=== PATIENT | female | born 1945 | race Caucasian/White ===

== ENCOUNTER 2016-11-21 18:42 | Observation (INO) | payer MEDICARE, OTHER ==
[2016-11-21] MEDS ORDERED: ACETAMINOPHEN 1000 MG/100 ML VIAL (NON FORMULARY) IVPB ONE (20:05)
[2016-11-21] MEDS ORDERED: ACETAMINOPHEN INJECTION 100 ML IVPB ONE (20:07)
[2016-11-21 20:13] LABS: BASOPHIL 0.6 % (0-2.0); EOSINOPHIL 2.2 % (0-4.5); MCH 31.6 pg (25.7-33.7); MCHC 33.6 g/dl (32.0-36.0); MEAN PLT VOLUME 8.7 fl (7.5-11.1); PLATELET COUNT 203 K/MM3 (134-434); RDW 14.5 % (11.6-15.6); WHITE BLOOD COUNT 7.1 K/mm3 (4.0-10.0)
--- NOTE | 2016-11-21 20:15 | PDOC ---
History of Present Illness - General Chief Complaint: Injury Stated Complaint: FALL Time Seen by Provider: 11/21/16 19:19 - History of Present Illness Initial Comments: 11/21/16 20:14 CHIEF COMPLAINT: fall HISTORY OF PRESENT ILLNESS: 71 yo F with hx of NIDDM, HTN, HLD presents to ED s/ p fall. Patient states that "I got dizzy because I didn't eat breakfast today, and I fell onto my back and hit my head." Patient denies any blurry vision, chest pain, shortness of breath. She denies any pain to extremities, any LOC, and denies any nausea, vomiting, current dizziness/headache. No recent travel or sick contacts. PAST MEDICAL HISTORY: Denies past medical history FAMILY HISTORY: Denies SOCIAL HISTORY: Denies tobacco, alcohol, illicit drug use. SURGICAL HISTORY: Denies ALLERGIES: No known drug allergies REVIEW OF SYSTEMS General/Constitutional: Denies fever or chills. Denies weakness, weight change. HEENT: Denies change in vision. Denies ear pain or discharge. Denies sore throat. Cardiovascular: Denies chest pain or shortness of breath. Respiratory: Denies cough, wheezing, or hemoptysis. Gastrointestinal: Denies nausea, vomiting, diarrhea or constipation. Denies rectal bleeding. Genitourinary: Denies dysuria, frequency, or change in urination. Musculoskeletal: Pain to upper back, neck, head. Skin and breasts: Denies rash or easy bruising. Neurologic: Denies headache, vertigo, loss of consciousness, or loss of sensation. PHYSICAL EXAM General Appearance: Well-appearing, appropriately dressed. No apparent distress. HEENT: EOMI, PERRLA, normal ENT inspection, normal voice, TMs normal, pharynx normal. No conjunctival pallor. No photophobia, scleral icterus. Neck: Supple. Trachea midline. No tenderness, rigidity, carotid bruit, stridor , lymphadenopathy, or thyromegaly. Respiratory/Chest: Lungs CTAB. Cardiovascular: RRR. S1, S2. Vascular Pulses: Dorsalis-Pedis (R): 2+, Dorsalis-Pedis (L): 2+ Gastrointestinal/Abdominal: Normal bowel sounds. Abdomen soft, non-distended. No tenderness or rebound tenderness. No organomegaly, pulsatile mass, guarding , hernia, hepatomegaly, splenomegaly. Musculoskeletal/Extremities: Normal inspection. FROM of all extremities, normal capillary refill. Pelvis Stable. No CVA tenderness. No tenderness to extremities, pedal edema, swelling, erythema or deformity. Integumentary: Appropriate color, dry, warm. No cyanosis, erythema, jaundice or rash Neurologic: commercial art instructor II-XII intact. Fully oriented, alert. Appropriate mood/affect. Motor strength 5/5. No appreciable EOM palsy, facial droop or sensory deficit.A &Ox3, follow commands, respond appropriately CN2-12: conjugate gaze, pupil round, equal and reactive to light. Visual field full to confrontation. EOMI without nystagmus, pursuit is smooth without saccade. Facial sensation and muscle activation intact bilaterally. Hearing intact bilaterally. Palate elevate symmetrically. Shoulder shrug and neck turn full strength. Tongue protrude midline. Motor: UE and LE strength 5/5 throughout bilaterally. Muscle tone and bulk normal. Cerebellar: Rapid-alternating movement with regular rhythm without bradykinesia. Ghyeoh-iw-bpyc and mpie-sc-yumh intact bilaterally without dysmetria or overshoot. Gait narrow based. No shuffling. Full hip flexion and knee flexion. Negative Romberg No involuntary movement noted. No pronator drift. No clonus. 11/21/16 23:31 Past History - Past Medical History Allergies/Adverse Reactions: Allergies Allergy/AdvReac Type Severity Reaction Status Date / Time No Known Allergies Allergy Verified 11/21/16 18:55 Home Medications: Ambulatory Orders Amlodipine Besylate [Norvasc -] 0 mg PO DAILY 11/21/16 Aspirin [ASA -] 81 mg PO DAILY 11/21/16 Metformin HCl [Metformin HCl ER] 0 mg PO DAILY 11/21/16 Metoprolol Succinate [Toprol Xl -] 0 mg PO DAILY 11/21/16 Pravastatin Sodium 0 mg PO DAILY 11/21/16 Diabetes: Yes HTN: Yes Hypercholesterolemia: Yes - Suicide/Smoking/Psychosocial Hx Smoking History: Current every day smoker Number of Cigarettes Smoked Daily: 2 Information on smoking cessation initiated: No Hx Alcohol Use: No Drug/Substance Use Hx: No *Physical Exam - Vital Signs Last Vital Signs Temp Pulse Resp BP Pulse Ox 98.4 F 78 18 144/70 98 11/21/16 18:51 11/21/16 18:51 11/21/16 18:51 11/21/16 18:51 11/21/16 18:51 ED Treatment Course - LABORATORY CBC & Chemistry Diagram: 11/21/16 19:45 11/21/16 19:45 - RADIOLOGY Radiology Studies Ordered: Category Date Time Status CERVICAL SPINE CT W/O CONTR [CT] Stat CT Scan 11/21/16 19:[address] WITHOUT CONTRAST [CT] Stat CT Scan 11/21/16 19:21 Ordered - Medications Given in the ED: ED Medications Discontinued Medications Generic Name Dose Route Start Last Admin Trade Name Blanche PRN Reason Stop Dose Admin Acetaminophen 1,000 mg 11/21/16 20:05 11/21/16 20:10 Ofirmev Injection - IVPB 11/21/16 20:06 1,000 mg ONCE ONE Administration Medical Decision Making - Medical Decision Making 11/21/16 20:28 71 yo F with hx of NIDDM, HTN, HLD presents to ED s/p fall. Patient states that "I got dizzy because I didn't eat breakfast today, and I fell onto my back and hit my head." Patient VSS, no focal neurological deficits. -CBC, CMP, POC, card profile -Head/c-spine CT 11/21/16 23:[address] results: Symmetric lucency in posterior one third of the cerebral likely an artifact. Confirmation with MRI needed - is there any clinical concern for an acute infarct? Mild volume loss and moderate chronic microvascular ischemic changes. No mass lesion or intracranial hemorrhage are identified. C-spine CT results: No gross fracture or subluxation seen. Mild degenerative disc disease at C5-C6 and C6-C7 level with mild anterior and posterior spur formation. Patient continues to be neurologically intact and is ambulating without weakness. Family at bedside report that she is acting per baseline. Patient denies any pain, headache, dizziness, weakness at this time. Discussed case with on-call neuro MD Mcpherson. Will admit to obs for brain MRI to r/o infarct. *DC/Admit/Observation/Transfer Diagnosis at time of Disposition: Fall Qualifiers: Encounter type: initial encounter Qualified Code(s): W19.XXXA - Unspecified fall, initial encounter; W19.XXXA - Unspecified fall, initial encounter Transient cerebral ischemia Qualifiers: Transient cerebral ischemia type: unspecified Qualified Code(s): G45.9 - Transient cerebral ischemic attack, unspecified; G45.9 - Transient cerebral ischemic attack, unspecified; G45.9 - Transient cerebral ischemic attack, unspecified - Discharge Dispostion Admit: Yes
[2016-11-21 20:26] LABS: INR 0.88 (0.82-1.09); PROTHROMBIN TIME (PATIENT) 9.9 SEC (9.98-11.88)
[2016-11-21 20:36] LABS: ALBUMIN 3.2 g/dl (3.4-5.0); ANION GAP 7 (8-16); BILIRUBIN,TOTAL 0.3 mg/dL (0.2-1.0); CALCIUM 8.4 mg/dL (8.5-10.1); CO2 33 mmol/L (21-32); CREATININE 1.2 mg/dL (0.55-1.02); GLUCOSE,RANDOM 130 mg/dL (74-106); SGOT/AST 15 U/L (15-37); SGPT/ALT 24 U/L (12-78)
[2016-11-21 20:39] LABS: ALK PHOS 145 U/L (45-117); CPK 89 IU/L (26-192); TOT PROT 6.7 g/dl (6.4-8.2); TROPONIN I < 0.02 ng/ml (0.00-0.05)
[2016-11-21] MEDS ORDERED: SODIUM CHLORIDE 0.9% 1000 ML INFUS.BAG IV ONE (20:43)
[2016-11-21 23:11] LABS: URINE APPEARANCE CLEAR; URINE BILIRUBIN NEGATIVE (NEGATIVE); URINE BLOOD NEGATIVE (NEGATIVE); URINE COLOR LTYELLOW; URINE GLUCOSE (UA) NEGATIVE (NEGATIVE); URINE KETONE NEGATIVE (NEGATIVE); URINE NITRITE NEGATIVE (NEGATIVE); URINE PROTEIN NEGATIVE (NEGATIVE); URINE UROBILINOGEN NEGATIVE mg/dL (0.2-1.0)
--- NOTE | 2016-11-22 09:07 | EKG ---
Test Reason : Blood Pressure : / mmHG Vent. Rate : 068 BPM Atrial Rate : 068 BPM P-R Int : 198 ms QRS Dur : 090 ms QT Int : 406 ms P-R-T Axes : 072 -10 057 degrees QTc Int : 431 ms NORMAL SINUS RHYTHM MINIMAL VOLTAGE CRITERIA FOR LVH, MAY BE NORMAL VARIANT POSSIBLE ANTERIOR INFARCT , AGE UNDETERMINED ABNORMAL ECG NO PREVIOUS ECGS AVAILABLE Confirmed by BUTCH SIBLEY MD ([id number]) on 11/22/2016 9:06:54 AM Referred By: Confirmed By:BUTCH SIBLEY MD
[2016-11-22 09:35] LABS: URINE LEUK ESTERASE Negative (NEGATIVE)
[2016-11-22] MEDS ORDERED: ACETAMINOPHEN 325 MG TABLET (FP) PO PRN (10:26)
[2016-11-22] MEDS ORDERED: amLODIPine BESYLATE 5 MG TABLET (FP) PO SCH (10:30)
[2016-11-22] MEDS ORDERED: LIDOCAINE 5% TOPICAL PATCH TP SCH (10:30)
--- NOTE | 2016-11-22 10:45 | CONSULT ---
Consult - text type - Consultation Consultation Note: Neurology History of Present Illness HISTORY OF PRESENT ILLNESS: 71 yo F with hx of NIDDM, HTN, HLD presents to ED s/ p fall. Patient states that "I got dizzy because I didn't eat breakfast today, and I fell onto my back and hit my head." Patient denies any blurry vision, chest pain, shortness of breath. She denies any pain to extremities, any LOC, and denies any nausea, vomiting, current dizziness/headache. She compelted CT head in the ER and showed "Symmetric lucency in posterior one third of the cerebral likely an artifact. Confirmation with MRI needed - is there any clinical concern for an acute infarct? Mild volume loss and moderate chronic microvascular ischemic changes. No mass lesion or intracranial hemorrhage are identified." MRI brain ordered, admitted for further evaluation and clarify if artifact. CT C spine also completed and reviewed with no gross fracture or subluxation seen. Mild degenerative disc disease at C5-C6 and C6-C7 level with mild anterior and posterior spur formation. Past History - Past Medical History Allergies/Adverse Reactions: Allergies Allergy/AdvReac Type Severity Reaction Status Date / Time No Known Allergies Allergy Verified 11/21/16 18:55 Home Medications: Ambulatory Orders Amlodipine Besylate [Norvasc -] 0 mg PO DAILY 11/21/16 Aspirin [ASA -] 81 mg PO DAILY 11/21/16 Metformin HCl [Metformin HCl ER] 0 mg PO DAILY 11/21/16 Metoprolol Succinate [Toprol Xl -] 0 mg PO DAILY 11/21/16 Pravastatin Sodium 0 mg PO DAILY 11/21/16 Diabetes: Yes HTN: Yes Hypercholesterolemia: Yes FAMILY HISTORY: Denies SOCIAL HISTORY: Denies tobacco, alcohol, illicit drug use. SURGICAL HISTORY: Denies ALLERGIES: No known drug allergies REVIEW OF SYSTEMS General/Constitutional: Denies fever or chills. Denies weakness, weight change. HEENT: Denies change in vision. Denies ear pain or discharge. Denies sore throat. Cardiovascular: Denies chest pain or shortness of breath. Respiratory: Denies cough, wheezing, or hemoptysis. Gastrointestinal: Denies nausea, vomiting, diarrhea or constipation. Denies rectal bleeding. Genitourinary: Denies dysuria, frequency, or change in urination. Musculoskeletal: Pain to upper back, neck, head. Skin and breasts: Denies rash or easy bruising. Neurologic: Denies headache, vertigo, loss of consciousness, or loss of sensation. *Physical Exam Vital Signs Period Temp Pulse Resp BP Sys/Pack Pulse Ox Last 24 Hr 97.3 F-98.4 F 65-78 16-18 126-156/59-70 95-98 General Appearance: Well-appearing, appropriately dressed. No apparent distress. HEENT: EOMI, PERRLA, normal ENT inspection, normal voice, TMs normal, pharynx normal. No conjunctival pallor. No photophobia, scleral icterus. Neck: Supple. Trachea midline. No tenderness, rigidity, carotid bruit, stridor , lymphadenopathy, or thyromegaly. Respiratory/Chest: Lungs CTAB. Cardiovascular: RRR. S1, S2. Vascular Pulses: Dorsalis-Pedis (R): 2+, Dorsalis-Pedis (L): 2+ Gastrointestinal/Abdominal: Normal bowel sounds. Abdomen soft, non-distended. No tenderness or rebound tenderness. No organomegaly, pulsatile mass, guarding , hernia, hepatomegaly, splenomegaly. Neurologic: showroom executive director II-XII intact. Fully oriented, alert. Appropriate mood/affect. Motor strength 5/5. No appreciable EOM palsy, facial droop or sensory deficit.A&Ox3, follow commands , respond appropriately CN2-12: conjugate gaze, pupil round, equal and reactive to light. Visual field full to confrontation. EOMI without nystagmus, pursuit is smooth without saccade. Facial sensation and muscle activation intact bilaterally. Hearing intact bilaterally. Palate elevate symmetrically. Shoulder shrug and neck turn full strength. Tongue protrude midline. Motor: UE and LE strength 5/5 throughout bilaterally. Muscle tone and bulk normal. Cerebellar: Fjncbf-jp-yesb and uiyc-wh-pnqa intact bilaterally without dysmetria or overshoot. CBCD WBC 7.1 K/mm3 (4.0-10.0) 11/21/16 19:45 RBC 4.50 M/mm3 (3.60-5.2) 11/21/16 19:45 Hgb 14.2 GM/dL (10.7-15.3) 11/21/16 19:45 Hct 42.3 % (32.4-45.2) 11/21/16 19:45 MCV 94.0 fl (80-96) 11/21/16 19:45 MCHC 33.6 g/dl (32.0-36.0) 11/21/16 19:45 RDW 14.5 % (11.6-15.6) 11/21/16 19:45 Plt Count 203 K/MM3 (134-434) 11/21/16 19:45 MPV 8.7 fl (7.5-11.1) 11/21/16 19:45 CMP Sodium 142 mmol/L (136-145) 11/21/16 19:45 Potassium 3.9 mmol/L (3.5-5.1) 11/21/16 19:45 Chloride 102 mmol/L (98-107) 11/21/16 19:45 Carbon Dioxide 33 mmol/L (21-32) H 11/21/16 19:45 Anion Gap 7 (8-16) L 11/21/16 19:45 BUN 27 mg/dL (7-18) H 11/21/16 19:45 Creatinine 1.2 mg/dL (0.55-1.02) H 11/21/16 19:45 Creat Clearance w eGFR 44.04 (>60) 11/21/16 19:45 Calcium 8.4 mg/dL (8.5-10.1) L 11/21/16 19:45 Total Bilirubin 0.3 mg/dL (0.2-1.0) 11/21/16 19:45 AST 15 U/L (15-37) 11/21/16 19:45 ALT 24 U/L (12-78) 11/21/16 19:45 Alkaline Phosphatase 145 U/L (45-117) H 11/21/16 19:45 Total Protein 6.7 g/dl (6.4-8.2) 11/21/16 19:45 Albumin 3.2 g/dl (3.4-5.0) L 11/21/16 19:45 CT head reviewed Medical Decision Making 71 yo F with hx of NIDDM, HTN, HLD presents to ED s/p fall. Patient states that "I got dizzy because I didn't eat breakfast today, and I fell onto my back and hit my head." Patient denies any blurry vision, chest pain, shortness of breath. She denies any pain to extremities, any LOC, and denies any nausea, vomiting, current dizziness/headache. She compelted CT head in the ER and showed "Symmetric lucency in posterior one third of the cerebral likely an artifact. Confirmation with MRI needed - is there any clinical concern for an acute infarct? Mild volume loss and moderate chronic microvascular ischemic changes. No mass lesion or intracranial hemorrhage are identified." MRI brain ordered, admitted for further evaluation and clarify if artifact. Blood pressure monitoring, continue anti-HTN medications, goal range < 140/90. Continue ASA 81mg. Tight glycemic control, continue metformin. IF MRI negative, then likely for discharge.
[2016-11-22] MEDS ORDERED: INSULIN (NOVOLOG) ASPART 100 UNITS/ML 10ML VIAL ONE (10:49)
[2016-11-22] MEDS: INSULIN (NOVOLOG) ASPART 100 UNITS/ML 10ML VIAL SQ SCH ×2 (11:05→16:38)
[2016-11-22 13:30] VITALS: BMI 32.3
--- NOTE | 2016-11-22 13:38 | HP ---
Admitting History and Physical - Primary Care Physician PCP: Hossein Ogden - Admission Chief Complaint: fall History of Present Illness: 71 yo F with hx of NIDDM, HTN, HLD presents to ED s/p fall. Patient states that "I got dizzy because I didn't eat breakfast today, and I fell onto my back and hit my head." Patient denies any blurry vision, chest pain, shortness of breath. She denies any pain to extremities, any LOC, and denies any nausea, vomiting, current dizziness/headache. ct head - showed artifact vs infarct seen by neuro- mri ordered pt seen/ examined . chart reviewed comfortable feels well denies cp/ sob/ abd pain no u/ b trouble. No recent travel or sick contacts. FAMILY HISTORY: Denies SOCIAL HISTORY: Denies tobacco, alcohol, illicit drug use. SURGICAL HISTORY: Denies History Source: Patient Limitations to Obtaining History: No Limitations - Past Medical History ...: No - Advance Directives Advance Directives: Yes: Health Care Proxy - Smoking History Smoking history: Current every day smoker Have you smoked in the past 12 months: Yes Aproximately how many cigarettes per day: 2 - Alcohol/Substance Use Hx Alcohol Use: No Home Medications - Allergies Allergies/Adverse Reactions: Allergies Allergy/AdvReac Type Severity Reaction Status Date / Time No Known Allergies Allergy Verified 11/21/16 18:55 - Home Medications Home Medications: Ambulatory Orders Amlodipine Besylate [Norvasc -] 0 mg PO DAILY 11/21/16 Aspirin [ASA -] 81 mg PO DAILY 11/21/16 Metformin HCl [Metformin HCl ER] 0 mg PO DAILY 11/21/16 Metoprolol Succinate [Toprol XL -] 0 mg PO DAILY 11/21/16 Pravastatin Sodium 0 mg PO DAILY 11/21/16 Acetaminophen [Tylenol .Regular Strength -] 650 mg PO Q6H PRN #0 tablet Atorvastatin Ca [Lipitor] 10 mg PO HS tablet 11/22/16 Insulin (Novolog) [Novolog -] 0 units SQ TIDAC units 11/22/16 Lidocaine 5% Patch [Lidoderm -] 1 patch TP DAILY patch 11/22/16 Lidocaine Patch Removal [Lidoderm Patch Removal] 1 each MC DAILY@2200 each Family Disease History - Family Disease History Family History: Unremarkable Review of Systems - Review of Systems Constitutional: reports: No Symptoms Eyes: reports: No Symptoms HENT: reports: No Symptoms Neck: reports: No Symptoms Cardiovascular: reports: No Symptoms Respiratory: reports: No Symptoms Gastrointestinal: reports: No Symptoms Genitourinary: reports: No Symptoms Neurological: reports: No Symptoms Endocrine: reports: No Symptoms Hematology/Lymphatic: reports: No Symptoms Psychiatric: reports: No Symptoms Physical Examination Vital Signs: Vital Signs Temperature 97.8 F 11/22/16 10:00 Pulse Rate 65 11/22/16 10:00 Respiratory Rate 18 11/22/16 10:00 Blood Pressure 156/65 11/22/16 10:00 O2 Sat by Pulse Oximetry (%) 96 11/22/16 10:00 Constitutional: Yes: No Distress, Calm Eyes: Yes: WNL, Conjunctiva Clear HENT: Yes: WNL Neck: Yes: WNL, Supple, Other (no carotid bruie) Respiratory: Yes: CTA Bilaterally Gastrointestinal: Yes: Normal Bowel Sounds, Soft Edema: No Neurological: Yes: WNL, Alert, Cran Nerves II-XII Intact Psychiatric: Yes: Alert Imaging - Results Cat Scan: Report Reviewed EKG: Report Reviewed Problem List - Problems (1) Fall Code(s): W19.XXXA - UNSPECIFIED FALL, INITIAL ENCOUNTER Qualifiers: Encounter type: initial encounter Qualified Code(s): W19.XXXA - Unspecified fall, initial encounter; W19.XXXA - Unspecified fall, initial encounter (2) Hypertension Code(s): I10 - ESSENTIAL (PRIMARY) HYPERTENSION (3) NIDDY (non-insulin dependent diabetes mellitus in young) Code(s): E13.9 - OTHER SPECIFIED DIABETES MELLITUS WITHOUT COMPLICATIONS Assessment/Plan exam benign. harriet vasovagal ct scan - reviewed- fine mri brain - per neurology u/s carotid- may be done as out pt as pt wants to go home. anticipate d/c later today discussed with nursing staff.
[2016-11-22 14:25] VITALS: BP 132/56; PULSE 73; TEMP 98.3
[2016-11-22] MEDS ORDERED: ATORVASTATIN CA 10 MG TABLET (FP) PO SCH (22:00)
[2016-11-22] MEDS ORDERED: LIDOCAINE PATCH REMOVAL MC SCH (22:00)
[2016-11-23] MEDS ORDERED: METOPROLOL SUCCINATE 25 MG TAB.SR.24H (FP) PO SCH (10:00)
[2016-11-23] MEDS ORDERED: ASPIRIN 81 MG CHEWABLE TABLETS PO SCH (10:00)
== END 2016-11-22 18:25 | disposition home or self-care (01) ==
LOC: SUPCPDRO 18:42 → JER 18:42 → JERBED 11-22 00:53 → UNDOADMOB 11-22 01:04 → J6S 11-22 09:38
PROVIDERS: ADMIT Internal Medicine; ATTEND Internal Medicine
PROC: 3E033NZ Introduction of Analgesics, Hypnotics, Sedatives into Peripheral Vein, Percutaneous Approach (ICD-10-PCS; principal; 2016-11-22)
DX: Z91.81 History of falling (principal); I10 Essential (primary) hypertension; E11.9 Type 2 diabetes mellitus without complications; E78.5 Hyperlipidemia, unspecified; F17.210 Nicotine dependence, cigarettes, uncomplicated; Z79.84 Long term (current) use of oral hypoglycemic drugs; Z79.82 Long term (current) use of aspirin; W18.39XA Other fall on same level, initial encounter; Y93.9 Activity, unspecified; Y92.9 Unspecified place or not applicable
CPT/HCPCS: 36415; 70450-TC; 70551-TC; 72125-TC; 80053; 81003; 82550; 83605; 84484; 85025; 85610; 87086; 93005; 93010; 96374; 99285-25; G0378

== ENCOUNTER 2018-01-09 12:37 | Inpatient (IN) | payer MEDICARE, OTHER ==
[2018-01-09 12:58] VITALS: BMI 32.1
--- NOTE | 2018-01-09 13:06 | PDOC ---
History of Present Illness - General Chief Complaint: Shortness of Breath Stated Complaint: PCP SENT Time Seen by Provider: 01/09/18 13:04 - History of Present Illness Initial Comments: 01/09/18 14:12 The patient is a 72 year old female with a history of HTN, HLD, DM, CVA, CAD who presents for evaluation of shortness of breath. The patient is accompanied by family who assist in providing the history. They note that the patient began having cough, shortness of breath, body aches 2 days ago and was started on tamiflu at that time for presumed flu. However, the patient notes worsening symptoms and was noted to have a low O2 sat to 80 at her primary care provider' s office and was sent to the ED for further evaluation. She otherwise denies fevers, chills, Chest pain, nausea, vomiting, abdominal pain, or changes with urination or bowel movements. Past History - Past Medical History Allergies/Adverse Reactions: Allergies Allergy/AdvReac Type Severity Reaction Status Date / Time No Known Allergies Allergy Verified 01/09/18 12:51 Home Medications: Ambulatory Orders Albuterol Sulfate [Proventil HFA Inhaler -] 1 - 2 inh PO TID 01/09/18 Alprazolam [Xanax] 1 mg PO 01/09/18 Amlodipine/Valsartan [Exforge 10-320 mg Tablet] 10 mg PO DAILY 01/09/18 Atorvastatin Ca [Lipitor] 20 mg PO HS 01/09/18 Budesonide/Formeterol Fumarate [SYMBICORT 160/4.5mcg -] 1 inh PO DAILY 01/09/18 Ergocalciferol (Vitamin D2) [Vitamin D2] 50,000 unit PO ASDIR 01/09/18 Glipizide 5 mg PO DAILY 01/09/18 Hctz 25Mg/Triamterene [Dyazide 25/37.5MG -] 1 cap PO DAILY 01/09/18 Naproxen [Naprosyn -] 500 mg PO BID 01/09/18 Nebivolol HCl [Bystolic] 10 mg PO 01/09/18 Nicotine [Nicotine Patch 14mg/24 hr] 1 each TD 01/09/18 Olopatadine HCl [Patanol] 0.1 ASDIR 01/09/18 Oseltamivir Phosphate [Tamiflu -] 75 mg PO BID 01/09/18 Anemia: Yes Asthma: Yes Cancer: No 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) COPD: No CHF: No Dementia: No Diabetes: Yes GI Disorders: No Disorders: No HTN: Yes Hypercholesterolemia: Yes Liver Disease: No Seizures: No Thyroid Disease: No - Surgical History Abdominal Surgery: No Appendectomy: No Cardiac Surgery: No Cholecystectomy: No Lung Surgery: No Neurologic Surgery: No Orthopedic Surgery: No - Suicide/Smoking/Psychosocial Hx Smoking History: Current every day smoker Have you smoked in the past 12 months: Yes Number of Cigarettes Smoked Daily: 2 Information on smoking cessation initiated: No 'Breaking Loose' booklet given: 11/22/16 Hx Alcohol Use: No Drug/Substance Use Hx: No Substance Use Type: None Hx Substance Use Treatment: No Review of Systems - Review of Systems Comments:: 01/09/18 14:14 Constitutional: Body Aches. No fevers, chills, fatigue, HEENT: Nasal Congestion. No Rhinorrhea, visual changes Cardiovascular: No chest pain, syncope, palpitations, lightheadedness Respiratory: Cough, SOB. No Hemoptysis, Gastrointestinal: No Abdominal pain, Nausea, Vomiting, Constipation, Diarrhea, Melena Genitourinary: No Dysuria, Frequency, Urgency, Hesitancy, Hematuria, Flank pain Musculoskeletal: No Myalgia, arthralgia Skin: No rashes, itching, bruising, pallor Neurologic: No Headache, Dizziness, Numbness, Weakness, or Tingling Psychiatric: No Hallucinations. No SI or HI *Physical Exam - Vital Signs Last Vital Signs Temp Pulse Resp BP Pulse Ox 98.6 F 90 30 H 159/79 74 L 01/09/18 12:56 01/09/18 12:56 01/09/18 12:56 01/09/18 12:56 01/09/18 12:56 - Physical Exam Comments: 01/09/18 14:16 General Appearance: Nourished. No Apparent Distress HEENT: No Pharyngeal Erythema, Tonsillar Exudate, Tonsillar Erythema Neck: No Cervical Lymphadenopathy Respiratory/Chest: Poor air movement bilaterally with wheezing and course breath sounds. No Crackles, Rales, Rhonchi, Cardiovascular: Regular Rhythm, Regular Rate. No Murmur, Gallops, Rubs Gastrointestinal/Abdominal: Normal Bowel Sounds, Soft. No Guarding, Rebound, Tenderness Musculoskeletal: No CVA Tenderness Extremity: Normal Capillary Refill Integumentary: Normal Color, Dry, Warm Neurologic: Fully Oriented, Alert, Normal Mood/Affect, Normal Response, Moderate Sedation - Procedure Monitoring Vital Signs: Procedure Monitoring Vital Signs Temperature 98.6 F 01/09/18 12:56 Pulse Rate 90 01/09/18 12:56 Respiratory Rate 30 H 01/09/18 12:56 Blood Pressure 159/79 01/09/18 12:56 O2 Sat by Pulse Oximetry (%) 74 L 01/09/18 12:56 ED Treatment Course - LABORATORY CBC & Chemistry Diagram: 01/10/18 06:00 01/10/18 05:30 Medical Decision Making - Medical Decision Making 01/09/18 14:16 The patient is a 72 year old female with a history of HTN, HLD, DM, CVA, CAD who presents for evaluation of shortness of breath. Differential includes but is not limited to: COPD exacerbation, CHF, ACS, Pneumonia, Influenza, Infectious , Metabolic Derangement. Given the patient's history and physical exam, we will obtain a cbc, cmp, troponin, bnp, chest plain film, ekg, influenza swab to evaluate further. We will treat with duonebs, solumedrol and continue to monitor and reassess while here in the ED. The patient will likely be an admission given her exam and presentation. 01/09/18 17:15 CBC, cmp, troponin are unremarkable. BNP is elevated. Chest plain film demonstrates congestive changes. We discussed the case with the admitting team who accepted the patient for admission. *DC/Admit/Observation/Transfer Diagnosis at time of Disposition: COPD (chronic obstructive pulmonary disease) Qualifiers: COPD type: unspecified COPD Qualified Code(s): J44.9 - Chronic obstructive pulmonary disease, unspecified CHF (congestive heart failure) Qualifiers: Heart failure type: unspecified Heart failure chronicity: unspecified Qualified Code(s): I50.9 - Heart failure, unspecified - Discharge Dispostion Condition at time of disposition: Stable Decision to Admit order: Yes - Referrals - Patient Instructions - Post Discharge Activity
[2018-01-09] MEDS ORDERED: ALBUTEROL SO4 2.5/IPRATROPIUM 0.5 INH SOL 3 ML VIAL.NEB. NEB ONE ×2 (13:12)
[2018-01-09] MEDS ORDERED: methylPREDNISolone NA SUCC 125 MG/2 ML VIAL IVPUSH ONE (13:12)
[2018-01-09] MEDS ORDERED: methylPREDNISolone NA SUCC 125 MG/2 ML VIAL ONE (13:13)
[2018-01-09 14:04] LABS: BASO % 0.3 % (0-2.0); EOS % 0.1 % (0-4.5); HEMATOCRIT 42.8 % (32.4-45.2); HEMOGLOBIN 14.6 GM/dL (10.7-15.3); LYMPH % 24.1 % (8-40); MCH 31.7 pg (25.7-33.7); MCHC 34.1 g/dl (32.0-36.0); MEAN CELL VOLUME 92.8 fl (80-96); MEAN PLT VOLUME 8.1 fl (7.5-11.1); MONO % 10.7 % (3.8-10.2); NEUT % 64.8 % (42.8-82.8); PLATELET COUNT 252 K/MM3 (134-434); RBC 4.61 M/mm3 (3.60-5.2); RDW 15.2 % (11.6-15.6); WHITE BLOOD COUNT 6.1 K/mm3 (4.0-10.0)
[2018-01-09 14:08] LABS: VENOUS PC02 66.3 mmHg (38-52); VENOUS PH 7.32 (7.32-7.42); VENOUS PO2 90.8 mmHg (28-48)
[2018-01-09 14:19] LABS: URINE APPEARANCE CLEAR; URINE BILIRUBIN NEGATIVE (<2.0 mg/dL); URINE COLOR LTYELLOW; URINE GLUCOSE (UA) NEGATIVE (NEGATIVE); URINE KETONE NEGATIVE (NEGATIVE); URINE LEUK ESTERASE NEGATIVE (NEGATIVE); URINE NITRITE NEGATIVE (NEGATIVE); URINE PROTEIN 1+ (NEGATIVE); URINE UROBILINOGEN NEGATIVE mg/dL (0.2-1.0)
[2018-01-09 14:24] LABS: EPI CELLS RARE /HPF (FEW)
[2018-01-09 14:38] LABS: ALBUMIN 3.3 g/dl (3.4-5.0); ALK PHOS 104 U/L (45-117); ANION GAP 6 MMOL/L (8-16); BILIRUBIN,TOTAL 0.4 mg/dL (0.2-1); BLOOD UREA NITROGEN 26 mg/dL (7-18); CALCIUM 8.1 mg/dL (8.5-10.1); CHLORIDE 94 mmol/L (98-107); CO2 31 mmol/L (21-32); CREATININE 1.2 mg/dL (0.55-1.3); GLUCOSE,RANDOM 183 mg/dL (74-106); N-TERMINAL BNP 1839.6 pg/ml (5-125); POTASSIUM 4.2 mmol/L (3.5-5.1); SGOT/AST 23 U/L (15-37); SGPT/ALT 23 U/L (13-61); SODIUM 132 mmol/L (136-145); TOT PROT 7.2 g/dl (6.4-8.2)
[2018-01-09] MEDS ORDERED: ACETAMINOPHEN 325 MG TABLET (FP) PO PRN (17:23)
--- NOTE | 2018-01-09 17:31 | HP ---
Admitting History and Physical - Primary Care Physician PCP: Hossein Ogden - Admission Chief Complaint: sob History of Present Illness: pt seen/ examined in er chart reviewed/ case discussed with er jay as wellas with pts daughter who art bedside. Per er records. The patient is a 72 year old female with a history of HTN, HLD, DM, CVA, CAD who presents for evaluation of shortness of breath. The patient is accompanied by family who assist in providing the history. They note that the patient began having cough, shortness of breath, body aches 2 days ago and was started on tamiflu at that time for presumed flu. However, the patient notes worsening symptoms and was noted to have a low O2 sat to 80 at her primary care provider' s office and was sent to the ED for further evaluation. She otherwise denies fevers, chills, Chest pain, nausea, vomiting, abdominal pain, or changes with urination or bowel movements. History Source: Patient, Family Member Limitations to Obtaining History: Clinical Condition - Smoking History Smoking history: Current every day smoker Have you smoked in the past 12 months: Yes Aproximately how many cigarettes per day: 6 - Alcohol/Substance Use Hx Alcohol Use: No Home Medications - Allergies Allergies/Adverse Reactions: Allergies Allergy/AdvReac Type Severity Reaction Status Date / Time No Known Allergies Allergy Verified 01/09/18 12:51 - Home Medications Home Medications: Ambulatory Orders Albuterol Sulfate [Proventil HFA Inhaler -] 1 - 2 inh PO TID 01/09/18 Alprazolam [Xanax] 1 mg PO 01/09/18 Amlodipine/Valsartan [Exforge 10-320 mg Tablet] 10 mg PO DAILY 01/09/18 Atorvastatin Ca [Lipitor] 20 mg PO HS 01/09/18 Budesonide/Formeterol Fumarate [SYMBICORT 160/4.5mcg -] 1 inh PO DAILY 01/09/18 Ergocalciferol (Vitamin D2) [Vitamin D2] 50,000 unit PO ASDIR 01/09/18 Glipizide 5 mg PO DAILY 01/09/18 Hctz 25Mg/Triamterene [Dyazide 25/37.5MG -] 1 cap PO DAILY 01/09/18 Naproxen [Naprosyn -] 500 mg PO BID 01/09/18 Nebivolol HCl [Bystolic] 10 mg PO 01/09/18 Nicotine [Nicotine Patch 14mg/24 hr] 1 each TD 01/09/18 Olopatadine HCl [Patanol] 0.1 ASDIR 01/09/18 Oseltamivir Phosphate [Tamiflu -] 75 mg PO BID 01/09/18 Review of Systems Findings/Remarks: see [place] [facility] Physical Examination Vital Signs: Vital Signs Temperature 98.0 F 01/09/18 16:44 Pulse Rate 95 H 01/09/18 16:44 Respiratory Rate 21 H 01/09/18 16:44 Blood Pressure 154/77 01/09/18 16:44 O2 Sat by Pulse Oximetry (%) 88 L 01/09/18 16:44 Constitutional: Yes: Moderate Distress Eyes: Yes: Conjunctiva Clear HENT: Yes: WNL Neck: Yes: Supple Cardiovascular: Yes: Regular Rate and Rhythm Respiratory: Yes: Wheezes Gastrointestinal: Yes: Soft Edema: LLE: 1+, RLE: 1+ Neurological: Yes: Alert Labs: CBC, BMP 01/09/18 13:30 01/09/18 13:30 Imaging - Results Chest X-ray: Report Reviewed EKG: Report Reviewed Problem List - Problems (1) Obesity Code(s): E66.9 - OBESITY, UNSPECIFIED (2) Smoker unmotivated to quit Code(s): F17.200 - NICOTINE DEPENDENCE, UNSPECIFIED, UNCOMPLICATED (3) CHF (congestive heart failure) Code(s): I50.9 - HEART FAILURE, UNSPECIFIED Qualifiers: Heart failure type: unspecified Heart failure chronicity: unspecified Qualified Code(s): I50.9 - Heart failure, unspecified (4) COPD (chronic obstructive pulmonary disease) Code(s): J44.9 - CHRONIC OBSTRUCTIVE PULMONARY DISEASE, UNSPECIFIED Qualifiers: COPD type: unspecified COPD Qualified Code(s): J44.9 - Chronic obstructive pulmonary disease, unspecified (5) Hypertension Code(s): I10 - ESSENTIAL (PRIMARY) HYPERTENSION (6) NIDDY (non-insulin dependent diabetes mellitus in young) Code(s): E13.9 - OTHER SPECIFIED DIABETES MELLITUS WITHOUT COMPLICATIONS Assessment/Plan Copd exac Likely chf -- Cor pulmonale check bnp/cxr check - influenza-- doubt will stop tamiflu if -ve steroids i/v lasix echo cardiology eval admit to tele meds reviewed discussed in detail with pts daughter also smoking cessation counselling provided . not willing yet will follow time spend approx 40 min will discuss with pts pmd Dr. Ogden also.
[2018-01-09] MEDS: FUROSEMIDE 40 MG/4 ML INJECTABLE VIAL IVPUSH SCH (17:46)
--- NOTE | 2018-01-09 18:20 | PDOC ---
Attending Attestation - Resident Resident Name: Greg Lozanoel - ED Attending Attestation I have performed the following: I have examined & evaluated the patient, The case was reviewed & discussed with the resident, I agree w/resident's findings & plan, Exceptions are as noted - HPI HPI: 01/09/18 18:15 72 yo F wit h/o htn hld copd here with cough congestion body aches and sob. here with oxygen sats in the 80's sent by dr heart. had been put on tamiflu two days ago, and sob was worsening. no n/v no ches pain. no leg swelling. - Physicial Exam PE: 01/09/18 18:20 awake alert lungs with wheezing bilaterally heart rrr no mrg abd soft nt nd. ext wwp no edema no calf tenderness. nuero alert oriented x 3. - Medical Decision Making 01/09/18 18:21 72 yo F with copd exacerbation likely due to viral syndrome. differentil includes pna, effusion, plan cxr flu swab, duonebs, steroids. marisa likely require admission.
[2018-01-09] MEDS ORDERED: PT OWN MED DRAWER 7, Y5N ONE (21:41)
[2018-01-09] MEDS ORDERED: INSULIN (LEVEMIR) 100 UNITS/ML UNITS SQ SCH (22:00)
[2018-01-09] MEDS: ATORVASTATIN CA 20 MG TABLET (FP) PO SCH (22:02)
[2018-01-09] MEDS: RANITIDINE HCL 150 MG TABLET (FP) PO SCH (22:02)
[2018-01-09] MEDS: BUDESONIDE/FORMETEROL FUMARATE 160/4.5 mcg INHALER IH SCH ×2 (22:02→22:21)
[2018-01-09] MEDS: methylPREDNISolone NA SUCC 40 MG/1 ML VIAL IVPUSH SCH (22:03)
[2018-01-09] MEDS: INSULIN SLIDING SCALE (NOVOLOG) 1 VIAL SQ SCH (22:25)
[2018-01-09] MEDS ORDERED: NIFEdipine E.R 60 MG TABLET (UD) PO STA (23:51)
[2018-01-10] MEDS: methylPREDNISolone NA SUCC 40 MG/1 ML VIAL IVPUSH SCH ×4 (03:36→21:29)
[2018-01-10 06:37] LABS: BASO % 0.3 % (0-2.0); HEMOGLOBIN 14.7 GM/dL (10.7-15.3); LYMPH % 18.1 % (8-40); MCH 29.5 pg (25.7-33.7); MCHC 31.2 g/dl (32.0-36.0); MEAN CELL VOLUME 94.4 fl (80-96); MONO % 4.3 % (3.8-10.2); NEUT % 77.3 % (42.8-82.8); PLATELET COUNT 244 K/MM3 (134-434); RBC 4.98 M/mm3 (3.60-5.2); RDW 15.1 % (11.6-15.6); WHITE BLOOD COUNT 5.2 K/mm3 (4.0-10.0)
[2018-01-10 07:01] LABS: ALBUMIN 3.3 g/dl (3.4-5.0); ALK PHOS 110 U/L (45-117); ANION GAP 8 MMOL/L (8-16); BILIRUBIN,TOTAL 0.4 mg/dL (0.2-1); BLOOD UREA NITROGEN 27 mg/dL (7-18); CHLORIDE 93 mmol/L (98-107); CHOLESTEROL 127 mg/dL (50-200); CO2 34 mmol/L (21-32); CREATININE 1.4 mg/dL (0.55-1.3); GLUCOSE,RANDOM 240 mg/dL (74-106); HDL CHOLESTEROL 41 mg/dL (40-60); POTASSIUM 3.9 mmol/L (3.5-5.1); SGOT/AST 14 U/L (15-37); SGPT/ALT 20 U/L (13-61); SODIUM 135 mmol/L (136-145); TOT PROT 7.1 g/dl (6.4-8.2); TRIGLYCERIDES 63 mg/dL (0-150)
[2018-01-10] MEDS: INSULIN SLIDING SCALE (NOVOLOG) 1 VIAL SQ SCH ×4 (07:03→22:30)
--- NOTE | 2018-01-10 10:22 | CON.CARD ---
Consult Consult Specialty:: Cardiology Referred by:: Shaka Reason for Consultation:: shortness of breath, CHF - History of Present Illness Chief Complaint: shortness of breath History of Present Illness: 72F h/o HTN, HLD, DM, CVA, CAD p/w shortness of breath. Two day hx of cough, sob, body aches, staretd on tamiflu at the time. Symptoms did not improve, noted to have O2 sat of 80% at PCP office and sent to ED for evaluation. BNP 1839, CXR with congestive changes, given lasix 40 mg IV x 1. She feels better today but still has some shortness of breath. no edema, chest pain, palps, dizziness. - Alcohol/Substance Use Hx Alcohol Use: No - Smoking History Smoking history: Current every day smoker Have you smoked in the past 12 months: Yes Aproximately how many cigarettes per day: 6 Home Medications - Allergies Allergies/Adverse Reactions: Allergies Allergy/AdvReac Type Severity Reaction Status Date / Time No Known Allergies Allergy Verified 01/09/18 12:51 - Home Medications Home Medications: Ambulatory Orders Albuterol Sulfate [Proventil HFA Inhaler -] 1 - 2 inh PO TID 01/09/18 Alprazolam [Xanax] 1 mg PO 01/09/18 Amlodipine/Valsartan [Exforge 10-320 mg Tablet] 10 mg PO DAILY 01/09/18 Atorvastatin Ca [Lipitor] 20 mg PO HS 01/09/18 Budesonide/Formeterol Fumarate [SYMBICORT 160/4.5mcg -] 1 inh PO DAILY 01/09/18 Ergocalciferol (Vitamin D2) [Vitamin D2] 50,000 unit PO ASDIR 01/09/18 Glipizide 5 mg PO DAILY 01/09/18 Hctz 25Mg/Triamterene [Dyazide 25/37.5MG -] 1 cap PO DAILY 01/09/18 Naproxen [Naprosyn -] 500 mg PO BID 01/09/18 Nebivolol HCl [Bystolic] 10 mg PO 01/09/18 Nicotine [Nicotine Patch 14mg/24 hr] 1 each TD 01/09/18 Olopatadine HCl [Patanol] 0.1 ASDIR 01/09/18 Oseltamivir Phosphate [Tamiflu -] 75 mg PO BID 01/09/18 Family Disease History - Family Disease History Family History: Unremarkable Review of Systems - Review of Systems Constitutional: reports: No Symptoms Eyes: reports: No Symptoms HENT: reports: No Symptoms Neck: reports: No Symptoms Cardiovascular: reports: Shortness of Breath Respiratory: reports: No Symptoms Gastrointestinal: reports: No Symptoms Genitourinary: reports: No Symptoms Musculoskeletal: reports: No Symptoms Integumentary: reports: No Symptoms Neurological: reports: No Symptoms Endocrine: reports: No Symptoms Hematology/Lymphatic: reports: No Symptoms Psychiatric: reports: No Symptoms Vital Signs: Vital Signs Temperature 98.2 F 01/10/18 08:32 Pulse Rate 78 01/10/18 08:32 Respiratory Rate 16 01/10/18 08:32 Blood Pressure 138/78 01/10/18 08:32 O2 Sat by Pulse Oximetry (%) 90 L 01/09/18 21:00 Constitutional: Yes: No Distress, Calm Eyes: Yes: Conjunctiva Clear, EOM Intact HENT: Yes: Atraumatic, Normocephalic Neck: Yes: Supple, Trachea Midline Respiratory: Yes: Regular, Rales, Rhonchi Gastrointestinal: Yes: Normal Bowel Sounds, Soft Cardiovascular: Yes: Regular Rate and Rhythm JVD: No Carotid Bruit: No Musculoskeletal: No: Back Pain Extremities: No: Cold Edema: No Peripheral Pulses WNL: Yes Peripheral Pulses: 2+ Left Doralis Pedis, 2+ Right Dorsalis Pedis Integumentary: No: Jaundice Neurological: Yes: Alert, Oriented Psychiatric: Yes: Alert, Oriented - Other Data Labs, Other Data: CBC, BMP 01/10/18 06:00 01/10/18 05:30 Troponin, BNP 01/09/18 13:30 Troponin I 0.02 B-Natriuretic Peptide 1839.6 H Troponin, BNP 01/09/18 13:30 Troponin I 0.02 B-Natriuretic Peptide 1839.6 H Assessment/Plan CXR: congestive changes EKG: sinus, LVH Tele: sinus 72F h/o HTN, HLD, DM, CVA, CAD p/w shortness of breath Shortness of breath, heart faliure - EF not known - Echo pending - also on tx for COPD exac, on solumedrol, nebs - received IV lasix x 1 yesterday with improvement in symptoms, continue lasix 40 mg IV daily - monitor Cr, daily weights, I/O HTN - stable on current meds, continue DM - manage per primary CAD - stable, continue aspirin, statin, bb
[2018-01-10] MEDS: FUROSEMIDE 40 MG/4 ML INJECTABLE VIAL IVPUSH SCH (10:30)
[2018-01-10] MEDS: amLODIPine BESYLATE 10 MG TABLET (FP) PO SCH (10:31)
[2018-01-10] MEDS: VALSARTAN 160 MG TABLET (UD) PO SCH (10:31)
[2018-01-10] MEDS: ASPIRIN COATED 81 MG TABLET.EC PO SCH (10:31)
[2018-01-10] MEDS: ENOXAPARIN NA (PORCINE) 40 MG/0.4 ML DISP.SYRIN SQ SCH (10:31)
[2018-01-10] MEDS: NEBIVOLOL 5 MG TABLET (FP) PO SCH (10:31)
[2018-01-10] MEDS: RANITIDINE HCL 150 MG TABLET (FP) PO SCH ×2 (10:31→22:30)
[2018-01-10] MEDS: BUDESONIDE/FORMETEROL FUMARATE 160/4.5 mcg INHALER IH SCH ×2 (10:32→22:30)
--- NOTE | 2018-01-10 13:58 | PN ---
Progress Note (short form) - Note Progress Note: pt seen/ examined chart reviewed feels better decreased sob. Vital Signs Temp 98.7 F 01/10/18 12:43 Pulse 81 01/10/18 12:43 Resp 18 01/10/18 12:43 BP 135/78 01/10/18 12:43 Pulse Ox 90 L 01/10/18 09:00 Intake & Output 01/09/18 01/10/18 01/10/18 23:59 11:59 23:59 Intake Total 480 10 Balance 480 10 Weight 170 lb 169 lb Intake: IV 10 saline lock 10 Oral 480 Other: Voiding Method Toilet Toilet # Unmeasured Voids Void 3 Height 5 ft 1 in Body Mass Index (BMI) 32.1 Weight Measurement Method Standing Scale Active Medications Acetaminophen (Tylenol -) 650 mg PO Q6H PRN PRN Reason: PAIN LEVEL 1-5 Albuterol/Ipratropium (Duoneb -) 1 amp NEB Q6H PRN PRN Reason: SHORTNESS OF BREATH Amlodipine Besylate (Norvasc -) 10 mg PO DAILY [facility] Last Admin: 01/10/18 10:31 Dose: 10 mg Aspirin (Ecotrin -) 81 mg PO DAILY [facility] Last Admin: 01/10/18 10:31 Dose: 81 mg Atorvastatin Calcium (Lipitor -) 20 mg PO HS [facility] Last Admin: 01/09/18 22:02 Dose: 20 mg Budesonide/Formoterol Fumarate (Symbicort 160/4.5mcg -) 1 puff IH BID [facility] Last Admin: 01/10/18 10:32 Dose: 1 puff Enoxaparin Sodium (Lovenox -) 40 mg SQ DAILY [facility] Last Admin: 01/10/18 10:31 Dose: 40 mg Furosemide (Lasix Injection -) 40 mg IVPUSH DAILY [facility] Last Admin: 01/10/18 10:30 Dose: 40 mg Insulin Aspart (Novolog Vial Sliding Scale -) 1 vial SQ [facility]; Protocol Last Admin: 01/10/18 12:01 Dose: Not Given Insulin Detemir (Levemir Vial) 15 units SQ HS [facility] Methylprednisolone Sodium Succinate (Solu-Medrol -) 60 mg IVPUSH Q6H-IV [facility] Last Admin: 01/10/18 10:30 Dose: 60 mg Nebivolol (Bystolic -) 5 mg PO DAILY [facility] Last Admin: 01/10/18 10:31 Dose: 5 mg Ranitidine HCl (Zantac -) 150 mg PO BID [facility] Last Admin: 01/10/18 10:31 Dose: 150 mg Valsartan (Diovan -) 320 mg PO DAILY [facility] Last Admin: 01/10/18 10:31 Dose: 320 mg CBC, BMP 01/10/18 06:00 01/10/18 05:30 Physical Examination Constitutional: Yes: No distress/ awake Eyes: Yes: Conjunctiva Clear HENT: Yes: WNL Neck: Yes: Supple. no jvd Cardiovascular: Yes: Regular Rate and Rhythm Respiratory: Yes: Wheezes Gastrointestinal: Yes: Soft/ non tender Edema: LLE: 1+, RLE: 1+ Neurological: Yes: Alert Imaging - Results Chest X-ray: Report Reviewed EKG: Report Reviewed Problem List - Problems (1) Obesity Code(s): E66.9 - OBESITY, UNSPECIFIED (2) Smoker unmotivated to quit Code(s): F17.200 - NICOTINE DEPENDENCE, UNSPECIFIED, UNCOMPLICATED (3) CHF (congestive heart failure) Code(s): I50.9 - HEART FAILURE, UNSPECIFIED Qualifiers: Heart failure type: unspecified Heart failure chronicity: unspecified Qualified Code(s): I50.9 - Heart failure, unspecified (4) COPD (chronic obstructive pulmonary disease) Code(s): J44.9 - CHRONIC OBSTRUCTIVE PULMONARY DISEASE, UNSPECIFIED Qualifiers: COPD type: unspecified COPD Qualified Code(s): J44.9 - Chronic obstructive pulmonary disease, unspecified (5) Hypertension Code(s): I10 - ESSENTIAL (PRIMARY) HYPERTENSION (6) NIDDY (non-insulin dependent diabetes mellitus in young) Code(s): E13.9 - OTHER SPECIFIED DIABETES MELLITUS WITHOUT COMPLICATIONS Assessment/Plan Copd exac chf -- Cor pulmonale steroids i/v lasix echo pending cardiology eval noted will follow daily oob - chair.
--- NOTE | 2018-01-10 17:19 | EKG ---
Test Reason : Blood Pressure : / mmHG Vent. Rate : 094 BPM Atrial Rate : 094 BPM P-R Int : 158 ms QRS Dur : 092 ms QT Int : 370 ms P-R-T Axes : 074 006 074 degrees QTc Int : 462 ms NORMAL SINUS RHYTHM POSSIBLE LEFT ATRIAL ENLARGEMENT LEFT VENTRICULAR HYPERTROPHY ABNORMAL ECG WHEN COMPARED WITH ECG OF 21-NOV-2016 19:48, NO SIGNIFICANT CHANGE WAS FOUND Confirmed by MD CLARA, PRITI ([id number]) on 01/10/2018 5:19:20 PM Referred By: Confirmed By:PRITI ELIZABETH MD
[2018-01-10] MEDS: INSULIN (LEVEMIR) 100 UNITS/ML UNITS SQ SCH (22:29)
[2018-01-10] MEDS: ATORVASTATIN CA 20 MG TABLET (FP) PO SCH (22:30)
[2018-01-11] MEDS: ALBUTEROL SO4 2.5/IPRATROPIUM 0.5 INH SOL 3 ML VIAL.NEB. NEB PRN ×2 (00:05→20:40)
[2018-01-11] MEDS: methylPREDNISolone NA SUCC 40 MG/1 ML VIAL IVPUSH SCH ×4 (03:48→17:08)
[2018-01-11] MEDS: INSULIN SLIDING SCALE (NOVOLOG) 1 VIAL SQ SCH ×4 (06:48→21:36)
[2018-01-11] MEDS: BUDESONIDE/FORMETEROL FUMARATE 160/4.5 mcg INHALER IH SCH ×2 (09:26→21:36)
[2018-01-11] MEDS: ASPIRIN COATED 81 MG TABLET.EC PO SCH (09:27)
[2018-01-11] MEDS: ENOXAPARIN NA (PORCINE) 40 MG/0.4 ML DISP.SYRIN SQ SCH (09:27)
[2018-01-11] MEDS: VALSARTAN 160 MG TABLET (UD) PO SCH (09:27)
[2018-01-11] MEDS: FUROSEMIDE 40 MG/4 ML INJECTABLE VIAL IVPUSH SCH (09:28)
[2018-01-11] MEDS: NEBIVOLOL 5 MG TABLET (FP) PO SCH (09:28)
[2018-01-11] MEDS: amLODIPine BESYLATE 10 MG TABLET (FP) PO SCH (09:28)
[2018-01-11] MEDS: RANITIDINE HCL 150 MG TABLET (FP) PO SCH ×2 (09:28→21:34)
--- NOTE | 2018-01-11 09:59 | PN ---
Progress Note (short form) - Note Progress Note: s: no sob palps dizzy loc cp o: Vital Signs Period Temp Pulse Resp BP Sys/Pack Pulse Ox Last 24 Hr 97.9 F-98.7 F 68-81 16-20 135-146/51-78 94-94 Constitutional: Yes: No Distress, Calm Eyes: Yes: Conjunctiva Clear Neck: Yes: Supple, Trachea Midline Respiratory: Yes:scattered wheeze Gastrointestinal: Yes: Normal Bowel Sounds, Soft Cardiovascular: Yes: Regular Rate and Rhythm JVD: No Extremities: No: Cold Edema: No Integumentary: No: Jaundice diaphoresis Neurological: Yes: Alert, Oriented Current Medications Generic Name Dose Route Start Last Admin Trade Name Freq PRN Reason Stop Dose Admin Acetaminophen 650 mg 01/09/18 17:23 Tylenol - PO Q6H PRN PAIN LEVEL 1-5 Albuterol/Ipratropium 1 amp 01/09/18 17:30 01/11/18 00:05 Duoneb - NEB 1 amp Q6H PRN Administration SHORTNESS OF BREATH Amlodipine Besylate 10 mg 01/10/18 10:00 01/11/18 09:28 Norvasc - PO 10 mg DAILY [facility] Administration Aspirin 81 mg 01/10/18 10:00 01/11/18 09:27 Ecotrin - PO 81 mg DAILY [facility] Administration Atorvastatin Calcium 20 mg 01/09/18 22:00 01/10/18 22:30 Lipitor - PO 20 mg HS [facility] Administration Budesonide/Formoterol Fumarate 1 puff 01/09/18 22:00 01/11/18 09:26 Symbicort 160/4.5mcg - IH 1 puff BID [facility] Administration Enoxaparin Sodium 40 mg 01/10/18 10:00 01/11/18 09:27 Lovenox - SQ 40 mg DAILY [facility] Administration Furosemide 40 mg 01/09/18 17:45 01/11/18 09:28 Lasix Injection - IVPUSH 40 mg DAILY [facility] Administration Insulin Aspart 1 vial 01/09/18 22:00 01/11/18 06:48 Novolog Vial Sliding Scale - SQ 5 units ACHS [facility] Administration Protocol Insulin Detemir 15 units 01/10/18 22:00 01/10/18 22:29 Levemir Vial SQ 15 unit HS [facility] Administration Methylprednisolone Sodium Succinate 60 mg 01/09/18 21:00 01/11/18 09:27 Solu-Medrol - IVPUSH 60 mg Q6H-IV [facility] Administration Nebivolol 5 mg 01/10/18 10:00 01/11/18 09:28 Bystolic - PO 5 mg DAILY [facility] Administration Ranitidine HCl 150 mg 01/09/18 22:00 01/11/18 09:28 Zantac - PO 150 mg BID [facility] Administration Valsartan 320 mg 01/10/18 10:00 01/11/18 09:27 Diovan - PO 320 mg DAILY [facility] Administration CBC, BMP 01/10/18 06:00 01/10/18 05:30 Assessment/Plan CXR: congestive changes EKG: sinus, LVH Tele: sinus 72F h/o HTN, HLD, DM, CVA, CAD p/w shortness of breath Shortness of breath, heart faliure - EF not known, echo pending - continue lasix 40 mg IV daily - also on tx for COPD exac, on solumedrol, nebs - monitor daily Cr, daily weights, I/O HTN - stable on current meds, continue DM - manage per primary CAD - stable, continue aspirin, statin, bb
[2018-01-11] MEDS ORDERED: ALPRAZolam 2 MG TABLET PO PRN (12:41)
--- NOTE | 2018-01-11 12:43 | PN ---
Progress Note (short form) - Note Progress Note: pt seen/ examined better anxious - wants xanax-- says takes at home denies cp/sob. Vital Signs Temp 98.0 F 01/11/18 08:41 Pulse 68 01/11/18 08:41 Resp 20 01/11/18 08:41 BP 146/63 01/11/18 08:41 Pulse Ox 94 L 01/11/18 08:37 Intake & Output 01/10/18 01/11/18 01/11/18 23:59 11:59 23:59 Intake Total 550 20 Balance 550 20 Weight 168 lb 12.8 oz Intake: IV 10 20 saline lock 10 20 Oral 540 Other: Voiding Method Toilet Toilet # Unmeasured Voids Void 1 Bowel Movement Yes Weight Measurement Method Standing Scale Active Medications Acetaminophen (Tylenol -) 650 mg PO Q6H PRN PRN Reason: PAIN LEVEL 1-5 Albuterol/Ipratropium (Duoneb -) 1 amp NEB Q6H PRN PRN Reason: SHORTNESS OF BREATH Last Admin: 01/11/18 00:05 Dose: 1 amp Amlodipine Besylate (Norvasc -) 10 mg PO DAILY [facility] Last Admin: 01/11/18 09:28 Dose: 10 mg Aspirin (Ecotrin -) 81 mg PO DAILY [facility] Last Admin: 01/11/18 09:27 Dose: 81 mg Atorvastatin Calcium (Lipitor -) 20 mg PO [facility] Last Admin: 01/10/18 22:30 Dose: 20 mg Budesonide/Formoterol Fumarate (Symbicort 160/4.5mcg -) 1 puff IH BID [facility] Last Admin: 01/11/18 09:26 Dose: 1 puff Enoxaparin Sodium (Lovenox -) 40 mg SQ DAILY [facility] Last Admin: 01/11/18 09:27 Dose: 40 mg Furosemide (Lasix Injection -) 40 mg IVPUSH DAILY [facility] Last Admin: 01/11/18 09:28 Dose: 40 mg Insulin Aspart (Novolog Vial Sliding Scale -) 1 vial SQ [facility]; Protocol Last Admin: 01/11/18 11:16 Dose: Not Given Insulin Detemir (Levemir Vial) 15 units SQ [facility] Last Admin: 01/10/18 22:29 Dose: 15 unit Methylprednisolone Sodium Succinate (Solu-Medrol -) 40 mg IVPUSH Q8H-IV [facility] Last Admin: 01/11/18 10:23 Dose: Not Given Nebivolol (Bystolic -) 5 mg PO DAILY [facility] Last Admin: 01/11/18 09:28 Dose: 5 mg Ranitidine HCl (Zantac -) 150 mg PO BID [facility] Last Admin: 01/11/18 09:28 Dose: 150 mg Valsartan (Diovan -) 320 mg PO DAILY [facility] Last Admin: 01/11/18 09:27 Dose: 320 mg CBC, BMP 01/10/18 06:00 01/10/18 05:30 echo- pending Physical Examination Constitutional: Yes: No distress/ awake Eyes: Yes: Conjunctiva Clear HENT: Yes: WNL Neck: Yes: Supple. no jvd Cardiovascular: Yes: Regular Rate and Rhythm Respiratory: Yes: Wheezes Gastrointestinal: Yes: Soft/ non tender Edema: LLE: 1+, RLE: 1+ Neurological: Yes: Alert Imaging - Results Chest X-ray: Report Reviewed EKG: Report Reviewed Problem List - Problems (1) Obesity Code(s): E66.9 - OBESITY, UNSPECIFIED (2) Smoker unmotivated to quit Code(s): F17.200 - NICOTINE DEPENDENCE, UNSPECIFIED, UNCOMPLICATED (3) CHF (congestive heart failure) Code(s): I50.9 - HEART FAILURE, UNSPECIFIED Qualifiers: Heart failure type: unspecified Heart failure chronicity: unspecified Qualified Code(s): I50.9 - Heart failure, unspecified (4) COPD (chronic obstructive pulmonary disease) Code(s): J44.9 - CHRONIC OBSTRUCTIVE PULMONARY DISEASE, UNSPECIFIED Qualifiers: COPD type: unspecified COPD Qualified Code(s): J44.9 - Chronic obstructive pulmonary disease, unspecified (5) Hypertension Code(s): I10 - ESSENTIAL (PRIMARY) HYPERTENSION (6) NIDDY (non-insulin dependent diabetes mellitus in young) Code(s): E13.9 - OTHER SPECIFIED DIABETES MELLITUS WITHOUT COMPLICATIONS Assessment/Plan Copd exac chf -- Cor pulmonale steroids-- taper i/v lasix echo pending monitor bgm will follow daily oob - chair. restart xanax prn will follow
[2018-01-11] MEDS: ATORVASTATIN CA 20 MG TABLET (FP) PO SCH (21:34)
[2018-01-11] MEDS: INSULIN (LEVEMIR) 100 UNITS/ML UNITS SQ SCH (21:34)
[2018-01-12] MEDS: methylPREDNISolone NA SUCC 40 MG/1 ML VIAL IVPUSH SCH ×3 (01:15→22:16)
[2018-01-12] MEDS: INSULIN SLIDING SCALE (NOVOLOG) 1 VIAL SQ SCH ×4 (06:45→22:31)
--- NOTE | 2018-01-12 09:33 | PN ---
Progress Note, Physician Chief Complaint: sob, cough History of Present Illness: pt reports cough with dark (brownish) phlegm. no blood. denies preceding sore throat but endorses chills at home. sob improving, as is cough. no cp, palpit - Current Medication List Current Medications: Active Medications Acetaminophen (Tylenol -) 650 mg PO Q6H PRN PRN Reason: PAIN LEVEL 1-5 Albuterol/Ipratropium (Duoneb -) 1 amp NEB Q6H PRN PRN Reason: SHORTNESS OF BREATH Last Admin: 01/11/18 20:40 Dose: 1 amp Alprazolam (Xanax -) 1 mg PO DAILY PRN PRN Reason: ANXIETY Last Admin: 01/11/18 21:35 Dose: 1 mg Amlodipine Besylate (Norvasc -) 10 mg PO DAILY [facility] Last Admin: 01/11/18 09:28 Dose: 10 mg Aspirin (Ecotrin -) 81 mg PO DAILY [facility] Last Admin: 01/11/18 09:27 Dose: 81 mg Atorvastatin Calcium (Lipitor -) 20 mg PO HS [facility] Last Admin: 01/11/18 21:34 Dose: 20 mg Budesonide/Formoterol Fumarate (Symbicort 160/4.5mcg -) 1 puff IH BID [facility] Last Admin: 01/11/18 21:36 Dose: 1 puff Enoxaparin Sodium (Lovenox -) 40 mg SQ DAILY [facility] Last Admin: 01/11/18 09:27 Dose: 40 mg Furosemide (Lasix Injection -) 40 mg IVPUSH DAILY [facility] Last Admin: 01/11/18 09:28 Dose: 40 mg Insulin Aspart (Novolog Vial Sliding Scale -) 1 vial SQ [facility]; Protocol Last Admin: 01/12/18 06:45 Dose: 7 units Insulin Detemir (Levemir Vial) 15 units SQ [facility] Last Admin: 01/11/18 21:34 Dose: 15 unit Methylprednisolone Sodium Succinate (Solu-Medrol -) 40 mg IVPUSH Q8H-IV [facility] Last Admin: 01/12/18 01:15 Dose: 40 mg Nebivolol (Bystolic -) 5 mg PO DAILY [facility] Last Admin: 01/11/18 09:28 Dose: 5 mg Ranitidine HCl (Zantac -) 150 mg PO BID [facility] Last Admin: 01/11/18 21:34 Dose: 150 mg Valsartan (Diovan -) 320 mg PO DAILY [facility] Last Admin: 01/11/18 09:27 Dose: 320 mg - Objective Vital Signs: Vital Signs Temperature 98.2 F 01/12/18 08:25 Pulse Rate 81 01/12/18 08:25 Respiratory Rate 20 01/12/18 08:25 Blood Pressure 149/85 01/12/18 08:25 O2 Sat by Pulse Oximetry (%) 98 01/12/18 08:22 Constitutional: Yes: Well Nourished, No Distress, Calm Cardiovascular: Yes: Regular Rate and Rhythm, S1, S2. No: JVD, Gallop, Murmur Respiratory: Yes: Regular, CTA Bilaterally. No: Accessory Muscle Use, Rales, Wheezes Extremities: No: Cold Edema: No Neurological: Yes: Alert, Oriented Psychiatric: No: Agitated Labs: CBC, BMP 01/10/18 06:00 01/10/18 05:30 Assessment/Plan CXR reviewed: bilateral interstitial infiltrates lower/mid lung [place], no effusions or vascular redistribution pattern EKG: sinus, LVH Tele: 72F h/o HTN, HLD, DM, CVA, CAD p/w shortness of breath Shortness of breath, cough, body aches, hypoxia - was hypoxic to 80% at pmd office on DOA, sats initially low in ER--stable on [place] oxygen presently - BNP 1800, no priors - CXR reviewed: predominantly interstitial appearing infiltrates in lower lung skag[place], no convincing pulm congestion findings - 01/12: being treated with lasix 40 mg IV daily. wt not improving, bun/creat progressively rising. doubt chf here. suspect pneumonitis (? triggered by outpt flu shot) - stop lasix - solumedrol, nebs, +/- ? abx per primary team - f/u echo HTN - bp mildly elevated, stable - same plan, observe trend DM - manage per primary CAD - details of history not known - no signs of acute ischemic process here - continue home regimen aspirin, statin, bb h/o L CEA - follows with dr heart only - CV meds as abov e
[2018-01-12] MEDS: BUDESONIDE/FORMETEROL FUMARATE 160/4.5 mcg INHALER IH SCH ×2 (10:23→22:16)
[2018-01-12] MEDS: VALSARTAN 160 MG TABLET (UD) PO SCH (10:23)
[2018-01-12] MEDS: NEBIVOLOL 5 MG TABLET (FP) PO SCH (10:23)
[2018-01-12] MEDS: ASPIRIN COATED 81 MG TABLET.EC PO SCH (10:24)
[2018-01-12] MEDS: FUROSEMIDE 40 MG/4 ML INJECTABLE VIAL IVPUSH SCH (10:24)
[2018-01-12] MEDS: RANITIDINE HCL 150 MG TABLET (FP) PO SCH ×2 (10:24→22:14)
[2018-01-12] MEDS: amLODIPine BESYLATE 10 MG TABLET (FP) PO SCH (10:24)
[2018-01-12] MEDS: ENOXAPARIN NA (PORCINE) 40 MG/0.4 ML DISP.SYRIN SQ SCH (10:24)
[2018-01-12 10:29] LABS: ANION GAP 5 MMOL/L (8-16); BLOOD UREA NITROGEN 46 mg/dL (7-18); CALCIUM 8.2 mg/dL (8.5-10.1); CHLORIDE 92 mmol/L (98-107); CO2 39 mmol/L (21-32); CREATININE 1.5 mg/dL (0.55-1.3); GLUCOSE,RANDOM 247 mg/dL (74-106); POTASSIUM 3.6 mmol/L (3.5-5.1); SODIUM 136 mmol/L (136-145)
--- NOTE | 2018-01-12 12:25 | ECHO ---
Name: JUDI SCALES Exam:Adult Echocardiogram Study Date: 01/12/2018 10:37 AM Age: 72 yrs Reason For Study: CHF Height: 61 in Weight: 170 lb BSA: 1.8 m2 MMode/2D Measurements & Calculations IVSd: 0.89 cm Ao root diam: 2.6 cm LVIDd: 4.6 cm LA dimension: 3.5 cm LVIDs: 3.1 cm LVPWd: 0.81 cm EDV(Teich): 98.7 ml ESV(Teich): 36.9 ml Doppler Measurements & Calculations MV E max patito: 54.3 cm/sec MR max patito: 371.0 cm/sec MV A max patito: 75.0 cm/sec MR max P.1 mmHg MV E/A: 0.72 MV dec time: 0.18 sec Med Peak E' Patito: 4.9 cm/sec Med E/e': 11.1 Lat Peak E' Patito: 9.1 cm/sec Lat E/e': 6.0 Procedure A complete two-dimensional transthoracic echocardiogram was performed (2D, M-mode, Doppler and color flow Doppler). Technically limited study. Left Ventricle The left ventricle is normal in size. Left ventricular systolic function is normal. Ejection Fraction = 60- 65%. TDI reveals mildly impaired relaxation with normal filling pressure (E/E' 11). No regional wall motion abnormalities noted. Right Ventricle The right ventricle is normal size. The right ventricular systolic function is normal. Atria The left atrial size is normal. Right atrial size is normal. Mitral Valve The mitral valve is normal in structure and function. There is mild mitral regurgitation. Tricuspid Valve The tricuspid valve is normal in structure and function. There is mild tricuspid regurgitation. Aortic Valve There is mild aortic sclerosis.;. No aortic regurgitation is present. Pulmonic Valve The pulmonic valve is not well visualized. Great Vessels The aortic root is normal size. Pericardium/Pleura There is no pericardial effusion. Interpretation Summary The left ventricle is normal in size. Left ventricular systolic function is normal. No regional wall motion abnormalities noted. Ejection Fraction = 60-65%. TDI reveals mildly impaired relaxation with normal filling pressure (E/E' 11) The right ventricular systolic function is normal. The left atrial size is normal. Right atrial size is normal. There is mild mitral regurgitation. There is mild tricuspid regurgitation. There is mild aortic sclerosis. There is no pericardial effusion. Previous study is not available for comparison Timothy Sears MD 01/12/2018 12:24 PM
--- NOTE | 2018-01-12 13:55 | PN ---
Progress Note (short form) - Note Progress Note: pt seen/examined. comfortable cardiology follow-up noted Dry cough present no fever or chills Overall looks Much better Vital Signs Temp 98.2 F 01/12/18 08:25 Pulse 81 01/12/18 08:25 Resp 20 01/12/18 08:25 BP 149/85 01/12/18 08:25 Pulse Ox 98 01/12/18 08:22 Intake & Output 01/11/18 01/12/18 01/12/18 23:59 11:59 23:59 Intake Total 870 410 120 Balance 870 410 120 Weight 168 lb 3.2 oz Intake: IV 20 10 saline lock 20 10 Oral 850 400 120 Other: Voiding Method Toilet Toilet # Unmeasured Voids Void 2 1 2 Bowel Movement No No No Weight Measurement Method Standing Scale Active Medications Acetaminophen (Tylenol -) 650 mg PO Q6H PRN PRN Reason: PAIN LEVEL 1-5 Albuterol/Ipratropium (Duoneb -) 1 amp NEB Q6H PRN PRN Reason: SHORTNESS OF BREATH Last Admin: 01/11/18 20:40 Dose: 1 amp Alprazolam (Xanax -) 1 mg PO DAILY PRN PRN Reason: ANXIETY Last Admin: 01/11/18 21:35 Dose: 1 mg Amlodipine Besylate (Norvasc -) 10 mg PO DAILY [facility] Last Admin: 01/12/18 10:24 Dose: 10 mg Aspirin (Ecotrin -) 81 mg PO DAILY [facility] Last Admin: 01/12/18 10:24 Dose: 81 mg Atorvastatin Calcium (Lipitor -) 20 mg PO HS [facility] Last Admin: 01/11/18 21:34 Dose: 20 mg Budesonide/Formoterol Fumarate (Symbicort 160/4.5mcg -) 1 puff IH BID [facility] Last Admin: 01/12/18 10:23 Dose: 1 puff Enoxaparin Sodium (Lovenox -) 40 mg SQ DAILY [facility] Last Admin: 01/12/18 10:24 Dose: 40 mg Insulin Aspart (Novolog Vial Sliding Scale -) 1 vial SQ [facility]; Protocol Last Admin: 01/12/18 11:35 Dose: Not Given Insulin Detemir (Levemir Vial) [address] [facility] Last Admin: 01/11/18 21:34 Dose: 15 unit Methylprednisolone Sodium Succinate (Solu-Medrol -) 40 mg IVPUSH BID [facility] Nebivolol (Bystolic -) 5 mg PO DAILY [facility] Last Admin: 01/12/18 10:23 Dose: 5 mg Ranitidine HCl (Zantac -) 150 mg PO BID [facility] Last Admin: 01/12/18 10:24 Dose: 150 mg Valsartan (Diovan -) 320 mg PO DAILY [facility] Last Admin: 01/12/18 10:23 Dose: 320 mg CBC, BMP 01/10/18 06:00 01/12/18 10:00 echo-- Noted Physical Examination Constitutional: Yes: No distress/ awake Eyes: Yes: Conjunctiva Clear HENT: Yes: WNL Neck: Yes: Supple. no jvd Cardiovascular: Yes: Regular Rate and Rhythm Respiratory: Yes: scattered rhonchi--- much better air entry Gastrointestinal: Yes: Soft/ non tender Edema: LLE: 1+, RLE: 1+ Neurological: Yes: Alert Imaging - Results Chest X-ray: Report Reviewed EKG: Report Reviewed Problem List - Problems (1) Obesity Code(s): E66.9 - OBESITY, UNSPECIFIED (2) Smoker unmotivated to quit Code(s): F17.200 - NICOTINE DEPENDENCE, UNSPECIFIED, UNCOMPLICATED (3) CHF (congestive heart failure) Code(s): I50.9 - HEART FAILURE, UNSPECIFIED Qualifiers: Heart failure type: unspecified Heart failure chronicity: unspecified Qualified Code(s): I50.9 - Heart failure, unspecified (4) COPD (chronic obstructive pulmonary disease) Code(s): J44.9 - CHRONIC OBSTRUCTIVE PULMONARY DISEASE, UNSPECIFIED Qualifiers: COPD type: unspecified COPD Qualified Code(s): J44.9 - Chronic obstructive pulmonary disease, unspecified (5) Hypertension Code(s): I10 - ESSENTIAL (PRIMARY) HYPERTENSION (6) NIDDY (non-insulin dependent diabetes mellitus in young) Code(s): E13.9 - OTHER SPECIFIED DIABETES MELLITUS WITHOUT COMPLICATIONS Assessment/Plan Copd exac chf -- much better Echo noted steroids-- taper i/v lasix--stopped by cardiology today monitor bgm will follow daily oob - chair. DC telemetry Discharge planning--- anticipate discharge by tomorrow Smoking cessation counseling provided again Discussed with patient and patient's daughter Discussed with nursing staff also. will follow
[2018-01-12] MEDS ORDERED: guaiFENesin 200 MG/10 ML 10 ML UNIT-DOSE CUPS PO PRN (16:45)
[2018-01-12] MEDS ORDERED: INSULIN (NOVOLOG) ASPART 100 UNITS/ML 10ML VIAL ONE (17:17)
[2018-01-12] MEDS: ATORVASTATIN CA 20 MG TABLET (FP) PO SCH (22:14)
[2018-01-12] MEDS: INSULIN (LEVEMIR) 100 UNITS/ML UNITS SQ SCH (22:31)
[2018-01-13] MEDS: INSULIN SLIDING SCALE (NOVOLOG) 1 VIAL SQ SCH ×2 (06:17→11:59)
[2018-01-13] MEDS: VALSARTAN 160 MG TABLET (UD) PO SCH (09:44)
[2018-01-13] MEDS: ASPIRIN COATED 81 MG TABLET.EC PO SCH (09:44)
[2018-01-13] MEDS: amLODIPine BESYLATE 10 MG TABLET (FP) PO SCH (09:44)
[2018-01-13] MEDS: RANITIDINE HCL 150 MG TABLET (FP) PO SCH (09:44)
[2018-01-13] MEDS: methylPREDNISolone NA SUCC 40 MG/1 ML VIAL IVPUSH SCH (09:45)
[2018-01-13] MEDS: ENOXAPARIN NA (PORCINE) 40 MG/0.4 ML DISP.SYRIN SQ SCH (09:45)
[2018-01-13] MEDS: NEBIVOLOL 5 MG TABLET (FP) PO SCH (09:45)
[2018-01-13] MEDS: BUDESONIDE/FORMETEROL FUMARATE 160/4.5 mcg INHALER IH SCH (09:46)
[2018-01-13 09:50] VITALS: BP 138/68; PULSE 67; TEMP 98
--- NOTE | 2018-01-13 09:50 | PN ---
Progress Note (short form) - Note Progress Note: Progress Note, Physician Chief Complaint: sob, cough History of Present Illness: feels back to normal, wants to go home. no chest pain, palps, dizzy, lightheadedness Current Medications Acetaminophen (Tylenol -) 650 mg PO Q6H PRN PRN Reason: PAIN LEVEL 1-5 Albuterol/Ipratropium (Duoneb -) 1 amp NEB Q6H PRN PRN Reason: SHORTNESS OF BREATH Last Admin: 01/11/18 20:40 Dose: 1 amp Alprazolam (Xanax -) 1 mg PO DAILY PRN PRN Reason: ANXIETY Last Admin: 01/11/18 21:35 Dose: 1 mg Amlodipine Besylate (Norvasc -) 10 mg PO DAILY [facility] Last Admin: 01/12/18 10:24 Dose: 10 mg Aspirin (Ecotrin -) 81 mg PO DAILY [facility] Last Admin: 01/12/18 10:24 Dose: 81 mg Atorvastatin Calcium (Lipitor -) 20 mg PO [facility] Last Admin: 01/12/18 22:14 Dose: 20 mg Azithromycin (Azithromycin) 500 mg PO DAILY [facility] Budesonide/Formoterol Fumarate (Symbicort 160/4.5mcg -) 1 puff IH BID [facility] Last Admin: 01/12/18 22:16 Dose: 1 puff Enoxaparin Sodium (Lovenox -) 40 mg SQ DAILY [facility] Last Admin: 01/12/18 10:24 Dose: 40 mg Guaifenesin (Robitussin -) 10 ml PO Q6H PRN PRN Reason: COUGH Last Admin: 01/12/18 17:12 Dose: 10 ml Insulin Aspart (Novolog Vial Sliding Scale -) 1 vial SQ [facility]; Protocol Last Admin: 01/13/18 06:17 Dose: 5 units Insulin Detemir (Levemir Vial) 15 units SQ [facility] Last Admin: 01/12/18 22:31 Dose: 15 unit Methylprednisolone Sodium Succinate (Solu-Medrol -) 40 mg IVPUSH BID [facility] Last Admin: 01/12/18 22:16 Dose: 40 mg Nebivolol (Bystolic -) 5 mg PO DAILY [facility] Last Admin: 01/12/18 10:23 Dose: 5 mg Ranitidine HCl (Zantac -) 150 mg PO BID [facility] Last Admin: 01/12/18 22:14 Dose: 150 mg Valsartan (Diovan -) 320 mg PO DAILY [facility] Last Admin: 01/12/18 10:23 Dose: 320 mg - Objective Vital Signs: Vital Signs Period Temp Pulse Resp BP Sys/Pack Pulse Ox Last 24 Hr 97.9 F-98.4 F 65-73 20-20 142-161/66-91 96 Constitutional: Yes: Well Nourished, No Distress, Calm Cardiovascular: Yes: Regular Rate and Rhythm, S1, S2. No: JVD, Gallop, Murmur Respiratory: Yes: Regular, CTA Bilaterally. No: Accessory Muscle Use, Rales, Wheezes Extremities: No: Cold Edema: No Neurological: Yes: Alert, Oriented Psychiatric: No: Agitated Assessment/Plan CXR reviewed: bilateral interstitial infiltrates lower/mid lung skaggs, no effusions or vascular redistribution pattern echo 01/2018 nl LV size/function, mildly impaired relaxation with nl filling pressures, RV systolic function nl, nl biatrial size, mild MR, mild TR EKG: sinus, LVH Tele: sinus 72F h/o HTN, HLD, DM, CVA, CAD p/w shortness of breath Shortness of breath, cough, body aches, hypoxia - was hypoxic to 80% at pmd office on DOA, sats initially low in ER--stable on NC oxygen presently - BNP 1800, no priors - CXR reviewed: predominantly interstitial appearing infiltrates in lower lung skaggs, no convincing pulm congestion findings - lasix stopped, patient remains euvolemic - nl LV function on echo with nl filling pressures on TDI, defer lasix - solumedrol, nebs, +/- ? abx per primary team HTN - bp mildly elevated, stable - same plan, observe trend DM - manage per primary CAD - details of history not known - no signs of acute ischemic process here - continue home regimen aspirin, statin, bb h/o L CEA - follows with dr heart only - CV meds as above
[2018-01-13] MEDS ORDERED: AZITHROMYCIN 500 MG TABLET PO SCH (10:00)
[2018-01-13] MEDS: ALBUTEROL SO4 2.5/IPRATROPIUM 0.5 INH SOL 3 ML VIAL.NEB. NEB PRN (11:24)
--- NOTE | 2018-01-13 11:34 | DS ---
Physical Examination Vital Signs: Vital Signs Temperature 98 F 01/13/18 09:49 Pulse Rate 67 01/13/18 09:49 Respiratory Rate 20 01/13/18 09:49 Blood Pressure 138/68 01/13/18 09:49 O2 Sat by Pulse Oximetry (%) 96 01/12/18 21:00 Constitutional: Yes: No Distress, Calm Cardiovascular: Yes: Regular Rate and Rhythm Respiratory: Yes: Rhonchi Gastrointestinal: Yes: Normal Bowel Sounds, Soft, Abdomen, Obese. No: Tenderness Edema: No Labs: CBC, BMP 01/10/18 06:00 01/12/18 10:00 Discharge Summary Reason For Visit: CHF,COPD Current Active Problems CHF (congestive heart failure) (Acute) COPD (chronic obstructive pulmonary disease) (Acute) Obesity (Acute) Smoker unmotivated to quit (Acute) Hospital Course: Admitted for4 COPD exacerbation, CHF decompensation-- diastolic Echo shows EF 60-65% Pt seen by Cardiology Initially started on IV lasix but discontinued Pt better was on iv solumedrol and zithromax Clinically improved stable for dc home on tapering prednisone and antibiotics she will need to follow up with PMD in 1 week to recheck labs, may need to resume diuretics if needed smoking cessation Condition: Stable - Instructions Diet, Activity, Other Instructions: follow up with DR Ogden in 1 week-- will need to recheck labs and may need to resume oral diuretics or not Referrals: Hossein Ogden MD [Primary Care Provider] - Disposition: HOME - Home Medications Comprehensive Discharge Medication List: Ambulatory Orders Albuterol Sulfate [Proventil HFA Inhaler -] 1 - 2 inh PO TID 01/09/18 Alprazolam [Xanax] 1 mg PO 01/09/18 Amlodipine/Valsartan [Exforge 10-320 mg Tablet] 10 mg PO DAILY 01/09/18 Atorvastatin Ca [Lipitor] 20 mg PO HS 01/09/18 Budesonide/Formeterol Fumarate [SYMBICORT 160/4.5mcg -] 1 inh PO DAILY 01/09/18 Ergocalciferol (Vitamin D2) [Vitamin D2] 50,000 unit PO ASDIR 01/09/18 Glipizide 5 mg PO DAILY 01/09/18 Hctz 25Mg/Triamterene [Dyazide 25/37.5MG -] 1 cap PO DAILY 01/09/18 Naproxen [Naprosyn -] 500 mg PO BID 01/09/18 Nebivolol HCl [Bystolic] 10 mg PO 01/09/18 Nicotine [Nicotine Patch 14mg/24 hr] 1 each TD 01/09/18 Olopatadine HCl [Patanol] 0.1 ASDIR 01/09/18 Oseltamivir Phosphate [Tamiflu -] 75 mg PO BID 01/09/18
== END 2018-01-13 13:13 | disposition home or self-care (01) | DRG 190 ==
LOC: JER 12:37 → JERBED 15:09 → J4W 16:36
PROVIDERS: ADMIT Internal Medicine; ATTEND Internal Medicine
DX: J44.1 Chronic obstructive pulmonary disease with (acute) exacerbation (principal); I50.33 Acute on chronic diastolic (congestive) heart failure; I11.0 Hypertensive heart disease with heart failure; E11.9 Type 2 diabetes mellitus without complications; I27.81 Cor pulmonale (chronic); I25.10 Atherosclerotic heart disease of native coronary artery without angina pectoris; Z79.84 Long term (current) use of oral hypoglycemic drugs; E66.9 Obesity, unspecified; Z68.31 Body mass index [BMI] 31.0-31.9, adult; E78.5 Hyperlipidemia, unspecified; I69.334 Monoplegia of upper limb following cerebral infarction affecting left non-dominant side
CPT/HCPCS: 36415; 71045-TC-FY; 80048; 80053; 80061; 81003; 81015; 82550; 82553; 82803; 82962; 83036; 83721; 83880; 84484; 85025; 93005; 93010; 93306-TC; 94640; 99283-25

== ENCOUNTER 2018-05-07 16:32 | Observation (INO) | payer MEDICARE, OTHER ==
--- NOTE | 2018-05-07 16:44 | PDOC ---
Rapid Medical Evaluation Chief Complaint: Weakness Time Seen by Provider: 05/07/18 16:37 Medical Evaluation: Allergies Allergy/AdvReac Type Severity Reaction Status Date / Time No Known Allergies Allergy Verified 05/07/18 16:41 Vital Signs Temp Pulse Resp BP Pulse Ox 98.3 F 86 18 143/66 89 L 05/07/18 16:37 05/07/18 16:37 05/07/18 16:37 05/07/18 16:37 05/07/18 16:37 05/07/18 16:42 I have performed a brief in-person evaluation of this patient. The patient presents with a chief complaint of: h/o HTN, COPD, presenting with complains of diarrhea, nausea and weakness since yesterday. Denies CP,SOB, sweats. Denies vomiting Pertinent physical exam findings: A&O x 3 in NAD. lungs CTAB. cardio: RRR I have ordered the following: CBC, CMP,UA, UCX The patient will proceed to the ED for further evaluation. Discharge Disposition - Diagnosis Weakness - Discharge Dispostion Condition at time of disposition: Stable Last Admission D/C Date: 01/13/18 - Referrals - Patient Instructions - Post Discharge Activity
--- NOTE | 2018-05-07 16:52 | PDOC ---
History of Present Illness - General Chief Complaint: Weakness Stated Complaint: CHILLS/FEVER/DIARRHEA Time Seen by Provider: 05/07/18 16:37 - History of Present Illness Initial Comments: 05/07/18 16:52 Ms. Chu is a 73 yo female w/ pmh of HTN, HLD, DM, prior CVA, CAD, COPD who presents for evaluation of 1 day history of nausea, diarrhea, and weakness. Patient denies any vomiting however patient reports she has additionally had 2 days of cough w/out SOB and body aches. The patient denies chest pain, headache and dizziness. Denies fever, chills, vomit, and constipation. Denies dysuria, frequency, urgency and hematuria. 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) COPD: Yes CHF: No Dementia: No Diabetes: Yes GI Disorders: No Disorders: No HTN: Yes Hypercholesterolemia: Yes Liver Disease: No Seizures: No Thyroid Disease: No - Surgical History Abdominal Surgery: No Appendectomy: No Cardiac Surgery: No Cholecystectomy: No Lung Surgery: No Neurologic Surgery: No Orthopedic Surgery: No - Suicide/Smoking/Psychosocial Hx Smoking History: Never smoked Have you smoked in the past 12 months: Yes Number of Cigarettes Smoked Daily: 6 Information on smoking cessation initiated: No 'Breaking Loose' booklet given: 11/22/16 Hx Alcohol Use: No Drug/Substance Use Hx: No Substance Use Type: None Hx Substance Use Treatment: No Review of Systems - Review of Systems Comments:: 05/07/18 17:00 GENERAL/CONSTITUTIONAL: +Generalized weakness. No fever or chills. HEAD, EYES, EARS, NOSE AND THROAT: No change in vision. No ear pain or discharge. No sore throat. CARDIOVASCULAR: No chest pain, no shortness of rbeath RESPIRATORY: +Cough productive of white sputum over this same time period. No wheezing or hemoptysis. GASTROINTESTINAL: +Nausea and diarrhea as described. No vomiting or constipation. GENITOURINARY: No dysuria, frequency, or change in urination. MUSCULOSKELETAL: +Body aches as described. SKIN: No rash NEUROLOGIC: No headache, vertigo, loss of consciousness, or change in strength/ sensation. ENDOCRINE: No increased thirst. No abnormal weight change HEMATOLOGIC/LYMPHATIC: No anemia, easy bleeding, or history of blood clots. ALLERGIC/IMMUNOLOGIC: No hives or skin allergy. *Physical Exam - Vital Signs Last Vital Signs Temp Pulse Resp BP Pulse Ox 98.3 F 86 18 143/66 89 L 05/07/18 16:37 05/07/18 16:37 05/07/18 16:37 05/07/18 16:37 05/07/18 16:37 - Physical Exam Comments: 05/07/18 17:01 GENERAL: Awake, alert, and fully oriented, in no acute distress HEAD: No signs of trauma, normocephalic, atraumatic EYES: PERRLA, EOMI, sclera anicteric, conjunctiva clear ENT: Auricles normal inspection, hearing grossly normal, nares patent, oropharynx clear without exudates. Moist mucosa NECK: Normal ROM, supple, no lymphadenopathy, JVD, or masses LUNGS: +Decreased breath sounds throughout lung skaggs possibly 2/2 effort. No distress, speaks full sentences HEART: Regular rate and rhythm, normal S1 and S2, no murmurs, rubs or gallops, peripheral pulses normal and equal bilaterally. ABDOMEN: Soft, nontender, normoactive bowel sounds. No guarding, no rebound. No masses EXTREMITIES: Normal inspection, Normal range of motion, no edema. No clubbing or cyanosis. NEUROLOGICAL: Cranial nerves II through XII grossly intact. Normal speech, normal gait, no focal sensorimotor deficits SKIN: Warm, Dry, normal turgor, no rashes or lesions noted. ED Treatment Course - LABORATORY CBC & Chemistry Diagram: 05/07/18 17:42 05/07/18 17:42 Medical Decision Making - Medical Decision Making 05/07/18 20:03 Ms. Chu is a 73 yo female w/ pmh as described who presents for evaluation of symptoms concerning for influenza vs. COPD exacerbation vs. fluid overload. Patient evaluated with EKG, CXR, and labs as below. Labs grossly wnl; patient reporting some improvement of symptoms with breathing treatment and O2 via nasal cannula. Patient EKG negative. Patient CXR significant for mild congestion only. Patient well appearing however upon re-exam patient O2 sat noted to drop to 75% when not on oxygen. Patient given steroids and additional breathing treatment and will admit for COPD exacerbation. Laboratory Results - last 24 hr 05/07/18 05/07/18 05/07/18 17:42 17:42 17:42 WBC 8.4 RBC 5.09 Hgb 14.9 Hct 46.7 H MCV 91.7 MCH 29.2 MCHC 31.9 L RDW 18.3 H Plt Count 255 MPV 8.1 Absolute Neuts (auto) 5.4 Neutrophils % 64.9 Lymphocytes % 22.4 D Monocytes % 10.9 H D Eosinophils % 0.9 D Basophils % 0.9 Nucleated RBC % 0 Sodium 139 Potassium 4.3 Chloride 98 Carbon Dioxide 33 H Anion Gap 8 BUN 22 H Creatinine 1.1 Creat Clearance w eGFR 48.42 Random Glucose 213 H Calcium 8.3 L Total Bilirubin 0.5 AST 23 ALT 18 Alkaline Phosphatase 130 H Creatine Kinase 109 Troponin I < 0.02 B-Natriuretic Peptide 732.9 H Total Protein 7.2 Albumin 3.4 Urine Color Urine Appearance Urine pH Ur Specific [place] Urine Protein Urine Glucose (UA) Urine Ketones Urine Blood Urine Nitrite Urine Bilirubin Urine Urobilinogen Ur Leukocyte Esterase Urine WBC (Auto) Urine RBC (Auto) Urine Casts (Auto) U Epithel Cells (Auto) Urine Bacteria (Auto) 05/07/18 19:01 WBC RBC Hgb Hct MCV MCH MCHC RDW Plt Count MPV Absolute Neuts (auto) Neutrophils % Lymphocytes % Monocytes % Eosinophils % Basophils % Nucleated RBC % Sodium Potassium Chloride Carbon Dioxide Anion Gap BUN Creatinine Creat Clearance w eGFR Random Glucose Calcium Total Bilirubin AST ALT Alkaline Phosphatase Creatine Kinase Troponin I B-Natriuretic Peptide Total Protein Albumin Urine Color Yellow Urine Appearance Clear Urine pH 5.5 Ur Specific [place] 1.019 Urine Protein 1+ H Urine Glucose (UA) Negative Urine Ketones Negative Urine Blood Negative Urine Nitrite Negative Urine Bilirubin Negative Urine Urobilinogen 0.2 Ur Leukocyte Esterase Negative Urine WBC (Auto) 3 Urine RBC (Auto) 1 Urine Casts (Auto) 1 U Epithel Cells (Auto) 2.3 Urine Bacteria (Auto) 75.3 *DC/Admit/Observation/Transfer Diagnosis at time of Disposition: Weakness, Increased oxygen demand, COPD exacerbation - Discharge Dispostion Condition at time of disposition: Stable Decision to Admit order: Yes - Referrals Referrals: Hossein Ogden MD [Primary Care Provider] - - Patient Instructions - Post Discharge Activity
[2018-05-07] MEDS ORDERED: ONDANSETRON 4 MG/2 ML VIAL IVPUSH ONE (17:01)
[2018-05-07] MEDS ORDERED: SODIUM CHLORIDE 1,000 ML IV STA (17:02)
[2018-05-07] MEDS ORDERED: ONDANSETRON 4 MG/2 ML VIAL ONE (17:07)
--- NOTE | 2018-05-07 17:59 | PDOC ---
Attending Attestation - HPI HPI: 05/07/18 18:11 The patient is a 73 YOF with a PMH of HTN, HLD, DM, prior CVA, CAD, and COPD who presents complaining of diarrhea, weakness, body aches, congestion and shortness of breath for the past 2 days. Patient states she has been attempting to clear her throat of phlegm these past 2 days but denies any cough. She reports 3-4 episodes of watery diarrhea. today. She has not been on antibiotics recently. Patient has been using her inhaler and nebs at home more recently. Not currently on home O2. Patient denies any cp, DONALD, dizziness, fever, chills, nausea, vomit, constipation , or urinary symptoms. Allergies: NKA Past surgical history: None reported. Social history: No reported alcohol, drug or cigarette use. PCP: Dr. Ogden - Physicial Exam PE: 05/07/18 18:19 ADULT PHYSICAL EXAM Constitutional: Awake, alert, oriented. No acute distress. (+) Obese Cardiovascular: Regular rate. Regular rhythm. S1, S2 regular. Distal pulses are 2+ and symmetric. Pulmonary/Chest: (+) Diminished breath sounds. Abdominal: Soft and non-distended. There is no tenderness. No rebound, guarding or rigidity. No organomegaly. No palpable masses. Good bowel sounds. Musculoskeletal: No edema. No cyanosis. No clubbing. Full range of motion in all extremities. Nocalf tenderness. Radial/pedal pulses are intact and 2+ bilaterally Skin: Skin is warm and dry. No petechiae. No purpura. Neurological: Alert and oriented. Psychiatric: Good eye contact. Normal interaction, affect and behavior. <Ann Huang - Last Filed: 05/07/18 18:10> - Resident Resident Name: Lee Alegre - ED Attending Attestation I have performed the following: I have examined & evaluated the patient, The case was reviewed & discussed with the resident, I agree w/resident's findings & plan, Exceptions are as noted - Medical Decision Making 05/07/18 17:58 I, Dr. Ly Simmons, DO, attest that this document has been prepared under my direction and personally reviewed by me in its entirety. I further attest, that it accurately reflects all work, treatment, procedures and medical decision -making performed by me. 05/07/18 18:55 a/p: 73yo female with sob and congestion x 2 days -pt denies cough, feels feverish, but has not checked her temp -body aches, concerning for flu, also diarrhea 4 episodes of watery stool recently -no recent abx -no recent travel -no abd pain, no n/v -will send labs, ekg, cxr, flu swab -no le swelling -pt with diminished bs, pulse ox 86, will give nebs here 05/07/18 19:47 pt feeling much better pulse ox 91 on RA, hx of copd and has refused home O2 05/07/18 20:03 pt now hypoxic to 75 on RA copd exacerbation will give another neb will give solumedrol will place in obs for a copd exacerbation 05/07/18 20:[address] Aaron who recommends observation under Dr. Matt <Ly Simmons - Last Filed: 05/07/18 20:31> Heart Score/ECG Review - ECG Intrepretation Comment:: 05/07/18 17:59 sinus at 77, nl axis, nl interval, no acute st/t wave findings, lvh <Ly Simmons - Last Filed: 05/07/18 20:31>
[2018-05-07 18:04] LABS: BASO % 0.9 % (0-2.0); EOS % 0.9 % (0-4.5); HEMATOCRIT 46.7 % (32.4-45.2); HEMOGLOBIN 14.9 GM/dL (10.7-15.3); LYMPH % 22.4 % (8-40); MCH 29.2 pg (25.7-33.7); MCHC 31.9 g/dl (32.0-36.0); MEAN CELL VOLUME 91.7 fl (80-96); MEAN PLT VOLUME 8.1 fl (7.5-11.1); MONO % 10.9 % (3.8-10.2); NEUT % 64.9 % (42.8-82.8); PLATELET COUNT 255 K/MM3 (134-434); RBC 5.09 M/mm3 (3.60-5.2); RDW 18.3 % (11.6-15.6); WHITE BLOOD COUNT 8.4 K/mm3 (4.0-10.0)
[2018-05-07] MEDS ORDERED: ALBUTEROL SO4 2.5/IPRATROPIUM 0.5 INH SOL 3 ML VIAL.NEB. NEB ONE ×4 (18:10→20:36)
[2018-05-07 18:46] LABS: ALBUMIN 3.4 g/dl (3.4-5.0); ALK PHOS 130 U/L (45-117); ANION GAP 8 MMOL/L (8-16); BILIRUBIN,TOTAL 0.5 mg/dL (0.2-1); BLOOD UREA NITROGEN 22 mg/dL (7-18); CALCIUM 8.3 mg/dL (8.5-10.1); CHLORIDE 98 mmol/L (98-107); CO2 33 mmol/L (21-32); CREATININE 1.1 mg/dL (0.55-1.3); GLUCOSE,RANDOM 213 mg/dL (74-106); N-TERMINAL BNP 732.9 pg/ml (5-450); POTASSIUM 4.3 mmol/L (3.5-5.1); SGOT/AST 23 U/L (15-37); SGPT/ALT 18 U/L (13-61); SODIUM 139 mmol/L (136-145); TOT PROT 7.2 g/dl (6.4-8.2)
[2018-05-07 19:24] LABS: EPI CELLS 2.3 /HPF (0-5); PH,URINE 5.5 (5.0-8.0); URINE APPEARANCE CLEAR; URINE BACTERIA 75.3 /hpf (NEGATIVE); URINE BILIRUBIN NEGATIVE (NEGATIVE); URINE CASTS 1 /hpf (0-8); URINE COLOR YELLOW; URINE GLUCOSE (UA) NEGATIVE (NEGATIVE); URINE KETONE NEGATIVE (NEGATIVE); URINE LEUK ESTERASE NEGATIVE (NEGATIVE); URINE NITRITE NEGATIVE (NEGATIVE); URINE PROTEIN 1+ (NEGATIVE); URINE RBC 1 /hpf (0-4); URINE UROBILINOGEN 0.2 mg/dL (0.2-1.0); URINE WBC 3 /hpf (0-5)
[2018-05-07] MEDS ORDERED: methylPREDNISolone NA SUCC 125 MG/2 ML VIAL IVPUSH ONE (20:04)
[2018-05-07] MEDS ORDERED: ALBUTEROL SO4 2.5/IPRATROPIUM 0.5 INH SOL 3 ML VIAL.NEB. NEB PRN (20:25)
[2018-05-07] MEDS ORDERED: SODIUM CHLORIDE 1,000 ML IV SCH (20:30)
--- NOTE | 2018-05-07 20:32 | HP ---
Admitting History and Physical - Primary Care Physician PCP: Hossein Ogden - Admission Chief Complaint: Nausea vomiting, cough with SOB History of Present Illness: 73 yrs old F lives at home active smoker H/O HTN, TIA Left CEA, ? CAD, COPD with chronic Hypercarbia,T2DM, Dyslipedemia, F/U with Dr Lock, last Hospitalization at [facility] in DecJan 2018 with COPD exacerbation O2 sat was recorded in 80s, today present with 2 days h/O nausea, diarrhea, abd pain with cough worsening SOB and low grade fever with myelgias present to Ed for evaluation patient received nebs treatment was about to be DC ED nurse noticed Hypoxia o2 sat was recorded 75 % improved to 92% on 2 ltr NC submitted for further evaluation and management. At the time of examination astable, saturating 91% 2ltr NC, no respiratory distress. History Source: Patient, Family Member - Past Medical History [employer]PER[employer]OR [employer]: Yes: Dementia Cardiovascular: Yes: HTN, Hyperlipdemia Pulmonary: Yes: COPD - Past Surgical History Additional Past Surgical History: Left CEA - Smoking History Smoking history: Current every day smoker Have you smoked in the past 12 months: Yes Aproximately how many cigarettes per day: 6 - Alcohol/Substance Use Hx Alcohol Use: No - Social History ADL: Independent Home Medications - Allergies Allergies/Adverse Reactions: Allergies Allergy/AdvReac Type Severity Reaction Status Date / Time No Known Allergies Allergy Verified 05/07/18 16:41 - Home Medications Home Medications: Ambulatory Orders Unobtainable 05/07/18 Family Disease History - Family Disease History Family History: Unremarkable (For this hospitalization) Review of Systems - Review of Systems Constitutional: denies: Chills, Diaphoresis Eyes: denies: Blind Spots, Blurred Vision, Double Vision HENT: denies: Difficult Swallowing, Ear Discharge Neck: denies: Decreased ROM, Lumps, Pain on Movement Cardiovascular: reports: Shortness of Breath. denies: Chest Pain, Edema, Palpitations Respiratory: reports: Cough, SOB, SOB on Exertion Gastrointestinal: reports: Diarrhea, Nausea Musculoskeletal: denies: Back Pain, Crepitus Neurological: denies: Change in LOC, Change in Speech, Confusion Endocrine: denies: Excessive Sweating, Increased Hunger Physical Examination Vital Signs: Vital Signs Temperature 98.3 F 05/07/18 16:37 Pulse Rate 86 05/07/18 16:37 Respiratory Rate 18 05/07/18 16:37 Blood Pressure 143/66 05/07/18 16:37 O2 Sat by Pulse Oximetry (%) 90 L 05/07/18 17:35 Constitutional: Yes: Well Nourished, No Distress Eyes: Yes: Conjunctiva Clear, EOM Intact HENT: Yes: Normocephalic Neck: Yes: Supple, Trachea Midline Cardiovascular: Yes: Regular Rate and Rhythm, Tachycardia, S1, S2. No: JVD, Murmur Respiratory: Yes: Regular, Rales Gastrointestinal: Yes: Normal Bowel Sounds, Soft. No: Tenderness Extremities: No: Calf Tenderness Edema: No Peripheral Pulses: Left Doralis Pedis: 1+, Right Dorsalis Pedis: 1+ Neurological: Yes: Alert, Oriented, Cran Nerves II-XII Intact ...Motor Strength: WNL, LUE, LLE, RUE, RLE Psychiatric: Yes: Alert, Oriented. No: Suicidal Ideation Labs: CBC,CMP WBC 8.4 K/mm3 (4.0-10.0) 05/07/18 17:42 RBC 5.09 M/mm3 (3.60-5.2) 05/07/18 17:42 Hgb 14.9 GM/dL (10.7-15.3) 05/07/18 17:42 Hct 46.7 % (32.4-45.2) H 05/07/18 17:42 MCV 91.7 fl (80-96) 05/07/18 17:42 MCH 29.2 pg (25.7-33.7) 05/07/18 17:42 MCHC 31.9 g/dl (32.0-36.0) L 05/07/18 17:42 RDW 18.3 % (11.6-15.6) H 05/07/18 17:42 Plt Count 255 K/MM3 (134-434) 05/07/18 17:42 MPV 8.1 fl (7.5-11.1) 05/07/18 17:42 Absolute Neuts (auto) 5.4 K/mm3 (1.5-8.0) 05/07/18 17:42 Neutrophils % 64.9 % (42.8-82.8) 05/07/18 17:42 Lymphocytes % 22.4 % (8-40) D 05/07/18 17:42 Monocytes % 10.9 % (3.8-10.2) H D 05/07/18 17:42 Eosinophils % 0.9 % (0-4.5) D 05/07/18 17:42 Basophils % 0.9 % (0-2.0) 05/07/18 17:42 Nucleated RBC % 0 % (0-0) 05/07/18 17:42 Sodium 139 mmol/L (136-145) 05/07/18 17:42 Potassium 4.3 mmol/L (3.5-5.1) 05/07/18 17:42 Chloride 98 mmol/L (98-107) 05/07/18 17:42 Carbon Dioxide 33 mmol/L (21-32) H 05/07/18 17:42 Anion Gap 8 MMOL/L (8-16) 05/07/18 17:42 BUN 22 mg/dL (7-18) H 05/07/18 17:42 Creatinine 1.1 mg/dL (0.55-1.3) 05/07/18 17:42 Creat Clearance w eGFR 48.42 (>60) 05/07/18 17:42 Random Glucose 213 mg/dL (74-106) H 05/07/18 17:42 Calcium 8.3 mg/dL (8.5-10.1) L 05/07/18 17:42 Total Bilirubin 0.5 mg/dL (0.2-1) 05/07/18 17:42 AST 23 U/L (15-37) 05/07/18 17:42 ALT 18 U/L (13-61) 05/07/18 17:42 Alkaline Phosphatase 130 U/L (45-117) H 05/07/18 17:42 Creatine Kinase 109 U/L (26-192) 05/07/18 17:42 Troponin I < 0.02 ng/ml (0.00-0.05) 05/07/18 17:42 B-Natriuretic Peptide 732.9 pg/ml (5-450) H 05/07/18 17:42 Total Protein 7.2 g/dl (6.4-8.2) 05/07/18 17:42 Albumin 3.4 g/dl (3.4-5.0) 05/07/18 17:42 Imaging - Results X-ray: Report Reviewed (No infiltrates) EKG: Report Reviewed ([address] T changes) Problem List - Problems (1) COPD exacerbation Assessment/Plan: Present with worsening cough SOB Hypoxia, elevated Co2 consitent with Hypoxic respiratory failure due to COPD exacerbation in the past on Home Oe couldn't get (PMD will F/U) IV Methyl Prednisone 60 mg TID, Duoneb, Cont Symbicort, add LAMA on DC, room Air ABG to evaluate need for Home O2 will defer abx, Pulmonary consult. Code(s): J44.1 - CHRONIC OBSTRUCTIVE PULMONARY DISEASE W (ACUTE) EXACERBATION (2) Acute respiratory failure with hypoxia and hypercapnia Assessment/Plan: Present with worsening cough SOB Hypoxia, elevated Co2 consitent with Hypoxic respiratory failure due to COPD exacerbation in the past on Home Oe couldn't get (PMD will F/U) IV Methyl Prednisone 60 mg TID, Duoneb, Cont Symbicort, add LAMA on DC, room Air ABG to evaluate need for Home O2 will defer abx, Pulmonary consult. Code(s): J96.01 - ACUTE RESPIRATORY FAILURE WITH HYPOXIA; J96.02 - ACUTE RESPIRATORY FAILURE WITH HYPERCAPNIA (3) CHF (congestive heart failure) Assessment/Plan: H/O Diastolic HF last ECHO shows normal EF on 01/12/18 with Grade I Diastolic dysfunction BNP 713 but less then base lline will resume home meds F/U clinical course cont Dyazide. Code(s): I50.9 - HEART FAILURE, UNSPECIFIED Qualifiers: Heart failure type: diastolic Heart failure chronicity: unspecified Qualified Code(s): I50.30 - Unspecified diastolic (congestive) heart failure (4) T2DM (type 2 diabetes mellitus) Assessment/Plan: Hold PO meds add Leviir 10 units with correction dose Lispro, Diabetic Diet Code(s): E11.9 - TYPE 2 DIABETES MELLITUS WITHOUT COMPLICATIONS (5) Hypertension Assessment/Plan: Well controlled cont all home meds Code(s): I10 - ESSENTIAL (PRIMARY) HYPERTENSION (6) Obesity Assessment/Plan: Notritional consult as out patient Code(s): E66.9 - OBESITY, UNSPECIFIED Qualifiers: Body mass index: BMI 33.0-33.9 (7) Hypercholesteremia Assessment/Plan: Cont Lipitor Code(s): E78.00 - PURE HYPERCHOLESTEROLEMIA, UNSPECIFIED (8) Viral gastroenteritis Assessment/Plan: Present with 2 says H/O nausea, abdominal pain and dirrhea no elevated TWBC also pulmonary symptoms of cough and congestion, consistent with viral symndrome will differ abx. Code(s): A08.4 - VIRAL INTESTINAL INFECTION, UNSPECIFIED (9) Needs smoking cessation education Assessment/Plan: Educated for smoking cesation , declined will offer Nicotine patch. Code(s): F17.200 - NICOTINE DEPENDENCE, UNSPECIFIED, UNCOMPLICATED Assessment/Plan Active Medications Albuterol/Ipratropium (Duoneb -) 1 amp NEB Q6H PRN PRN Reason: SHORTNESS OF BREATH Amlodipine Besylate (Norvasc -) 10 mg PO DAILY [facility] Atorvastatin Calcium (Lipitor -) 20 mg PO HS [facility] Budesonide/Formoterol Fumarate (Symbicort 80/4.5mcg -) 2 puff IH ONCE ONE Stop: 05/07/18 20:29 Enoxaparin Sodium (Lovenox -) 40 mg SQ DAILY [facility] Sodium Chloride (Normal Saline -) 1,000 mls @ 75 mls/hr IV ASDIR [facility] Last Admin: 05/07/18 20:45 Dose: 75 mls/hr Insulin Aspart (Novolog Vial Sliding Scale -) 1 vial SQ TIDAC [facility]; Protocol Methylprednisolone Sodium Succinate (Solu-Medrol -) 60 mg IVPB Q8H-IV [facility] Nebivolol (Bystolic -) 10 mg PO DAILY [facility] Nicotine (Nicoderm Patch -) 14 mg TD DAILY [facility] Valsartan (Diovan -) 320 mg PO DAILY [facility]
[2018-05-07] MEDS ORDERED: methylPREDNISolone NA SUCC 125 MG/2 ML VIAL ONE (20:36)
[2018-05-07] MEDS ORDERED: ATORVASTATIN CA 10 MG TABLET (FP) ONE (21:34)
[2018-05-07] MEDS ORDERED: INSULIN (LEVEMIR) 100 UNITS/ML UNITS SQ ONE (21:35)
[2018-05-07 21:41] LABS: ARTERIAL BLD GAS O2 SATURATION 89.5 % (95-98); ARTERIAL BLOOD GAS BASE EXCESS 2.7 meq/l (-2-2); ARTERIAL BLOOD GAS PCO2 67.3 mmHg (35-45); ARTERIAL BLOOD GAS PO2 62.7 mmHg (80-105); ARTERIAL BLOOD GAS pH 7.29 (7.35-7.45)
[2018-05-07] MEDS: INSULIN (LEVEMIR) 100 UNITS/ML UNITS SQ SCH (21:42)
[2018-05-07] MEDS: ATORVASTATIN CA 20 MG TABLET (FP) PO SCH (21:42)
[2018-05-07] MEDS: NICOTINE 14 MG/24 HOURS TOPICAL PATCH TD SCH (21:49)
[2018-05-07] MEDS: BUDESONIDE/FORMETEROL FUMARATE 80/4.5 mcg INHALER IH SCH (21:49)
[2018-05-07] MEDS ORDERED: ATORVASTATIN CA 80 MG TABLET (FP) PO SCH (22:00)
[2018-05-08 01:41] VITALS: BMI 34.0
[2018-05-08] MEDS: INSULIN SLIDING SCALE (NOVOLOG) 1 VIAL SQ SCH ×3 (06:17→17:56)
[2018-05-08 08:02] LABS: BASO % 0.2 % (0-2.0); HEMATOCRIT 47.2 % (32.4-45.2); HEMOGLOBIN 14.7 GM/dL (10.7-15.3); LYMPH % 13.7 % (8-40); MCH 28.6 pg (25.7-33.7); MCHC 31.2 g/dl (32.0-36.0); MEAN CELL VOLUME 91.6 fl (80-96); MEAN PLT VOLUME 7.9 fl (7.5-11.1); NEUT % 85.1 % (42.8-82.8); PLATELET COUNT 252 K/MM3 (134-434); RBC 5.15 M/mm3 (3.60-5.2); RDW 18.3 % (11.6-15.6); WHITE BLOOD COUNT 5.9 K/mm3 (4.0-10.0)
[2018-05-08 08:21] LABS: ALBUMIN 3.2 g/dl (3.4-5.0); ALK PHOS 122 U/L (45-117); ANION GAP 5 MMOL/L (8-16); BILIRUBIN,TOTAL 0.4 mg/dL (0.2-1); BLOOD UREA NITROGEN 18 mg/dL (7-18); CALCIUM 8.4 mg/dL (8.5-10.1); CHLORIDE 102 mmol/L (98-107); CO2 31 mmol/L (21-32); CREATININE 1.1 mg/dL (0.55-1.3); GLUCOSE,RANDOM 246 mg/dL (74-106); POTASSIUM 3.9 mmol/L (3.5-5.1); SGOT/AST 7 U/L (15-37); SGPT/ALT 17 U/L (13-61); SODIUM 138 mmol/L (136-145); TOT PROT 7.1 g/dl (6.4-8.2)
[2018-05-08] MEDS ORDERED: amLODIPine BESYLATE 5 MG TABLET (FP) PO SCH ×2 (10:00)
[2018-05-08] MEDS ORDERED: PT OWN MED DRAWER 7, Y5N ONE (10:29)
[2018-05-08] MEDS: NICOTINE 14 MG/24 HOURS TOPICAL PATCH TD SCH (10:31)
[2018-05-08] MEDS: amLODIPine BESYLATE 10 MG TABLET (FP) PO SCH (10:31)
--- NOTE | 2018-05-08 10:31 | EKG ---
Test Reason : Blood Pressure : / mmHG Vent. Rate : 077 BPM Atrial Rate : 077 BPM P-R Int : 164 ms QRS Dur : 094 ms QT Int : 400 ms P-R-T Axes : 074 018 069 degrees QTc Int : 452 ms NORMAL SINUS RHYTHM MODERATE VOLTAGE CRITERIA FOR LVH, MAY BE NORMAL VARIANT INCOMPLETE RBBB NONSPECIFIC ST ABNORMALITY WHEN COMPARED WITH ECG OF 09-JAN-2018 13:49, NO SIGNIFICANT CHANGE WAS FOUND Confirmed by BUTCH SIBLEY MD ([id number]) on 05/08/2018 10:31:38 AM Referred By: Confirmed By:BUTCH SIBLEY MD
[2018-05-08] MEDS: VALSARTAN 160 MG TABLET (UD) PO SCH (10:32)
[2018-05-08] MEDS: NEBIVOLOL 10 MG TABLET (FP) PO SCH (10:32)
[2018-05-08] MEDS: BUDESONIDE/FORMETEROL FUMARATE 80/4.5 mcg INHALER IH SCH ×2 (10:32→21:29)
[2018-05-08] MEDS: ENOXAPARIN NA (PORCINE) 40 MG/0.4 ML DISP.SYRIN SQ SCH (10:32)
--- NOTE | 2018-05-08 10:49 | PN ---
Progress Note, Physician History of Present Illness: pt seen/ examined chart reviewed awake. no distress +ve sob. afebrile - Current Medication List Current Medications: Active Medications Albuterol/Ipratropium (Duoneb -) 1 amp NEB Q6H PRN PRN Reason: SHORTNESS OF BREATH Amlodipine Besylate (Norvasc -) 10 mg PO DAILY [facility] Last Admin: 05/08/18 10:31 Dose: 10 mg Atorvastatin Calcium (Lipitor -) 20 mg PO HS [facility] Last Admin: 05/07/18 21:42 Dose: 20 mg Budesonide/Formoterol Fumarate (Symbicort 80/4.5mcg -) 2 puff IH BID [facility] Last Admin: 05/08/18 10:32 Dose: 2 puff Enoxaparin Sodium (Lovenox -) 40 mg SQ DAILY [facility] Last Admin: 05/08/18 10:32 Dose: 40 mg Insulin Aspart (Novolog Vial Sliding Scale -) 1 vial SQ TIDAC [facility]; Protocol Last Admin: 05/08/18 06:17 Dose: 8 units Insulin Detemir (Levemir Vial) 10 units SQ HS [facility] Last Admin: 05/07/18 21:42 Dose: 10 unit Methylprednisolone Sodium Succinate (Solu-Medrol -) 60 mg IVPB Q8H-IV [facility] Nebivolol (Bystolic -) 10 mg PO DAILY [facility] Last Admin: 05/08/18 10:32 Dose: 10 mg Nicotine (Nicoderm Patch -) 14 mg TD DAILY [facility] Last Admin: 05/08/18 10:31 Dose: 14 mg Valsartan (Diovan -) 320 mg PO DAILY [facility] Last Admin: 05/08/18 10:32 Dose: 320 mg - Objective Vital Signs: Vital Signs Temperature 98.6 F 05/08/18 06:00 Pulse Rate 84 05/08/18 06:00 Respiratory Rate 20 05/08/18 06:00 Blood Pressure 136/63 05/08/18 06:00 O2 Sat by Pulse Oximetry (%) 95 05/08/18 01:00 Constitutional: Yes: No Distress, Calm Eyes: Yes: Conjunctiva Clear Neck: Yes: Supple Cardiovascular: Yes: Regular Rate and Rhythm Respiratory: Yes: On Nasal O2, Poor Air Entry, Other Gastrointestinal: Yes: Soft Edema: No Neurological: Yes: Alert Psychiatric: Yes: Alert Labs: CBC, BMP 05/08/18 06:30 05/08/18 06:30 - ....Imaging Chest X-ray: Report Reviewed Other: Other (echo 01/27 - reviewed) Problem List - Problems (1) Acute respiratory failure with hypoxia and hypercapnia Code(s): J96.01 - ACUTE RESPIRATORY FAILURE WITH HYPOXIA; J96.02 - ACUTE RESPIRATORY FAILURE WITH HYPERCAPNIA (2) Needs smoking cessation education Code(s): F17.200 - NICOTINE DEPENDENCE, UNSPECIFIED, UNCOMPLICATED (3) T2DM (type 2 diabetes mellitus) Code(s): E11.9 - TYPE 2 DIABETES MELLITUS WITHOUT COMPLICATIONS (4) Hypertension Code(s): I10 - ESSENTIAL (PRIMARY) HYPERTENSION Assessment/Plan Continue present care steroids abx gi prophylaxis dvt prophylaxis smoking cessation counselling provided pulmonary consult ct chest d/c fluids will follow discussed with nursing staff also time spend approx 30 min in examining/ documenting /coordating
[2018-05-08] MEDS: methylPREDNISolone NA SUCC 40 MG/1 ML VIAL IVPB SCH ×2 (11:08→17:57)
[2018-05-08] MEDS: AZITHROMYCIN IVPB 500 MG/250 ML BAG IVPB SCH (11:09)
[2018-05-08] MEDS ORDERED: INSULIN (NOVOLOG) ASPART 100 UNITS/ML 10ML VIAL ONE (12:06)
--- NOTE | 2018-05-08 13:34 | CON.PULM ---
Consult Consult Specialty:: PULMONARY Referred by:: LATA Reason for Consultation:: SOB/COPD - History of Present Illness Chief Complaint: SOB History of Present Illness: The patient is a 73 YOF with a PMH of HTN, HLD, DM, prior CVA, CAD, and COPD who presents complaining of diarrhea, weakness, body aches, congestion and shortness of breath for the past 2 days. Patient states she has been attempting to clear her throat of phlegm these past 2 days but denies any cough. She reports 3-4 episodes of watery diarrhea. today. She has not been on antibiotics recently. Patient has been using her inhaler and nebs at home more recently. Not currently on home O2. She is an active smoker. She is a poor informant. - History Source History Provided By: Patient, Medical Record Limitations to Obtaining History: Poor Historian - Past Medical History RESIDENTIAL NURSE: Yes: Dementia Cardio/Vascular: Yes: HTN, Hyperlipdemia Pulmonary: Yes: COPD. No: O2 Dependent Heme/Onc: No: Anemia - Alcohol/Substance Use Hx Alcohol Use: No - Smoking History Smoking history: Current every day smoker Have you smoked in the past 12 months: Yes Aproximately how many cigarettes per day: 6 - Social History ADL: Independent Place of : Other History of Recent Travel: No Home Medications - Allergies Allergies/Adverse Reactions: Allergies Allergy/AdvReac Type Severity Reaction Status Date / Time No Known Allergies Allergy Verified 05/07/18 16:41 - Home Medications Home Medications: Ambulatory Orders Unobtainable 05/07/18 Family Disease History - Family Disease History Family History: Unable to Obtain Review of Systems Unable to obtain ROS, reason: poor informant Physical Exam Vital Sings: Vital Signs Temperature 98.6 F 05/08/18 06:00 Pulse Rate 84 05/08/18 06:00 Respiratory Rate 20 05/08/18 06:00 Blood Pressure 136/63 05/08/18 06:00 O2 Sat by Pulse Oximetry (%) 95 05/08/18 01:00 Constitutional: Yes: Calm Eyes: Yes: EOM Intact HENT: Yes: Normocephalic Neck: Yes: Trachea Midline Cardiovascular: Yes: Regular Rate and Rhythm Respiratory: Yes: Diminished Gastrointestinal: Yes: Soft, Abdomen, Obese Edema: No Neurological: Yes: Alert Psychiatric: Yes: Alert Labs: CBC, BMP 05/08/18 06:30 05/08/18 06:30 ABG Results ABG pH 7.29 (7.35-7.45) L 05/07/18 21:15 ABG pCO2 at Pt Temp 67.3 mmHg (35-45) H 05/07/18 21:15 ABG pO2 at Pt Temp 62.7 mmHg (80-105) L 05/07/18 21:15 ABG HCO3 31.1 mmol/L (22-27) H 05/07/18 21:15 ABG O2 Sat (Measured) 89.5 % (95-98) L 05/07/18 21:15 ABG O2 Content 17.3 % vol (15-22) 05/07/18 21:15 ABG Base Excess 2.7 meq/l (-2-2) H 05/07/18 21:15 Imaging - Results Chest X-ray: Report Reviewed, Image Reviewed Cat Scan: Pending Problem List - Problems (1) Acute respiratory failure with hypoxia and hypercapnia Code(s): J96.01 - ACUTE RESPIRATORY FAILURE WITH HYPOXIA; J96.02 - ACUTE RESPIRATORY FAILURE WITH HYPERCAPNIA (2) COPD exacerbation Code(s): J44.1 - CHRONIC OBSTRUCTIVE PULMONARY DISEASE W (ACUTE) EXACERBATION (3) Needs smoking cessation education Code(s): F17.200 - NICOTINE DEPENDENCE, UNSPECIFIED, UNCOMPLICATED (4) T2DM (type 2 diabetes mellitus) Code(s): E11.9 - TYPE 2 DIABETES MELLITUS WITHOUT COMPLICATIONS (5) COPD (chronic obstructive pulmonary disease) Code(s): J44.9 - CHRONIC OBSTRUCTIVE PULMONARY DISEASE, UNSPECIFIED Qualifiers: COPD type: unspecified COPD Qualified Code(s): J44.9 - Chronic obstructive pulmonary disease, unspecified (6) Hypertension Code(s): I10 - ESSENTIAL (PRIMARY) HYPERTENSION (7) NIDDY (non-insulin dependent diabetes mellitus in young) Code(s): E13.9 - OTHER SPECIFIED DIABETES MELLITUS WITHOUT COMPLICATIONS (8) Obesity Code(s): E66.9 - OBESITY, UNSPECIFIED Qualifiers: Body mass index: BMI 33.0-33.9 (9) TIA (transient ischemic attack) Code(s): G45.9 - TRANSIENT CEREBRAL ISCHEMIC ATTACK, UNSPECIFIED Qualifiers: Transient cerebral ischemia type: unspecified Qualified Code(s): G45.9 - Transient cerebral ischemic attack, unspecified Assessment/Plan ACUTE EXACERBATION OF COPD IN ACTIVE SMOKER NO EVIDENCE TO SUGGEST PNEUMONIA CAT SCAN CHEST IS PENDING ICS/LABA/LAMA/ALBA/TRIAL OF ANTIBIOTICS/STEROIDS WILL NEED POST AMB O2 ON R/A OBTAINED PRIOR TO DISCHARGE SMOKING CESSATION COUNSELING WILL FOLLOW Dale DURAN MD
[2018-05-08] MEDS ORDERED: methylPREDNISolone NA SUCC 40 MG/1 ML VIAL IVPB SCH (20:30)
[2018-05-08] MEDS: ATORVASTATIN CA 20 MG TABLET (FP) PO SCH (21:28)
[2018-05-08] MEDS: INSULIN (LEVEMIR) 100 UNITS/ML UNITS SQ SCH (21:29)
[2018-05-09] MEDS: methylPREDNISolone NA SUCC 40 MG/1 ML VIAL IVPB SCH ×3 (01:42→18:25)
[2018-05-09] MEDS: INSULIN SLIDING SCALE (NOVOLOG) 1 VIAL SQ SCH ×3 (07:13→18:26)
[2018-05-09] MEDS: ENOXAPARIN NA (PORCINE) 40 MG/0.4 ML DISP.SYRIN SQ SCH (10:40)
[2018-05-09] MEDS: NICOTINE 14 MG/24 HOURS TOPICAL PATCH TD SCH (10:40)
[2018-05-09] MEDS: AZITHROMYCIN IVPB 500 MG/250 ML BAG IVPB SCH (10:41)
[2018-05-09] MEDS: amLODIPine BESYLATE 10 MG TABLET (FP) PO SCH (10:41)
[2018-05-09] MEDS: NEBIVOLOL 10 MG TABLET (FP) PO SCH (10:41)
[2018-05-09] MEDS: VALSARTAN 160 MG TABLET (UD) PO SCH (10:42)
[2018-05-09] MEDS: BUDESONIDE/FORMETEROL FUMARATE 80/4.5 mcg INHALER IH SCH ×2 (10:46→21:03)
[2018-05-09] MEDS ORDERED: guaiFENesin 200 MG/10 ML 10 ML UNIT-DOSE CUPS PO PRN (11:50)
--- NOTE | 2018-05-09 11:50 | PN ---
Progress Note (short form) - Note Progress Note: No complaints feeling better daughter at bedside events noted Vital Signs - 24 hr 05/08/18 05/08/18 05/08/18 14:29 17:00 17:24 Temperature 98.2 F 98.3 F Pulse Rate 91 H 89 Respiratory 20 20 20 Rate Blood Pressure 153/77 177/83 H O2 Sat by Pulse 98 Oximetry (%) 05/08/18 05/09/18 05/09/18 19:55 01:00 06:17 Temperature 97.8 F 98.9 F Pulse Rate 89 88 Respiratory 22 H 22 H 20 Rate Blood Pressure 155/69 160/82 O2 Sat by Pulse 98 Oximetry (%) 05/09/18 10:00 Temperature 98.4 F Pulse Rate 82 Respiratory 18 Rate Blood Pressure 164/95 O2 Sat by Pulse Oximetry (%) Current Medications Generic Name Dose Route Start Last Admin Trade Name Freq PRN Reason Stop Dose Admin Albuterol/Ipratropium 1 amp 05/09/18 12:00 05/09/18 12:40 Duoneb - NEB 1 amp RQ4H [facility] Administration Amlodipine Besylate 10 mg 05/08/18 10:00 05/09/18 10:41 Norvasc - PO 10 mg DAILY [facility] Administration Atorvastatin Calcium 20 mg 05/07/18 22:00 05/08/18 21:28 Lipitor - PO 20 mg HS [facility] Administration Budesonide/Formoterol Fumarate 2 puff 05/07/18 22:00 05/09/18 10:46 Symbicort 80/4.5mcg - IH 2 puff BID [facility] Administration Enoxaparin Sodium 40 mg 05/08/18 10:00 05/09/18 10:40 Lovenox - SQ 40 mg DAILY [facility] Administration Guaifenesin 10 ml 05/09/18 11:50 Robitussin - PO Q4H PRN COUGH Azithromycin 500 mg in 250 mls @ 250 mls/hr 05/08/18 11:15 05/09/18 10:41 Zithromax 500mg Ivpb (Pre-Docked) IVPB 250 mls/hr DAILY [facility] Administration Insulin Aspart 1 vial 05/08/18 07:00 05/09/18 10:59 Novolog Vial Sliding Scale - SQ 8 units TIDAC [facility] Administration Protocol Insulin Detemir 10 units 05/07/18 22:00 05/08/18 21:29 Levemir Vial SQ 10 unit HS [facility] Administration Methylprednisolone Sodium Succinate 40 mg 05/09/18 11:58 Solu-Medrol - IVPB Q8H-IV [facility] Nebivolol 10 mg 05/08/18 10:00 05/09/18 10:41 Bystolic - PO 10 mg DAILY [facility] Administration Nicotine 14 mg 05/07/18 21:30 05/09/18 10:40 Nicoderm Patch - TD 14 mg DAILY [facility] Administration Valsartan 320 mg 05/08/18 10:00 05/09/18 10:42 Diovan - PO 320 mg DAILY [facility] Administration Laboratory Results - last 24 hr 05/08/18 05/09/18 05/09/18 17:45 06:57 10:58 POC Glucometer 276 211 283 S1 s2 rrr Lugs scattered ronchi Abd- soft, obese,NT edema trace PLAN taper solumedrol continue nebs iv Zithromax smoking cessation CT chest done-- results pending Problem List - Problems (1) Smoker Code(s): F17.200 - NICOTINE DEPENDENCE, UNSPECIFIED, UNCOMPLICATED (2) Acute respiratory failure with hypoxia and hypercapnia Code(s): J96.01 - ACUTE RESPIRATORY FAILURE WITH HYPOXIA; J96.02 - ACUTE RESPIRATORY FAILURE WITH HYPERCAPNIA (3) COPD exacerbation Code(s): J44.1 - CHRONIC OBSTRUCTIVE PULMONARY DISEASE W (ACUTE) EXACERBATION (4) Hypercholesteremia Code(s): E78.00 - PURE HYPERCHOLESTEROLEMIA, UNSPECIFIED (5) T2DM (type 2 diabetes mellitus) Code(s): E11.9 - TYPE 2 DIABETES MELLITUS WITHOUT COMPLICATIONS (6) COPD (chronic obstructive pulmonary disease) Code(s): J44.9 - CHRONIC OBSTRUCTIVE PULMONARY DISEASE, UNSPECIFIED Qualifiers: COPD type: unspecified COPD Qualified Code(s): J44.9 - Chronic obstructive pulmonary disease, unspecified
--- NOTE | 2018-05-09 12:10 | PN ---
Progress Note (short form) - Note Progress Note: Feeling better overall. Less cough and wheezing. Intake & Output 05/06/18 05/07/18 05/08/18 05/09/18 23:59 23:59 23:59 23:59 Intake Total 300 450 150 Balance 300 450 150 Weight 180 lb Last Vital Signs Temp Pulse Resp BP Pulse Ox 98.9 F 88 20 160/82 98 05/09/18 06:17 05/09/18 06:17 05/09/18 06:17 05/09/18 06:17 05/09/18 01:00 Active Medications Albuterol/Ipratropium (Duoneb -) 1 amp NEB RQ4H [facility] Amlodipine Besylate (Norvasc -) 10 mg PO DAILY [facility] Last Admin: 05/09/18 10:41 Dose: 10 mg Atorvastatin Calcium (Lipitor -) 20 mg PO HS [facility] Last Admin: 05/08/18 21:28 Dose: 20 mg Budesonide/Formoterol Fumarate (Symbicort 80/4.5mcg -) 2 puff IH BID [facility] Last Admin: 05/09/18 10:46 Dose: 2 puff Enoxaparin Sodium (Lovenox -) 40 mg SQ DAILY [facility] Last Admin: 05/09/18 10:40 Dose: 40 mg Guaifenesin (Robitussin -) 10 ml PO Q4H PRN PRN Reason: COUGH Azithromycin (Zithromax 500mg Ivpb (Pre-Docked)) 500 mg in 250 mls @ 250 mls/ hr IVPB DAILY [facility] Last Admin: 05/09/18 10:41 Dose: 250 mls/hr Insulin Aspart (Novolog Vial Sliding Scale -) 1 vial SQ TIDAC [facility]; Protocol Last Admin: 05/09/18 10:59 Dose: 8 units Insulin Detemir (Levemir Vial) 10 units SQ HS [facility] Last Admin: 05/08/18 21:29 Dose: 10 unit Methylprednisolone Sodium Succinate (Solu-Medrol -) 40 mg IVPB Q8H-IV [facility] Nebivolol (Bystolic -) 10 mg PO DAILY [facility] Last Admin: 05/09/18 10:41 Dose: 10 mg Nicotine (Nicoderm Patch -) 14 mg TD DAILY [facility] Last Admin: 05/09/18 10:40 Dose: 14 mg Valsartan (Diovan -) 320 mg PO DAILY [facility] Last Admin: 05/09/18 10:42 Dose: 320 mg Constitutional: Yes: NAD Eyes: Yes: EOM Intact HENT: Yes: Normocephalic Neck: Yes: Trachea Midline Cardiovascular: Yes: Regular Rate and Rhythm Respiratory: Yes: Diminished Gastrointestinal: Yes: Soft, Abdomen, Obese Edema: No Neurological: Yes: Alert Psychiatric: Yes: Alert Labs: Laboratory Results - last 24 hr 05/08/18 05/08/18 05/09/18 12:10 17:45 06:57 POC Glucometer 273 276 211 05/09/18 10:58 POC Glucometer 283 Problem List - Problems (1) Acute respiratory failure with hypoxia and hypercapnia Code(s): J96.01 - ACUTE RESPIRATORY FAILURE WITH HYPOXIA; J96.02 - ACUTE RESPIRATORY FAILURE WITH HYPERCAPNIA (2) COPD exacerbation Code(s): J44.1 - CHRONIC OBSTRUCTIVE PULMONARY DISEASE W (ACUTE) EXACERBATION (3) Needs smoking cessation education Code(s): F17.200 - NICOTINE DEPENDENCE, UNSPECIFIED, UNCOMPLICATED (4) T2DM (type 2 diabetes mellitus) Code(s): E11.9 - TYPE 2 DIABETES MELLITUS WITHOUT COMPLICATIONS (5) COPD (chronic obstructive pulmonary disease) Code(s): J44.9 - CHRONIC OBSTRUCTIVE PULMONARY DISEASE, UNSPECIFIED Qualifiers: COPD type: unspecified COPD Qualified Code(s): J44.9 - Chronic obstructive pulmonary disease, unspecified (6) Hypertension Code(s): I10 - ESSENTIAL (PRIMARY) HYPERTENSION (7) NIDDY (non-insulin dependent diabetes mellitus in young) Code(s): E13.9 - OTHER SPECIFIED DIABETES MELLITUS WITHOUT COMPLICATIONS (8) Obesity Code(s): E66.9 - OBESITY, UNSPECIFIED Qualifiers: Body mass index: BMI 33.0-33.9 (9) TIA (transient ischemic attack) Code(s): G45.9 - TRANSIENT CEREBRAL ISCHEMIC ATTACK, UNSPECIFIED Qualifiers: Transient cerebral ischemia type: unspecified Qualified Code(s): G45.9 - Transient cerebral ischemic attack, unspecified Assessment/Plan ACUTE EXACERBATION OF COPD IN ACTIVE SMOKER NO EVIDENCE TO SUGGEST PNEUMONIA ICS/LABA/LAMA/ALBA/TRIAL OF ANTIBIOTICS/STEROIDS WILL NEED POST AMB O2 ON R/A OBTAINED PRIOR TO DISCHARGE SMOKING CESSATION COUNSELING CHECK OFFICIAL CT SCAN READ DR MEDINA
[2018-05-09] MEDS: ALBUTEROL SO4 2.5/IPRATROPIUM 0.5 INH SOL 3 ML VIAL.NEB. NEB SCH ×3 (12:40→20:15)
[2018-05-09] MEDS ORDERED: INSULIN (NOVOLOG) ASPART 100 UNITS/ML 10ML VIAL ONE (20:43)
[2018-05-09] MEDS: ATORVASTATIN CA 20 MG TABLET (FP) PO SCH (21:03)
[2018-05-09] MEDS: INSULIN (LEVEMIR) 100 UNITS/ML UNITS SQ SCH (21:06)
[2018-05-10] MEDS: ALBUTEROL SO4 2.5/IPRATROPIUM 0.5 INH SOL 3 ML VIAL.NEB. NEB SCH ×6 (00:10→20:02)
[2018-05-10] MEDS: methylPREDNISolone NA SUCC 40 MG/1 ML VIAL IVPB SCH (01:13)
[2018-05-10] MEDS: INSULIN SLIDING SCALE (NOVOLOG) 1 VIAL SQ SCH ×3 (06:03→16:38)
[2018-05-10] MEDS: VALSARTAN 160 MG TABLET (UD) PO SCH (09:38)
[2018-05-10] MEDS: NEBIVOLOL 10 MG TABLET (FP) PO SCH (09:38)
[2018-05-10] MEDS: ENOXAPARIN NA (PORCINE) 40 MG/0.4 ML DISP.SYRIN SQ SCH (09:39)
[2018-05-10] MEDS: amLODIPine BESYLATE 10 MG TABLET (FP) PO SCH (09:39)
[2018-05-10] MEDS: NICOTINE 14 MG/24 HOURS TOPICAL PATCH TD SCH (09:39)
[2018-05-10] MEDS: AZITHROMYCIN IVPB 500 MG/250 ML BAG IVPB SCH (09:39)
[2018-05-10] MEDS: BUDESONIDE/FORMETEROL FUMARATE 80/4.5 mcg INHALER IH SCH ×2 (09:40→21:24)
[2018-05-10] MEDS: predniSONE 20 MG TABLET (UD) PO SCH (10:32)
--- NOTE | 2018-05-10 10:52 | PN ---
Progress Note (short form) - Note Progress Note: Continues to slowly improve. Less phlegm, cough, and wheezing. Intake & Output 05/07/18 05/08/18 05/09/18 05/10/18 23:59 23:59 23:59 23:59 Intake Total 821 253 1556 380 Balance 584 725 1886 380 Weight 180 lb Last Vital Signs Temp Pulse Resp BP Pulse Ox 98 F 84 20 154/77 98 05/10/18 06:53 05/10/18 06:53 05/10/18 06:53 05/10/18 06:53 05/10/18 01:00 Active Medications Albuterol/Ipratropium (Duoneb -) 1 amp NEB RQ4H [facility] Last Admin: 05/10/18 07:53 Dose: 1 amp Amlodipine Besylate (Norvasc -) 10 mg PO DAILY [facility] Last Admin: 05/10/18 09:39 Dose: 10 mg Atorvastatin Calcium (Lipitor -) 20 mg PO HS [facility] Last Admin: 05/09/18 21:03 Dose: 20 mg Budesonide/Formoterol Fumarate (Symbicort 80/4.5mcg -) 2 puff IH BID [facility] Last Admin: 05/10/18 09:40 Dose: 2 puff Enoxaparin Sodium (Lovenox -) 40 mg SQ DAILY [facility] Last Admin: 05/10/18 09:39 Dose: 40 mg Guaifenesin (Robitussin -) 10 ml PO Q4H PRN PRN Reason: COUGH Azithromycin (Zithromax 500mg Ivpb (Pre-Docked)) 500 mg in 250 mls @ 250 mls/ hr IVPB DAILY [facility] Last Admin: 05/10/18 09:39 Dose: 250 mls/hr Insulin Aspart (Novolog Vial Sliding Scale -) 1 vial SQ TIDAC [facility]; Protocol Last Admin: 05/10/18 06:03 Dose: 4 units Insulin Detemir (Levemir Vial) 10 units SQ HS [facility] Last Admin: 05/09/18 21:06 Dose: 10 unit Nebivolol (Bystolic -) 10 mg PO DAILY [facility] Last Admin: 05/10/18 09:38 Dose: 10 mg Nicotine (Nicoderm Patch -) 14 mg TD DAILY [facility] Last Admin: 05/10/18 09:39 Dose: 14 mg Prednisone (Deltasone -) 40 mg PO DAILY [facility] Last Admin: 05/10/18 10:32 Dose: 40 mg Valsartan (Diovan -) 320 mg PO DAILY [facility] Last Admin: 05/10/18 09:38 Dose: 320 mg Constitutional: Yes: NAD Eyes: Yes: EOM Intact HENT: Yes: Normocephalic Neck: Yes: Trachea Midline Cardiovascular: Yes: Regular Rate and Rhythm Respiratory: Yes: Diminished Gastrointestinal: Yes: Soft, Abdomen, Obese Edema: No Neurological: Yes: Alert Psychiatric: Yes: Alert Labs: Laboratory Results - last 24 hr 05/09/18 05/09/18 05/09/18 10:58 17:25 21:05 POC Glucometer 283 316 319 05/10/18 05:36 POC Glucometer 243 Problem List - Problems (1) Acute respiratory failure with hypoxia and hypercapnia Code(s): J96.01 - ACUTE RESPIRATORY FAILURE WITH HYPOXIA; J96.02 - ACUTE RESPIRATORY FAILURE WITH HYPERCAPNIA (2) COPD exacerbation Code(s): J44.1 - CHRONIC OBSTRUCTIVE PULMONARY DISEASE W (ACUTE) EXACERBATION (3) Needs smoking cessation education Code(s): F17.200 - NICOTINE DEPENDENCE, UNSPECIFIED, UNCOMPLICATED (4) T2DM (type 2 diabetes mellitus) Code(s): E11.9 - TYPE 2 DIABETES MELLITUS WITHOUT COMPLICATIONS (5) COPD (chronic obstructive pulmonary disease) Code(s): J44.9 - CHRONIC OBSTRUCTIVE PULMONARY DISEASE, UNSPECIFIED Qualifiers: COPD type: unspecified COPD Qualified Code(s): J44.9 - Chronic obstructive pulmonary disease, unspecified (6) Hypertension Code(s): I10 - ESSENTIAL (PRIMARY) HYPERTENSION (7) NIDDY (non-insulin dependent diabetes mellitus in young) Code(s): E13.9 - OTHER SPECIFIED DIABETES MELLITUS WITHOUT COMPLICATIONS (8) Obesity Code(s): E66.9 - OBESITY, UNSPECIFIED Qualifiers: Body mass index: BMI 33.0-33.9 (9) TIA (transient ischemic attack) Code(s): G45.9 - TRANSIENT CEREBRAL ISCHEMIC ATTACK, UNSPECIFIED Qualifiers: Transient cerebral ischemia type: unspecified Qualified Code(s): G45.9 - Transient cerebral ischemic attack, unspecified Assessment/Plan ACUTE EXACERBATION OF COPD IN AN ACTIVE SMOKER NO EVIDENCE TO SUGGEST PNEUMONIA ICS/LABA/LAMA/ALBA/TRIAL OF ANTIBIOTICS/STEROIDS WILL NEED POST AMB O2 ON R/A OBTAINED PRIOR TO DISCHARGE SMOKING CESSATION COUNSELING CHECK OFFICIAL CT SCAN READ AGREE WITH PREDNISONE D/C PLANNING DR MEDINA
--- NOTE | 2018-05-10 19:24 | PN ---
Progress Note (short form) - Note Progress Note: No complaints feeling better wants to go home Vital Signs - 24 hr 05/10/18 05/10/18 05/10/18 01:00 06:53 09:00 Temperature 98 F Pulse Rate 84 Respiratory 20 Rate Blood Pressure 154/77 O2 Sat by Pulse 98 93 L Oximetry (%) 05/10/18 05/10/18 05/10/18 10:00 14:15 14:35 Temperature 98.1 F 98.1 F Pulse Rate 90 95 H 90 Respiratory 20 18 Rate Blood Pressure 153/70 161/77 O2 Sat by Pulse 99 Oximetry (%) 05/10/18 05/10/18 16:57 17:12 Temperature 98.1 F Pulse Rate 93 H Respiratory 18 20 Rate Blood Pressure 159/77 O2 Sat by Pulse 94 L Oximetry (%) Current Medications Generic Name Dose Route Start Last Admin Trade Name Freq PRN Reason Stop Dose Admin Albuterol/Ipratropium 1 amp 05/09/18 12:00 05/10/18 15:21 Duoneb - NEB 1 amp RQ4H [facility] Administration Amlodipine Besylate 10 mg 05/08/18 10:00 05/10/18 09:39 Norvasc - PO 10 mg DAILY [facility] Administration Atorvastatin Calcium 20 mg 05/07/18 22:00 05/09/18 21:03 Lipitor - PO 20 mg HS [facility] Administration Budesonide/Formoterol Fumarate 2 puff 05/07/18 22:00 05/10/18 09:40 Symbicort 80/4.5mcg - IH 2 puff BID [facility] Administration Enoxaparin Sodium 40 mg 05/08/18 10:00 05/10/18 09:39 Lovenox - SQ 40 mg DAILY [facility] Administration Guaifenesin 10 ml 05/09/18 11:50 Robitussin - PO Q4H PRN COUGH Azithromycin 500 mg in 250 mls @ 250 mls/hr 05/08/18 11:15 05/10/18 09:39 Zithromax 500mg Ivpb (Pre-Docked) IVPB 250 mls/hr DAILY [facility] Administration Insulin Aspart 1 vial 05/08/18 07:00 05/10/18 16:38 Novolog Vial Sliding Scale - SQ 4 units TIDAC [facility] Administration Protocol Insulin Detemir 10 units 05/07/18 22:00 05/09/18 21:06 Levemir Vial SQ 10 unit HS [facility] Administration Nebivolol 10 mg 05/08/18 10:00 05/10/18 09:38 Bystolic - PO 10 mg DAILY [facility] Administration Nicotine 14 mg 05/07/18 21:30 05/10/18 09:39 Nicoderm Patch - TD 14 mg DAILY [facility] Administration Prednisone 40 mg 05/10/18 10:00 05/10/18 10:32 Deltasone - PO 40 mg DAILY [facility] Administration Valsartan 320 mg 05/08/18 10:00 05/10/18 09:38 Diovan - PO 320 mg DAILY [facility] Administration Laboratory Results - last 24 hr 05/09/18 05/10/18 05/10/18 21:05 05:36 11:02 POC Glucometer 319 243 336 05/10/18 16:36 POC Glucometer 230 S1 s2 rrr Lugs scattered ronchi Abd- soft, obese,NT edema trace PLAN change to PO prednisone continue nebs iv Zithromax smoking cessation CT chest done-- results pending dc plan for tomorrow spoke with Pulmonary Problem List - Problems (1) Smoker Code(s): F17.200 - NICOTINE DEPENDENCE, UNSPECIFIED, UNCOMPLICATED (2) Acute respiratory failure with hypoxia and hypercapnia Code(s): J96.01 - ACUTE RESPIRATORY FAILURE WITH HYPOXIA; J96.02 - ACUTE RESPIRATORY FAILURE WITH HYPERCAPNIA (3) COPD exacerbation Code(s): J44.1 - CHRONIC OBSTRUCTIVE PULMONARY DISEASE W (ACUTE) EXACERBATION (4) Hypercholesteremia Code(s): E78.00 - PURE HYPERCHOLESTEROLEMIA, UNSPECIFIED (5) T2DM (type 2 diabetes mellitus) Code(s): E11.9 - TYPE 2 DIABETES MELLITUS WITHOUT COMPLICATIONS (6) COPD (chronic obstructive pulmonary disease) Code(s): J44.9 - CHRONIC OBSTRUCTIVE PULMONARY DISEASE, UNSPECIFIED Qualifiers: COPD type: unspecified COPD Qualified Code(s): J44.9 - Chronic obstructive pulmonary disease, unspecified
[2018-05-10] MEDS: ATORVASTATIN CA 20 MG TABLET (FP) PO SCH (21:25)
[2018-05-10] MEDS: INSULIN (LEVEMIR) 100 UNITS/ML UNITS SQ SCH (21:27)
[2018-05-11] MEDS: ALBUTEROL SO4 2.5/IPRATROPIUM 0.5 INH SOL 3 ML VIAL.NEB. NEB SCH ×4 (04:06→11:50)
[2018-05-11] MEDS: INSULIN SLIDING SCALE (NOVOLOG) 1 VIAL SQ SCH ×2 (06:04→11:44)
[2018-05-11] MEDS: NEBIVOLOL 10 MG TABLET (FP) PO SCH (09:20)
[2018-05-11] MEDS: VALSARTAN 160 MG TABLET (UD) PO SCH (09:20)
[2018-05-11] MEDS: amLODIPine BESYLATE 10 MG TABLET (FP) PO SCH (09:20)
[2018-05-11] MEDS: NICOTINE 14 MG/24 HOURS TOPICAL PATCH TD SCH (09:20)
[2018-05-11] MEDS: ENOXAPARIN NA (PORCINE) 40 MG/0.4 ML DISP.SYRIN SQ SCH (09:20)
[2018-05-11] MEDS: predniSONE 20 MG TABLET (UD) PO SCH (09:20)
[2018-05-11] MEDS: AZITHROMYCIN IVPB 500 MG/250 ML BAG IVPB SCH (09:21)
[2018-05-11] MEDS: BUDESONIDE/FORMETEROL FUMARATE 80/4.5 mcg INHALER IH SCH (09:21)
--- NOTE | 2018-05-11 09:37 | PN ---
Progress Note (short form) - Note Progress Note: Continues to slowly improve. Feels better overall. (?) Hypoxic to 82% this AM. Intake & Output 05/08/18 05/09/18 05/10/18 05/11/18 23:59 23:59 23:59 23:59 Intake Total 450 1130 1610 Balance 450 1130 1610 Last Vital Signs Temp Pulse Resp BP Pulse Ox 98.2 F 82 18 130/84 96 05/11/18 06:46 05/11/18 06:46 05/11/18 06:46 05/11/18 06:46 05/11/18 00:44 Active Medications Albuterol/Ipratropium (Duoneb -) 1 amp NEB RQ4H [facility] Last Admin: 05/11/18 07:15 Dose: 1 amp Amlodipine Besylate (Norvasc -) 10 mg PO DAILY [facility] Last Admin: 05/11/18 09:20 Dose: 10 mg Atorvastatin Calcium (Lipitor -) 20 mg PO [facility] Last Admin: 05/10/18 21:25 Dose: 20 mg Budesonide/Formoterol Fumarate (Symbicort 80/4.5mcg -) 2 puff IH BID [facility] Last Admin: 05/11/18 09:21 Dose: 2 puff Enoxaparin Sodium (Lovenox -) 40 mg SQ DAILY [facility] Last Admin: 05/11/18 09:20 Dose: 40 mg Guaifenesin (Robitussin -) 10 ml PO Q4H PRN PRN Reason: COUGH Azithromycin (Zithromax 500mg Ivpb (Pre-Docked)) 500 mg in 250 mls @ 250 mls/ hr IVPB DAILY [facility] Last Admin: 05/11/18 09:21 Dose: 250 mls/hr Insulin Aspart (Novolog Vial Sliding Scale -) 1 vial SQ TIDAC [facility]; Protocol Last Admin: 05/11/18 06:04 Dose: 2 units Insulin Detemir (Levemir Vial) 10 units SQ [facility] Last Admin: 05/10/18 21:27 Dose: 10 unit Nebivolol (Bystolic -) 10 mg PO DAILY [facility] Last Admin: 05/11/18 09:20 Dose: 10 mg Nicotine (Nicoderm Patch -) 14 mg TD DAILY [facility] Last Admin: 05/11/18 09:20 Dose: 14 mg Prednisone (Deltasone -) 40 mg PO DAILY [facility] Last Admin: 05/11/18 09:20 Dose: 40 mg Valsartan (Diovan -) 320 mg PO DAILY [facility] Last Admin: 05/11/18 09:20 Dose: 320 mg Constitutional: Yes: NAD Eyes: Yes: EOM Intact HENT: Yes: Normocephalic Neck: Yes: Trachea Midline Cardiovascular: Yes: Regular Rate and Rhythm Respiratory: Yes: No wheeze, Diminished at the bases Gastrointestinal: Yes: Soft, Abdomen, Obese Edema: No Neurological: Yes: Alert Psychiatric: Yes: Alert Labs: Laboratory Results - last 24 hr 05/10/18 05/10/18 05/10/18 11:02 16:36 21:26 POC Glucometer 336 230 276 05/11/18 06:02 POC Glucometer 164 Problem List - Problems (1) Acute respiratory failure with hypoxia and hypercapnia Code(s): J96.01 - ACUTE RESPIRATORY FAILURE WITH HYPOXIA; J96.02 - ACUTE RESPIRATORY FAILURE WITH HYPERCAPNIA (2) COPD exacerbation Code(s): J44.1 - CHRONIC OBSTRUCTIVE PULMONARY DISEASE W (ACUTE) EXACERBATION (3) Needs smoking cessation education Code(s): F17.200 - NICOTINE DEPENDENCE, UNSPECIFIED, UNCOMPLICATED (4) T2DM (type 2 diabetes mellitus) Code(s): E11.9 - TYPE 2 DIABETES MELLITUS WITHOUT COMPLICATIONS (5) COPD (chronic obstructive pulmonary disease) Code(s): J44.9 - CHRONIC OBSTRUCTIVE PULMONARY DISEASE, UNSPECIFIED Qualifiers: COPD type: unspecified COPD Qualified Code(s): J44.9 - Chronic obstructive pulmonary disease, unspecified (6) Hypertension Code(s): I10 - ESSENTIAL (PRIMARY) HYPERTENSION (7) NIDDY (non-insulin dependent diabetes mellitus in young) Code(s): E13.9 - OTHER SPECIFIED DIABETES MELLITUS WITHOUT COMPLICATIONS (8) Obesity Code(s): E66.9 - OBESITY, UNSPECIFIED Qualifiers: Body mass index: BMI 33.0-33.9 (9) TIA (transient ischemic attack) Code(s): G45.9 - TRANSIENT CEREBRAL ISCHEMIC ATTACK, UNSPECIFIED Qualifiers: Transient cerebral ischemia type: unspecified Qualified Code(s): G45.9 - Transient cerebral ischemic attack, unspecified Assessment/Plan ACUTE EXACERBATION OF COPD IN AN ACTIVE SMOKER NO EVIDENCE TO SUGGEST PNEUMONIA ICS/LABA/LAMA/ALBA/TRIAL OF ANTIBIOTICS/STEROIDS WILL NEED POST AMB O2 ON R/A OBTAINED PRIOR TO DISCHARGE SMOKING CESSATION COUNSELING CHECK OFFICIAL CT SCAN READ AGREE WITH PREDNISONE NO PULMONARY CONTRAINDICATION FOR D/C HOME DR MEDINA
[2018-05-11 10:17] VITALS: BP 152/70; PULSE 92; TEMP 98.8
--- NOTE | 2018-05-11 10:36 | PN ---
Progress Note (short form) - Note Progress Note: pt seen/ examined comfortable wants to go home no distress pulmonary f/u noted denies cp sat 82 percent today ? pre-post op - apparently normal last night Vital Signs Temp 98.8 F 05/11/18 10:00 Pulse 92 H 05/11/18 10:00 Resp 20 05/11/18 10:00 BP 152/70 05/11/18 10:00 Pulse Ox 96 05/11/18 00:44 Intake & Output 05/10/18 05/10/18 05/11/18 11:59 23:59 11:59 Intake Total 380 1230 Balance 380 1230 Intake: IVPB 250 Oral 380 980 Other: Voiding Method Toilet Toilet Toilet # Unmeasured Voids Void 1 1 1 Bowel Movement Yes No Active Medications Albuterol/Ipratropium (Duoneb -) 1 amp NEB RQ4H [facility] Last Admin: 05/11/18 07:15 Dose: 1 amp Amlodipine Besylate (Norvasc -) 10 mg PO DAILY [facility] Last Admin: 05/11/18 09:20 Dose: 10 mg Atorvastatin Calcium (Lipitor -) 20 mg PO HS [facility] Last Admin: 05/10/18 21:25 Dose: 20 mg Budesonide/Formoterol Fumarate (Symbicort 80/4.5mcg -) 2 puff IH BID [facility] Last Admin: 05/11/18 09:21 Dose: 2 puff Enoxaparin Sodium (Lovenox -) 40 mg SQ DAILY [facility] Last Admin: 05/11/18 09:20 Dose: 40 mg Guaifenesin (Robitussin -) 10 ml PO Q4H PRN PRN Reason: COUGH Azithromycin (Zithromax 500mg Ivpb (Pre-Docked)) 500 mg in 250 mls @ 250 mls/ hr IVPB DAILY [facility] Last Admin: 05/11/18 09:21 Dose: 250 mls/hr Insulin Aspart (Novolog Vial Sliding Scale -) 1 vial SQ TIDAC [facility]; Protocol Last Admin: 05/11/18 06:04 Dose: 2 units Insulin Detemir (Levemir Vial) 10 units SQ [facility] Last Admin: 05/10/18 21:27 Dose: 10 unit Nebivolol (Bystolic -) 10 mg PO DAILY [facility] Last Admin: 04/01/19 09:20 Dose: 10 mg Nicotine (Nicoderm Patch -) 14 mg TD DAILY [facility] Last Admin: 05/11/18 09:20 Dose: 14 mg Prednisone (Deltasone -) 40 mg PO DAILY [facility] Last Admin: 05/11/18 09:20 Dose: 40 mg Valsartan (Diovan -) 320 mg PO DAILY [facility] Last Admin: 05/11/18 09:20 Dose: 320 mg CBC, BMP 05/08/18 06:30 05/08/18 06:30 ct chest-- reviewed -- copd . no masses. Physical Exam S1 s2 rrr Lugs scattered ronchi Abd- soft, obese,NT edema trace alert/ awake PLAN better on prednisone continue nebs smoking cessation counselling provided again discussed with nursing staff pulse ox 82 percent on room air- which increased to 96 on 3 litre will repeat pre-post op abg will decide after oxygen need at home will follow anticipate d/c later today Problem List - Problems (1) Acute respiratory failure with hypoxia and hypercapnia Code(s): J96.01 - ACUTE RESPIRATORY FAILURE WITH HYPOXIA; J96.02 - ACUTE RESPIRATORY FAILURE WITH HYPERCAPNIA (2) Needs smoking cessation education Code(s): F17.200 - NICOTINE DEPENDENCE, UNSPECIFIED, UNCOMPLICATED (3) T2DM (type 2 diabetes mellitus) Code(s): E11.9 - TYPE 2 DIABETES MELLITUS WITHOUT COMPLICATIONS (4) Hypertension Code(s): I10 - ESSENTIAL (PRIMARY) HYPERTENSION
--- NOTE | 2018-05-11 11:03 | DS ---
Physical Examination Vital Signs: Vital Signs Temperature 98.8 F 05/11/18 10:00 Pulse Rate 92 H 05/11/18 10:00 Respiratory Rate 20 05/11/18 10:00 Blood Pressure 152/70 05/11/18 10:00 O2 Sat by Pulse Oximetry (%) 92 L 05/11/18 09:00 Findings/Remarks: see today progress note. Labs: CBC, BMP 05/08/18 06:30 05/08/18 06:30 Discharge Summary Reason For Visit: INCREASED OXYGEN DEMAND WEAKNESS ACUTE EXACERBATIO Current Active Problems Acute respiratory failure with hypoxia and hypercapnia (Acute) COPD exacerbation (Acute) Hypercholesteremia (Acute) Increased oxygen demand (Acute) Needs smoking cessation education (Acute) Smoker (Acute) T2DM (type 2 diabetes mellitus) (Acute) Viral gastroenteritis (Acute) Weakness (Acute) Hospital Course: pt admitted for copd exac much better pulse ox low today -- pre-post was fine yesterday discussed pt absolutely dont want oxygen at home risks/ benefits explained will d/c home today ct chest- no masses pt advised to f/u with hem pmd this week pt agrees Condition: Stable - Instructions Disposition: HOME - Home Medications Comprehensive Discharge Medication List: Ambulatory Orders Albuterol 0.083% Nebulizer Cely [Ventolin 0.083%] 1 neb NEB Q4H PRN #100 vial 02/28 Albuterol 2.5/Ipratropium 0.5 [Duoneb -] 1 amp NEB RQ4H amp 05/11/18 Amlodipine Besylate [Norvasc -] 10 mg PO DAILY tablet 05/11/18 Atorvastatin Ca [Lipitor] 20 mg PO HS tablet 05/11/18 Budesonide/Formeterol Fumarate [SYMBICORT 80/4.5mcg -] 2 puff IH BID inhaler Guaifenesin [Robitussin -] 10 ml PO Q4H PRN cup 05/11/18 Nebivolol [Bystolic -] 10 mg PO DAILY tab 05/11/18 Nebulizer and Compressor [Comp-Air Nebulizer System] 1 each ASDIR #1 each 02/28 Nicotine Patch [Nicoderm Patch -] 14 mg TD DAILY #30 patch 05/11/18 Prednisone 10 mg PO DAILY 15 Days tablet 05/11/18 Prednisone 10 mg PO DAILY 15 Days #30 tablet 05/11/18 Valsartan [Oscarvan] 320 mg PO DAILY tablet 05/11/18
[2018-05-11 11:16] LABS: ARTERIAL BLD GAS O2 SATURATION 90.6 % (95-98); ARTERIAL BLOOD GAS BASE EXCESS 9.2 meq/l (-2-2); ARTERIAL BLOOD GAS PCO2 60.1 mmHg (35-45); ARTERIAL BLOOD GAS PO2 61.2 mmHg (80-105)
[2018-05-11 11:17] LABS: ALLENS TEST POSITIVE
[2018-05-11] MEDS ORDERED: INSULIN (NOVOLOG) ASPART 100 UNITS/ML 10ML VIAL ONE (11:42)
== END 2018-05-11 13:34 | disposition home or self-care (01) ==
LOC: JER 16:32 → JERBED 20:11 → J8W 23:14
PROVIDERS: ADMIT Internal Medicine; ATTEND Internal Medicine
PROC: 3E0333Z Introduction of Anti-inflammatory into Peripheral Vein, Percutaneous Approach (ICD-10-PCS; principal; 2018-05-07)
PROC: 3E033NZ Introduction of Analgesics, Hypnotics, Sedatives into Peripheral Vein, Percutaneous Approach (ICD-10-PCS; 2018-05-07)
PROC: 3E033GC Introduction of Other Therapeutic Substance into Peripheral Vein, Percutaneous Approach (ICD-10-PCS; 2018-05-07)
PROC: 3E013VG Introduction of Insulin into Subcutaneous Tissue, Percutaneous Approach (ICD-10-PCS; 2018-05-07)
PROC: 3E033GC Introduction of Other Therapeutic Substance into Peripheral Vein, Percutaneous Approach (ICD-10-PCS; 2018-05-07)
PROC: 3E03329 Introduction of Other Anti-infective into Peripheral Vein, Percutaneous Approach (ICD-10-PCS; 2018-05-07)
PROC: 3E0F7GC Introduction of Other Therapeutic Substance into Respiratory Tract, Via Natural or Artificial Opening (ICD-10-PCS; 2018-05-07)
DX: J96.01 Acute respiratory failure with hypoxia (principal); J96.02 Acute respiratory failure with hypercapnia; J44.1 Chronic obstructive pulmonary disease with (acute) exacerbation; R53.1 Weakness; I11.0 Hypertensive heart disease with heart failure; E78.5 Hyperlipidemia, unspecified; E11.9 Type 2 diabetes mellitus without complications; I25.10 Atherosclerotic heart disease of native coronary artery without angina pectoris; D64.9 Anemia, unspecified; I50.30 Unspecified diastolic (congestive) heart failure; A08.4 Viral intestinal infection, unspecified; F17.210 Nicotine dependence, cigarettes, uncomplicated; G45.9 Transient cerebral ischemic attack, unspecified; E66.9 Obesity, unspecified; Z68.34 Body mass index [BMI] 34.0-34.9, adult; Z86.73 Personal history of transient ischemic attack (TIA), and cerebral infarction without residual deficits
CPT/HCPCS: 36415; 36600; 71045-TC-FY; 71250-TC; 80053; 81003; 82550; 82803; 82962; 83036; 83880; 84484; 85025; 87086; 87804; 93005; 93010; 94640; 94761; 96372; 96374; 96375; 96376; 99285-25; G0378; J7030

== ENCOUNTER 2018-08-03 12:20 | Inpatient (IN) | payer MEDICARE, OTHER ==
--- NOTE | 2018-08-03 12:55 | PDOC ---
Rapid Medical Evaluation Time Seen by Provider: 08/03/18 12:48 Medical Evaluation: Allergies Allergy/AdvReac Type Severity Reaction Status Date / Time No Known Allergies Allergy Verified 05/07/18 16:41 08/03/18 12:49 I have performed a brief in-person evaluation of this patient. The patient presents with a chief complaint of: SOB Pertinent physical exam findings: Minimal air movement. cyanosis present. SpO2- 76% I have ordered the following: labs, urine, CXR, EKG The patient will proceed to the ED for further evaluation. 08/03/18 12:55 Discharge Disposition - Diagnosis Increased oxygen demand - Referrals - Patient Instructions - Post Discharge Activity
[2018-08-03] MEDS ORDERED: methylPREDNISolone NA SUCC 125 MG/2 ML VIAL IVPB ONE (12:56)
[2018-08-03] MEDS ORDERED: ALBUTEROL SO4 2.5/IPRATROPIUM 0.5 INH SOL 3 ML VIAL.NEB. NEB ONE ×2 (12:56→13:04)
[2018-08-03] MEDS ORDERED: MAGNESIUM SULF 50% (8.12 MEQ/2 ML-1 GM VIAL) IVPB ONE ×2 (13:11→13:12)
--- NOTE | 2018-08-03 13:11 | PDOC ---
History of Present Illness - General Chief Complaint: Shortness of Breath Stated Complaint: DIFFICULTY BREATHING Time Seen by Provider: 08/03/18 12:48 - History of Present Illness Initial Comments: 08/03/18 13:43 The patient is a 73 year old female with a history of HTN, HLD, DM, CAD, CVA with left sided residual weakness, COPD who presents for evaluation of shortness of breath. The patient is accompanied by family who assists in providing the history. They note that the patient has been having worsening shortness of breath with an associated non-productive cough over the past 1 week. They noted that the patient had acutely worsening symptoms today prompting her presentation tot he ED for further evaluation. They note that she has been using her inhaler at home with minimal improvement in her symptoms. She otherwise denies fevers, chills, chest pain, nausea, vomiting, abdominal pain, or changes with urination or bowel movements. Past History - Past Medical History Allergies/Adverse Reactions: Allergies Allergy/AdvReac Type Severity Reaction Status Date / Time No Known Allergies Allergy Verified 05/07/18 16:41 Home Medications: Ambulatory Orders Albuterol 0.083% Nebulizer Cely [Ventolin 0.083%] 1 neb NEB Q4H PRN #100 vial 02/28 Albuterol 2.5/Ipratropium 0.5 [Duoneb -] 1 amp NEB RQ4H amp 05/11/18 Amlodipine Besylate [Norvasc -] 10 mg PO DAILY tablet 05/11/18 Atorvastatin Ca [Lipitor] 20 mg PO HS tablet 05/11/18 Budesonide/Formeterol Fumarate [SYMBICORT 80/4.5mcg -] 2 puff IH BID inhaler Guaifenesin [Robitussin -] 10 ml PO Q4H PRN cup 05/11/18 Nebivolol [Bystolic -] 10 mg PO DAILY tab 05/11/18 Nebulizer and Compressor [Comp-Air Nebulizer System] 1 each ASDIR #1 each 02/28 Nicotine Patch [Nicoderm Patch -] 14 mg TD DAILY #30 patch 05/11/18 Prednisone 10 mg PO DAILY 15 Days tablet 05/11/18 Prednisone 10 mg PO DAILY 15 Days #30 tablet 05/11/18 Valsartan [Diovan] 320 mg PO DAILY tablet 05/11/18 Anemia: Yes Asthma: Yes Cancer: No 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) COPD: No CHF: No Dementia: No Diabetes: Yes GI Disorders: No Disorders: No HTN: Yes Hypercholesterolemia: Yes Liver Disease: No Seizures: No Thyroid Disease: No - Surgical History Abdominal Surgery: No Appendectomy: No Cardiac Surgery: No Cholecystectomy: No Lung Surgery: No Neurologic Surgery: No Orthopedic Surgery: No - Suicide/Smoking/Psychosocial Hx Smoking History: Current every day smoker Have you smoked in the past 12 months: Yes Number of Cigarettes Smoked Daily: 2 Information on smoking cessation initiated: No 'Breaking Loose' booklet given: 11/22/16 Hx Alcohol Use: No Drug/Substance Use Hx: No Substance Use Type: None Hx Substance Use Treatment: No Review of Systems - Review of Systems Comments:: 08/03/18 13:47 Constitutional: No fevers, chills, fatigue, malaise HEENT: No Rhinorrhea, nasal congestion, visual changes Cardiovascular: No chest pain, syncope, palpitations, lightheadedness Respiratory: Cough, SOB. No Hemoptysis, Gastrointestinal: No Abdominal pain, Nausea, Vomiting, Constipation, Diarrhea, Melena Genitourinary: No Dysuria, Frequency, Urgency, Hesitancy, Hematuria, Flank pain Musculoskeletal: No Myalgia, arthralgia Skin: No rashes, itching, bruising, pallor Neurologic: No Headache, Dizziness, Numbness, Weakness, or Tingling Psychiatric: No Hallucinations. No SI or HI *Physical Exam - Vital Signs Last Vital Signs Temp Pulse Resp BP Pulse Ox 98.8 F 92 H 24 H 155/75 76 L 08/03/18 12:55 08/03/18 12:55 08/03/18 12:55 08/03/18 12:55 08/03/18 12:55 - Physical Exam Comments: 08/03/18 13:47 General Appearance: Nourished. No Apparent Distress HEENT: No Pharyngeal Erythema, Tonsillar Exudate, Tonsillar Erythema Neck: No Cervical Lymphadenopathy Respiratory/Chest: Diffuse minimal inspiratory and expiratory wheezing with poor air movement and a prolonged expiratory phase on exam. No Crackles, Rales , Rhonchi, Cardiovascular: Regular Rhythm, Regular Rate. No Murmur, Gallops, Rubs Gastrointestinal/Abdominal: Normal Bowel Sounds, Soft. No Guarding, Rebound, Tenderness Musculoskeletal: No CVA Tenderness Extremity: Normal Capillary Refill Integumentary: Normal Color, Dry, Warm Neurologic: Fully Oriented, Alert, Normal Mood/Affect, Normal Response, ED Treatment Course - LABORATORY CBC & Chemistry Diagram: 08/03/18 13:00 08/03/18 16:40 Medical Decision Making - Medical Decision Making 08/03/18 13:48 The patient is a 73 year old female with a history of HTN, HLD, DM, CAD, CVA with left sided residual weakness, COPD who presents for evaluation of shortness of breath. Differential includes but is not limited to: COPD, Asthma , Pneumonia, CHF, ACS, Infectious, Metabolic Derangement. Given the patient's history and physical exam, it is likely the patient's symptoms are due to a COPD exacerbation. However, we will obtain a cbc, cmp, troponin, bnp, ekg, abg , chest plain film to evaluate further. We will treat with duonebs, solumedrol , mag, ceftriaxone, and azithromycin and continue to monitor and reassess while here in the ED. The patient will likely require admission for further management and monitoring. 08/03/18 18:22 CBC is unremarkable. CMP was hemolized and repeat bmp was unremarkable. BNP, troponin is unremarkable. Chest plain film does not demonstrate acute process. ABG demonstrates pCO2 of 60s consistent with CO2 retention. The patient's symptoms improved after duonebs. The patient will require admission for further management. We discussed the case with the admitting team who accepted the patient for admission. *DC/Admit/Observation/Transfer Diagnosis at time of Disposition: Increased oxygen demand, COPD exacerbation - Discharge Dispostion Condition at time of disposition: Stable Decision to Admit order: Yes - Referrals - Patient Instructions - Post Discharge Activity
[2018-08-03] MEDS ORDERED: methylPREDNISolone NA SUCC 125 MG/2 ML VIAL ONE (13:13)
[2018-08-03] MEDS ORDERED: MAGNESIUM 1GM/D5W - 2 GM/200 ML IVPB IVPB ONE (13:13)
--- NOTE | 2018-08-03 13:27 | PDOC ---
Documentation entered by Johnny Wagner SCRIBE, acting as scribe for Emi Jiménez MD. Emi Jiménez MD: This documentation has been prepared by the Bernard rutherford Joel, SCRIBE, under my direction and personally reviewed by me in its entirety. I confirm that the documentation accurately reflects all work, treatment, procedures, and medical decision making performed by me. Attending Attestation - Resident Resident Name: Zane Lozano - ED Attending Attestation I have performed the following: I have examined & evaluated the patient, The case was reviewed & discussed with the resident, I agree w/resident's findings & plan - HPI HPI: 08/03/18 13:30 The patient is a 73 year old female with a significant PMH of asthma, anemia, CVA (with residual left side weakness), DM, and hyperlipidemia who presents to the emergency department for evaluation of acute onset of shortness of breath. Allergies: NKA Social history: Everyday smoker. 08/03/18 13:50 - Physicial Exam PE: 08/03/18 13:24 Agree with the resident's HPI and PE as documented in the electronic medical record. moderate respiratory distress, EOMI, PERRL, nl conjunctiva, anicteric; cyanotic lips, neck supple. diminished breath sounds bilaterally, faint wheezing, prolonged expiration, RRR, abdomen soft nontender. Back nontender. HUSAIN x4, no focal neuro deficits. No peripheral edema. normal color for ethnicity, WWP. - Critical Care Time Total Critical Care Time: 40 (acute respiratory failure, COPD) Critical Care Statement: The care of this patient involved high complexity decision making to prevent further life threatening deterioration of the patient 's condition and/or to evaluate & treat vital organ system(s) failure or risk of failure. - Medical Decision Making 08/03/18 13:25 See HPI for details. Prior notes reviewed, including admissions, discharges and consultations. Vital signs reviewed, tachypneic and hypoxic down to 70s on RA placed on O2 and duonebs, improved sats to 90s DDx SOB: ACS, PE, PTX, CHF, COPD exac, pulmonary edema, pleurisy, pneumonia, viral syndrome. effusion. anemia, electrolyte/metabolic derangements. laboratory results and imaging reviewed, basic labs and lytes wnl, notable for baseline Cr elevation K elevated 6.6, likely hemolyzed, no EKG changes, will recheck bmp ABG with chronic respiratory acidosis with compensation, as CO2 and bicarb elevated. CXR_sternotomy scars, no acute chest pathology, similar to prior CXR Cardiac panel_neg trop, nonspecific elevation in bnp EKG normal sinus rhythm at 87 bpm, no interval abnormalities, narrow QRS, ST and T wave segments and morphology normal. Nonspecific T wave abnormalities ED course -interventions: duonebs, IV solumedrol and Mag 2g reassessed and feels improved, wheezing and more air entry no infectious sx, no abx indicated now SpO2 >95% on supp O2, which is appropriate. dispo: admit for COPD exacerbation, acute respiratory failure, medical management 08/03/18 13:51 08/03/18 15:34 08/03/18 15:36
[2018-08-03] MEDS ORDERED: AZITHROMYCIN IVPB 500 MG in DEXTROSE 5%-WATER - 250 ML IVPB ONE (13:41)
[2018-08-03] MEDS ORDERED: CEFTRIAXONE 1 GM in DEXTROSE 5%-WATER - 100 ML IVPB ONE (13:41)
[2018-08-03 13:48] LABS: BASO % 0.4 % (0-2.0); EOS % 0.7 % (0-4.5); HEMATOCRIT 47.2 % (32.4-45.2); HEMOGLOBIN 15.1 GM/dL (10.7-15.3); LYMPH % 22.4 % (8-40); MCH 29.8 pg (25.7-33.7); MCHC 31.9 g/dl (32.0-36.0); MEAN CELL VOLUME 93.4 fl (80-96); MEAN PLT VOLUME 8.3 fl (7.5-11.1); MONO % 7.7 % (3.8-10.2); NEUT % 68.8 % (42.8-82.8); PLATELET COUNT 259 K/MM3 (134-434); RBC 5.06 M/mm3 (3.60-5.2); RDW 18.3 % (11.6-15.6); WHITE BLOOD COUNT 8.9 K/mm3 (4.0-10.0)
[2018-08-03 14:21] LABS: ARTERIAL BLOOD GAS BASE EXCESS 6.4 meq/l (-2-2); ARTERIAL BLOOD GAS PCO2 64.1 mmHg (35-45); ARTERIAL BLOOD GAS PO2 64.1 mmHg (80-105); ARTERIAL BLOOD GAS pH 7.35 (7.35-7.45)
[2018-08-03 14:41] LABS: ALBUMIN 3.1 g/dl (3.4-5.0); BILIRUBIN,TOTAL 0.6 mg/dL (0.2-1); BLOOD UREA NITROGEN 25.8 mg/dL (7-18); CALCIUM 8.4 mg/dL (8.5-10.1); CREATININE 1.4 mg/dL (0.55-1.3); TOT PROT 7.2 g/dl (6.4-8.2)
[2018-08-03 14:45] LABS: N-TERMINAL BNP 1205.98 pg/ml (5-450); POTASSIUM 6.6 mmol/L (3.5-5.1)
[2018-08-03] MEDS ORDERED: AZITHROMYCIN IVPB 500 MG/250 ML BAG IVPB ONE (14:51)
[2018-08-03] MEDS ORDERED: CEFTRIAXONE 1 GM/50 ML BAG ONE (14:51)
[2018-08-03] MEDS ORDERED: ACETAMINOPHEN 325 MG TABLET (FP) PO PRN (17:03)
[2018-08-03 17:09] LABS: BLOOD UREA NITROGEN 27.3 mg/dL (7-18); CREATININE 1.4 mg/dL (0.55-1.3); POTASSIUM 4.7 mmol/L (3.5-5.1)
[2018-08-03] MEDS ORDERED: ALBUTEROL SO4 2.5/IPRATROPIUM 0.5 INH SOL 3 ML VIAL.NEB. NEB PRN (17:09)
--- NOTE | 2018-08-03 17:43 | HP ---
Admitting History and Physical - Primary Care Physician PCP: Hossein Ogden - Admission Chief Complaint: sob History of Present Illness: Pt seen/ examined in er Chart reviewed Case discussed with Er Resident Er records reviewed and I concur I also spoke with pts daughter who is In er Pt also known to me from recent admission for copd exac In summary The patient is a 73 year old female with a history of HTN, HLD, DM, CAD, CVA with left sided residual weakness, COPD who presents for evaluation of shortness of breath. The patient is accompanied by family who assists in providing the history. They note that the patient has been having worsening shortness of breath with an associated non-productive cough over the past 1 week. They noted that the patient had acutely worsening symptoms today prompting her presentation tot he ED for further evaluation. They note that she has been using her inhaler at home with minimal improvement in her symptoms. She otherwise denies fevers, chills, chest pain, nausea, vomiting, abdominal pain, or changes with urination or bowel movements. Pt Clinical diagnosis -- Copd exac Pt given steroids and abx in er -- better Unfortunately Daughter reports pt continue to smoke ! dont want to quit Pts BGm also elevated K elevated-- Repeat Normal !! 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 No: O2 Dependent - Smoking History Smoking history: Current every day smoker Have you smoked in the past 12 months: Yes Aproximately how many cigarettes per day: 2 - Alcohol/Substance Use Hx Alcohol Use: No - Social History ADL: Independent History of Recent Travel: No Home Medications - Allergies Allergies/Adverse Reactions: Allergies Allergy/AdvReac Type Severity Reaction Status Date / Time No Known Allergies Allergy Verified 05/07/18 16:41 - Home Medications Home Medications: Ambulatory Orders Albuterol 0.083% Nebulizer Cely [Ventolin 0.083%] 1 neb NEB Q4H PRN #100 vial 02/28 Albuterol 2.5/Ipratropium 0.5 [Duoneb -] 1 amp NEB RQ4H amp 05/11/18 Amlodipine Besylate [Norvasc -] 10 mg PO DAILY tablet 05/11/18 Atorvastatin Ca [Lipitor] 20 mg PO HS tablet 05/11/18 Budesonide/Formeterol Fumarate [SYMBICORT 80/4.5mcg -] 2 puff IH BID inhaler Guaifenesin [Robitussin -] 10 ml PO Q4H PRN cup 05/11/18 Nebivolol [Bystolic -] 10 mg PO DAILY tab 05/11/18 Nebulizer and Compressor [Comp-Air Nebulizer System] 1 each ASDIR #1 each 02/28 Nicotine Patch [Nicoderm Patch -] 14 mg TD DAILY #30 patch 05/11/18 Prednisone 10 mg PO DAILY 15 Days tablet 05/11/18 Prednisone 10 mg PO DAILY 15 Days #30 tablet 05/11/18 Valsartan [Diovan] 320 mg PO DAILY tablet 05/11/18 Review of Systems - Review of Systems Constitutional: reports: Weakness Eyes: reports: No Symptoms HENT: reports: No Symptoms Neck: reports: No Symptoms Cardiovascular: reports: No Symptoms Respiratory: reports: SOB Gastrointestinal: reports: No Symptoms Genitourinary: reports: No Symptoms Neurological: reports: Pre-Existing Deficit Endocrine: reports: No Symptoms Psychiatric: reports: No Symptoms Physical Examination Vital Signs: Vital Signs Temperature 98.1 F 08/03/18 16:30 Pulse Rate 87 08/03/18 16:30 Respiratory Rate 20 08/03/18 16:30 Blood Pressure 140/73 08/03/18 16:30 O2 Sat by Pulse Oximetry (%) 94 L 08/03/18 16:30 Constitutional: Yes: Mild Distress Neck: Yes: Supple Cardiovascular: Yes: Regular Rate and Rhythm Respiratory: Yes: Diminished, Poor Air Entry, Wheezes Gastrointestinal: Yes: Soft Edema: No Neurological: Yes: Alert, Pre-Existing Deficit Psychiatric: Yes: Alert Labs: CBC, BMP 08/03/18 13:00 08/03/18 16:40 Imaging - Results Chest X-ray: Report Reviewed Problem List - Problems (1) COPD exacerbation Code(s): J44.1 - CHRONIC OBSTRUCTIVE PULMONARY DISEASE W (ACUTE) EXACERBATION (2) Acute respiratory failure with hypoxia and hypercapnia Code(s): J96.01 - ACUTE RESPIRATORY FAILURE WITH HYPOXIA; J96.02 - ACUTE RESPIRATORY FAILURE WITH HYPERCAPNIA (3) Hypertension Code(s): I10 - ESSENTIAL (PRIMARY) HYPERTENSION (4) NIDDY (non-insulin dependent diabetes mellitus in young) Code(s): E13.9 - OTHER SPECIFIED DIABETES MELLITUS WITHOUT COMPLICATIONS (5) Needs smoking cessation education Code(s): F17.200 - NICOTINE DEPENDENCE, UNSPECIFIED, UNCOMPLICATED (6) Smoker unmotivated to quit Code(s): F17.200 - NICOTINE DEPENDENCE, UNSPECIFIED, UNCOMPLICATED Assessment/Plan Admit to tele MEds orders written Steroids/oxygen/ Nebulizer/ abx Dvt Prophylaxis Monitor bgm Dvt Prophylaxis Condition gaurded Will follow Discussed in detail with pts daughter
[2018-08-03] MEDS ORDERED: INSULIN (NOVOLOG) ASPART 100 UNITS/ML 10ML VIAL SQ ONE (20:34)
[2018-08-03] MEDS ORDERED: INSULIN (NOVOLOG) ASPART 100 UNITS/ML 10ML VIAL ONE (20:36)
[2018-08-03] MEDS ORDERED: methylPREDNISolone NA SUCC 40 MG/1 ML VIAL ONE (20:38)
[2018-08-03] MEDS: INSULIN SLIDING SCALE (NOVOLOG) 1 VIAL SQ SCH (20:47)
[2018-08-03] MEDS: methylPREDNISolone NA SUCC 40 MG/1 ML VIAL IVPUSH SCH (20:48)
[2018-08-03] MEDS ORDERED: ATORVASTATIN CA 20 MG TABLET (FP) ONE (22:59)
[2018-08-03] MEDS: INSULIN (LEVEMIR) 100 UNITS/ML UNITS SQ SCH (23:03)
[2018-08-03] MEDS: ATORVASTATIN CA 20 MG TABLET (FP) PO SCH (23:03)
[2018-08-04] MEDS: RANITIDINE HCL 150 MG TABLET (FP) PO SCH ×3 (01:06→21:33)
[2018-08-04] MEDS: BUDESONIDE/FORMETEROL FUMARATE 80/4.5 mcg INHALER IH SCH ×3 (01:06→21:38)
[2018-08-04] MEDS ORDERED: methylPREDNISolone NA SUCC 40 MG/1 ML VIAL ONE (03:37)
[2018-08-04] MEDS: methylPREDNISolone NA SUCC 40 MG/1 ML VIAL IVPUSH SCH ×3 (03:45→18:11)
[2018-08-04] MEDS: INSULIN SLIDING SCALE (NOVOLOG) 1 VIAL SQ SCH ×4 (06:36→21:34)
[2018-08-04] MEDS ORDERED: INSULIN (NOVOLOG) ASPART 100 UNITS/ML 10ML VIAL ONE ×2 (06:39→18:14)
[2018-08-04 07:38] LABS: ALBUMIN 3.2 g/dl (3.4-5.0); BILIRUBIN,TOTAL 0.3 mg/dL (0.2-1); BLOOD UREA NITROGEN 33.8 mg/dL (7-18); CALCIUM 8.5 mg/dL (8.5-10.1); CREATININE 1.4 mg/dL (0.55-1.3); POTASSIUM 4.9 mmol/L (3.5-5.1); TOT PROT 6.8 g/dl (6.4-8.2)
[2018-08-04 07:46] LABS: BASO % 0.2 % (0-2.0); EOS % 0.1 % (0-4.5); HEMATOCRIT 47.8 % (32.4-45.2); HEMOGLOBIN 15.1 GM/dL (10.7-15.3); MCH 29.6 pg (25.7-33.7); MCHC 31.6 g/dl (32.0-36.0); MEAN CELL VOLUME 93.7 fl (80-96); MEAN PLT VOLUME 8.1 fl (7.5-11.1); MONO % 1.5 % (3.8-10.2); NEUT % 85.2 % (42.8-82.8); PLATELET COUNT 235 K/MM3 (134-434); RBC 5.11 M/mm3 (3.60-5.2); RDW 17.7 % (11.6-15.6); WHITE BLOOD COUNT 7.1 K/mm3 (4.0-10.0)
[2018-08-04] MEDS: NICOTINE 14 MG/24 HOURS TOPICAL PATCH TD SCH (09:26)
[2018-08-04] MEDS: VALSARTAN 160 MG TABLET (UD) PO SCH (09:26)
[2018-08-04] MEDS: amLODIPine BESYLATE 10 MG TABLET (FP) PO SCH (09:26)
[2018-08-04] MEDS: NEBIVOLOL 10 MG TABLET (FP) PO SCH (09:26)
[2018-08-04] MEDS: ENOXAPARIN NA (PORCINE) 40 MG/0.4 ML DISP.SYRIN SQ SCH (09:50)
[2018-08-04] MEDS: AZITHROMYCIN IVPB 500 MG/250 ML BAG IVPB SCH (10:19)
[2018-08-04] MEDS ORDERED: AZITHROMYCIN IVPB 500 MG/250 ML BAG IVPB ONE (10:20)
--- NOTE | 2018-08-04 10:20 | PN ---
Progress Note (short form) - Note Progress Note: coughing wants a nicotine patch Vital Signs - 24 hr 08/03/18 08/03/18 08/03/18 12:55 13:15 14:00 Temperature 98.8 F Pulse Rate 92 H Pulse Rate [ Apical] Respiratory 24 H Rate Blood Pressure 155/75 Blood Pressure [Left Arm] O2 Sat by Pulse 76 L 100 100 Oximetry (%) 08/03/18 08/03/18 08/03/18 14:10 16:00 16:30 Temperature 98.1 F Pulse Rate Pulse Rate [ 92 H 88 87 Apical] Respiratory 20 20 20 Rate Blood Pressure Blood Pressure 179/79 H 140/73 [Left Arm] O2 Sat by Pulse 100 94 L Oximetry (%) 08/03/18 08/03/18 08/04/18 19:20 19:35 03:01 Temperature Pulse Rate Pulse Rate [ 80 Apical] Respiratory 22 H Rate Blood Pressure Blood Pressure 125/60 [Left Arm] O2 Sat by Pulse 91 L 96 95 Oximetry (%) 08/04/18 08/04/18 08/04/18 03:46 06:00 08:50 Temperature 97.5 F L 98.6 F Pulse Rate Pulse Rate [ 72 72 80 Apical] Respiratory 16 20 19 Rate Blood Pressure Blood Pressure 128/67 156/76 157/75 [Left Arm] O2 Sat by Pulse 98 100 100 Oximetry (%) 08/04/18 11:34 Temperature 98.6 F Pulse Rate Pulse Rate [ 79 Apical] Respiratory 17 Rate Blood Pressure Blood Pressure 147/66 [Left Arm] O2 Sat by Pulse 95 Oximetry (%) Current Medications Generic Name Dose Route Start Last Admin Trade Name Freq PRN Reason Stop Dose Admin Acetaminophen 650 mg 08/03/18 17:03 Tylenol - PO Q6H PRN PAIN LEVEL 1-5 Albuterol/Ipratropium 1 amp 08/03/18 17:09 Duoneb - NEB Q6H PRN SHORTNESS OF BREATH Amlodipine Besylate 10 mg 08/04/18 10:00 08/04/18 09:26 Norvasc - PO 10 mg DAILY IRVING Administration Atorvastatin Calcium 20 mg 08/03/18 22:00 08/03/18 23:03 Lipitor - PO 20 mg HS IRVING Administration Budesonide/Formoterol Fumarate 2 puff 08/03/18 22:00 08/04/18 09:51 Symbicort 80/4.5mcg - IH 2 puff BID IRVING Administration Enoxaparin Sodium 40 mg 08/04/18 10:00 08/04/18 09:50 Lovenox - SQ 40 mg DAILY IRVING Administration Azithromycin 500 mg in 250 mls @ 250 mls/hr 08/04/18 10:00 08/04/18 10:19 Zithromax 500mg Ivpb (Pre-Docked) IVPB 250 mls/hr DAILY IRVING Administration Insulin Aspart 1 vial 08/03/18 17:45 08/04/18 11:10 Novolog Vial Sliding Scale - SQ 12 unit TIDAC IRVING Administration Protocol Insulin Detemir 10 units 08/03/18 22:00 08/03/18 23:03 Levemir Vial SQ 10 unit HS IRVING Administration Methylprednisolone Sodium Succinate 60 mg 08/03/18 18:00 08/04/18 09:26 Solu-Medrol - IVPUSH 60 mg Q8H-IV IRVING Administration Nebivolol 10 mg 08/04/18 10:00 08/04/18 09:26 Bystolic - PO 10 mg DAILY IRVING Administration Nicotine 14 mg 08/04/18 10:00 08/04/18 09:26 Nicoderm Patch - TD 14 mg DAILY IRVING Administration Ranitidine HCl 150 mg 08/03/18 22:00 08/04/18 09:51 Zantac - PO 150 mg BID IRVING Administration Valsartan 320 mg 08/04/18 10:00 08/04/18 09:26 Diovan - PO 320 mg DAILY IRVING Administration Laboratory Results - last 24 hr 08/03/18 08/03/18 08/03/18 12:58 13:00 13:00 WBC 8.9 RBC 5.06 Hgb 15.1 Hct 47.2 H MCV 93.4 MCH 29.8 MCHC 31.9 L RDW 18.3 H Plt Count 259 MPV 8.3 Absolute Neuts (auto) 6.1 Neutrophils % 68.8 Lymphocytes % 22.4 D Monocytes % 7.7 D Eosinophils % 0.7 D Basophils % 0.4 Nucleated RBC % 0 Anticoagulation Therapy Puncture Site ABG pH ABG pCO2 at Pt Temp ABG pO2 at Pt Temp ABG HCO3 ABG O2 Sat (Measured) ABG O2 Content ABG Base Excess Gomez Test Carboxyhemoglobin 4.0 H Methemoglobin 0.8 O2 Delivery Device Oxygen Flow Rate Vent Mode Vent Rate Mechanical Rate Pressure Support Vent Sodium 136 Potassium 6.6 H* Chloride 100 Carbon Dioxide 34 H Anion Gap 2 L BUN 25.8 H Creatinine 1.4 H Est GFR (CKD-EPI)AfAm 42.49 Est GFR (CKD-EPI)NonAf 36.66 POC Glucometer Random Glucose 203 H Hemoglobin A1c % Calcium 8.4 L Total Bilirubin 0.6 AST 43 H ALT 20 Alkaline Phosphatase 115 Creatine Kinase Creatine Kinase Index CK-MB (CK-2) Troponin I B-Natriuretic Peptide 1205.98 H Total Protein 7.2 Albumin 3.1 L 08/03/18 08/03/18 08/03/18 13:00 14:12 16:40 WBC RBC Hgb Hct MCV MCH MCHC RDW Plt Count MPV Absolute Neuts (auto) Neutrophils % Lymphocytes % Monocytes % Eosinophils % Basophils % Nucleated RBC % Anticoagulation Therapy No Result Required. Puncture Site No Result Required. ABG pH 7.35 ABG pCO2 at Pt Temp 64.1 H ABG pO2 at Pt Temp 64.1 L ABG HCO3 34.1 H ABG O2 Sat (Measured) 91.0 L ABG O2 Content 18.3 ABG Base Excess 6.4 H Gomez Test No Result Required. Carboxyhemoglobin Methemoglobin O2 Delivery Device No Result Required. Oxygen Flow Rate No Result Required. Vent Mode No Result Required. Vent Rate No Result Required. Mechanical Rate No Result Required. Pressure Support Vent No Result Required. Sodium 135 L Potassium 4.7 Chloride 99 Carbon Dioxide 29 Anion Gap 7 L BUN 27.3 H Creatinine 1.4 H Est GFR (CKD-EPI)AfAm 42.49 Est GFR (CKD-EPI)NonAf 36.66 POC Glucometer Random Glucose 364 H* Hemoglobin A1c % Calcium 8.0 L Total Bilirubin AST ALT Alkaline Phosphatase Creatine Kinase 179 Creatine Kinase Index 1.1 CK-MB (CK-2) 2.1 Troponin I 0.03 B-Natriuretic Peptide Total Protein Albumin 08/03/18 08/04/18 08/04/18 20:25 06:03 06:19 WBC 7.1 RBC 5.11 Hgb 15.1 Hct 47.8 H MCV 93.7 MCH 29.6 MCHC 31.6 L RDW 17.7 H Plt Count 235 MPV 8.1 Absolute Neuts (auto) 6.1 Neutrophils % 85.2 H D Lymphocytes % 13.0 D Monocytes % 1.5 L D Eosinophils % 0.1 D Basophils % 0.2 Nucleated RBC % 1 H Anticoagulation Therapy Puncture Site ABG pH ABG pCO2 at Pt Temp ABG pO2 at Pt Temp ABG HCO3 ABG O2 Sat (Measured) ABG O2 Content ABG Base Excess Gomez Test Carboxyhemoglobin Methemoglobin O2 Delivery Device Oxygen Flow Rate Vent Mode Vent Rate Mechanical Rate Pressure Support Vent Sodium Potassium Chloride Carbon Dioxide Anion Gap BUN Creatinine Est GFR (CKD-EPI)AfAm Est GFR (CKD-EPI)NonAf POC Glucometer 416 256 Random Glucose Hemoglobin A1c % Calcium Total Bilirubin AST ALT Alkaline Phosphatase Creatine Kinase Creatine Kinase Index CK-MB (CK-2) Troponin I B-Natriuretic Peptide Total Protein Albumin 08/04/18 08/04/18 08/04/18 06:19 06:19 11:09 WBC RBC Hgb Hct MCV MCH MCHC RDW Plt Count MPV Absolute Neuts (auto) Neutrophils % Lymphocytes % Monocytes % Eosinophils % Basophils % Nucleated RBC % Anticoagulation Therapy Puncture Site ABG pH ABG pCO2 at Pt Temp ABG pO2 at Pt Temp ABG HCO3 ABG O2 Sat (Measured) ABG O2 Content ABG Base Excess Gomez Test Carboxyhemoglobin Methemoglobin O2 Delivery Device Oxygen Flow Rate Vent Mode Vent Rate Mechanical Rate Pressure Support Vent Sodium 138 Potassium 4.9 Chloride 99 Carbon Dioxide 33 H Anion Gap 6 L BUN 33.8 H Creatinine 1.4 H Est GFR (CKD-EPI)AfAm 42.49 Est GFR (CKD-EPI)NonAf 36.66 POC Glucometer 361 Random Glucose 282 H Hemoglobin A1c % 7.8 H Calcium 8.5 Total Bilirubin 0.3 AST 9 L ALT 16 Alkaline Phosphatase 114 Creatine Kinase Creatine Kinase Index CK-MB (CK-2) Troponin I B-Natriuretic Peptide Total Protein 6.8 Albumin 3.2 L S1 S2 RRR Lungs ronchi+ Abd- soft, NT trace edema PLAN iv antibiotics iv solumedrol nebs, O2 nicotine patch Problem List - Problems (1) COPD exacerbation Code(s): J44.1 - CHRONIC OBSTRUCTIVE PULMONARY DISEASE W (ACUTE) EXACERBATION (2) Increased oxygen demand Code(s): R68.89 - OTHER GENERAL SYMPTOMS AND SIGNS (3) Acute respiratory failure with hypoxia and hypercapnia Code(s): J96.01 - ACUTE RESPIRATORY FAILURE WITH HYPOXIA; J96.02 - ACUTE RESPIRATORY FAILURE WITH HYPERCAPNIA (4) CHF (congestive heart failure) Code(s): I50.9 - HEART FAILURE, UNSPECIFIED Qualifiers: Heart failure type: diastolic Heart failure chronicity: unspecified Qualified Code(s): I50.30 - Unspecified diastolic (congestive) heart failure (5) Hypercholesteremia Code(s): E78.00 - PURE HYPERCHOLESTEROLEMIA, UNSPECIFIED (6) Hypertension Code(s): I10 - ESSENTIAL (PRIMARY) HYPERTENSION (7) Smoker Code(s): F17.200 - NICOTINE DEPENDENCE, UNSPECIFIED, UNCOMPLICATED (8) T2DM (type 2 diabetes mellitus) Code(s): E11.9 - TYPE 2 DIABETES MELLITUS WITHOUT COMPLICATIONS
--- NOTE | 2018-08-04 10:35 | EKG ---
Test Reason : Blood Pressure : / mmHG Vent. Rate : 095 BPM Atrial Rate : 095 BPM P-R Int : 150 ms QRS Dur : 088 ms QT Int : 348 ms P-R-T Axes : 073 015 090 degrees QTc Int : 437 ms NORMAL SINUS RHYTHM POSSIBLE LEFT ATRIAL ENLARGEMENT BORDERLINE ECG WHEN COMPARED WITH ECG OF 07-MAY-2018 17:15, NO SIGNIFICANT CHANGE WAS FOUND Confirmed by Jamil Wray MD ([id number]) on 08/04/2018 10:35:44 AM Referred By: Confirmed By:Jamil Wray MD
[2018-08-04] MEDS ORDERED: INSULIN REGULAR HUMAN 100 UNITS/ML *VIAL ONE (11:12)
[2018-08-04] MEDS ORDERED: ALBUTEROL SO4 2.5/IPRATROPIUM 0.5 INH SOL 3 ML VIAL.NEB. NEB ONE (11:21)
--- NOTE | 2018-08-04 14:42 | CON.PULM ---
Consult Consult Specialty:: PULMONARY Referred by:: Dr Lyles Reason for Consultation:: shortness of breath - History of Present Illness Chief Complaint: shortness of breath History of Present Illness: 73yo female with h/o HTN, DM, hyperlipidemia, CAD, h/o CVA, COPD who was admitted with worsening shortness of breath and cough x 1 week. Denies chest pain or palpitations. No fevers, chills or sweats. No sick contacts or recent travel. Reports a cough productive of clear sputum and wheezing. Maintained at home on symbicort and albuterol. No home O2. Also has been told that she has sleep apnea but was never officially diagnosed. She is a long time smoker, still smoking 1-2 cigarettes/day. 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 No: O2 Dependent - Alcohol/Substance Use Hx Alcohol Use: No - Smoking History Smoking history: Current every day smoker Have you smoked in the past 12 months: Yes Aproximately how many cigarettes per day: 2 - Social History ADL: Independent History of Recent Travel: No Home Medications - Allergies Allergies/Adverse Reactions: Allergies Allergy/AdvReac Type Severity Reaction Status Date / Time No Known Allergies Allergy Verified 05/07/18 16:41 - Home Medications Home Medications: Ambulatory Orders Albuterol 0.083% Nebulizer Cely [Ventolin 0.083%] 1 neb NEB Q4H PRN #100 vial 02/28 Albuterol 2.5/Ipratropium 0.5 [Duoneb -] 1 amp NEB RQ4H amp 05/11/18 Amlodipine Besylate [Norvasc -] 10 mg PO DAILY tablet 05/11/18 Atorvastatin Ca [Lipitor] 20 mg PO HS tablet 05/11/18 Budesonide/Formeterol Fumarate [SYMBICORT 80/4.5mcg -] 2 puff IH BID inhaler Guaifenesin [Robitussin -] 10 ml PO Q4H PRN cup 05/11/18 Nebivolol [Bystolic -] 10 mg PO DAILY tab 05/11/18 Nebulizer and Compressor [Comp-Air Nebulizer System] 1 each ASDIR #1 each 02/28 Nicotine Patch [Nicoderm Patch -] 14 mg TD DAILY #30 patch 05/11/18 Prednisone 10 mg PO DAILY 15 Days tablet 05/11/18 Prednisone 10 mg PO DAILY 15 Days #30 tablet 05/11/18 Valsartan [Diovan] 320 mg PO DAILY tablet 05/11/18 Review of Systems - Review of Systems Constitutional: reports: Weakness. denies: Chills, Fever Eyes: denies: Recent Change in Vision HENT: denies: Nasal Congestion, Throat Pain Neck: denies: Stiffness, Tenderness Cardiovascular: reports: Shortness of Breath. denies: Chest Pain, Edema Respiratory: reports: Cough, SOB on Exertion, Wheezing. denies: Hemoptysis Gastrointestinal: denies: Abdominal Pain, Nausea, Vomiting Genitourinary: denies: Dysuria, Hematuria Neurological: denies: Dizziness, Headache Endocrine: denies: Unexplained Weight Loss Physical Exam Vital Sings: Vital Signs Temperature 98.6 F 08/04/18 11:34 Pulse Rate 86 08/04/18 14:29 Respiratory Rate 21 H 08/04/18 14:29 Blood Pressure 158/82 08/04/18 14:29 O2 Sat by Pulse Oximetry (%) 93 L 08/04/18 14:29 Constitutional: Yes: Calm Eyes: Yes: Conjunctiva Clear, EOM Intact HENT: Yes: Atraumatic, Normocephalic Neck: Yes: Supple, Trachea Midline Cardiovascular: Yes: Regular Rate and Rhythm Respiratory: Yes: Rhonchi, Wheezes ...Clubbing: No Gastrointestinal: Yes: Normal Bowel Sounds, Soft. No: Tenderness Edema: No Neurological: Yes: Alert, Oriented Labs: CBC, BMP 08/04/18 06:19 08/04/18 06:19 ABG Results ABG pH 7.35 (7.35-7.45) 08/03/18 14:12 ABG pCO2 at Pt Temp 64.1 mmHg (35-45) H 08/03/18 14:12 ABG pO2 at Pt Temp 64.1 mmHg (80-105) L 08/03/18 14:12 ABG HCO3 34.1 mmol/L (22-27) H 08/03/18 14:12 ABG O2 Sat (Measured) 91.0 % (95-98) L 08/03/18 14:12 ABG O2 Content 18.3 % vol (15-22) 08/03/18 14:12 ABG Base Excess 6.4 meq/l (-2-2) H 08/03/18 14:12 Imaging - Results Chest X-ray: Report Reviewed, Image Reviewed (mild pulmonary vascular congestion ) Problem List - Problems (1) COPD exacerbation Code(s): J44.1 - CHRONIC OBSTRUCTIVE PULMONARY DISEASE W (ACUTE) EXACERBATION Assessment/Plan Acute Hypoxic and Likely Chronic Hypercapneic Respiratory Failure Acute COPD Exacerbation LV Diastolic Dysfunction CAD h/o CVA HTN DM Hyperlipidemia Smoker Likely Obstructive Sleep Apnea - IV medrol - inhaled bronchodilators standing and PRN - O2 to keep Spo2 >90% - glucose control while on systemic steroids - will need outpt PFTs, PSG - smoking cessation discussed - when ready for discharge, will need to check ambulatory SpO2 on room air to assess for home O2 - DVT prophylaxis Thank you for this consult Sheng Alexander MD
[2018-08-04] MEDS ORDERED: ALBUTEROL SO4 0.083% IH SOL 2.5 MG/3 ML VIAL.NEB. NEB PRN (14:48)
[2018-08-04 15:28] VITALS: BMI 29.1
[2018-08-04] MEDS: ALBUTEROL SO4 2.5/IPRATROPIUM 0.5 INH SOL 3 ML VIAL.NEB. NEB SCH ×2 (17:00→21:35)
[2018-08-04] MEDS: ATORVASTATIN CA 20 MG TABLET (FP) PO SCH (21:33)
[2018-08-04] MEDS: INSULIN (LEVEMIR) 100 UNITS/ML UNITS SQ SCH (21:34)
[2018-08-05] MEDS: methylPREDNISolone NA SUCC 40 MG/1 ML VIAL IVPUSH SCH ×3 (02:41→17:12)
[2018-08-05] MEDS: INSULIN SLIDING SCALE (NOVOLOG) 1 VIAL SQ SCH ×4 (06:10→21:46)
[2018-08-05] MEDS: ALBUTEROL SO4 2.5/IPRATROPIUM 0.5 INH SOL 3 ML VIAL.NEB. NEB SCH ×4 (07:30→21:09)
[2018-08-05] MEDS ORDERED: PT OWN MED DRAWER 7, Y5N ONE (09:03)
[2018-08-05] MEDS: AZITHROMYCIN IVPB 500 MG/250 ML BAG IVPB SCH (09:50)
[2018-08-05] MEDS: ENOXAPARIN NA (PORCINE) 40 MG/0.4 ML DISP.SYRIN SQ SCH (09:50)
[2018-08-05] MEDS: NICOTINE 14 MG/24 HOURS TOPICAL PATCH TD SCH (09:50)
[2018-08-05] MEDS: RANITIDINE HCL 150 MG TABLET (FP) PO SCH ×2 (09:51→21:42)
[2018-08-05] MEDS: amLODIPine BESYLATE 10 MG TABLET (FP) PO SCH (09:51)
[2018-08-05] MEDS: BUDESONIDE/FORMETEROL FUMARATE 80/4.5 mcg INHALER IH SCH ×2 (09:51→21:42)
[2018-08-05] MEDS: NEBIVOLOL 10 MG TABLET (FP) PO SCH (09:51)
[2018-08-05] MEDS: VALSARTAN 160 MG TABLET (UD) PO SCH (09:51)
--- NOTE | 2018-08-05 11:35 | PN ---
Progress Note (short form) - Note Progress Note: coughing breathing better per pt Vital Signs - 24 hr 08/04/18 08/04/18 08/04/18 14:29 15:31 17:00 Temperature 98.6 F Pulse Rate 85 Pulse Rate [ 86 Apical] Respiratory 21 H 18 18 Rate Blood Pressure 138/74 Blood Pressure 158/82 [Left Arm] O2 Sat by Pulse 93 L 97 Oximetry (%) 08/04/18 08/05/18 08/05/18 21:00 02:00 06:53 Temperature 98.2 F 98.1 F 98 F Pulse Rate 91 H 86 85 Pulse Rate [ Apical] Respiratory 18 20 18 Rate Blood Pressure 153/87 161/68 152/80 Blood Pressure [Left Arm] O2 Sat by Pulse 95 Oximetry (%) 08/05/18 08:42 Temperature Pulse Rate Pulse Rate [ Apical] Respiratory 18 Rate Blood Pressure Blood Pressure [Left Arm] O2 Sat by Pulse 95 Oximetry (%) Current Medications Generic Name Dose Route Start Last Admin Trade Name Freq PRN Reason Stop Dose Admin Acetaminophen 650 mg 08/03/18 17:03 Tylenol - PO Q6H PRN PAIN LEVEL 1-5 Albuterol Sulfate 1 amp 08/04/18 14:48 Ventolin 0.083% Nebulizer Soln - NEB Q4H PRN SHORT OF BREATH/WHEEZING Albuterol/Ipratropium 1 amp 08/04/18 16:00 08/05/18 07:30 Duoneb - NEB Not Given RQID [facility] Amlodipine Besylate 10 mg 08/04/18 10:00 08/05/18 09:51 Norvasc - PO 10 mg DAILY [facility] Administration Atorvastatin Calcium 20 mg 08/03/18 22:00 08/04/18 21:33 Lipitor - PO 20 mg HS [facility] Administration Budesonide/Formoterol Fumarate 2 puff 08/03/18 22:00 08/05/18 09:51 Symbicort 80/4.5mcg - IH 2 puff BID [facility] Administration Enoxaparin Sodium 40 mg 08/04/18 10:00 08/05/18 09:50 Lovenox - SQ 40 mg DAILY [facility] Administration Azithromycin 500 mg in 250 mls @ 250 mls/hr 08/04/18 10:00 08/05/18 09:50 Zithromax 500mg Ivpb (Pre-Docked) IVPB 250 mls/hr DAILY [facility] Administration Insulin Aspart 1 vial 08/03/18 17:45 08/05/18 06:10 Novolog Vial Sliding Scale - SQ 9 unit TIDAC [facility] Administration Protocol Insulin Aspart 1 vial 08/04/18 22:00 08/04/18 21:34 Novolog Vial Sliding Scale - SQ 4 units HS [facility] Administration Protocol Insulin Detemir 10 units 08/03/18 22:00 08/04/18 21:34 Levemir Vial SQ 10 unit HS [facility] Administration Methylprednisolone Sodium Succinate 60 mg 08/03/18 18:00 08/05/18 09:50 Solu-Medrol - IVPUSH 60 mg Q8H-IV [facility] Administration Nebivolol 10 mg 08/04/18 10:00 08/05/18 09:51 Bystolic - PO 10 mg DAILY [facility] Administration Nicotine 14 mg 08/04/18 10:00 08/05/18 09:50 Nicoderm Patch - TD 14 mg DAILY [facility] Administration Ranitidine HCl 150 mg 08/03/18 22:00 08/05/18 09:51 Zantac - PO 150 mg BID [facility] Administration Valsartan 320 mg 08/04/18 10:00 08/05/18 09:51 Diovan - PO 320 mg DAILY [facility] Administration Laboratory Results - last 24 hr 08/04/18 08/04/18 08/05/18 18:08 21:06 05:33 POC Glucometer 402 405 311 S1 S2 RRR Lungs ronchi+better Abd- soft, NT trace edema PLAN iv antibiotics iv solumedrol nebs, O2 nicotine patch Problem List - Problems (1) COPD exacerbation Code(s): J44.1 - CHRONIC OBSTRUCTIVE PULMONARY DISEASE W (ACUTE) EXACERBATION (2) Increased oxygen demand Code(s): R68.89 - OTHER GENERAL SYMPTOMS AND SIGNS (3) Acute respiratory failure with hypoxia and hypercapnia Code(s): J96.01 - ACUTE RESPIRATORY FAILURE WITH HYPOXIA; J96.02 - ACUTE RESPIRATORY FAILURE WITH HYPERCAPNIA (4) CHF (congestive heart failure) Code(s): I50.9 - HEART FAILURE, UNSPECIFIED Qualifiers: Heart failure type: diastolic Heart failure chronicity: unspecified Qualified Code(s): I50.30 - Unspecified diastolic (congestive) heart failure (5) Hypercholesteremia Code(s): E78.00 - PURE HYPERCHOLESTEROLEMIA, UNSPECIFIED (6) Hypertension Code(s): I10 - ESSENTIAL (PRIMARY) HYPERTENSION (7) Smoker Code(s): F17.200 - NICOTINE DEPENDENCE, UNSPECIFIED, UNCOMPLICATED (8) T2DM (type 2 diabetes mellitus) Code(s): E11.9 - TYPE 2 DIABETES MELLITUS WITHOUT COMPLICATIONS
--- NOTE | 2018-08-05 12:43 | PN ---
Progress Note, Physician History of Present Illness: PULMONARY alert,feeling better,less dyspneic - Current Medication List Current Medications: Active Medications Acetaminophen (Tylenol -) 650 mg PO Q6H PRN PRN Reason: PAIN LEVEL 1-5 Albuterol Sulfate (Ventolin 0.083% Nebulizer Soln -) 1 amp NEB Q4H PRN PRN Reason: SHORT OF BREATH/WHEEZING Albuterol/Ipratropium (Duoneb -) 1 amp NEB RQID [facility] Last Admin: 08/05/18 12:01 Dose: 1 amp Amlodipine Besylate (Norvasc -) 10 mg PO DAILY [facility] Last Admin: 08/05/18 09:51 Dose: 10 mg Atorvastatin Calcium (Lipitor -) 20 mg PO HS [facility] Last Admin: 08/04/18 21:33 Dose: 20 mg Budesonide/Formoterol Fumarate (Symbicort 80/4.5mcg -) 2 puff IH BID [facility] Last Admin: 08/05/18 09:51 Dose: 2 puff Enoxaparin Sodium (Lovenox -) 40 mg SQ DAILY [facility] Last Admin: 08/05/18 09:50 Dose: 40 mg Azithromycin (Zithromax 500mg Ivpb (Pre-Docked)) 500 mg in 250 mls @ 250 mls/ hr IVPB DAILY [facility] Last Admin: 08/05/18 09:50 Dose: 250 mls/hr Insulin Aspart (Novolog Vial Sliding Scale -) 1 vial SQ TIDAC [facility]; Protocol Last Admin: 08/05/18 06:10 Dose: 9 unit Insulin Aspart (Novolog Vial Sliding Scale -) 1 vial SQ HS [facility]; Protocol Last Admin: 08/04/18 21:34 Dose: 4 units Insulin Detemir (Levemir Vial) 10 units SQ BID@0700,2200 [facility] Methylprednisolone Sodium Succinate (Solu-Medrol -) 60 mg IVPUSH Q8H-IV [facility] Last Admin: 08/05/18 09:50 Dose: 60 mg Nebivolol (Bystolic -) 10 mg PO DAILY [facility] Last Admin: 08/05/18 09:51 Dose: 10 mg Nicotine (Nicoderm Patch -) 14 mg TD DAILY [facility] Last Admin: 08/05/18 09:50 Dose: 14 mg Ranitidine HCl (Zantac -) 150 mg PO BID [facility] Last Admin: 08/05/18 09:51 Dose: 150 mg Valsartan (Diovan -) 320 mg PO DAILY [facility] Last Admin: 08/05/18 09:51 Dose: 320 mg - Objective Vital Signs: Vital Signs Temperature 98 F 08/05/18 06:53 Pulse Rate 85 08/05/18 06:53 Respiratory Rate 18 08/05/18 08:42 Blood Pressure 152/80 08/05/18 06:53 O2 Sat by Pulse Oximetry (%) 95 08/05/18 08:42 Constitutional: Yes: Well Nourished, Calm Eyes: Yes: WNL HENT: Yes: WNL Neck: Yes: WNL Cardiovascular: Yes: Regular Rate and Rhythm, S1, S2 Respiratory: Yes: Wheezes (scattered prerna wheezes and rhonchi) Gastrointestinal: Yes: Normal Bowel Sounds, Soft Extremities: Yes: WNL Edema: No Labs: CBC, BMP 08/04/18 06:19 08/04/18 06:19 Problem List - Problems (1) Acute on chronic respiratory failure with hypoxia and hypercapnia Code(s): J96.21 - ACUTE AND CHRONIC RESPIRATORY FAILURE WITH HYPOXIA; J96.22 - ACUTE AND CHRONIC RESPIRATORY FAILURE WITH HYPERCAPNIA (2) COPD exacerbation Code(s): J44.1 - CHRONIC OBSTRUCTIVE PULMONARY DISEASE W (ACUTE) EXACERBATION (3) Acute respiratory failure with hypoxia and hypercapnia Code(s): J96.01 - ACUTE RESPIRATORY FAILURE WITH HYPOXIA; J96.02 - ACUTE RESPIRATORY FAILURE WITH HYPERCAPNIA (4) CHF (congestive heart failure) Code(s): I50.9 - HEART FAILURE, UNSPECIFIED Qualifiers: Heart failure type: diastolic Heart failure chronicity: unspecified Qualified Code(s): I50.30 - Unspecified diastolic (congestive) heart failure (5) Obesity Code(s): E66.9 - OBESITY, UNSPECIFIED Qualifiers: Body mass index: BMI 33.0-33.9 (6) Smoker Code(s): F17.200 - NICOTINE DEPENDENCE, UNSPECIFIED, UNCOMPLICATED (7) T2DM (type 2 diabetes mellitus) Code(s): E11.9 - TYPE 2 DIABETES MELLITUS WITHOUT COMPLICATIONS Assessment/Plan Problem List - Problems (1) COPD exacerbation Code(s): J44.1 - CHRONIC OBSTRUCTIVE PULMONARY DISEASE W (ACUTE) EXACERBATION Assessment/Plan Acute Hypoxic and Likely Chronic Hypercapneic Respiratory Failure Acute COPD Exacerbation LV Diastolic Dysfunction CAD h/o CVA HTN DM Hyperlipidemia Smoker Likely Obstructive Sleep Apnea - IV medrol same dose - inhaled bronchodilators standing and PRN - O2 to keep Spo2 >90% - glucose control while on systemic steroids - woutpt PFTs, PSG - smoking cessation discussed - when ready for discharge, will need to check ambulatory SpO2 on room air to assess for home O2 - DVT prophylaxis DR PATRICIO
[2018-08-05] MEDS ORDERED: INSULIN (NOVOLOG) ASPART 100 UNITS/ML 10ML VIAL ONE (16:59)
[2018-08-05] MEDS: ATORVASTATIN CA 20 MG TABLET (FP) PO SCH (21:42)
[2018-08-05] MEDS: INSULIN (LEVEMIR) 100 UNITS/ML UNITS SQ SCH (21:47)
[2018-08-06] MEDS: methylPREDNISolone NA SUCC 40 MG/1 ML VIAL IVPUSH SCH ×3 (02:46→11:42)
[2018-08-06] MEDS: INSULIN SLIDING SCALE (NOVOLOG) 1 VIAL SQ SCH ×4 (06:24→21:50)
[2018-08-06] MEDS: INSULIN (LEVEMIR) 100 UNITS/ML UNITS SQ SCH ×2 (06:24→21:49)
[2018-08-06] MEDS: ALBUTEROL SO4 2.5/IPRATROPIUM 0.5 INH SOL 3 ML VIAL.NEB. NEB SCH ×4 (08:17→20:39)
[2018-08-06] MEDS: amLODIPine BESYLATE 10 MG TABLET (FP) PO SCH (09:06)
[2018-08-06] MEDS: VALSARTAN 160 MG TABLET (UD) PO SCH (09:06)
[2018-08-06] MEDS ORDERED: PT OWN MED DRAWER 7, Y5N ONE (10:53)
[2018-08-06] MEDS: ENOXAPARIN NA (PORCINE) 40 MG/0.4 ML DISP.SYRIN SQ SCH (10:54)
[2018-08-06] MEDS: RANITIDINE HCL 150 MG TABLET (FP) PO SCH ×2 (10:54→21:49)
[2018-08-06] MEDS: NEBIVOLOL 10 MG TABLET (FP) PO SCH (10:54)
[2018-08-06] MEDS: NICOTINE 14 MG/24 HOURS TOPICAL PATCH TD SCH (10:54)
[2018-08-06] MEDS: BUDESONIDE/FORMETEROL FUMARATE 80/4.5 mcg INHALER IH SCH ×2 (10:55→21:50)
[2018-08-06] MEDS ORDERED: INSULIN (NOVOLOG) ASPART 100 UNITS/ML 10ML VIAL ONE ×2 (11:49→21:40)
[2018-08-06] MEDS: AZITHROMYCIN IVPB 500 MG/250 ML BAG IVPB SCH (13:08)
--- NOTE | 2018-08-06 13:14 | PN ---
Progress Note (short form) - Note Progress Note: coughing breathing about the same Vital Signs - 24 hr 08/05/18 08/05/18 08/05/18 14:00 17:00 21:00 Temperature 98 F 98.2 F 97.7 F Pulse Rate 80 86 82 Respiratory 20 20 18 Rate Blood Pressure 155/79 155/80 160/74 O2 Sat by Pulse 95 Oximetry (%) 08/06/18 08/06/18 08/06/18 01:00 05:00 09:00 Temperature 98.6 F 98.8 F 98 F Pulse Rate 88 80 78 Respiratory 22 H 18 18 Rate Blood Pressure 147/68 152/75 201/88 H O2 Sat by Pulse Oximetry (%) Current Medications Generic Name Dose Route Start Last Admin Trade Name Freq PRN Reason Stop Dose Admin Acetaminophen 650 mg 08/03/18 17:03 Tylenol - PO Q6H PRN PAIN LEVEL 1-5 Albuterol Sulfate 1 amp 08/04/18 14:48 Ventolin 0.083% Nebulizer Soln - NEB Q4H PRN SHORT OF BREATH/WHEEZING Albuterol/Ipratropium 1 amp 08/04/18 16:00 08/06/18 11:56 Duoneb - NEB 1 amp RQID [facility] Administration Amlodipine Besylate 10 mg 08/04/18 10:00 08/06/18 09:06 Norvasc - PO 10 mg DAILY [facility] Administration Atorvastatin Calcium 20 mg 08/03/18 22:00 08/05/18 21:42 Lipitor - PO 20 mg HS [facility] Administration Budesonide/Formoterol Fumarate 2 puff 08/03/18 22:00 08/06/18 10:55 Symbicort 80/4.5mcg - IH 2 puff BID [facility] Administration Enoxaparin Sodium 40 mg 08/04/18 10:00 08/06/18 10:54 Lovenox - SQ 40 mg DAILY [facility] Administration Azithromycin 500 mg in 250 mls @ 250 mls/hr 08/04/18 10:00 08/06/18 13:08 Zithromax 500mg Ivpb (Pre-Docked) IVPB 250 mls/hr DAILY [facility] Administration Insulin Aspart 1 vial 08/03/18 17:45 08/06/18 12:15 Novolog Vial Sliding Scale - SQ 5 unit TIDAC [facility] Administration Protocol Insulin Aspart 1 vial 08/06/18 22:00 Novolog Vial Sliding Scale - SQ HS [facility] Protocol Insulin Detemir 10 units 08/05/18 22:00 08/06/18 06:24 Levemir Vial SQ 10 units BID@0700,2200 [facility] Administration Methylprednisolone Sodium Succinate 60 mg 08/03/18 18:00 08/06/18 11:42 Solu-Medrol - IVPUSH Not Given Q8H-IV [facility] Nebivolol 10 mg 08/04/18 10:00 08/06/18 10:54 Bystolic - PO 10 mg DAILY [facility] Administration Nicotine 14 mg 08/04/18 10:00 08/06/18 10:54 Nicoderm Patch - TD 14 mg DAILY [facility] Administration Ranitidine HCl 150 mg 08/03/18 22:00 08/06/18 10:54 Zantac - PO 150 mg BID [facility] Administration Valsartan 320 mg 08/04/18 10:00 08/06/18 09:06 Diovan - PO 320 mg DAILY [facility] Administration Laboratory Results - last 24 hr 08/05/18 08/05/18 08/06/18 16:57 21:30 01:36 POC Glucometer 393 404 394 08/06/18 08/06/18 05:48 11:44 POC Glucometer 330 237 S1 S2 RRR Lungs ronchi++ Abd- soft, NT trace edema PLAN iv antibiotics iv solumedrol-- same dose nebs, O2 nicotine patch increase levemir Problem List - Problems (1) COPD exacerbation Code(s): J44.1 - CHRONIC OBSTRUCTIVE PULMONARY DISEASE W (ACUTE) EXACERBATION (2) Increased oxygen demand Code(s): R68.89 - OTHER GENERAL SYMPTOMS AND SIGNS (3) Acute respiratory failure with hypoxia and hypercapnia Code(s): J96.01 - ACUTE RESPIRATORY FAILURE WITH HYPOXIA; J96.02 - ACUTE RESPIRATORY FAILURE WITH HYPERCAPNIA (4) CHF (congestive heart failure) Code(s): I50.9 - HEART FAILURE, UNSPECIFIED Qualifiers: Heart failure type: diastolic Heart failure chronicity: unspecified Qualified Code(s): I50.30 - Unspecified diastolic (congestive) heart failure (5) Hypercholesteremia Code(s): E78.00 - PURE HYPERCHOLESTEROLEMIA, UNSPECIFIED (6) Hypertension Code(s): I10 - ESSENTIAL (PRIMARY) HYPERTENSION (7) Smoker Code(s): F17.200 - NICOTINE DEPENDENCE, UNSPECIFIED, UNCOMPLICATED (8) T2DM (type 2 diabetes mellitus) Code(s): E11.9 - TYPE 2 DIABETES MELLITUS WITHOUT COMPLICATIONS
--- NOTE | 2018-08-06 13:29 | PN ---
Progress Note (short form) - Note Progress Note: OOB to chair. Breathing feels overall better. The patient has asked to stop her steroids as she feels at her baseline. Intake & Output 08/03/18 08/04/18 08/05/18 08/06/18 23:59 23:59 23:59 23:59 Intake Total 200 300 740 630 Balance 200 300 740 630 Weight 176 lb 175 lb Last Vital Signs Temp Pulse Resp BP Pulse Ox 98 F 78 18 201/88 H 95 08/06/18 09:00 08/06/18 09:00 08/06/18 09:00 08/06/18 09:00 08/05/18 21:00 Active Medications Acetaminophen (Tylenol -) 650 mg PO Q6H PRN PRN Reason: PAIN LEVEL 1-5 Albuterol Sulfate (Ventolin 0.083% Nebulizer Soln -) 1 amp NEB Q4H PRN PRN Reason: SHORT OF BREATH/WHEEZING Albuterol/Ipratropium (Duoneb -) 1 amp NEB RQID [facility] Last Admin: 08/06/18 11:56 Dose: 1 amp Amlodipine Besylate (Norvasc -) 10 mg PO DAILY [facility] Last Admin: 08/06/18 09:06 Dose: 10 mg Atorvastatin Calcium (Lipitor -) 20 mg PO HS [facility] Last Admin: 08/05/18 21:42 Dose: 20 mg Budesonide/Formoterol Fumarate (Symbicort 80/4.5mcg -) 2 puff IH BID [facility] Last Admin: 08/06/18 10:55 Dose: 2 puff Enoxaparin Sodium (Lovenox -) 40 mg SQ DAILY [facility] Last Admin: 08/06/18 10:54 Dose: 40 mg Azithromycin (Zithromax 500mg Ivpb (Pre-Docked)) 500 mg in 250 mls @ 250 mls/ hr IVPB DAILY [facility] Last Admin: 08/06/18 13:08 Dose: 250 mls/hr Insulin Aspart (Novolog Vial Sliding Scale -) 1 vial SQ TIDAC [facility]; Protocol Last Admin: 08/06/18 12:15 Dose: 5 unit Insulin Aspart (Novolog Vial Sliding Scale -) 1 vial SQ HS [facility]; Protocol Insulin Detemir (Levemir Vial) 14 units SQ BID@0700,2200 [facility] Nebivolol (Bystolic -) 10 mg PO DAILY [facility] Last Admin: 08/06/18 10:54 Dose: 10 mg Nicotine (Nicoderm Patch -) 14 mg TD DAILY [facility] Last Admin: 08/06/18 10:54 Dose: 14 mg Ranitidine HCl (Zantac -) 150 mg PO BID [facility] Last Admin: 08/06/18 10:54 Dose: 150 mg Valsartan (Diovan -) 320 mg PO DAILY [facility] Last Admin: 08/06/18 09:06 Dose: 320 mg Constitutional: Yes: NAD Eyes: Yes: WNL HENT: Yes: WNL Neck: Yes: WNL Cardiovascular: Yes: Regular Rate and Rhythm, S1, S2 Respiratory: Yes: No Wheezes, few scattered rhonchi Gastrointestinal: Yes: Normal Bowel Sounds, Soft Extremities: Yes: WNL Edema: No Labs: Laboratory Results - last 24 hr 08/05/18 08/05/18 08/06/18 16:57 21:30 01:36 POC Glucometer 393 404 394 08/06/18 08/06/18 05:48 11:44 POC Glucometer 330 237 Problem List - Problems (1) Acute on chronic respiratory failure with hypoxia and hypercapnia Code(s): J96.21 - ACUTE AND CHRONIC RESPIRATORY FAILURE WITH HYPOXIA; J96.22 - ACUTE AND CHRONIC RESPIRATORY FAILURE WITH HYPERCAPNIA (2) COPD exacerbation Code(s): J44.1 - CHRONIC OBSTRUCTIVE PULMONARY DISEASE W (ACUTE) EXACERBATION (3) Acute respiratory failure with hypoxia and hypercapnia Code(s): J96.01 - ACUTE RESPIRATORY FAILURE WITH HYPOXIA; J96.02 - ACUTE RESPIRATORY FAILURE WITH HYPERCAPNIA (4) CHF (congestive heart failure) Code(s): I50.9 - HEART FAILURE, UNSPECIFIED Qualifiers: Heart failure type: diastolic Heart failure chronicity: unspecified Qualified Code(s): I50.30 - Unspecified diastolic (congestive) heart failure (5) Obesity Code(s): E66.9 - OBESITY, UNSPECIFIED Qualifiers: Body mass index: BMI 33.0-33.9 (6) Smoker Code(s): F17.200 - NICOTINE DEPENDENCE, UNSPECIFIED, UNCOMPLICATED (7) T2DM (type 2 diabetes mellitus) Code(s): E11.9 - TYPE 2 DIABETES MELLITUS WITHOUT COMPLICATIONS Assessment/Plan Acute Hypoxic and Likely Chronic Hypercapneic Respiratory Failure Acute COPD Exacerbation LV Diastolic Dysfunction CAD h/o CVA HTN DM Hyperlipidemia Smoker Likely Obstructive Sleep Apnea - Patient asked to stop steroids, will monitor - inhaled bronchodilators standing and PRN - O2 to keep Spo2 >90% - Outpatient PFTs, PSG - Smoking cessation discussed - when ready for discharge, will need to check ambulatory SpO2 on room air to assess for home O2 - DVT prophylaxis Dr Garcia
[2018-08-06] MEDS: ATORVASTATIN CA 20 MG TABLET (FP) PO SCH (21:49)
[2018-08-07] MEDS: INSULIN (LEVEMIR) 100 UNITS/ML UNITS SQ SCH ×2 (06:10→22:09)
[2018-08-07] MEDS: INSULIN SLIDING SCALE (NOVOLOG) 1 VIAL SQ SCH ×4 (06:10→22:10)
[2018-08-07] MEDS: ALBUTEROL SO4 2.5/IPRATROPIUM 0.5 INH SOL 3 ML VIAL.NEB. NEB SCH ×4 (07:00→20:33)
[2018-08-07] MEDS: VALSARTAN 160 MG TABLET (UD) PO SCH (09:44)
[2018-08-07] MEDS: amLODIPine BESYLATE 10 MG TABLET (FP) PO SCH (09:44)
[2018-08-07] MEDS: NICOTINE 14 MG/24 HOURS TOPICAL PATCH TD SCH (09:44)
[2018-08-07] MEDS: RANITIDINE HCL 150 MG TABLET (FP) PO SCH ×2 (09:44→21:20)
[2018-08-07] MEDS: NEBIVOLOL 10 MG TABLET (FP) PO SCH (09:45)
[2018-08-07] MEDS: ENOXAPARIN NA (PORCINE) 40 MG/0.4 ML DISP.SYRIN SQ SCH (09:45)
[2018-08-07] MEDS: BUDESONIDE/FORMETEROL FUMARATE 80/4.5 mcg INHALER IH SCH ×2 (09:46→21:20)
--- NOTE | 2018-08-07 10:37 | PN ---
Progress Note, Physician History of Present Illness: pulmonary alert,feeling better,less dyspneic - Current Medication List Current Medications: Active Medications Acetaminophen (Tylenol -) 650 mg PO Q6H PRN PRN Reason: PAIN LEVEL 1-5 Albuterol Sulfate (Ventolin 0.083% Nebulizer Soln -) 1 amp NEB Q4H PRN PRN Reason: SHORT OF BREATH/WHEEZING Albuterol/Ipratropium (Duoneb -) 1 amp NEB RQID [facility] Last Admin: 08/07/18 07:00 Dose: 1 amp Amlodipine Besylate (Norvasc -) 10 mg PO DAILY [facility] Last Admin: 08/07/18 09:44 Dose: 10 mg Atorvastatin Calcium (Lipitor -) 20 mg PO [facility] Last Admin: 08/06/18 21:49 Dose: 20 mg Budesonide/Formoterol Fumarate (Symbicort 80/4.5mcg -) 2 puff IH BID [facility] Last Admin: 08/07/18 09:46 Dose: 2 puff Enoxaparin Sodium (Lovenox -) 40 mg SQ DAILY [facility] Last Admin: 08/07/18 09:45 Dose: 40 mg Insulin Aspart (Novolog Vial Sliding Scale -) 1 vial SQ TIDAC [facility]; Protocol Last Admin: 08/07/18 06:10 Dose: Not Given Insulin Aspart (Novolog Vial Sliding Scale -) 1 vial SQ HS [facility]; Protocol Last Admin: 08/06/18 21:50 Dose: Not Given Insulin Detemir (Levemir Vial) 14 units SQ BID@0700,2200 [facility] Last Admin: 08/07/18 06:10 Dose: Not Given Nebivolol (Bystolic -) 10 mg PO DAILY [facility] Last Admin: 08/07/18 09:45 Dose: 10 mg Nicotine (Nicoderm Patch -) 14 mg TD DAILY [facility] Last Admin: 08/07/18 09:44 Dose: 14 mg Ranitidine HCl (Zantac -) 150 mg PO BID [facility] Last Admin: 08/07/18 09:44 Dose: 150 mg Valsartan (Diovan -) 320 mg PO DAILY [facility] Last Admin: 08/07/18 09:44 Dose: 320 mg - Objective Vital Signs: Vital Signs Temperature 98.4 F 08/07/18 06:00 Pulse Rate 65 08/07/18 06:00 Respiratory Rate 18 08/07/18 06:00 Blood Pressure 145/70 08/07/18 06:00 O2 Sat by Pulse Oximetry (%) 95 08/06/18 21:00 Constitutional: Yes: Well Nourished, Calm Eyes: Yes: WNL HENT: Yes: WNL Neck: Yes: WNL Cardiovascular: Yes: Regular Rate and Rhythm, S1, S2 Respiratory: Yes: Diminished Gastrointestinal: Yes: Normal Bowel Sounds, Soft Extremities: Yes: WNL Edema: No Labs: CBC, BMP 08/04/18 06:19 08/04/18 06:19 Problem List - Problems (1) Acute on chronic respiratory failure with hypoxia and hypercapnia Code(s): J96.21 - ACUTE AND CHRONIC RESPIRATORY FAILURE WITH HYPOXIA; J96.22 - ACUTE AND CHRONIC RESPIRATORY FAILURE WITH HYPERCAPNIA (2) COPD exacerbation Code(s): J44.1 - CHRONIC OBSTRUCTIVE PULMONARY DISEASE W (ACUTE) EXACERBATION (3) Acute respiratory failure with hypoxia and hypercapnia Code(s): J96.01 - ACUTE RESPIRATORY FAILURE WITH HYPOXIA; J96.02 - ACUTE RESPIRATORY FAILURE WITH HYPERCAPNIA (4) CHF (congestive heart failure) Code(s): I50.9 - HEART FAILURE, UNSPECIFIED Qualifiers: Heart failure type: diastolic Heart failure chronicity: unspecified Qualified Code(s): I50.30 - Unspecified diastolic (congestive) heart failure (5) Obesity Code(s): E66.9 - OBESITY, UNSPECIFIED Qualifiers: Body mass index: BMI 33.0-33.9 (6) Smoker Code(s): F17.200 - NICOTINE DEPENDENCE, UNSPECIFIED, UNCOMPLICATED (7) T2DM (type 2 diabetes mellitus) Code(s): E11.9 - TYPE 2 DIABETES MELLITUS WITHOUT COMPLICATIONS Assessment/Plan Problem List - Problems (1) COPD exacerbation Code(s): J44.1 - CHRONIC OBSTRUCTIVE PULMONARY DISEASE W (ACUTE) EXACERBATION Assessment/Plan Acute Hypoxic and Likely Chronic Hypercapneic Respiratory Failure Acute COPD Exacerbation LV Diastolic Dysfunction CAD h/o CVA HTN DM Hyperlipidemia Smoker Likely Obstructive Sleep Apnea - inhaled bronchodilators standing and PRN - O2 to keep Spo2 >90% - glucose control while on systemic steroids - outpt PFTs, PSG - smoking cessation discussed - when ready for discharge, will need to check ambulatory SpO2 on room air to assess for home O2 - DVT prophylaxis DR PATRICIO
--- NOTE | 2018-08-07 13:11 | DS ---
Physical Examination Vital Signs: Vital Signs Temperature 98.4 F 08/07/18 06:00 Pulse Rate 65 08/07/18 06:00 Respiratory Rate 18 08/07/18 06:00 Blood Pressure 145/70 08/07/18 06:00 O2 Sat by Pulse Oximetry (%) 95 08/06/18 21:00 Findings/Remarks: pt seen/ examined feels well wants to go home Constitutional: Yes: No Distress, Calm Eyes: Yes: Conjunctiva Clear HENT: Yes: Other (Thrush +) Neck: Yes: Supple Cardiovascular: Yes: Regular Rate and Rhythm Respiratory: Yes: Hyperresonant Gastrointestinal: Yes: Soft Edema: No Neurological: Yes: Alert Psychiatric: Yes: Alert Labs: CBC, BMP 08/04/18 06:19 08/04/18 06:19 Discharge Summary Reason For Visit: INCREASED OXYGEN DEMAND Current Active Problems Acute on chronic respiratory failure with hypoxia and hypercapnia (Acute) COPD exacerbation (Acute) Increased oxygen demand (Acute) Hospital Course: admitted for copd exac much better pulmonary followed stable for d/c pre-post oxygen to be done add metformin smoking cessation counselling provided again MM wash for thrush Likely d/c later today Discussed with Nursing staff Condition: Stable - Instructions Disposition: HOME - Home Medications Comprehensive Discharge Medication List: Ambulatory Orders Albuterol 2.5/Ipratropium 0.5 [Duoneb -] 1 amp NEB RQ4H amp 05/11/18 Amlodipine Besylate [Norvasc -] 10 mg PO DAILY tablet 05/11/18 Atorvastatin Ca [Lipitor] 20 mg PO HS tablet 05/11/18 Budesonide/Formeterol Fumarate [SYMBICORT 80/4.5mcg -] 2 puff IH BID inhaler Guaifenesin [Robitussin -] 10 ml PO Q4H PRN cup 05/11/18 Nebivolol [Bystolic -] 10 mg PO DAILY tab 05/11/18 Nebulizer and Compressor [Comp-Air Nebulizer System] 1 each ASDIR #1 each 02/28 Nicotine Patch [Nicoderm Patch -] 14 mg TD DAILY #30 patch 05/11/18 Valsartan [Diovan] 320 mg PO DAILY tablet 05/11/18 Mag Hydrox/Alh/Smc/Dpha/Lido [Magic Mouthwash *Sjr Formula* -] 5 ml MM Q6HPO #1 bottle 08/07/18 Metformin HCl [Glucophage] 500 mg PO BID #60 tablet 08/07/18 Prednisone 10 mg PO DAILY 15 Days #15 tablet 08/07/18 Ranitidine [Zantac -] 150 mg PO BID tablet 08/07/18
[2018-08-07] MEDS: MAG HYDROX/ALH/SMC/DPHA/LIDO 240 ML MOUTHWASH MM SCH (17:34)
[2018-08-07] MEDS: ATORVASTATIN CA 20 MG TABLET (FP) PO SCH (21:20)
[2018-08-08] MEDS: MAG HYDROX/ALH/SMC/DPHA/LIDO 240 ML MOUTHWASH MM SCH ×3 (00:35→12:47)
[2018-08-08] MEDS: INSULIN (LEVEMIR) 100 UNITS/ML UNITS SQ SCH (06:03)
[2018-08-08] MEDS: INSULIN SLIDING SCALE (NOVOLOG) 1 VIAL SQ SCH ×2 (06:04→12:46)
[2018-08-08] MEDS: ALBUTEROL SO4 2.5/IPRATROPIUM 0.5 INH SOL 3 ML VIAL.NEB. NEB SCH ×2 (08:07→12:26)
--- NOTE | 2018-08-08 09:11 | PN ---
Progress Note, Physician History of Present Illness: pulmonary alert,comfortable,-resp distress,-sob - Current Medication List Current Medications: Active Medications Acetaminophen (Tylenol -) 650 mg PO Q6H PRN PRN Reason: PAIN LEVEL 1-5 Albuterol Sulfate (Ventolin 0.083% Nebulizer Soln -) 1 amp NEB Q4H PRN PRN Reason: SHORT OF BREATH/WHEEZING Albuterol/Ipratropium (Duoneb -) 1 amp NEB RQID [facility] Last Admin: 08/07/18 20:33 Dose: 1 amp Amlodipine Besylate (Norvasc -) 10 mg PO DAILY [facility] Last Admin: 08/07/18 09:44 Dose: 10 mg Atorvastatin Calcium (Lipitor -) 20 mg PO HS [facility] Last Admin: 08/07/18 21:20 Dose: 20 mg Budesonide/Formoterol Fumarate (Symbicort 80/4.5mcg -) 2 puff IH BID [facility] Last Admin: 08/07/18 21:20 Dose: 2 puff Enoxaparin Sodium (Lovenox -) 40 mg SQ DAILY [facility] Last Admin: 08/07/18 09:45 Dose: 40 mg Insulin Aspart (Novolog Vial Sliding Scale -) 1 vial SQ TIDAC [facility]; Protocol Last Admin: 08/08/18 06:04 Dose: Not Given Insulin Aspart (Novolog Vial Sliding Scale -) 1 vial SQ [facility]; Protocol Last Admin: 08/07/18 22:10 Dose: 2 units Insulin Detemir (Levemir Vial) 14 units SQ BID@0700,2200 [facility] Last Admin: 08/08/18 06:03 Dose: Not Given Lidocaine/Aluminum/Magnesium/Simeth (Magic Mouthwash *Sjr Formula* -) 5 ml MM Q6HPO [facility] Last Admin: 08/08/18 06:03 Dose: 5 ml Nebivolol (Bystolic -) 10 mg PO DAILY [facility] Last Admin: 08/07/18 09:45 Dose: 10 mg Nicotine (Nicoderm Patch -) 14 mg TD DAILY [facility] Last Admin: 08/07/18 09:44 Dose: 14 mg Ranitidine HCl (Zantac -) 150 mg PO BID [facility] Last Admin: 08/07/18 21:20 Dose: 150 mg Valsartan (Diovan -) 320 mg PO DAILY [facility] Last Admin: 08/07/18 09:44 Dose: 320 mg - Objective Vital Signs: Vital Signs Temperature 98.3 F 08/08/18 08:18 Pulse Rate 75 08/08/18 08:18 Respiratory Rate 18 08/08/18 08:18 Blood Pressure 146/88 08/08/18 08:18 O2 Sat by Pulse Oximetry (%) 94 L 08/07/18 21:00 Constitutional: Yes: Well Nourished, Calm Eyes: Yes: WNL HENT: Yes: WNL Neck: Yes: WNL Cardiovascular: Yes: Regular Rate and Rhythm, S1, S2 Respiratory: Yes: CTA Bilaterally Gastrointestinal: Yes: Normal Bowel Sounds, Soft Extremities: Yes: WNL Edema: No Labs: Problem List - Problems (1) Acute on chronic respiratory failure with hypoxia and hypercapnia Code(s): J96.21 - ACUTE AND CHRONIC RESPIRATORY FAILURE WITH HYPOXIA; J96.22 - ACUTE AND CHRONIC RESPIRATORY FAILURE WITH HYPERCAPNIA (2) COPD exacerbation Code(s): J44.1 - CHRONIC OBSTRUCTIVE PULMONARY DISEASE W (ACUTE) EXACERBATION (3) Acute respiratory failure with hypoxia and hypercapnia Code(s): J96.01 - ACUTE RESPIRATORY FAILURE WITH HYPOXIA; J96.02 - ACUTE RESPIRATORY FAILURE WITH HYPERCAPNIA (4) CHF (congestive heart failure) Code(s): I50.9 - HEART FAILURE, UNSPECIFIED Qualifiers: Heart failure type: diastolic Heart failure chronicity: unspecified Qualified Code(s): I50.30 - Unspecified diastolic (congestive) heart failure (5) Obesity Code(s): E66.9 - OBESITY, UNSPECIFIED Qualifiers: Body mass index: BMI 33.0-33.9 (6) Smoker Code(s): F17.200 - NICOTINE DEPENDENCE, UNSPECIFIED, UNCOMPLICATED (7) T2DM (type 2 diabetes mellitus) Code(s): E11.9 - TYPE 2 DIABETES MELLITUS WITHOUT COMPLICATIONS Assessment/Plan Problem List - Problems (1) COPD exacerbation Code(s): J44.1 - CHRONIC OBSTRUCTIVE PULMONARY DISEASE W (ACUTE) EXACERBATION Assessment/Plan Acute Hypoxic and Likely Chronic Hypercapneic Respiratory Failure improved Acute COPD Exacerbation improved LV Diastolic Dysfunction CAD h/o CVA HTN DM Hyperlipidemia Smoker Likely Obstructive Sleep Apnea - inhaled bronchodilators - outpt PFTs, PSG - smoking cessation discussed - ambulatory SpO2 on room air to assess for home O2 - DVT prophylaxis DR PATRICIO
[2018-08-08] MEDS: BUDESONIDE/FORMETEROL FUMARATE 80/4.5 mcg INHALER IH SCH (09:55)
[2018-08-08] MEDS: NEBIVOLOL 10 MG TABLET (FP) PO SCH (09:56)
[2018-08-08] MEDS: RANITIDINE HCL 150 MG TABLET (FP) PO SCH (09:56)
[2018-08-08] MEDS: NICOTINE 14 MG/24 HOURS TOPICAL PATCH TD SCH (09:56)
[2018-08-08] MEDS: VALSARTAN 160 MG TABLET (UD) PO SCH (09:56)
[2018-08-08] MEDS: amLODIPine BESYLATE 10 MG TABLET (FP) PO SCH (09:56)
[2018-08-08] MEDS: ENOXAPARIN NA (PORCINE) 40 MG/0.4 ML DISP.SYRIN SQ SCH (09:56)
[2018-08-08 11:58] VITALS: BP 147/81; PULSE 76; TEMP 98.4
--- NOTE | 2018-08-08 14:14 | PN ---
Progress Note (short form) - Note Progress Note: pt seen/ examined awake/ comfortable home oxygen arranged 4l n/c strongly counselled pt in presence of her daughter -- not to smoke Vital Signs Temp 98.4 F 08/08/18 11:58 Pulse 76 08/08/18 11:58 Resp 20 08/08/18 11:58 BP 147/81 08/08/18 11:58 Pulse Ox 94 L 08/08/18 09:00 Intake & Output 08/07/18 08/08/18 08/08/18 23:59 11:59 23:59 Intake Total 1010 100 Balance 1010 100 Intake: IV 10 saline lock 10 Oral 1000 100 Other: Voiding Method Toilet Bedside Commode # Unmeasured Voids Void 1 Bowel Movement Yes Active Medications Acetaminophen (Tylenol -) 650 mg PO Q6H PRN PRN Reason: PAIN LEVEL 1-5 Albuterol Sulfate (Ventolin 0.083% Nebulizer Soln -) 1 amp NEB Q4H PRN PRN Reason: SHORT OF BREATH/WHEEZING Albuterol/Ipratropium (Duoneb -) 1 amp NEB RQID [facility] Last Admin: 08/08/18 12:26 Dose: 1 amp Amlodipine Besylate (Norvasc -) 10 mg PO DAILY [facility] Last Admin: 08/08/18 09:56 Dose: 10 mg Atorvastatin Calcium (Lipitor -) 20 mg PO HS [facility] Last Admin: 08/07/18 21:20 Dose: 20 mg Budesonide/Formoterol Fumarate (Symbicort 80/4.5mcg -) 2 puff IH BID [facility] Last Admin: 08/08/18 09:55 Dose: 2 puff Enoxaparin Sodium (Lovenox -) 40 mg SQ DAILY [facility] Last Admin: 08/08/18 09:56 Dose: 40 mg Insulin Aspart (Novolog Vial Sliding Scale -) 1 vial SQ TIDAC [facility]; Protocol Last Admin: 08/08/18 12:46 Dose: Not Given Insulin Aspart (Novolog Vial Sliding Scale -) 1 vial SQ HS [facility]; Protocol Last Admin: 08/07/18 22:10 Dose: 2 units Insulin Detemir (Levemir Vial) 14 units SQ BID@0700,2200 [facility] Last Admin: 08/08/18 06:03 Dose: Not Given Lidocaine/Aluminum/Magnesium/Simeth (Magic Mouthwash *Sjr Formula* -) 5 ml MM Q6HPO [facility] Last Admin: 08/08/18 12:47 Dose: 5 ml Nebivolol (Bystolic -) 10 mg PO DAILY [facility] Last Admin: 08/08/18 09:56 Dose: 10 mg Nicotine (Nicoderm Patch -) 14 mg TD DAILY [facility] Last Admin: 08/08/18 09:56 Dose: 14 mg Ranitidine HCl (Zantac -) 150 mg PO BID [facility] Last Admin: 08/08/18 09:56 Dose: 150 mg Valsartan (Diovan -) 320 mg PO DAILY [facility] Last Admin: 08/08/18 09:56 Dose: 320 mg CBC, BMP 08/04/18 06:19 08/04/18 06:19 Microbiology 08/03/18 13:00 Blood Culture - Final Blood - Peripheral Venous NO GROWTH AFTER 5 DAYS INCUBATION 08/03/18 12:50 Blood Culture - Final Blood - Peripheral Venous NO GROWTH AFTER 5 DAYS INCUBATION Physical Exam awake/ comfortable S1 S2 RRR Lungs - clear Abd- soft, NT trace edema PLAN stable d/c on home oxygen close f/u with pulmonary/ pmd Smoking cessation pt/ daughter in agreement see yesterday d/c summary Problem List - Problems (1) COPD exacerbation Code(s): J44.1 - CHRONIC OBSTRUCTIVE PULMONARY DISEASE W (ACUTE) EXACERBATION (2) Acute respiratory failure with hypoxia and hypercapnia Code(s): J96.01 - ACUTE RESPIRATORY FAILURE WITH HYPOXIA; J96.02 - ACUTE RESPIRATORY FAILURE WITH HYPERCAPNIA (3) Hypertension Code(s): I10 - ESSENTIAL (PRIMARY) HYPERTENSION (4) NIDDY (non-insulin dependent diabetes mellitus in young) Code(s): E13.9 - OTHER SPECIFIED DIABETES MELLITUS WITHOUT COMPLICATIONS (5) Needs smoking cessation education Code(s): F17.200 - NICOTINE DEPENDENCE, UNSPECIFIED, UNCOMPLICATED (6) Smoker unmotivated to quit Code(s): F17.200 - NICOTINE DEPENDENCE, UNSPECIFIED, UNCOMPLICATED
== END 2018-08-08 15:23 | disposition home or self-care (01) | DRG 190 ==
LOC: JER 12:20 → JERBED 14:21 → J4W 08-04 15:07
PROVIDERS: ADMIT Internal Medicine; ATTEND Internal Medicine
DX: J44.1 Chronic obstructive pulmonary disease with (acute) exacerbation (principal); J96.01 Acute respiratory failure with hypoxia; J96.02 Acute respiratory failure with hypercapnia; B37.0 Candidal stomatitis; I69.354 Hemiplegia and hemiparesis following cerebral infarction affecting left non-dominant side; J44.9 Chronic obstructive pulmonary disease, unspecified; I10 Essential (primary) hypertension; I25.10 Atherosclerotic heart disease of native coronary artery without angina pectoris; G47.33 Obstructive sleep apnea (adult) (pediatric); F17.210 Nicotine dependence, cigarettes, uncomplicated; E78.5 Hyperlipidemia, unspecified; E11.9 Type 2 diabetes mellitus without complications
CPT/HCPCS: 36415; 36600; 71045-TC-FY; 80048; 80053; 82375; 82550; 82553; 82803; 82962; 83036; 83050; 83880; 84484; 85025; 87040; 93005; 93010; 94640; 94761; 99285-25

== ENCOUNTER 2019-01-01 13:08 | Inpatient (IN) | payer MEDICARE, OTHER ==
--- NOTE | 2019-01-01 13:22 | PDOC ---
Rapid Medical Evaluation Medical Evaluation: Allergies Allergy/AdvReac Type Severity Reaction Status Date / Time No Known Allergies Allergy Verified 05/07/18 16:41 I have performed a brief in-person evaluation of this patient. The patient presents with a chief complaint of: history of HTN, HLD, DM, CAD, CVA with left sided residual weakness, COPD presents with cough and SOB x 3 days ; patient quit smoking 1 month ago Pertinent physical exam findings: In NAD, poor airway entry, mild expiratory wheezing I have ordered the following: Labs, EKG, CXR, nebs The patient will proceed to the ED for further evaluation. 01/01/19 13:18
[2019-01-01] MEDS ORDERED: methylPREDNISolone NA SUCC 125 MG/2 ML VIAL IVPB ONE (13:26)
[2019-01-01] MEDS ORDERED: ALBUTEROL SO4 2.5/IPRATROPIUM 0.5 INH SOL 3 ML VIAL.NEB. NEB ONE ×2 (13:47→17:42)
[2019-01-01] MEDS ORDERED: methylPREDNISolone NA SUCC 125 MG/2 ML VIAL ONE (13:47)
--- NOTE | 2019-01-01 13:56 | PDOC ---
History of Present Illness - General Chief Complaint: Shortness of Breath Stated Complaint: SHORTNESS OF BREATH Time Seen by Provider: 01/01/19 13:17 - History of Present Illness Initial Comments: 01/01/19 14:03 The patient is a 73 year old female with a history of HTN, HLD, DM, CAD, COPD who presents for evaluation of shortness of breath. The patient is accompanied by family who assists in providing the history. They report a 2-3 day history of worsening shortness of breath with productive cough at home despite her home medications prompting her presentation to the ED for further evaluation. The patient otherwise denies fevers, chills, chest pain, nausea, vomiting, abdominal pain, or changes with urination or bowel movements. Past History - Past Medical History Allergies/Adverse Reactions: Allergies Allergy/AdvReac Type Severity Reaction Status Date / Time No Known Allergies Allergy Verified 01/01/19 13:23 Home Medications: Ambulatory Orders Albuterol 2.5/Ipratropium 0.5 [Duoneb -] 1 amp NEB RQ4H amp 05/11/18 Amlodipine Besylate [Norvasc -] 10 mg PO DAILY tablet 05/11/18 Atorvastatin Ca [Lipitor] 20 mg PO HS tablet 05/11/18 Budesonide/Formeterol Fumarate [SYMBICORT 80/4.5mcg -] 2 puff IH BID inhaler Guaifenesin [Robitussin -] 10 ml PO Q4H PRN cup 05/11/18 Nebivolol [Bystolic -] 10 mg PO DAILY tab 05/11/18 Nebulizer and Compressor [Comp-Air Nebulizer System] 1 each ASDIR #1 each 02/28 Nicotine Patch [Nicoderm Patch -] 14 mg TD DAILY #30 patch 05/11/18 Valsartan [Diovan] 320 mg PO DAILY tablet 05/11/18 Mag Hydrox/Alh/Smc/Dpha/Lido [Magic Mouthwash *Sjr Formula* -] 5 ml MM Q6HPO #1 bottle 08/07/18 Metformin HCl [Glucophage] 500 mg PO BID #60 tablet 08/07/18 Prednisone 10 mg PO DAILY 15 Days #15 tablet 08/07/18 Ranitidine [Zantac -] 150 mg PO BID tablet 08/07/18 Hydrochlorothiazide [Hctz -] 25 mg PO BID 01/01/19 Anemia: Yes Asthma: Yes Cancer: No 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) COPD: Yes CHF: No Dementia: No Diabetes: Yes GI Disorders: No Disorders: No HTN: Yes Hypercholesterolemia: Yes Liver Disease: No Seizures: No Thyroid Disease: No - Surgical History Abdominal Surgery: No Appendectomy: No Cardiac Surgery: No Cholecystectomy: No Lung Surgery: No Neurologic Surgery: No Orthopedic Surgery: No - Immunization History Immunization Up to Date: Yes - Psycho Social/Smoking Cessation Hx Smoking History: Former smoker Have you smoked in the past 12 months: No Number of Cigarettes Smoked Daily: 2 Information on smoking cessation initiated: No 'Breaking Loose' booklet given: 08/04/18 Hx Alcohol Use: No Drug/Substance Use Hx: No Substance Use Type: None Hx Substance Use Treatment: No Review of Systems - Review of Systems Comments:: 01/01/19 14:06 Constitutional: No fevers, chills, fatigue, malaise HEENT: No Rhinorrhea, nasal congestion, visual changes Cardiovascular: No chest pain, syncope, palpitations, lightheadedness Respiratory: SOB, cough. No Hemoptysis, Gastrointestinal: No Abdominal pain, Nausea, Vomiting, Constipation, Diarrhea, Melena Genitourinary: No Dysuria, Frequency, Urgency, Hesitancy, Hematuria, Flank pain Musculoskeletal: No Myalgia, arthralgia Skin: No rashes, itching, bruising, pallor Neurologic: No Headache, Dizziness, Numbness, Weakness, or Tingling Psychiatric: No Hallucinations. No SI or HI *Physical Exam - Vital Signs Last Vital Signs Temp Pulse Resp BP Pulse Ox 99.1 F 83 18 152/60 88 L 01/01/19 13:14 01/01/19 13:14 01/01/19 13:14 01/01/19 13:14 01/01/19 13:14 - Physical Exam Comments: 01/01/19 14:06 General Appearance: Nourished. In Mild Apparent Distress HEENT: No Pharyngeal Erythema, Tonsillar Exudate, Tonsillar Erythema Neck: No Cervical Lymphadenopathy Respiratory/Chest: Bilateral inspiratory and expiratory wheezing with prolonged expiratory phase noted on exam. No Crackles, Rales, Rhonchi, Cardiovascular: Regular Rhythm, Regular Rate. No Murmur, Gallops, Rubs Gastrointestinal/Abdominal: Normal Bowel Sounds, Soft. No Guarding, Rebound, Tenderness Musculoskeletal: No CVA Tenderness Extremity: Normal Capillary Refill Integumentary: Normal Color, Dry, Warm Neurologic: Fully Oriented, Alert, Normal Mood/Affect, Normal Response, ED Treatment Course - LABORATORY CBC & Chemistry Diagram: 01/04/19 07:15 01/04/19 07:15 Medical Decision Making - Medical Decision Making 01/01/19 14:12 The patient is a 73 year old female with a history of HTN, HLD, DM, CAD, COPD who presents for evaluation of shortness of breath. Differential includes but is not limited to: COPD exacerbation, ACS, Infectious, Metabolic Derangement. Given the patient's history and physical exam, we will obtain a cbc, cmp, troponin, vbg, chest plain film, ekg to evaluate further. We will treat with duonebs, solumedrol and continue to monitor and reassess while here in the ED. 01/01/19 17:10 CBC, cmp, troponin were unremarkable. BNP was elevated to 2000s. Chest plain film did not demonstrate any acute process as read by our radiologist. The patient continues to have an increased O2 requirement on exam and she will require admission for further management. We discussed the case with the admitting team who accepted the patient's for admission. Discharge - Discharge Information Problems reviewed: Yes Clinical Impression/Diagnosis: COPD exacerbation Condition: Stable - Admission Yes - Follow up/Referral - Patient Discharge Instructions - Post Discharge Activity
[2019-01-01] MEDS: ALBUTEROL SO4 2.5/IPRATROPIUM 0.5 INH SOL 3 ML VIAL.NEB. NEB SCH ×4 (14:13→22:52)
[2019-01-01 14:38] LABS: BASO % 0.3 % (0-2.0); EOS % 0.4 % (0-4.5); HEMATOCRIT 43.7 % (32.4-45.2); HEMOGLOBIN 13.9 GM/dL (10.7-15.3); LYMPH % 16.9 % (8-40); MCH 30.9 pg (25.7-33.7); MCHC 31.9 g/dl (32.0-36.0); MEAN CELL VOLUME 96.9 fl (80-96); MEAN PLT VOLUME 7.8 fl (7.5-11.1); MONO % 13.9 % (3.8-10.2); NEUT % 68.5 % (42.8-82.8); PLATELET COUNT 257 K/MM3 (134-434); RBC 4.51 M/mm3 (3.60-5.2); RDW 16.3 % (11.6-15.6); WHITE BLOOD COUNT 7.2 K/mm3 (4.0-10.0)
[2019-01-01 14:46] LABS: VENOUS PC02 65.2 mmHg (38-52); VENOUS PH 7.34 (7.31-7.41); VENOUS PO2 61.4 mmHg (28-48)
[2019-01-01 15:15] LABS: ALBUMIN 3.4 g/dl (3.4-5.0); BILIRUBIN,TOTAL 0.6 mg/dL (0.2-1); BLOOD UREA NITROGEN 18.6 mg/dL (7-18); CALCIUM 8.4 mg/dL (8.5-10.1); CREATININE 1.2 mg/dL (0.55-1.3); N-TERMINAL BNP 2947.8 pg/ml (5-450); POTASSIUM 4.3 mmol/L (3.5-5.1); TOT PROT 6.8 g/dl (6.4-8.2)
--- NOTE | 2019-01-01 15:28 | PDOC ---
Documentation entered by Mike Francois SCRIBE, acting as scribe for Mauri Hernandez MD. Mauri Hernandez MD: This documentation has been prepared by the Priscila rutherford Xhesika, SCRIBE, under my direction and personally reviewed by me in its entirety. I confirm that the documentation accurately reflects all work, treatment, procedures, and medical decision making performed by me. Attending Attestation - Resident Resident Name: Zane Lozano - ED Attending Attestation I have performed the following: I have examined & evaluated the patient, The case was reviewed & discussed with the resident, I agree w/resident's findings & plan, Exceptions are as noted - HPI HPI: 01/01/19 15:17 The patient is a 73 year old female with a PMH of asthma, anemia, CVA (with residual left side weakness), DM, COPD and hyperlipidemia who presents to the emergency department for evaluation of shortness of breath and productive cough x 3 days.The patient denies chest pain, headache, fever, chills, nausea, vomiting, diarrhea and constipation. Allergies:, NKDA Social Hx: Denies current smoking, drinking, or other substance usage. PCP: Dr. Ogden - Physicial Exam PE: 01/01/19 15:18 Vitals: Triage Vital signs reviewed General Appearance: no acute distress, well nourished well developed, Neck: Supple;No Nuchal rigidity Chest Wall: Nontender Cardiac: Regular rate and rhythm, no murmurs, no rubs, no gallops, Lungs: + bilateral wheezing. Abdomen: Soft, nondistended, normal bowel sounds, nontender to palpation Extremities: Full range of motion to all extremities, no cyanosis, clubbing, or edema Skin: Warm and dry, no rashes or lesions, no petechiae Neuro: AOX3; Cranial Nerves 2-12 grossly c intact, Strength intact to all extremities, Sensation intact to all extremities, gait normal Psych: normal mood, normal affect - Medical Decision Making 01/01/19 16:00 Patient presents to the emergency department with COPD exacerbation moderate to severe IV steroids and nebulizer treatments given will observe and reassess Reevaluation patient still persistently hypoxic requiring additional oxygen is not on home O2 We will admit to medicine for further management.
[2019-01-01] MEDS ORDERED: NEBIVOLOL 10 MG TABLET (FP) PO ONE (17:50)
[2019-01-01] MEDS ORDERED: amLODIPine BESYLATE 10 MG TABLET (FP) PO ONE (17:50)
[2019-01-01] MEDS ORDERED: amLODIPine BESYLATE 5 MG TABLET (FP) ONE (17:50)
--- NOTE | 2019-01-01 17:59 | HP ---
CHIEF COMPLAINT: shortness of breath PCP: Dr. Ogden HISTORY OF PRESENT ILLNESS: Patient is a 73 year old german speaking female who came to the ED today accompanied by her family for evaluation of shortness of breath with a productive cough for approximately 3 days. Her past medical history includes, COPD (home oxygen dependent-4 liters continuously at night, no oxygen during the day), asthma, anemia, CVA (with residual left side weakness), diabetes, and hyperlipidemia. Patient reports that for the last 3 days, she noted to be more short of breath which made it hard for her to do any physical activity. She usually only uses 4 liters of nasal cannula at night, but since she was short of breath, had to use her home oxygen continuously during the day also. She reports non compliance with her cardiac medications for the past 3 days as she did not feel well and had poor appetite and deferred taking her medications. She patient denies chest pain, headache, fever, chills, nausea, vomiting, diarrhea and constipation. ER course was notable for: (1) bnp 2900 (2) bp 188/90 (3)duonebs, solumedrol (4) chest xray: prominent mediastinum with sclerotic know, prominent hilar markings, elevated right hemidiaphragm, new atelectaic changes by right hilium. Recent Travel: none PAST MEDICAL/SURGICAL HISTORY: COPD (home oxygen dependent-4 liters continuously at night, no oxygen during the day), asthma, anemia, CVA (with residual left side weakness), diabetes, and hyperlipidemia. Social History: Smokin cigarettes per day, quit 1 month ago Alcohol: denies Drugs: denies Allergies No Known Allergies Allergy (Verified 01/01/19 13:23) HOME MEDICATIONS: Home Medications Medication Instructions Recorded Albuterol 2.5/Ipratropium 0.5 1 amp NEB RQ4H amp 05/11/18 [Duoneb -] Amlodipine Besylate [Norvasc -] 10 mg PO DAILY tablet 05/11/18 Atorvastatin Ca [Lipitor] 20 mg PO HS tablet 05/11/18 Budesonide/Formeterol Fumarate 2 puff IH BID inhaler 05/11/18 [SYMBICORT 80/4.5mcg -] Guaifenesin [Robitussin -] 10 ml PO Q4H PRN cup 05/11/18 Nebivolol [Bystolic -] 10 mg PO DAILY tab 05/11/18 Nebulizer and Compressor [Comp-Air 1 each ASDIR #1 each 05/11/18 Nebulizer System] Nicotine Patch [Nicoderm Patch -] 14 mg TD DAILY #30 patch 05/11/18 Valsartan [Diovan] 320 mg PO DAILY tablet 05/11/18 Mag Hydrox/Alh/Smc/Dpha/Lido 5 ml MM Q6HPO #1 bottle 08/07/18 [Magic Mouthwash *Sjr Formula* -] Metformin HCl [Glucophage] 500 mg PO BID #60 tablet 08/07/18 Prednisone 10 mg PO DAILY 15 Days #15 tablet 08/07/18 Ranitidine [Zantac -] 150 mg PO BID tablet 08/07/18 Hydrochlorothiazide [Hctz -] 25 mg PO BID 01/01/19 PHYSICAL EXAMINATION Vital Signs - 24 hr 01/01/19 01/01/19 01/01/19 13:14 14:52 15:25 Temperature 99.1 F Pulse Rate 83 Pulse Rate [ 92 H Apical] Respiratory 18 20 Rate Blood Pressure 152/60 Blood Pressure 189/90 H [Left Arm] O2 Sat by Pulse 88 L 94 L 93 L Oximetry (%) 01/01/19 17:47 Temperature 98.9 F Pulse Rate Pulse Rate [ 95 H Apical] Respiratory 20 Rate Blood Pressure Blood Pressure 188/72 H [Left Arm] O2 Sat by Pulse 92 L Oximetry (%) GENERAL: Awake, alert, and fully oriented, in mild respiratory distress. HEAD: Normal with no signs of trauma. EYES: Pupils equal, round and reactive to light, extraocular movements intact EARS, NOSE, THROAT: Ears normal, nares patent, oropharynx clear without exudates. Moist mucous membranes. NECK: Normal range of motion, supple without lymphadenopathy, JVD, or masses. LUNGS: + scattered wheezing, with accessory muscle use HEART: Regular rate and rhythm ABDOMEN: Soft, nontender, not distended, normoactive bowel sounds, no guarding, no rebound, no masses. No hepatomegaly or splenomegaly. MUSCULOSKELETAL: ness. No CVA tenderness. UPPER EXTREMITIES: walter. No peripheral edema. LOWER EXTREMITIES: No peripheral edema. NEUROLOGICAL: Normal speech. Normal gait. PSYCHIATRIC: . Appropriate mood and affect. Laboratory Results - last 24 hr 01/01/19 01/01/19 01/01/19 14:00 14:00 14:00 WBC 7.2 RBC 4.51 Hgb 13.9 Hct 43.7 MCV 96.9 H MCH 30.9 MCHC 31.9 L RDW 16.3 H Plt Count 257 MPV 7.8 Absolute Neuts (auto) 4.9 Neutrophils % 68.5 Lymphocytes % 16.9 D Monocytes % 13.9 H D Eosinophils % 0.4 D Basophils % 0.3 Nucleated RBC % 0 VBG pH POC VBG pCO2 POC VBG pO2 VBG HCO3 VBG O2 Sat (Ba) VBG Base Excess Sodium 139 Potassium 4.3 Chloride 101 Carbon Dioxide 35 H Anion Gap 2 L BUN 18.6 H Creatinine 1.2 Est GFR (CKD-EPI)AfAm 51.20 Est GFR (CKD-EPI)NonAf 44.17 Random Glucose 129 H Calcium 8.4 L Total Bilirubin 0.6 AST 30 ALT 45 Alkaline Phosphatase 94 Troponin I 0.05 B-Natriuretic Peptide 2947.8 H Total Protein 6.8 Albumin 3.4 01/01/19 14:00 WBC RBC Hgb Hct MCV MCH MCHC RDW Plt Count MPV Absolute Neuts (auto) Neutrophils % Lymphocytes % Monocytes % Eosinophils % Basophils % Nucleated RBC % VBG pH 7.34 POC VBG pCO2 65.2 H POC VBG pO2 61.4 H VBG HCO3 33.8 H VBG O2 Sat (Ba) 89.7 H VBG Base Excess 6.1 H Sodium Potassium Chloride Carbon Dioxide Anion Gap BUN Creatinine Est GFR (CKD-EPI)AfAm Est GFR (CKD-EPI)NonAf Random Glucose Calcium Total Bilirubin AST ALT Alkaline Phosphatase Troponin I B-Natriuretic Peptide Total Protein Albumin ASSESSMENT/PLAN: Problem List - Problem (1) Acute respiratory failure Assessment/Plan: Patient presents with acute respiratory failure with increase use of home oxygen to maintain oxygen saturations above 90%. given solumedrol 125 and multiple duonebs in the ED Continue solumedrol 40 q 6 with gi protection monitor airway and maintain on 2-4 liters of nasal cannula and wean off as tolerated. at baseline, wears home oxygen at night, and none during the day will order flu swab pulmonary consulted chest xray with atelectasis Code(s): J96.00 - ACUTE RESPIRATORY FAILURE, UNSP W HYPOXIA OR HYPERCAPNIA (2) COPD exacerbation Assessment/Plan: on solumedrol 40 q 6 with supplemental oxygen. Code(s): J44.1 - CHRONIC OBSTRUCTIVE PULMONARY DISEASE W (ACUTE) EXACERBATION (3) Increased oxygen demand Assessment/Plan: on 2-4 liters of nasal cannula Code(s): R68.89 - OTHER GENERAL SYMPTOMS AND SIGNS (4) Smoker unmotivated to quit Assessment/Plan: reports to have stopped smoking 1/2 pack 1 month ago. denies more recent use. Code(s): F17.200 - NICOTINE DEPENDENCE, UNSPECIFIED, UNCOMPLICATED (5) T2DM (type 2 diabetes mellitus) Assessment/Plan: novolog based on SS monitor bgms on steriod therapy hmga1c in a.m. Code(s): E11.9 - TYPE 2 DIABETES MELLITUS WITHOUT COMPLICATIONS (6) Hypertension Assessment/Plan: continue diovan, amlodopine an bystolic Code(s): I10 - ESSENTIAL (PRIMARY) HYPERTENSION (7) Hyperlipemia Assessment/Plan: on lipitor hmga1c in a.m. Code(s): E78.5 - HYPERLIPIDEMIA, UNSPECIFIED Visit type - Emergency Visit Emergency Visit: Yes ED Registration Date: 01/01/19 Care time: The patient presented to the Emergency Department on the above date and was hospitalized for further evaluation of their emergent condition. - New Patient This patient is new to me today: Yes Date on this admission: 01/01/19 - Critical Care Critical Care patient: No
[2019-01-01] MEDS ORDERED: HYDROCHLOROTHIAZIDE 25 MG TABLET (FP) PO SCH (22:00)
[2019-01-01] MEDS: ATORVASTATIN CA 20 MG TABLET (FP) PO SCH (23:17)
[2019-01-01] MEDS: methylPREDNISolone NA SUCC 40 MG/1 ML VIAL IVPUSH SCH (23:17)
[2019-01-01] MEDS: BUDESONIDE/FORMETEROL FUMARATE 80/4.5 mcg INHALER IH SCH (23:17)
[2019-01-01] MEDS: INSULIN SLIDING SCALE (NOVOLOG) 1 VIAL SQ SCH (23:28)
--- NOTE | 2019-01-01 23:36 | EKG ---
Test Reason : Blood Pressure : / mmHG Vent. Rate : 079 BPM Atrial Rate : 079 BPM P-R Int : 170 ms QRS Dur : 090 ms QT Int : 398 ms P-R-T Axes : 070 016 055 degrees QTc Int : 456 ms NORMAL SINUS RHYTHM MINIMAL VOLTAGE CRITERIA FOR LVH, MAY BE NORMAL VARIANT BORDERLINE ECG WHEN COMPARED WITH ECG OF 03-AUG-2018 12:21, NO SIGNIFICANT CHANGE WAS FOUND Confirmed by MD Saqib, Jose Manuel ([id number]) on 01/01/2019 11:36:24 PM Referred By: Confirmed By:Jose Manuel Cerrato MD
[2019-01-02] MEDS: methylPREDNISolone NA SUCC 40 MG/1 ML VIAL IVPUSH SCH ×4 (04:24→21:16)
[2019-01-02] MEDS: INSULIN SLIDING SCALE (NOVOLOG) 1 VIAL SQ SCH ×4 (07:37→21:17)
[2019-01-02] MEDS: ALBUTEROL SO4 2.5/IPRATROPIUM 0.5 INH SOL 3 ML VIAL.NEB. NEB SCH ×4 (08:15→20:39)
[2019-01-02 09:52] LABS: HEMATOCRIT 42.8 % (32.4-45.2); HEMOGLOBIN 13.7 GM/dL (10.7-15.3); MCH 30.8 pg (25.7-33.7); MCHC 32.1 g/dl (32.0-36.0); MEAN CELL VOLUME 96.1 fl (80-96); MEAN PLT VOLUME 7.7 fl (7.5-11.1); PLATELET COUNT 258 K/MM3 (134-434); RBC 4.46 M/mm3 (3.60-5.2); RDW 15.8 % (11.6-15.6); WHITE BLOOD COUNT 6.6 K/mm3 (4.0-10.0)
[2019-01-02 10:15] LABS: CHOLESTEROL 118 mg/dL (50-200); HDL CHOLESTEROL 52 mg/dL (40-60); LDL CHOLESTEROL (ONLY SJRH) 54 mg/dL (5-100); TRIGLYCERIDES 50 mg/dL (0-150)
[2019-01-02 10:19] LABS: ALBUMIN 3.4 g/dl (3.4-5.0); BILIRUBIN,TOTAL 0.4 mg/dL (0.2-1); BLOOD UREA NITROGEN 26.4 mg/dL (7-18); CALCIUM 8.3 mg/dL (8.5-10.1); CREATININE 1.2 mg/dL (0.55-1.3); MAGNESIUM 2.2 mg/dL (1.8-2.4); TOT PROT 6.4 g/dl (6.4-8.2)
[2019-01-02] MEDS: HEPARIN NA (PORCINE) 5,000 UNITS/ML 1ML VIAL SQ SCH ×2 (11:06→21:16)
[2019-01-02] MEDS: PANTOPRAZOLE 40 MG TABLET (FP) PO SCH (11:06)
[2019-01-02] MEDS: amLODIPine BESYLATE 10 MG TABLET (FP) PO SCH (11:06)
[2019-01-02] MEDS: VALSARTAN 160 MG TABLET (UD) PO SCH (11:06)
[2019-01-02] MEDS: HYDROCHLOROTHIAZIDE 25 MG TABLET (FP) PO SCH (11:06)
[2019-01-02] MEDS: BUDESONIDE/FORMETEROL FUMARATE 80/4.5 mcg INHALER IH SCH ×2 (11:07→21:17)
--- NOTE | 2019-01-02 11:54 | CON.PULM ---
Consult Consult Specialty:: PULMONARY Referred by:: Dr Matt Reason for Consultation:: shortness of breath - History of Present Illness Chief Complaint: shortness of breath History of Present Illness: 73yo female with h/o DM, hyperlipidemia, asthma/COPD, chronic hypoxic respiratory failure on home O2, h/o CVA who was admitted with worsening shortness of breath x 3 days. Denies chest pain or palpitations. +cough productive of white sputum and wheezing. No fevers, chills or sweats. She is a former smoker. Reports compliance with her inhalers and home O2. - History Source History Provided By: Patient, Medical Record Limitations to Obtaining History: Language Barrier - Past Medical History PRINTMAKER: Yes: Dementia Cardio/Vascular: Yes: HTN, Hyperlipdemia Pulmonary: Yes: COPD. No: O2 Dependent - Alcohol/Substance Use Hx Alcohol Use: No - Smoking History Smoking history: Former smoker Have you smoked in the past 12 months: No Aproximately how many cigarettes per day: 2 - Social History ADL: Independent History of Recent Travel: No Home Medications - Allergies Allergies/Adverse Reactions: Allergies Allergy/AdvReac Type Severity Reaction Status Date / Time No Known Allergies Allergy Verified 01/01/19 13:23 - Home Medications Home Medications: Ambulatory Orders Albuterol 2.5/Ipratropium 0.5 [Duoneb -] 1 amp NEB RQ4H amp 05/11/18 Amlodipine Besylate [Norvasc -] 10 mg PO DAILY tablet 05/11/18 Atorvastatin Ca [Lipitor] 20 mg PO HS tablet 05/11/18 Budesonide/Formeterol Fumarate [SYMBICORT 80/4.5mcg -] 2 puff IH BID inhaler Guaifenesin [Robitussin -] 10 ml PO Q4H PRN cup 05/11/18 Nebivolol [Bystolic -] 10 mg PO DAILY tab 05/11/18 Nebulizer and Compressor [Comp-Air Nebulizer System] 1 each ASDIR #1 each 02/28 Nicotine Patch [Nicoderm Patch -] 14 mg TD DAILY #30 patch 05/11/18 Valsartan [Diovan] 320 mg PO DAILY tablet 05/11/18 Mag Hydrox/Alh/Smc/Dpha/Lido [Magic Mouthwash *Sjr Formula* -] 5 ml MM Q6HPO #1 bottle 06/28/19 Metformin HCl [Glucophage] 500 mg PO BID #60 tablet 08/07/18 Prednisone 10 mg PO DAILY 15 Days #15 tablet 08/07/18 Ranitidine [Zantac -] 150 mg PO BID tablet 08/07/18 Hydrochlorothiazide [Hctz -] 25 mg PO BID 01/01/19 Review of Systems - Review of Systems Constitutional: reports: Weakness. denies: Chills, Fever Eyes: denies: Recent Change in Vision HENT: denies: Nasal Congestion, Throat Pain Neck: denies: Stiffness, Tenderness Cardiovascular: reports: Shortness of Breath. denies: Chest Pain, Palpitations Respiratory: reports: Cough, SOB on Exertion, Wheezing. denies: Hemoptysis Gastrointestinal: denies: Abdominal Pain, Nausea, Vomiting Genitourinary: denies: Dysuria, Hematuria Neurological: denies: Dizziness, Headache Endocrine: denies: Unexplained Weight Loss Physical Exam Vital Sings: Vital Signs Temperature 98.8 F 01/02/19 09:51 Pulse Rate 84 01/02/19 09:51 Respiratory Rate 20 01/02/19 09:51 Blood Pressure 156/64 01/02/19 09:51 O2 Sat by Pulse Oximetry (%) 92 L 01/02/19 09:00 Constitutional: Yes: Calm Eyes: Yes: Conjunctiva Clear, EOM Intact HENT: Yes: Atraumatic, Normocephalic Neck: Yes: Supple, Trachea Midline Cardiovascular: Yes: Regular Rate and Rhythm Respiratory: Yes: Rhonchi (scattered) ...Clubbing: No Gastrointestinal: Yes: Normal Bowel Sounds, Soft. No: Tenderness Edema: No Labs: CBC, BMP 01/02/19 07:20 01/02/19 07:20 Imaging - Results Chest X-ray: Report Reviewed, Image Reviewed (prominent right hilum) Problem List - Problems (1) COPD exacerbation Code(s): J44.1 - CHRONIC OBSTRUCTIVE PULMONARY DISEASE W (ACUTE) EXACERBATION Assessment/Plan Acute COPD Exacerbation Chronic Hypoxic Respiratory Failure HTN DM Hyperlipidemia h/o CVA - IV medrol - inhaled bronchodilators standing and PRN - will add azithromycin - O2 to keep Spo2 >90% - glucose control while on systemic steroids - DVT prophylaxis Thank you for this consult Sheng Alexander MD
[2019-01-02] MEDS ORDERED: AZITHROMYCIN IVPB 500 MG in DEXTROSE 5%-WATER - 250 ML IVPB SCH (12:00)
[2019-01-02] MEDS ORDERED: AZITHROMYCIN IVPB 500 MG/250 ML BAG IVPB ONE (13:00)
[2019-01-02] MEDS: NEBIVOLOL 10 MG TABLET (FP) PO SCH (13:02)
[2019-01-02 16:03] VITALS: BMI 27.8
--- NOTE | 2019-01-02 16:17 | PN ---
Progress Note (short form) - Note Progress Note: SOB and coughing Vital Signs - 24 hr 01/01/19 01/01/19 01/01/19 17:47 18:32 21:00 Temperature 98.9 F 99.1 F Pulse Rate 94 H Pulse Rate [ 95 H Apical] Respiratory 20 20 Rate Blood Pressure 162/75 Blood Pressure 188/72 H [Left Arm] O2 Sat by Pulse 92 L 94 L Oximetry (%) 01/01/19 01/02/19 01/02/19 22:00 02:04 06:21 Temperature 98.7 F 98.5 F Pulse Rate 89 83 83 Pulse Rate [ Apical] Respiratory 20 20 20 Rate Blood Pressure 150/82 122/58 L 147/57 L Blood Pressure [Left Arm] O2 Sat by Pulse 94 L Oximetry (%) 01/02/19 01/02/19 01/02/19 09:00 09:51 13:00 Temperature 98.8 F 98.9 F Pulse Rate 84 88 Pulse Rate [ Apical] Respiratory 20 20 20 Rate Blood Pressure 156/64 150/73 Blood Pressure [Left Arm] O2 Sat by Pulse 92 L Oximetry (%) Current Medications Generic Name Dose Route Start Last Admin Trade Name Freq PRN Reason Stop Dose Admin Albuterol/Ipratropium 1 amp 01/01/19 22:00 01/02/19 15:17 Duoneb - NEB 1 amp RQID [facility] Administration Amlodipine Besylate 10 mg 01/02/19 10:00 01/02/19 11:06 Norvasc - PO 10 mg DAILY [facility] Administration Atorvastatin Calcium 20 mg 01/01/19 22:00 01/01/19 23:17 Lipitor - PO 20 mg HS [facility] Administration Budesonide/Formoterol Fumarate 2 puff 01/01/19 22:00 01/02/19 11:07 Symbicort 80/4.5mcg - IH 2 puff BID [facility] Administration Heparin Sodium (Porcine) 5,000 unit 01/02/19 10:00 01/02/19 11:06 Heparin - SQ 5,000 unit BID [facility] Administration Hydrochlorothiazide 25 mg 01/02/19 10:00 01/02/19 11:06 Hctz - PO 25 mg DAILY [facility] Administration Azithromycin 500 mg in 250 mls @ 250 mls/hr 01/02/19 12:00 Zithromax 500mg Ivpb (Pre-Docked) IVPB 11/27/19 10:59 DAILY [facility] Insulin Aspart 1 vial 01/01/19 22:00 01/02/19 13:01 Novolog Vial Sliding Scale - SQ 8 units ACHS [facility] Administration Protocol Methylprednisolone Sodium Succinate 40 mg 01/01/19 21:00 01/02/19 10:05 Solu-Medrol - IVPUSH 40 mg Q6H-IV [facility] Administration Nebivolol 10 mg 01/02/19 10:00 01/02/19 13:02 Bystolic - PO 10 mg DAILY [facility] Administration Pantoprazole Sodium 40 mg 01/02/19 10:00 01/02/19 11:06 Protonix - PO 40 mg DAILY [facility] Administration Valsartan 320 mg 01/02/19 10:00 01/02/19 11:06 Diovan - PO 320 mg DAILY [facility] Administration Laboratory Results - last 24 hr 01/01/19 01/02/19 01/02/19 23:20 00:00 07:20 WBC 6.6 RBC 4.46 Hgb 13.7 Hct 42.8 MCV 96.1 H MCH 30.8 MCHC 32.1 RDW 15.8 H Plt Count 258 MPV 7.7 Sodium Potassium Chloride Carbon Dioxide Anion Gap BUN Creatinine Est GFR (CKD-EPI)AfAm Est GFR (CKD-EPI)NonAf POC Glucometer 327 Random Glucose Hemoglobin A1c % Calcium Magnesium Total Bilirubin AST ALT Alkaline Phosphatase Total Protein Albumin Triglycerides Cholesterol Total LDL Cholesterol HDL Cholesterol Influenza A (Rapid) Negative Influenza B (Rapid) Negative 01/02/19 01/02/19 01/02/19 07:20 07:20 07:20 WBC RBC Hgb Hct MCV MCH MCHC RDW Plt Count MPV Sodium 138 Potassium 4.0 Chloride 100 Carbon Dioxide 35 H Anion Gap 3 L BUN 26.4 H Creatinine 1.2 Est GFR (CKD-EPI)AfAm 51.20 Est GFR (CKD-EPI)NonAf 44.17 POC Glucometer Random Glucose 204 H Hemoglobin A1c % 7.2 H Calcium 8.3 L Magnesium 2.2 Total Bilirubin 0.4 AST 10 L ALT 38 Alkaline Phosphatase 98 Total Protein 6.4 Albumin 3.4 Triglycerides 50 Cholesterol 118 Total LDL Cholesterol 54 HDL Cholesterol 52 Influenza A (Rapid) Influenza B (Rapid) 01/02/19 01/02/19 07:35 12:59 WBC RBC Hgb Hct MCV MCH MCHC RDW Plt Count MPV Sodium Potassium Chloride Carbon Dioxide Anion Gap BUN Creatinine Est GFR (CKD-EPI)AfAm Est GFR (CKD-EPI)NonAf POC Glucometer 205 308 Random Glucose Hemoglobin A1c % Calcium Magnesium Total Bilirubin AST ALT Alkaline Phosphatase Total Protein Albumin Triglycerides Cholesterol Total LDL Cholesterol HDL Cholesterol Influenza A (Rapid) Influenza B (Rapid) S1 S2 RRR Lungs ronchi+ Abd-soft, NT no edema PLAN Solumedrol Nebs Zithromax O2 Pulm eval noted Problem List - Problems (1) Acute respiratory failure Code(s): J96.00 - ACUTE RESPIRATORY FAILURE, UNSP W HYPOXIA OR HYPERCAPNIA (2) COPD exacerbation Code(s): J44.1 - CHRONIC OBSTRUCTIVE PULMONARY DISEASE W (ACUTE) EXACERBATION (3) Hypertension Code(s): I10 - ESSENTIAL (PRIMARY) HYPERTENSION (4) Acute on chronic respiratory failure with hypoxia and hypercapnia Code(s): J96.21 - ACUTE AND CHRONIC RESPIRATORY FAILURE WITH HYPOXIA; J96.22 - ACUTE AND CHRONIC RESPIRATORY FAILURE WITH HYPERCAPNIA (5) Acute respiratory failure with hypoxia and hypercapnia Code(s): J96.01 - ACUTE RESPIRATORY FAILURE WITH HYPOXIA; J96.02 - ACUTE RESPIRATORY FAILURE WITH HYPERCAPNIA
[2019-01-02] MEDS ORDERED: PT OWN MED DRAWER 7, Y5N ONE (20:36)
[2019-01-02] MEDS ORDERED: INSULIN (NOVOLOG) ASPART 100 UNITS/ML 10ML VIAL ONE (20:36)
[2019-01-02] MEDS: ATORVASTATIN CA 20 MG TABLET (FP) PO SCH (21:17)
[2019-01-03] MEDS: methylPREDNISolone NA SUCC 40 MG/1 ML VIAL IVPUSH SCH ×4 (02:37→22:49)
[2019-01-03] MEDS: ALBUTEROL SO4 2.5/IPRATROPIUM 0.5 INH SOL 3 ML VIAL.NEB. NEB SCH ×5 (03:50→19:35)
[2019-01-03] MEDS: INSULIN SLIDING SCALE (NOVOLOG) 1 VIAL SQ SCH ×4 (06:12→22:52)
[2019-01-03] MEDS ORDERED: INSULIN (NOVOLOG) ASPART 100 UNITS/ML 10ML VIAL ONE (06:21)
[2019-01-03] MEDS: PANTOPRAZOLE 40 MG TABLET (FP) PO SCH (11:22)
[2019-01-03] MEDS: HYDROCHLOROTHIAZIDE 25 MG TABLET (FP) PO SCH (11:23)
[2019-01-03] MEDS: VALSARTAN 160 MG TABLET (UD) PO SCH (11:23)
[2019-01-03] MEDS: NEBIVOLOL 10 MG TABLET (FP) PO SCH (11:23)
[2019-01-03] MEDS: HEPARIN NA (PORCINE) 5,000 UNITS/ML 1ML VIAL SQ SCH ×2 (11:23→22:49)
[2019-01-03] MEDS: FLUTICASONE PROP 0.05% 16 GM NASAL SPRAY NS SCH (11:24)
[2019-01-03] MEDS: AZITHROMYCIN IVPB 500 MG/250 ML BAG IVPB SCH (11:24)
[2019-01-03] MEDS: amLODIPine BESYLATE 10 MG TABLET (FP) PO SCH (11:24)
[2019-01-03] MEDS: NYSTATIN 500,000 UNITS/5 ML SUSPENSION PO SCH ×3 (11:25→23:48)
[2019-01-03] MEDS: BUDESONIDE/FORMETEROL FUMARATE 80/4.5 mcg INHALER IH SCH ×2 (11:27→22:50)
--- NOTE | 2019-01-03 12:40 | PN ---
Progress Note (short form) - Note Progress Note: PULMONARY Breathing better but still with cough and wheezing. Has been ambulating. Vital Signs Period Temp Pulse Resp BP Sys/Pack Pulse Ox Last 24 Hr 98.0 F-98.9 F 83-88 20-20 137-158/58-80 94 Gen: NAD at rest Heart: RRR Lung: bilateral rhonchi, wheezes Abd: soft, nontender Ext: no edema CBC, BMP 01/02/19 07:20 01/02/19 07:20 Active Medications Albuterol/Ipratropium (Duoneb -) 1 amp NEB RQID [facility] Last Admin: 01/03/19 11:50 Dose: 1 amp Amlodipine Besylate (Norvasc -) 10 mg PO DAILY [facility] Last Admin: 01/03/19 11:24 Dose: 10 mg Atorvastatin Calcium (Lipitor -) 20 mg PO HS [facility] Last Admin: 01/02/19 21:17 Dose: 20 mg Budesonide/Formoterol Fumarate (Symbicort 80/4.5mcg -) 2 puff IH BID [facility] Last Admin: 01/03/19 11:27 Dose: 2 puff Fluticasone Propionate (Flonase -) 2 spray NS DAILY [facility] Last Admin: 01/03/19 11:24 Dose: 2 sprays Heparin Sodium (Porcine) (Heparin -) 5,000 unit SQ BID [facility] Last Admin: 01/03/19 11:23 Dose: 5,000 unit Hydrochlorothiazide (Hctz -) 25 mg PO DAILY [facility] Last Admin: 01/03/19 11:23 Dose: 25 mg Azithromycin (Zithromax 500mg Ivpb (Pre-Docked)) 500 mg in 250 mls @ 250 mls/ hr IVPB DAILY [facility] Stop: 01/06/19 10:59 Last Admin: 01/03/19 11:24 Dose: 250 mls/hr Insulin Aspart (Novolog Vial Sliding Scale -) 1 vial SQ ACHS [facility]; Protocol Last Admin: 01/03/19 06:12 Dose: 4 units Methylprednisolone Sodium Succinate (Solu-Medrol -) 40 mg IVPUSH Q6H-IV [facility] Last Admin: 01/03/19 10:05 Dose: 40 mg Nebivolol (Bystolic -) 10 mg PO DAILY [facility] Last Admin: 01/03/19 11:23 Dose: 10 mg Nystatin (Nystatin Oral Suspension -) 500,000 units PO Q6HPO [facility] Last Admin: 01/03/19 11:25 Dose: 500,000 units Pantoprazole Sodium (Protonix -) 40 mg PO DAILY [facility] Last Admin: 01/03/19 11:22 Dose: 40 mg Valsartan (Diovan -) 320 mg PO DAILY [facility] Last Admin: 01/03/19 11:23 Dose: 320 mg A/P Acute COPD Exacerbation Chronic Hypoxic Respiratory Failure HTN DM Hyperlipidemia h/o CVA - will decrease medrol to q8h - if continues to improve, can change steroids to PO prednisone 40mg daily in AM - inhaled bronchodilators standing and PRN - continue azithromycin - O2 to keep Spo2 >90% - glucose control while on systemic steroids - outpt PFTs - DVT prophylaxis Problem List - Problems (1) COPD exacerbation Code(s): J44.1 - CHRONIC OBSTRUCTIVE PULMONARY DISEASE W (ACUTE) EXACERBATION
--- NOTE | 2019-01-03 17:59 | PN ---
Progress Note (short form) - Note Progress Note: SOB and coughing decreased has a sore tongue Vital Signs - 24 hr 01/02/19 01/02/19 01/02/19 18:00 21:00 22:00 Temperature 98.8 F Pulse Rate 88 85 Respiratory 20 20 20 Rate Blood Pressure 158/80 137/58 L O2 Sat by Pulse 94 L Oximetry (%) 01/03/19 01/03/19 01/03/19 02:20 06:04 09:00 Temperature 98.0 F 98.1 F Pulse Rate 84 83 Respiratory 20 20 20 Rate Blood Pressure 144/61 138/63 O2 Sat by Pulse 94 L Oximetry (%) 01/03/19 14:00 Temperature 98.8 F Pulse Rate 91 H Respiratory 20 Rate Blood Pressure 147/65 O2 Sat by Pulse Oximetry (%) Current Medications Generic Name Dose Route Start Last Admin Trade Name Freq PRN Reason Stop Dose Admin Albuterol/Ipratropium 1 amp 01/01/19 22:00 01/03/19 15:55 Duoneb - NEB 1 amp RQID [facility] Administration Amlodipine Besylate 10 mg 01/02/19 10:00 01/03/19 11:24 Norvasc - PO 10 mg DAILY [facility] Administration Atorvastatin Calcium 20 mg 01/01/19 22:00 01/02/19 21:17 Lipitor - PO 20 mg HS [facility] Administration Budesonide/Formoterol Fumarate 2 puff 01/01/19 22:00 01/03/19 11:27 Symbicort 80/4.5mcg - IH 2 puff BID [facility] Administration Fluticasone Propionate 2 spray 01/03/19 11:00 01/03/19 11:24 Flonase - NS 2 sprays DAILY [facility] Administration Heparin Sodium (Porcine) 5,000 unit 01/02/19 10:00 01/03/19 11:23 Heparin - SQ 5,000 unit BID [facility] Administration Hydrochlorothiazide 25 mg 01/02/19 10:00 01/03/19 11:23 Hctz - PO 25 mg DAILY [facility] Administration Azithromycin 500 mg in 250 mls @ 250 mls/hr 01/02/19 12:00 01/03/19 11:24 Zithromax 500mg Ivpb (Pre-Docked) IVPB 01/06/19 10:59 250 mls/hr DAILY [facility] Administration Insulin Aspart 1 vial 01/01/19 22:00 01/03/19 17:10 Novolog Vial Sliding Scale - SQ 6 units ACHS [facility] Administration Protocol Methylprednisolone Sodium Succinate 40 mg 01/01/19 21:00 01/03/19 15:09 Solu-Medrol - IVPUSH 40 mg Q6H-IV [facility] Administration Nebivolol 10 mg 01/02/19 10:00 01/03/19 11:23 Bystolic - PO 10 mg DAILY [facility] Administration Nystatin 500,000 units 01/03/19 12:00 01/03/19 17:10 Nystatin Oral Suspension - PO 500,000 units Q6HPO [facility] Administration Pantoprazole Sodium 40 mg 01/02/19 10:00 01/03/19 11:22 Protonix - PO 40 mg DAILY [facility] Administration Valsartan 320 mg 01/02/19 10:00 01/03/19 11:23 Diovan - PO 320 mg DAILY [facility] Administration Laboratory Results - last 24 hr 01/02/19 01/03/19 01/03/19 21:10 05:43 11:38 POC Glucometer 222 208 266 01/03/19 17:08 POC Glucometer 259 oral thrush+ S1 S2 RRR Lungs ronchi+ Abd-soft, NT no edema PLAN nystatin po for thrush Solumedrol Nebs Zithromax O2 Pulm eval noted same medrol dose Problem List - Problems (1) Acute respiratory failure Code(s): J96.00 - ACUTE RESPIRATORY FAILURE, UNSP W HYPOXIA OR HYPERCAPNIA (2) COPD exacerbation Code(s): J44.1 - CHRONIC OBSTRUCTIVE PULMONARY DISEASE W (ACUTE) EXACERBATION (3) Hypertension Code(s): I10 - ESSENTIAL (PRIMARY) HYPERTENSION (4) Acute on chronic respiratory failure with hypoxia and hypercapnia Code(s): J96.21 - ACUTE AND CHRONIC RESPIRATORY FAILURE WITH HYPOXIA; J96.22 - ACUTE AND CHRONIC RESPIRATORY FAILURE WITH HYPERCAPNIA (5) Acute respiratory failure with hypoxia and hypercapnia Code(s): J96.01 - ACUTE RESPIRATORY FAILURE WITH HYPOXIA; J96.02 - ACUTE RESPIRATORY FAILURE WITH HYPERCAPNIA
[2019-01-03] MEDS: ATORVASTATIN CA 20 MG TABLET (FP) PO SCH (22:49)
[2019-01-04] MEDS: methylPREDNISolone NA SUCC 40 MG/1 ML VIAL IVPUSH SCH ×4 (03:55→21:18)
[2019-01-04] MEDS: NYSTATIN 500,000 UNITS/5 ML SUSPENSION PO SCH ×3 (06:44→19:05)
[2019-01-04] MEDS: INSULIN SLIDING SCALE (NOVOLOG) 1 VIAL SQ SCH ×4 (06:48→21:19)
[2019-01-04] MEDS: ALBUTEROL SO4 2.5/IPRATROPIUM 0.5 INH SOL 3 ML VIAL.NEB. NEB SCH ×4 (07:30→20:34)
[2019-01-04 08:37] LABS: HEMATOCRIT 41.4 % (32.4-45.2); HEMOGLOBIN 13.4 GM/dL (10.7-15.3); LYMPH % 5.3 % (8-40); MCHC 32.5 g/dl (32.0-36.0); MEAN CELL VOLUME 95.5 fl (80-96); MEAN PLT VOLUME 7.5 fl (7.5-11.1); NEUT % 91.7 % (42.8-82.8); PLATELET COUNT 259 K/MM3 (134-434); RBC 4.33 M/mm3 (3.60-5.2); RDW 15.7 % (11.6-15.6); WHITE BLOOD COUNT 9.9 K/mm3 (4.0-10.0)
[2019-01-04 09:15] LABS: ALBUMIN 3.4 g/dl (3.4-5.0); BILIRUBIN,TOTAL 0.5 mg/dL (0.2-1); BLOOD UREA NITROGEN 36.7 mg/dL (7-18); CALCIUM 8.3 mg/dL (8.5-10.1); CREATININE 1.3 mg/dL (0.55-1.3); POTASSIUM 4.1 mmol/L (3.5-5.1); TOT PROT 6.4 g/dl (6.4-8.2)
[2019-01-04] MEDS: amLODIPine BESYLATE 10 MG TABLET (FP) PO SCH (10:46)
[2019-01-04] MEDS: PANTOPRAZOLE 40 MG TABLET (FP) PO SCH (10:47)
[2019-01-04] MEDS: VALSARTAN 160 MG TABLET (UD) PO SCH (10:47)
[2019-01-04] MEDS: HYDROCHLOROTHIAZIDE 25 MG TABLET (FP) PO SCH (10:47)
[2019-01-04] MEDS: BUDESONIDE/FORMETEROL FUMARATE 80/4.5 mcg INHALER IH SCH ×2 (10:51→21:27)
[2019-01-04] MEDS: FLUTICASONE PROP 0.05% 16 GM NASAL SPRAY NS SCH (10:51)
[2019-01-04] MEDS: HEPARIN NA (PORCINE) 5,000 UNITS/ML 1ML VIAL SQ SCH ×2 (10:52→21:28)
[2019-01-04] MEDS: AZITHROMYCIN IVPB 500 MG/250 ML BAG IVPB SCH (10:52)
[2019-01-04] MEDS: NEBIVOLOL 10 MG TABLET (FP) PO SCH (10:53)
--- NOTE | 2019-01-04 11:03 | PN ---
Progress Note (short form) - Note Progress Note: Remains mildly tachypneic at rest. Still with congested cough. Asking to go home. Intake & Output 01/01/19 01/02/19 01/03/19 01/04/19 23:59 23:59 23:59 23:59 Intake Total 450 120 0 Balance 450 120 0 Weight 167 lb 14.4 oz 167 lb Last Vital Signs Temp Pulse Resp BP Pulse Ox 98.0 F 79 20 139/54 L 95 01/04/19 06:00 01/04/19 06:00 01/04/19 06:00 01/04/19 06:00 01/03/19 21:00 Active Medications Albuterol/Ipratropium (Duoneb -) 1 amp NEB RQID [facility] Last Admin: 01/04/19 07:30 Dose: 1 amp Amlodipine Besylate (Norvasc -) 10 mg PO DAILY [facility] Last Admin: 01/04/19 10:46 Dose: 10 mg Atorvastatin Calcium (Lipitor -) 20 mg PO HS [facility] Last Admin: 01/03/19 22:49 Dose: 20 mg Budesonide/Formoterol Fumarate (Symbicort 80/4.5mcg -) 2 puff IH BID [facility] Last Admin: 01/04/19 10:51 Dose: 2 puff Fluticasone Propionate (Flonase -) 2 spray NS DAILY [facility] Last Admin: 01/04/19 10:51 Dose: 2 sprays Heparin Sodium (Porcine) (Heparin -) 5,000 unit SQ BID [facility] Last Admin: 01/04/19 10:52 Dose: 5,000 unit Hydrochlorothiazide (Hctz -) 25 mg PO DAILY [facility] Last Admin: 01/04/19 10:47 Dose: 25 mg Azithromycin (Zithromax 500mg Ivpb (Pre-Docked)) 500 mg in 250 mls @ 250 mls/ hr IVPB DAILY [facility] Stop: 01/06/19 10:59 Last Admin: 01/04/19 10:52 Dose: 250 mls/hr Insulin Aspart (Novolog Vial Sliding Scale -) 1 vial SQ ACHS [facility]; Protocol Last Admin: 01/04/19 06:48 Dose: 4 units Methylprednisolone Sodium Succinate (Solu-Medrol -) 40 mg IVPUSH Q6H-IV [facility] Last Admin: 01/04/19 10:52 Dose: 40 mg Nebivolol (Bystolic -) 10 mg PO DAILY [facility] Last Admin: 01/04/19 10:53 Dose: 10 mg Nystatin (Nystatin Oral Suspension -) 500,000 units PO Q6HPO [facility] Last Admin: 01/04/19 06:44 Dose: 500,000 units Pantoprazole Sodium (Protonix -) 40 mg PO DAILY [facility] Last Admin: 01/04/19 10:47 Dose: 40 mg Valsartan (Diovan -) 320 mg PO DAILY [facility] Last Admin: 01/04/19 10:47 Dose: 320 mg Gen: Mildly tachypneic at rest Heart: RRR Lung: bilateral rhonchi and expiratory wheezes Abd: soft, nontender Ext: no edema Laboratory Results - last 24 hr 01/03/19 01/03/19 01/03/19 11:38 17:08 22:52 WBC RBC Hgb Hct MCV MCH MCHC RDW Plt Count MPV Absolute Neuts (auto) Neutrophils % Lymphocytes % Monocytes % Eosinophils % Basophils % Nucleated RBC % Sodium Potassium Chloride Carbon Dioxide Anion Gap BUN Creatinine Est GFR (CKD-EPI)AfAm Est GFR (CKD-EPI)NonAf POC Glucometer 266 259 326 Random Glucose Calcium Total Bilirubin AST ALT Alkaline Phosphatase Total Protein Albumin 01/04/19 01/04/19 01/04/19 06:48 07:15 07:15 WBC 9.9 RBC 4.33 Hgb 13.4 Hct 41.4 MCV 95.5 MCH 31.0 MCHC 32.5 RDW 15.7 H Plt Count 259 MPV 7.5 Absolute Neuts (auto) 9.0 H Neutrophils % 91.7 H D Lymphocytes % 5.3 L D Monocytes % 3.0 L Eosinophils % 0.0 D Basophils % 0.0 Nucleated RBC % 0 Sodium 138 Potassium 4.1 Chloride 99 Carbon Dioxide 36 H Anion Gap 3 L BUN 36.7 H Creatinine 1.3 Est GFR (CKD-EPI)AfAm 46.47 Est GFR (CKD-EPI)NonAf 40.10 POC Glucometer 243 Random Glucose 232 H Calcium 8.3 L Total Bilirubin 0.5 AST 8 L ALT 32 Alkaline Phosphatase 109 Total Protein 6.4 Albumin 3.4 Problem List - Problems (1) COPD exacerbation Code(s): J44.1 - CHRONIC OBSTRUCTIVE PULMONARY DISEASE W (ACUTE) EXACERBATION A/P Acute COPD Exacerbation Chronic Hypoxic Respiratory Failure HTN DM Hyperlipidemia h/o CVA - Would maintain Medrol q8h - inhaled bronchodilators standing and PRN - continue azithromycin - O2 to keep Spo2 >90% - glucose control while on systemic steroids - outpt PFTs - DVT prophylaxis Dr Garcia
--- NOTE | 2019-01-04 11:19 | PN ---
Progress Note (short form) - Note Progress Note: Pt seen/ examined chart reviewed awake/ comfortable still wheezing wants to go home Vital Signs Temp 98.0 F 01/04/19 06:00 Pulse 79 01/04/19 06:00 Resp 20 01/04/19 06:00 BP 139/54 L 01/04/19 06:00 Pulse Ox 95 01/03/19 21:00 Intake & Output 01/03/19 01/03/19 01/04/19 11:59 23:59 11:59 Intake Total 120 0 Balance 120 0 Intake: Oral 120 0 Other: Voiding Method Bedside Commode Toilet Bedside Commode # Unmeasured Voids Void 2 2 1 Bowel Movement No No No Active Medications Albuterol/Ipratropium (Duoneb -) 1 amp NEB RQID [facility] Last Admin: 01/04/19 07:30 Dose: 1 amp Amlodipine Besylate (Norvasc -) 10 mg PO DAILY [facility] Last Admin: 01/04/19 10:46 Dose: 10 mg Atorvastatin Calcium (Lipitor -) 20 mg PO HS [facility] Last Admin: 01/03/19 22:49 Dose: 20 mg Budesonide/Formoterol Fumarate (Symbicort 80/4.5mcg -) 2 puff IH BID [facility] Last Admin: 01/04/19 10:51 Dose: 2 puff Fluticasone Propionate (Flonase -) 2 spray NS DAILY [facility] Last Admin: 01/04/19 10:51 Dose: 2 sprays Heparin Sodium (Porcine) (Heparin -) 5,000 unit SQ BID [facility] Last Admin: 01/04/19 10:52 Dose: 5,000 unit Hydrochlorothiazide (Hctz -) 25 mg PO DAILY [facility] Last Admin: 01/04/19 10:47 Dose: 25 mg Azithromycin (Zithromax 500mg Ivpb (Pre-Docked)) 500 mg in 250 mls @ 250 mls/ hr IVPB DAILY [facility] Stop: 01/06/19 10:59 Last Admin: 01/04/19 10:52 Dose: 250 mls/hr Insulin Aspart (Novolog Vial Sliding Scale -) 1 vial SQ ACHS [facility]; Protocol Last Admin: 01/04/19 06:48 Dose: 4 units Methylprednisolone Sodium Succinate (Solu-Medrol -) 40 mg IVPUSH Q6H-IV [facility] Last Admin: 01/04/19 10:52 Dose: 40 mg Nebivolol (Bystolic -) 10 mg PO DAILY [facility] Last Admin: 01/04/19 10:53 Dose: 10 mg Nystatin (Nystatin Oral Suspension -) 500,000 units PO Q6HPO [facility] Last Admin: 01/04/19 06:44 Dose: 500,000 units Pantoprazole Sodium (Protonix -) 40 mg PO DAILY [facility] Last Admin: 01/04/19 10:47 Dose: 40 mg Valsartan (Diovan -) 320 mg PO DAILY [facility] Last Admin: 01/04/19 10:47 Dose: 320 mg CBC, BMP 01/04/19 07:15 01/04/19 07:15 Physical Exam awake oral thrush+ S1 S2 RRR Lungs- Bilateral Wheezes Abd-soft, NT no edema PLAN nystatin po for thrush Solumedrol Nebs Zithromax O2 Pulm eval noted same medrol dose D/W Darnell who aso spoke with pts daughter in my presence Continue same monitor bgm Add basal insulin oob - chair d/w rn also will follow Problem List - Problems (1) Acute respiratory failure Code(s): J96.00 - ACUTE RESPIRATORY FAILURE, UNSP W HYPOXIA OR HYPERCAPNIA (2) COPD exacerbation Code(s): J44.1 - CHRONIC OBSTRUCTIVE PULMONARY DISEASE W (ACUTE) EXACERBATION (3) Hypertension Code(s): I10 - ESSENTIAL (PRIMARY) HYPERTENSION (4) Acute on chronic respiratory failure with hypoxia and hypercapnia Code(s): J96.21 - ACUTE AND CHRONIC RESPIRATORY FAILURE WITH HYPOXIA; J96.22 - ACUTE AND CHRONIC RESPIRATORY FAILURE WITH HYPERCAPNIA (5) Acute respiratory failure with hypoxia and hypercapnia Code(s): J96.01 - ACUTE RESPIRATORY FAILURE WITH HYPOXIA; J96.02 - ACUTE RESPIRATORY FAILURE WITH HYPERCAPNIA
[2019-01-04 11:31] LABS: ANISOCYTOSIS 1+; MACROCYTOSIS 1+; PLATELET ESTIMATE NORMAL
[2019-01-04] MEDS: ATORVASTATIN CA 20 MG TABLET (FP) PO SCH (21:18)
[2019-01-04] MEDS ORDERED: INSULIN (LEVEMIR) 100 UNITS/ML UNITS SQ SCH (22:00)
[2019-01-05] MEDS: methylPREDNISolone NA SUCC 40 MG/1 ML VIAL IVPUSH SCH ×3 (02:40→18:30)
[2019-01-05] MEDS: NYSTATIN 500,000 UNITS/5 ML SUSPENSION PO SCH ×5 (02:40→23:18)
[2019-01-05] MEDS: INSULIN SLIDING SCALE (NOVOLOG) 1 VIAL SQ SCH ×5 (06:23→22:15)
[2019-01-05] MEDS: ALBUTEROL SO4 2.5/IPRATROPIUM 0.5 INH SOL 3 ML VIAL.NEB. NEB SCH ×4 (08:00→20:35)
[2019-01-05] MEDS: AZITHROMYCIN IVPB 500 MG/250 ML BAG IVPB SCH (10:35)
[2019-01-05] MEDS: amLODIPine BESYLATE 10 MG TABLET (FP) PO SCH (10:35)
[2019-01-05] MEDS: PANTOPRAZOLE 40 MG TABLET (FP) PO SCH (10:36)
[2019-01-05] MEDS: FLUTICASONE PROP 0.05% 16 GM NASAL SPRAY NS SCH (10:36)
[2019-01-05] MEDS: VALSARTAN 160 MG TABLET (UD) PO SCH (10:36)
[2019-01-05] MEDS: HYDROCHLOROTHIAZIDE 25 MG TABLET (FP) PO SCH (10:36)
[2019-01-05] MEDS ORDERED: PT OWN MED DRAWER 7, Y5N ONE (10:38)
[2019-01-05] MEDS: NEBIVOLOL 10 MG TABLET (FP) PO SCH (10:39)
[2019-01-05] MEDS: HEPARIN NA (PORCINE) 5,000 UNITS/ML 1ML VIAL SQ SCH ×2 (10:41→22:10)
[2019-01-05] MEDS: BUDESONIDE/FORMETEROL FUMARATE 80/4.5 mcg INHALER IH SCH ×2 (10:42→22:19)
--- NOTE | 2019-01-05 12:08 | PN ---
Progress Note (short form) - Note Progress Note: SOB and coughing + 2 Vital Signs - 24 hr 01/04/19 01/04/19 01/04/19 14:00 18:00 21:00 Temperature 99 F 98.4 F Pulse Rate 83 80 Respiratory 20 20 Rate Blood Pressure 141/59 L 141/57 L O2 Sat by Pulse 95 Oximetry (%) 01/04/19 01/05/19 01/05/19 22:00 06:15 09:00 Temperature 98.7 F 97.9 F Pulse Rate 86 87 Respiratory 20 20 Rate Blood Pressure 145/77 149/66 O2 Sat by Pulse 96 Oximetry (%) 01/05/19 10:00 Temperature 98.1 F Pulse Rate 86 Respiratory 20 Rate Blood Pressure 162/72 O2 Sat by Pulse Oximetry (%) Current Medications Generic Name Dose Route Start Last Admin Trade Name Freq PRN Reason Stop Dose Admin Albuterol/Ipratropium 1 amp 01/01/19 22:00 01/05/19 08:00 Duoneb - NEB 1 amp RQID [facility] Administration Amlodipine Besylate 10 mg 01/02/19 10:00 01/05/19 10:35 Norvasc - PO 10 mg DAILY [facility] Administration Atorvastatin Calcium 20 mg 01/01/19 22:00 01/04/19 21:18 Lipitor - PO 20 mg HS [facility] Administration Budesonide/Formoterol Fumarate 2 puff 01/01/19 22:00 01/05/19 10:42 Symbicort 80/4.5mcg - IH 2 puff BID [facility] Administration Fluticasone Propionate 2 spray 01/03/19 11:00 01/05/19 10:36 Flonase - NS 2 sprays DAILY [facility] Administration Heparin Sodium (Porcine) 5,000 unit 01/02/19 10:00 01/05/19 10:41 Heparin - SQ 5,000 unit BID [facility] Administration Hydrochlorothiazide 25 mg 01/02/19 10:00 01/05/19 10:36 Hctz - PO 25 mg DAILY [facility] Administration Azithromycin 500 mg in 250 mls @ 250 mls/hr 01/02/19 12:00 01/05/19 10:35 Zithromax 500mg Ivpb (Pre-Docked) IVPB 01/06/19 10:59 250 mls/hr DAILY [facility] Administration Insulin Aspart 1 vial 01/01/19 22:00 01/05/19 11:55 Novolog Vial Sliding Scale - SQ 6 units ACHS [facility] Administration Protocol Insulin Detemir 10 units 01/04/19 22:00 01/04/19 21:19 Levemir Vial SQ 10 units HS [facility] Administration Methylprednisolone Sodium Succinate 40 mg 01/01/19 21:00 01/05/19 10:36 Solu-Medrol - IVPUSH 40 mg Q6H-IV [facility] Administration Nebivolol 10 mg 01/02/19 10:00 01/05/19 10:39 Bystolic - PO 10 mg DAILY [facility] Administration Nystatin 500,000 units 01/03/19 12:00 01/05/19 06:22 Nystatin Oral Suspension - PO 500,000 units Q6HPO [facility] Administration Pantoprazole Sodium 40 mg 01/02/19 10:00 01/05/19 10:36 Protonix - PO 40 mg DAILY [facility] Administration Valsartan 320 mg 01/02/19 10:00 01/05/19 10:36 Diovan - PO 320 mg DAILY [facility] Administration Laboratory Results - last 24 hr 01/04/19 01/04/19 01/05/19 16:19 21:07 06:21 POC Glucometer 295 284 241 01/05/19 11:45 POC Glucometer 287 S1 S2 RRR Lungs ronchi+ Abd-soft, NT no edema PLAN nystatin po for thrush Solumedrol 40mg q6h Nebs scheduled and prn Zithromax O2 Pulm eval noted same medrol dose Problem List - Problems (1) Acute respiratory failure Code(s): J96.00 - ACUTE RESPIRATORY FAILURE, UNSP W HYPOXIA OR HYPERCAPNIA (2) COPD exacerbation Code(s): J44.1 - CHRONIC OBSTRUCTIVE PULMONARY DISEASE W (ACUTE) EXACERBATION (3) Hypertension Code(s): I10 - ESSENTIAL (PRIMARY) HYPERTENSION (4) Acute on chronic respiratory failure with hypoxia and hypercapnia Code(s): J96.21 - ACUTE AND CHRONIC RESPIRATORY FAILURE WITH HYPOXIA; J96.22 - ACUTE AND CHRONIC RESPIRATORY FAILURE WITH HYPERCAPNIA (5) Acute respiratory failure with hypoxia and hypercapnia Code(s): J96.01 - ACUTE RESPIRATORY FAILURE WITH HYPOXIA; J96.02 - ACUTE RESPIRATORY FAILURE WITH HYPERCAPNIA
--- NOTE | 2019-01-05 12:54 | PN ---
Progress Note, Physician History of Present Illness: pulmonary alert,feeling better,less dyspneic,less congested - Current Medication List Current Medications: Active Medications Albuterol/Ipratropium (Duoneb -) 1 amp NEB RQID [facility] Last Admin: 01/05/19 12:24 Dose: 1 amp Amlodipine Besylate (Norvasc -) 10 mg PO DAILY [facility] Last Admin: 01/05/19 10:35 Dose: 10 mg Atorvastatin Calcium (Lipitor -) 20 mg PO HS [facility] Last Admin: 01/04/19 21:18 Dose: 20 mg Budesonide/Formoterol Fumarate (Symbicort 80/4.5mcg -) 2 puff IH BID [facility] Last Admin: 01/05/19 10:42 Dose: 2 puff Fluticasone Propionate (Flonase -) 2 spray NS DAILY [facility] Last Admin: 01/05/19 10:36 Dose: 2 sprays Heparin Sodium (Porcine) (Heparin -) 5,000 unit SQ BID [facility] Last Admin: 01/05/19 10:41 Dose: 5,000 unit Hydrochlorothiazide (Hctz -) 25 mg PO DAILY [facility] Last Admin: 01/05/19 10:36 Dose: 25 mg Azithromycin (Zithromax 500mg Ivpb (Pre-Docked)) 500 mg in 250 mls @ 250 mls/ hr IVPB DAILY [facility] Stop: 01/06/19 10:59 Last Admin: 01/05/19 10:35 Dose: 250 mls/hr Insulin Aspart (Novolog Vial Sliding Scale -) 1 vial SQ [facility]; Protocol Last Admin: 01/05/19 11:55 Dose: 6 units Insulin Detemir (Levemir Vial) 14 units SQ [facility] Methylprednisolone Sodium Succinate (Solu-Medrol -) 40 mg IVPUSH Q6H-IV [facility] Last Admin: 01/05/19 10:36 Dose: 40 mg Nebivolol (Bystolic -) 10 mg PO DAILY [facility] Last Admin: 01/05/19 10:39 Dose: 10 mg Nystatin (Nystatin Oral Suspension -) 500,000 units PO Q6HPO [facility] Last Admin: 01/05/19 06:22 Dose: 500,000 units Pantoprazole Sodium (Protonix -) 40 mg PO DAILY [facility] Last Admin: 01/05/19 10:36 Dose: 40 mg Valsartan (Diovan -) 320 mg PO DAILY [facility] Last Admin: 01/05/19 10:36 Dose: 320 mg - Objective Vital Signs: Vital Signs Temperature 98.1 F 01/05/19 10:00 Pulse Rate 86 01/05/19 10:00 Respiratory Rate 20 01/05/19 10:00 Blood Pressure 162/72 01/05/19 10:00 O2 Sat by Pulse Oximetry (%) 96 01/05/19 09:00 Constitutional: Yes: Well Nourished, Calm Eyes: Yes: WNL HENT: Yes: WNL Neck: Yes: WNL Cardiovascular: Yes: Regular Rate and Rhythm, S1, S2 Respiratory: Yes: Wheezes (bilateral wheezes) Gastrointestinal: Yes: Normal Bowel Sounds, Soft Extremities: Yes: WNL Edema: No Labs: CBC, BMP 01/04/19 07:15 Problem List - Problems (1) COPD exacerbation Code(s): J44.1 - CHRONIC OBSTRUCTIVE PULMONARY DISEASE W (ACUTE) EXACERBATION (2) Hyperlipemia Code(s): E78.5 - HYPERLIPIDEMIA, UNSPECIFIED (3) Hypertension Code(s): I10 - ESSENTIAL (PRIMARY) HYPERTENSION (4) Acute on chronic respiratory failure with hypoxia and hypercapnia Code(s): J96.21 - ACUTE AND CHRONIC RESPIRATORY FAILURE WITH HYPOXIA; J96.22 - ACUTE AND CHRONIC RESPIRATORY FAILURE WITH HYPERCAPNIA (5) CHF (congestive heart failure) Code(s): I50.9 - HEART FAILURE, UNSPECIFIED Qualifiers: Heart failure type: diastolic Heart failure chronicity: unspecified Qualified Code(s): I50.30 - Unspecified diastolic (congestive) heart failure (6) COPD (chronic obstructive pulmonary disease) Code(s): J44.9 - CHRONIC OBSTRUCTIVE PULMONARY DISEASE, UNSPECIFIED Qualifiers: COPD type: unspecified COPD Qualified Code(s): J44.9 - Chronic obstructive pulmonary disease, unspecified Assessment/Plan A/P Acute COPD Exacerbation improving Chronic Hypoxic Respiratory Failure HTN DM Hyperlipidemia h/o CVA - medrol q8h - PO prednisone 40mg daily in AM if continues to improve - inhaled bronchodilators standing and PRN - continue azithromycin - O2 to keep Spo2 >90% - glucose control while on systemic steroids - outpt PFTs - DVT prophylaxis DR PATRICIO
[2019-01-05] MEDS: INSULIN (LEVEMIR) 100 UNITS/ML UNITS SQ SCH (22:11)
[2019-01-05] MEDS: ATORVASTATIN CA 20 MG TABLET (FP) PO SCH (22:12)
[2019-01-06] MEDS: methylPREDNISolone NA SUCC 40 MG/1 ML VIAL IVPUSH SCH ×3 (03:25→18:17)
[2019-01-06] MEDS: NYSTATIN 500,000 UNITS/5 ML SUSPENSION PO SCH ×3 (06:58→18:18)
[2019-01-06] MEDS: INSULIN SLIDING SCALE (NOVOLOG) 1 VIAL SQ SCH ×4 (06:58→22:09)
[2019-01-06] MEDS: ALBUTEROL SO4 2.5/IPRATROPIUM 0.5 INH SOL 3 ML VIAL.NEB. NEB SCH ×4 (08:26→20:00)
[2019-01-06] MEDS ORDERED: INSULIN (LEVEMIR) 100 UNITS/ML UNITS SQ ONE (10:49)
[2019-01-06] MEDS ORDERED: INSULIN (NOVOLOG) ASPART 100 UNITS/ML 10ML VIAL ONE (10:49)
[2019-01-06] MEDS: HYDROCHLOROTHIAZIDE 25 MG TABLET (FP) PO SCH (11:42)
[2019-01-06] MEDS: PANTOPRAZOLE 40 MG TABLET (FP) PO SCH (11:42)
[2019-01-06] MEDS: amLODIPine BESYLATE 10 MG TABLET (FP) PO SCH (11:42)
[2019-01-06] MEDS: FLUTICASONE PROP 0.05% 16 GM NASAL SPRAY NS SCH (11:42)
[2019-01-06] MEDS: VALSARTAN 160 MG TABLET (UD) PO SCH (11:42)
--- NOTE | 2019-01-06 11:42 | PN ---
Progress Note, Physician History of Present Illness: PULMONARY ALERT,COMFORTABLE,-RESP DISTRESS - Current Medication List Current Medications: Active Medications Albuterol/Ipratropium (Duoneb -) 1 amp NEB RQID [facility] Last Admin: 01/06/19 08:26 Dose: 1 amp Amlodipine Besylate (Norvasc -) 10 mg PO DAILY [facility] Last Admin: 01/05/19 10:35 Dose: 10 mg Atorvastatin Calcium (Lipitor -) 20 mg PO HS [facility] Last Admin: 01/05/19 22:12 Dose: 20 mg Budesonide/Formoterol Fumarate (Symbicort 80/4.5mcg -) 2 puff IH BID [facility] Last Admin: 01/05/19 22:19 Dose: 2 puff Fluticasone Propionate (Flonase -) 2 spray NS DAILY [facility] Last Admin: 01/05/19 10:36 Dose: 2 sprays Heparin Sodium (Porcine) (Heparin -) 5,000 unit SQ BID [facility] Last Admin: 01/05/19 22:10 Dose: 5,000 unit Hydrochlorothiazide (Hctz -) 25 mg PO DAILY [facility] Last Admin: 01/05/19 10:36 Dose: 25 mg Insulin Aspart (Novolog Vial Sliding Scale -) 1 vial SQ [facility]; Protocol Last Admin: 01/06/19 06:58 Dose: 2 units Insulin Detemir (Levemir Vial) 14 units SQ HS [facility] Last Admin: 01/05/19 22:11 Dose: 14 units Methylprednisolone Sodium Succinate (Solu-Medrol -) 40 mg IVPUSH Q8H-IV [facility] Last Admin: 01/06/19 03:25 Dose: 40 mg Nebivolol (Bystolic -) 10 mg PO DAILY [facility] Last Admin: 01/05/19 10:39 Dose: 10 mg Nystatin (Nystatin Oral Suspension -) 500,000 units PO Q6HPO [facility] Last Admin: 01/06/19 06:58 Dose: 500,000 units Pantoprazole Sodium (Protonix -) 40 mg PO DAILY [facility] Last Admin: 01/05/19 10:36 Dose: 40 mg Valsartan (Diovan -) 320 mg PO DAILY [facility] Last Admin: 01/05/19 10:36 Dose: 320 mg - Objective Vital Signs: Vital Signs Temperature 98.2 F 01/06/19 06:00 Pulse Rate 87 01/06/19 06:00 Respiratory Rate 20 01/06/19 06:00 Blood Pressure 157/63 01/06/19 06:00 O2 Sat by Pulse Oximetry (%) 96 01/05/19 21:00 Constitutional: Yes: Well Nourished, Calm Eyes: Yes: WNL HENT: Yes: WNL Neck: Yes: WNL Cardiovascular: Yes: Regular Rate and Rhythm, S1, S2 Respiratory: Yes: Wheezes (FEW WHEEZES) Gastrointestinal: Yes: Normal Bowel Sounds, Soft Extremities: Yes: WNL Edema: No Labs: Problem List - Problems (1) COPD exacerbation Code(s): J44.1 - CHRONIC OBSTRUCTIVE PULMONARY DISEASE W (ACUTE) EXACERBATION (2) Hyperlipemia Code(s): E78.5 - HYPERLIPIDEMIA, UNSPECIFIED (3) Hypertension Code(s): I10 - ESSENTIAL (PRIMARY) HYPERTENSION (4) Acute on chronic respiratory failure with hypoxia and hypercapnia Code(s): J96.21 - ACUTE AND CHRONIC RESPIRATORY FAILURE WITH HYPOXIA; J96.22 - ACUTE AND CHRONIC RESPIRATORY FAILURE WITH HYPERCAPNIA (5) CHF (congestive heart failure) Code(s): I50.9 - HEART FAILURE, UNSPECIFIED Qualifiers: Heart failure type: diastolic Heart failure chronicity: unspecified Qualified Code(s): I50.30 - Unspecified diastolic (congestive) heart failure (6) COPD (chronic obstructive pulmonary disease) Code(s): J44.9 - CHRONIC OBSTRUCTIVE PULMONARY DISEASE, UNSPECIFIED Qualifiers: COPD type: unspecified COPD Qualified Code(s): J44.9 - Chronic obstructive pulmonary disease, unspecified Assessment/Plan A/P Acute COPD Exacerbation improved Chronic Hypoxic Respiratory Failure HTN DM Hyperlipidemia h/o CVA - PO prednisone 60mg daily - inhaled bronchodilators standing and PRN - continue azithromycin - O2 to keep Spo2 >90% - glucose control while on systemic steroids - outpt PFTs - DVT prophylaxis DR PATRICIO
[2019-01-06] MEDS: HEPARIN NA (PORCINE) 5,000 UNITS/ML 1ML VIAL SQ SCH ×2 (11:43→22:09)
[2019-01-06] MEDS: BUDESONIDE/FORMETEROL FUMARATE 80/4.5 mcg INHALER IH SCH ×2 (11:43→22:10)
[2019-01-06] MEDS: AZITHROMYCIN IVPB 500 MG/250 ML BAG IVPB SCH (11:45)
[2019-01-06] MEDS ORDERED: PT OWN MED DRAWER 7, Y5N ONE (12:02)
--- NOTE | 2019-01-06 12:14 | PN ---
Progress Note (short form) - Note Progress Note: SOB and coughing + better Vital Signs - 24 hr 01/05/19 01/05/19 01/05/19 14:00 18:00 21:00 Temperature 98.2 F 98.3 F Pulse Rate 83 78 Respiratory 20 20 20 Rate Blood Pressure 147/66 133/52 L O2 Sat by Pulse 96 Oximetry (%) 01/05/19 01/06/19 22:00 06:00 Temperature 98.2 F Pulse Rate 83 87 Respiratory 20 20 Rate Blood Pressure 160/74 157/63 O2 Sat by Pulse Oximetry (%) Current Medications Generic Name Dose Route Start Last Admin Trade Name Freq PRN Reason Stop Dose Admin Albuterol/Ipratropium 1 amp 01/01/19 22:00 01/06/19 11:56 Duoneb - NEB 1 amp RQID [facility] Administration Amlodipine Besylate 10 mg 01/02/19 10:00 01/06/19 11:42 Norvasc - PO 10 mg DAILY [facility] Administration Atorvastatin Calcium 20 mg 01/01/19 22:00 01/05/19 22:12 Lipitor - PO 20 mg HS [facility] Administration Budesonide/Formoterol Fumarate 2 puff 01/01/19 22:00 01/06/19 11:43 Symbicort 80/4.5mcg - IH 2 puff BID [facility] Administration Fluticasone Propionate 2 spray 01/03/19 11:00 01/06/19 11:42 Flonase - NS 2 sprays DAILY [facility] Administration Heparin Sodium (Porcine) 5,000 unit 01/02/19 10:00 01/06/19 11:43 Heparin - SQ 5,000 unit BID [facility] Administration Hydrochlorothiazide 25 mg 01/02/19 10:00 01/06/19 11:42 Hctz - PO 25 mg DAILY [facility] Administration Insulin Aspart 1 vial 01/01/19 22:00 01/06/19 06:58 Novolog Vial Sliding Scale - SQ 2 units ACHS [facility] Administration Protocol Insulin Detemir 14 units 01/05/19 12:09 01/05/19 22:11 Levemir Vial SQ 14 units HS [facility] Administration Methylprednisolone Sodium Succinate 40 mg 01/05/19 18:00 01/06/19 11:43 Solu-Medrol - IVPUSH 01/07/19 00:00 40 mg Q8H-IV [facility] Administration Nebivolol 10 mg 01/02/19 10:00 01/05/19 10:39 Bystolic - PO 10 mg DAILY [facility] Administration Nystatin 500,000 units 01/03/19 12:00 01/06/19 06:58 Nystatin Oral Suspension - PO 500,000 units Q6HPO [facility] Administration Pantoprazole Sodium 40 mg 01/02/19 10:00 01/06/19 11:42 Protonix - PO 40 mg DAILY [facility] Administration Prednisone 60 mg 01/07/19 10:00 Deltasone - PO DAILY [facility] Valsartan 320 mg 01/02/19 10:00 01/06/19 11:42 Diovan - PO 320 mg DAILY [facility] Administration Laboratory Results - last 24 hr 01/05/19 01/05/19 01/06/19 17:50 22:13 06:57 POC Glucometer 258 190 167 2 S1 S2 RRR Lungs ronchi+ Abd-soft, NT no edema PLAN nystatin po for thrush Solumedrol 40mg q8h-- >start PO prednisone tomorrow per Pulmonary Nebs scheduled and prn Zithromax O2 OOB daily Problem List - Problems (1) Acute respiratory failure Code(s): J96.00 - ACUTE RESPIRATORY FAILURE, UNSP W HYPOXIA OR HYPERCAPNIA (2) COPD exacerbation Code(s): J44.1 - CHRONIC OBSTRUCTIVE PULMONARY DISEASE W (ACUTE) EXACERBATION (3) Hypertension Code(s): I10 - ESSENTIAL (PRIMARY) HYPERTENSION (4) Acute on chronic respiratory failure with hypoxia and hypercapnia Code(s): J96.21 - ACUTE AND CHRONIC RESPIRATORY FAILURE WITH HYPOXIA; J96.22 - ACUTE AND CHRONIC RESPIRATORY FAILURE WITH HYPERCAPNIA (5) Acute respiratory failure with hypoxia and hypercapnia Code(s): J96.01 - ACUTE RESPIRATORY FAILURE WITH HYPOXIA; J96.02 - ACUTE RESPIRATORY FAILURE WITH HYPERCAPNIA
[2019-01-06] MEDS: NEBIVOLOL 10 MG TABLET (FP) PO SCH (16:28)
[2019-01-06] MEDS: INSULIN (LEVEMIR) 100 UNITS/ML UNITS SQ SCH (22:08)
[2019-01-06] MEDS: ATORVASTATIN CA 20 MG TABLET (FP) PO SCH (22:09)
[2019-01-07] MEDS: NYSTATIN 500,000 UNITS/5 ML SUSPENSION PO SCH ×4 (00:13→17:52)
[2019-01-07] MEDS: amLODIPine BESYLATE 10 MG TABLET (FP) PO SCH ×2 (05:13→09:57)
[2019-01-07] MEDS: INSULIN SLIDING SCALE (NOVOLOG) 1 VIAL SQ SCH ×4 (06:32→21:15)
[2019-01-07] MEDS ORDERED: PT OWN MED DRAWER 7, Y5N ONE (06:44)
[2019-01-07] MEDS: HYDROCHLOROTHIAZIDE 25 MG TABLET (FP) PO SCH ×2 (06:45→09:57)
[2019-01-07] MEDS: VALSARTAN 160 MG TABLET (UD) PO SCH ×2 (06:46→09:57)
[2019-01-07] MEDS: NEBIVOLOL 10 MG TABLET (FP) PO SCH ×2 (06:46→09:57)
--- NOTE | 2019-01-07 10:01 | PN ---
Progress Note, Physician History of Present Illness: PULMONARY ALERT,FEELING BETTER,SOB IMPROVED - Current Medication List Current Medications: Active Medications Amlodipine Besylate (Norvasc -) 10 mg PO DAILY [facility] Last Admin: 01/07/19 09:57 Dose: Not Given Atorvastatin Calcium (Lipitor -) 20 mg PO HS [facility] Last Admin: 01/06/19 22:09 Dose: 20 mg Budesonide/Formoterol Fumarate (Symbicort 80/4.5mcg -) 2 puff IH BID [facility] Last Admin: 01/06/19 22:10 Dose: 2 puff Fluticasone Propionate (Flonase -) 2 spray NS DAILY [facility] Last Admin: 01/06/19 11:42 Dose: 2 sprays Heparin Sodium (Porcine) (Heparin -) 5,000 unit SQ BID [facility] Last Admin: 01/06/19 22:09 Dose: 5,000 unit Hydrochlorothiazide (Hctz -) 25 mg PO DAILY [facility] Last Admin: 01/07/19 09:57 Dose: Not Given Insulin Aspart (Novolog Vial Sliding Scale -) 1 vial SQ [facility]; Protocol Last Admin: 01/07/19 06:32 Dose: Not Given Insulin Detemir (Levemir Vial) 14 units SQ HS [facility] Last Admin: 01/06/19 22:08 Dose: 14 units Nebivolol (Bystolic -) 10 mg PO DAILY [facility] Last Admin: 01/07/19 09:57 Dose: Not Given Nystatin (Nystatin Oral Suspension -) 500,000 units PO Q6HPO [facility] Last Admin: 01/07/19 05:13 Dose: 500,000 units Pantoprazole Sodium (Protonix -) 40 mg PO DAILY [facility] Last Admin: 01/06/19 11:42 Dose: 40 mg Prednisone (Deltasone -) 60 mg PO DAILY [facility] Valsartan (Diovan -) 320 mg PO DAILY [facility] Last Admin: 01/07/19 09:57 Dose: Not Given - Objective Vital Signs: Vital Signs Temperature 98.5 F 01/07/19 09:56 Pulse Rate 70 01/07/19 09:56 Respiratory Rate 18 01/07/19 09:56 Blood Pressure 189/74 H 01/07/19 09:56 O2 Sat by Pulse Oximetry (%) 97 01/06/19 21:00 Constitutional: Yes: Well Nourished, Calm Eyes: Yes: WNL HENT: Yes: WNL Neck: Yes: WNL Cardiovascular: Yes: Regular Rate and Rhythm, S1, S2 Respiratory: Yes: Wheezes (FEW SCATTERED WHEEZES) Gastrointestinal: Yes: Normal Bowel Sounds, Soft Extremities: Yes: WNL Edema: No Problem List - Problems (1) COPD exacerbation Code(s): J44.1 - CHRONIC OBSTRUCTIVE PULMONARY DISEASE W (ACUTE) EXACERBATION (2) Hyperlipemia Code(s): E78.5 - HYPERLIPIDEMIA, UNSPECIFIED (3) Hypertension Code(s): I10 - ESSENTIAL (PRIMARY) HYPERTENSION (4) Acute on chronic respiratory failure with hypoxia and hypercapnia Code(s): J96.21 - ACUTE AND CHRONIC RESPIRATORY FAILURE WITH HYPOXIA; J96.22 - ACUTE AND CHRONIC RESPIRATORY FAILURE WITH HYPERCAPNIA (5) CHF (congestive heart failure) Code(s): I50.9 - HEART FAILURE, UNSPECIFIED Qualifiers: Heart failure type: diastolic Heart failure chronicity: unspecified Qualified Code(s): I50.30 - Unspecified diastolic (congestive) heart failure (6) COPD (chronic obstructive pulmonary disease) Code(s): J44.9 - CHRONIC OBSTRUCTIVE PULMONARY DISEASE, UNSPECIFIED Qualifiers: COPD type: unspecified COPD Qualified Code(s): J44.9 - Chronic obstructive pulmonary disease, unspecified Assessment/Plan A/P Acute COPD Exacerbation improved Chronic Hypoxic Respiratory Failure HTN DM Hyperlipidemia h/o CVA - PO prednisone 60mg daily - inhaled bronchodilators standing and PRN - continue azithromycin - O2 to keep Spo2 >90% - glucose control while on systemic steroids - outpt PFTs - DVT prophylaxis DR PATRICIO
[2019-01-07] MEDS: predniSONE 20 MG TABLET (UD) PO SCH (10:03)
[2019-01-07] MEDS: PANTOPRAZOLE 40 MG TABLET (FP) PO SCH (10:03)
[2019-01-07] MEDS: FLUTICASONE PROP 0.05% 16 GM NASAL SPRAY NS SCH (10:03)
[2019-01-07] MEDS: HEPARIN NA (PORCINE) 5,000 UNITS/ML 1ML VIAL SQ SCH ×2 (10:03→21:15)
[2019-01-07] MEDS: BUDESONIDE/FORMETEROL FUMARATE 80/4.5 mcg INHALER IH SCH ×2 (10:06→22:47)
[2019-01-07] MEDS ORDERED: hydrALAZINE HCL 25 MG TABLET (FP) PO ONE (11:18)
[2019-01-07] MEDS ORDERED: INSULIN (NOVOLOG) ASPART 100 UNITS/ML 10ML VIAL ONE ×2 (11:37→18:01)
--- NOTE | 2019-01-07 18:39 | PN ---
Progress Note (short form) - Note Progress Note: SOB and coughing + better Vital Signs - 24 hr 01/06/19 01/07/19 01/07/19 21:00 01:57 06:40 Temperature 98.9 F Pulse Rate 81 78 Respiratory 20 20 Rate Blood Pressure 184/77 H 195/88 H O2 Sat by Pulse 97 Oximetry (%) 01/07/19 01/07/19 01/07/19 09:00 09:56 10:00 Temperature 98.5 F Pulse Rate 70 Respiratory 18 Rate Blood Pressure 189/74 H O2 Sat by Pulse 95 95 Oximetry (%) 01/07/19 14:00 Temperature 98.3 F Pulse Rate 72 Respiratory 18 Rate Blood Pressure 162/75 O2 Sat by Pulse Oximetry (%) Current Medications Generic Name Dose Route Start Last Admin Trade Name Freq PRN Reason Stop Dose Admin Amlodipine Besylate 10 mg 01/02/19 10:00 01/07/19 09:57 Norvasc - PO Not Given DAILY [facility] Atorvastatin Calcium 20 mg 01/01/19 22:00 01/06/19 22:09 Lipitor - PO 20 mg HS [facility] Administration Budesonide/Formoterol Fumarate 2 puff 01/01/19 22:00 01/07/19 10:06 Symbicort 80/4.5mcg - IH 2 puff BID [facility] Administration Fluticasone Propionate 2 spray 01/03/19 11:00 01/07/19 10:03 Flonase - NS 2 sprays DAILY [facility] Administration Heparin Sodium (Porcine) 5,000 unit 01/02/19 10:00 01/07/19 10:03 Heparin - SQ 5,000 unit BID [facility] Administration Hydralazine HCl 25 mg 01/07/19 22:00 Apresoline - PO TID [facility] Hydrochlorothiazide 25 mg 01/02/19 10:00 01/07/19 09:57 Hctz - PO Not Given DAILY [facility] Insulin Aspart 1 vial 01/01/19 22:00 01/07/19 17:25 Novolog Vial Sliding Scale - SQ 10 units ACHS [facility] Administration Protocol Insulin Detemir 14 units 01/05/19 12:09 01/06/19 22:08 Levemir Vial SQ 14 units HS [facility] Administration Nebivolol 10 mg 01/02/19 10:00 01/07/19 09:57 Bystolic - PO Not Given DAILY [facility] Nystatin 500,000 units 01/03/19 12:00 01/07/19 17:52 Nystatin Oral Suspension - PO 500,000 units Q6HPO [facility] Administration Pantoprazole Sodium 40 mg 01/02/19 10:00 01/07/19 10:03 Protonix - PO 40 mg DAILY [facility] Administration Prednisone 60 mg 01/07/19 10:00 01/07/19 10:03 Deltasone - PO 60 mg DAILY [facility] Administration Valsartan 320 mg 01/02/19 10:00 01/07/19 09:57 Diovan - PO Not Given DAILY [facility] Laboratory Results - last 24 hr 01/06/19 01/07/19 01/07/19 22:06 05:21 12:12 POC Glucometer 303 76 107 01/07/19 17:23 POC Glucometer 371 2 S1 S2 RRR Lungs ronchi+ Abd-soft, NT no edema PLAN nystatin po for thrush started PO prednisone Nebs scheduled and prn Zithromax O2 OOB daily Problem List - Problems (1) Acute respiratory failure Code(s): J96.00 - ACUTE RESPIRATORY FAILURE, UNSP W HYPOXIA OR HYPERCAPNIA (2) COPD exacerbation Code(s): J44.1 - CHRONIC OBSTRUCTIVE PULMONARY DISEASE W (ACUTE) EXACERBATION (3) Hypertension Code(s): I10 - ESSENTIAL (PRIMARY) HYPERTENSION (4) Acute on chronic respiratory failure with hypoxia and hypercapnia Code(s): J96.21 - ACUTE AND CHRONIC RESPIRATORY FAILURE WITH HYPOXIA; J96.22 - ACUTE AND CHRONIC RESPIRATORY FAILURE WITH HYPERCAPNIA (5) Acute respiratory failure with hypoxia and hypercapnia Code(s): J96.01 - ACUTE RESPIRATORY FAILURE WITH HYPOXIA; J96.02 - ACUTE RESPIRATORY FAILURE WITH HYPERCAPNIA
[2019-01-07] MEDS: hydrALAZINE HCL 25 MG TABLET (FP) PO SCH (21:14)
[2019-01-07] MEDS: ATORVASTATIN CA 20 MG TABLET (FP) PO SCH (21:14)
[2019-01-07] MEDS: INSULIN (LEVEMIR) 100 UNITS/ML UNITS SQ SCH (21:15)
[2019-01-08] MEDS: NYSTATIN 500,000 UNITS/5 ML SUSPENSION PO SCH ×2 (00:01→05:26)
[2019-01-08] MEDS: hydrALAZINE HCL 25 MG TABLET (FP) PO SCH (05:26)
[2019-01-08] MEDS: INSULIN SLIDING SCALE (NOVOLOG) 1 VIAL SQ SCH (06:02)
[2019-01-08] MEDS ORDERED: INSULIN (NOVOLOG) ASPART 100 UNITS/ML 10ML VIAL ONE (06:26)
[2019-01-08 09:03] VITALS: BP 151/84; PULSE 73; TEMP 98.8
[2019-01-08] MEDS: HYDROCHLOROTHIAZIDE 25 MG TABLET (FP) PO SCH (09:39)
[2019-01-08] MEDS: VALSARTAN 160 MG TABLET (UD) PO SCH (09:39)
[2019-01-08] MEDS: PANTOPRAZOLE 40 MG TABLET (FP) PO SCH (09:39)
[2019-01-08] MEDS: predniSONE 20 MG TABLET (UD) PO SCH (09:39)
[2019-01-08] MEDS: NEBIVOLOL 10 MG TABLET (FP) PO SCH (09:39)
[2019-01-08] MEDS: amLODIPine BESYLATE 10 MG TABLET (FP) PO SCH (09:39)
[2019-01-08] MEDS: FLUTICASONE PROP 0.05% 16 GM NASAL SPRAY NS SCH (09:40)
[2019-01-08] MEDS: BUDESONIDE/FORMETEROL FUMARATE 80/4.5 mcg INHALER IH SCH (09:40)
[2019-01-08] MEDS: HEPARIN NA (PORCINE) 5,000 UNITS/ML 1ML VIAL SQ SCH (09:40)
--- NOTE | 2019-01-08 10:19 | DS ---
Physical Examination Vital Signs: Vital Signs Temperature 98.8 F 01/08/19 09:00 Pulse Rate 73 01/08/19 09:00 Respiratory Rate 18 01/08/19 09:00 Blood Pressure 151/84 01/08/19 09:00 O2 Sat by Pulse Oximetry (%) 95 01/07/19 21:00 Constitutional: Yes: No Distress, Calm Cardiovascular: Yes: Regular Rate and Rhythm Respiratory: Yes: Diminished Gastrointestinal: Yes: Normal Bowel Sounds, Soft, Abdomen, Obese. No: Tenderness Edema: No Labs: CBC, BMP 01/04/19 07:15 01/04/19 07:15 Discharge Summary Problems reviewed: Yes Reason For Visit: ACUTE COPD Current Active Problems Acute respiratory failure (Acute) COPD exacerbation (Acute) Hyperlipemia (Acute) Hypertension (Acute) Hospital Course: Admitted for COPD exacerbation seen by Pulmonary Started on IV solumedrol and Azithromycin nebs standing She is better BP was uncontrolled , she was started on Hydralazine BP better controlled now She needs to follow up with PMD in 2 weeks Complete prednisone taper and Azithromycin stable for dc home Condition: Stable - Instructions Referrals: Hossein Ogden MD [Primary Care Provider] - Disposition: HOME - Home Medications Comprehensive Discharge Medication List: Ambulatory Orders Albuterol 2.5/Ipratropium 0.5 [Duoneb -] 1 amp NEB RQ4H amp 05/11/18 Amlodipine Besylate [Norvasc -] 10 mg PO DAILY tablet 05/11/18 Atorvastatin Ca [Lipitor] 20 mg PO HS tablet 05/11/18 Budesonide/Formeterol Fumarate [SYMBICORT 80/4.5mcg -] 2 puff IH BID inhaler Guaifenesin [Robitussin -] 10 ml PO Q4H PRN cup 05/11/18 Nebivolol [Bystolic -] 10 mg PO DAILY tab 05/11/18 Nebulizer and Compressor [Comp-Air Nebulizer System] 1 each ASDIR #1 each 02/28 Nicotine Patch [Nicoderm Patch -] 14 mg TD DAILY #30 patch 05/11/18 Valsartan [Diovan] 320 mg PO DAILY tablet 05/11/18 Mag Hydrox/Alh/Smc/Dpha/Lido [Magic Mouthwash *Sjr Formula* -] 5 ml MM Q6HPO #1 bottle 08/07/18 Metformin HCl [Glucophage] 500 mg PO BID #60 tablet 08/07/18 Prednisone 10 mg PO DAILY 15 Days #15 tablet 08/07/18 Ranitidine [Zantac -] 150 mg PO BID tablet 08/07/18 Hydrochlorothiazide [Hctz -] 25 mg PO BID 01/01/19
--- NOTE | 2019-01-08 10:58 | PN ---
Progress Note (short form) - Note Progress Note: PULMONARY ALERT,FEELING BETTER,SOB IMPROVED DISCHARGE PLAN IN PLACE VSS/AFEBRILE Constitutional: Yes: Well Nourished, Calm Eyes: Yes: WNL HENT: Yes: WNL Neck: Yes: WNL Cardiovascular: Yes: Regular Rate and Rhythm, S1, S2 Respiratory: Yes: Wheezes (FEW SCATTERED WHEEZES) Gastrointestinal: Yes: Normal Bowel Sounds, Soft Extremities: Yes: WNL Edema: No A/P Acute COPD Exacerbation improved Chronic Hypoxic Respiratory Failure HTN DM Hyperlipidemia h/o CVA - PO prednisone 60mg daily to be tapered - inhaled bronchodilators standing and PRN - continue azithromycin - O2 to keep Spo2 >90% - glucose control while on systemic steroids - outpt PFTs - DVT prophylaxis Agree with discharge plans Dale DURAN MD
== END 2019-01-08 11:19 | disposition home or self-care (01) | DRG 190 ==
LOC: JER 13:08 → JERBED 17:10 → J5S 18:13
PROVIDERS: ADMIT Internal Medicine; ATTEND Internal Medicine
DX: J44.1 Chronic obstructive pulmonary disease with (acute) exacerbation (principal); J96.21 Acute and chronic respiratory failure with hypoxia; J96.22 Acute and chronic respiratory failure with hypercapnia; I69.354 Hemiplegia and hemiparesis following cerebral infarction affecting left non-dominant side; J96.11 Chronic respiratory failure with hypoxia; B37.0 Candidal stomatitis; J98.11 Atelectasis; I10 Essential (primary) hypertension; E78.5 Hyperlipidemia, unspecified; E11.9 Type 2 diabetes mellitus without complications; I25.10 Atherosclerotic heart disease of native coronary artery without angina pectoris; Z99.81 Dependence on supplemental oxygen; D64.9 Anemia, unspecified; Z87.891 Personal history of nicotine dependence; R68.89 Other general symptoms and signs; F03.90 Unspecified dementia, unspecified severity, without behavioral disturbance, psychotic disturbance, mood disturbance, and anxiety; E66.9 Obesity, unspecified; Z68.27 Body mass index [BMI] 27.0-27.9, adult
CPT/HCPCS: 36415; 71045-TC-FY; 80053; 80061; 82803; 82962; 83036; 83721; 83735; 83880; 84484; 85025; 85027; 87804; 93005; 93010; 94640; 99284-25; J1644

== ENCOUNTER 2019-11-19 15:17 | Emergency (ER) | payer MEDICARE, OTHER ==
[2019-11-19 15:33] VITALS: TEMP 98.7; BMI 27.9
--- NOTE | 2019-11-19 15:36 | PDOC ---
History of Present Illness - General Chief Complaint: Shortness of Breath Stated Complaint: DIFFICULTY BREATHING Time Seen by Provider: 11/19/19 15:35 - History of Present Illness Initial Comments: HPI: 11/19/19 15:35 74 yo F PMH CVA (with residual left side weakness), HLD, diabetes, COPD (home O2 4L), asthma, anemia, 1ppd smoker until 2 years ago, presenting with shortness of breath. Slovenian speaking only, and deferred all history to her daughter. Daughter states over the past two days, her mother has been experiencing worse bryce shortness of breath, without any associated CP, N/V, or fevers/chills. Has not responded to her COPD medications or Dayquil. Patient took previously prescribed antibiotics from her PCP (they do not know which one), which has also been unhelpful. Denies any other complaints. ROS: GENERAL/CONSTITUTIONAL: denies fever, chills, diaphoresis, generalized weakness HEAD, EYES, EARS, NOSE AND THROAT: denies rhinorrhea, nasal congestion NEUROLOGIC: denies headache, focal weakness, dizziness CARDIOVASCULAR: denies chest pain, syncope, palpitations, irregular heart rate, lightheadedness RESPIRATORY: endorses shortness of breath, dyspnea on exertion, mild cough GASTROINTESTINAL: denies abdominal pain, abdominal distension, nausea, vomiting, diarrhea, constipation GENITOURINARY: denies dysuria, frequency, urgency MUSCULOSKELETAL: denies myalgia, arthralgia, joint swelling, back pain, neck pain SKIN: denies rash, itching PE: Gen: well-developed, well-nourished, NAD, on 4L O2 Neuro: AAOX4, CN II-XII intact HEENT: atraumatic, normocephalic Neck: trachea midline, supple CV: regular rate, regular rhythm, no murmurs, rubs, or gallops Pulm: diffuse expiratory rhonchi Abd: soft, non-distended, non-tender MSK: full ROM, intact pulses Extr: no edema, no deformities Skin: warm, dry MDM: Concern for potential COPD exacerbation vs ACS. - CBC, CMP - EKG, trop - CXR - Duoneb X3 - reassess 11/19/19 15:40 EKG normal sinuss at 79 bpm, IA 166, QRS 100, QTc 467, left axis deviation, LVH, RSR' in V3. RSR' pattern in V3 is more distinct than was present on prior EKG. 11/19/19 17:09 CXR: very sclerotic unfolded aorta, prominent kristen, normal heart and well expanded lung skaggs with some minimal atelectasis or scarring which is less evident than on 01/01/2019. The angles are sharp. The soft tissues are intact. T here are degenerative changes with wedging. There are abdominal clips. Correlation recommended. 11/19/19 17:58 Patient reassessed, feels like she feels completely back to normal. CMP with Cr of 1.3 and BUN of 24.5, otherwise unremarkable. Will get repeat EKG. 11/19/19 18:27 Repeat EKG without RSR' pattern in V3. Normal sinus at 84 bpm, IA 152, QRS 106, QTc 444, LVH. Patient feeling well. Will plan to dc with 5 day course of 40mg prednisone, close outpatient management. Past History - Medical History Allergies/Adverse Reactions: Allergies Allergy/AdvReac Type Severity Reaction Status Date / Time No Known Allergies Allergy Verified 11/19/19 15:25 Home Medications: Ambulatory Orders Albuterol 2.5/Ipratropium 0.5 [Duoneb -] 1 amp NEB RQ4H amp 05/11/18 Amlodipine Besylate [Norvasc -] 10 mg PO DAILY tablet 05/11/18 Atorvastatin Ca [Lipitor] 20 mg PO HS tablet 05/11/18 Budesonide/Formeterol Fumarate [SYMBICORT 80/4.5mcg -] 2 puff IH BID inhaler 05/11/18 Guaifenesin [Robitussin -] 10 ml PO Q4H PRN cup 05/11/18 Nebivolol [Bystolic -] 10 mg PO DAILY tab 05/11/18 Nebulizer and Compressor [Comp-Air Nebulizer System] 1 each ASDIR #1 each 05/11/18 Nicotine Patch [Nicoderm Patch -] 14 mg TD DAILY #30 patch 05/11/18 Valsartan [Diovan] 320 mg PO DAILY tablet 05/11/18 Mag Hydrox/Alh/Smc/Dpha/Lido [Magic Mouthwash *Sjr Formula* -] 5 ml MM Q6HPO #1 bottle 08/07/18 Metformin HCl [Glucophage] 500 mg PO BID #60 tablet 08/07/18 Azithromycin [Zithromax Tri-Jack (3 DAYS) -] 500 mg PO DAILY #5 tablet 01/08/19 Hydrochlorothiazide [Hctz -] 25 mg PO DAILY tablet 01/08/19 Pantoprazole Sodium [Protonix -] 40 mg PO DAILY #30 tablet.ec 01/08/19 hydrALAZINE HCL [Apresoline -] 25 mg PO TID #60 tablet 01/08/19 predniSONE [Deltasone -] See Taper PO DAILY #30 tablet 01/08/19 predniSONE [Deltasone -] 40 mg PO DAILY #5 tablet 11/19/19 Anemia: Yes Asthma: Yes Cancer: No 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) COPD: Yes CHF: No Dementia: No Diabetes: Yes GI Disorders: No Disorders: No HTN: Yes Hypercholesterolemia: Yes Liver Disease: No Seizures: No Thyroid Disease: No - Surgical History Abdominal Surgery: No Appendectomy: No Cardiac Surgery: No Cholecystectomy: No Lung Surgery: No Neurologic Surgery: No Orthopedic Surgery: No - Immunization History Immunization Up to Date: Yes - Psycho-Social/Smoking History Smoking History: Former smoker Have you smoked in the past 12 months: No Number of Cigarettes Smoked Daily: 2,018 Information on smoking cessation initiated: No 'Breaking Loose' booklet given: 08/04/18 - Substance Abuse Hx (Audit-C & DAST Scrn) How often the patient has a drink containing alcohol: Never Score: In Men: 4 or > Positive; In Women: 3 or > Positive: 0 Screen Result (Pos requires Nsg. Audit-10AR): Negative In the last yr the pt used illegal drug/Rx for NonMed reason: No Score: Yes response is considered Positive: 0 Screen Result (Positive result requires Nsg. DAST-10): Negative *Physical Exam - Vital Signs Last Vital Signs Temp Pulse Resp BP Pulse Ox 98.7 F 81 24 H 142/62 86 L 11/19/19 15:25 11/19/19 15:25 11/19/19 15:25 11/19/19 15:25 11/19/19 15:25 ED Treatment Course - LABORATORY CBC & Chemistry Diagram: 11/19/19 16:45 11/19/19 16:45 Discharge - Discharge Information Problems reviewed: Yes Clinical Impression/Diagnosis: COPD exacerbation Condition: Improved Disposition: HOME - Additional Discharge Information Prescriptions: predniSONE [Deltasone -] 40 mg PO DAILY #5 tablet - Follow up/Referral Referrals: Hossein Ogden MD [Primary Care Provider] - - Patient Discharge Instructions Patient Printed Discharge Instructions: DI for Shortness of Breath, DI for Chronic Obstructive Pulmonary Disease Additional Instructions: You were seen for shortness of breath and concern for COPD exacerbation. Your symptoms improved with medication. Please take your prednisone once a day for 5 days. Follow up with your primary care doctor within one week. Return to the ER if you develop new or worsening symptoms. - Post Discharge Activity
--- OUTSIDE RECORDS SUMMARY | 2019-11-19 15:54 | XMS ---
:1945 Author Organization [facility] Support Name Relationship Address Phone RE, RETIRED Unavailable Unavailable Unavailable RE Unavailable Unavailable Unavailable UE Unavailable Unavailable Unavailable INDRA LEÓN DAUGHTER [address] [place] [address] Re-disclosure Warning The records that you are about to access may contain information from federally- assisted alcohol or drug abuse programs. If such information is present, then the following federally mandated warning applies: This information has been disclosed to you from records protected by federal confidentiality rules (42 CFR part 2). The federal rules prohibit you from making any further disclosure of this information unless further disclosure is expressly permitted by the written consent of the person to whom it pertains or as otherwise permitted by 42 CFR part 2. A general authorization for the release of medical or other information is NOT sufficient for this purpose. The Federal rules restrict any use of the information to criminally investigate or prosecute any alcohol or drug abuse patient.The records that you are about to access may contain highly sensitive health information, the redisclosure of which is protected by Article 27-F of the [facility] Public Health law. If you continue you may haveaccess to information: Regarding HIV / AIDS; Provided by facilities licensed or operated by the [facility] Office of Mental Health; or Provided by the [facility] Office for People With Developmental Disabilities. If such information is present, then the following [facility] mandated warning applies: This information has been disclosed to you from confidential records which are protected by state law. State law prohibits you from making any further disclosure of this information without the specific written consent of the person to whom it pertains, or as otherwise permitted by law. Any unauthorized further disclosure in violation of state law may result in a fine or [place] health care facility sentence or both. A general authorization for the release of medical or other information is NOT sufficient authorization for further disclosure. Insurance Providers Payer name Policy type Policy ID Covered Covered republican's Policy P mahsa / Coverage republican ID relationship to [place] Inf ormation type [place] MEDICAID [id number] SP [id number] [facility] [id number] SP [id number] 000 MEDICARE ADV PLAN [employer] [id number] SP [id number] [employer]ARE [id number] SP [id number]
[2019-11-19] MEDS ORDERED: ALBUTEROL SO4 2.5/IPRATROPIUM 0.5 INH SOL 3 ML VIAL.NEB. NEB ONE ×2 (16:07→16:57)
[2019-11-19 17:21] LABS: BASO % 0.7 % (0-2.0); EOS % 1.5 % (0-4.5); HEMATOCRIT 40.5 % (32.4-45.2); HEMOGLOBIN 13.2 GM/dL (10.7-15.3); LYMPH % 17.7 % (8-40); MCH 31.7 pg (25.7-33.7); MCHC 32.5 g/dl (32.0-36.0); MEAN CELL VOLUME 97.6 fl (80-96); MEAN PLT VOLUME 8.3 fl (7.5-11.1); NEUT % 68.1 % (42.8-82.8); PLATELET COUNT 238 K/MM3 (134-434); RBC 4.15 M/mm3 (3.60-5.2); RDW 15.1 % (11.6-15.6); WHITE BLOOD COUNT 7.7 K/mm3 (4.0-10.0)
--- NOTE | 2019-11-19 17:30 | PDOC ---
Documentation entered by Mike Francois SCRIBE, acting as scribe for Alexander Zavala MD. Alexander Zavala MD: This documentation has been prepared by the Priscila rutherford Xhesika, SCRIBE, under my direction and personally reviewed by me in its entirety. I confirm that the documentation accurately reflects all work, treatment, procedures, and medical decision making performed by me. Attending Attestation - Resident Resident Name: VigilGuerrerorasheed - ED Attending Attestation I have performed the following: I have examined & evaluated the patient, The case was reviewed & discussed with the resident, I agree w/resident's findings & plan, Exceptions are as noted - HPI HPI: 11/19/19 16:02 The patient is a 74y/o F with a PMH CVA (with residual left side weakness), HLD, diabetes, COPD (home oxygen dependent-4 liters continuously at night, baseline o2 sat in the high 90s on 4L in the 80s at rest on RA), asthma, anemia, presenting with increasing shortness of breath x2days. Pt endorses cough productive of whitish sputum the past 2 days. Daughter at bedside states the pt has been using her home treatment and abx (azithromycin, took 1st does today), with no improvement of symptoms. Pt denies any chest pain,headache and dizziness. Denies fever, chills, cough, nausea, vomiting, diarrhea and constipation. Denies dysuria, frequency, urgency and hematuria. Allergies: NKDA PCP:Hossein Damon - Physicial Exam PE: 11/19/19 17:26 GENERAL: The patient is awake, alert, Nontoxic - in no acute distress. HEAD: Normocephalic, atraumatic. EYES: extraocular movements intact, sclera anicteric, conjunctiva clear. ENT: Normal voice, Moist mucous membranes. NECK: Normal range of motion, supple LUNGS: scattered wheezing bilaterally, no acute respiratory distress HEART: Regular rate and rhythm, normal S1 and S2 without murmur, rub or gallop. ABDOMEN: Soft, nontender, No guarding, no rebound. No CVA tenderness EXTREMITIES: Normal range of motion, no edema. - Medical Decision Making 11/19/19 17:27 74y F hx of copd, cva presents with 2 days of worsening cough productiv eof whitish sputum and mild sob on exam pt has symmetric wheezing b/l no actue distress, speaking complete setnences suspect copd exacerbation will give duonebs will reassess/ambulate 11/19/19 17:59 cxr clear without signs of acute infection or ptx pt feeling imrproved Heart Score/ECG Review - ECG Impressions Comment:: 11/19/19 17:29 Twelve-lead EKG was performed and reviewed by me. There is normal sinus rhythm with a normal rate. rate of 79 left axis deviqation LVH abnormal r wave progression Discharge - Discharge Information Problems reviewed: Yes Clinical Impression/Diagnosis: COPD exacerbation Condition: Improved Disposition: HOME - Additional Discharge Information Prescriptions: predniSONE [Deltasone -] 40 mg PO DAILY #5 tablet - Follow up/Referral Referrals: Hossein Ogden MD [Primary Care Provider] - - Patient Discharge Instructions Patient Printed Discharge Instructions: DI for Chronic Obstructive Pulmonary Disease, DI for Shortness of Breath Additional Instructions: You were seen for shortness of breath and concern for COPD exacerbation. Your symptoms improved with medication. Please take your prednisone once a day for 5 days. Follow up with your primary care doctor within one week. Return to the ER if you develop new or worsening symptoms. - Post Discharge Activity
[2019-11-19 17:57] LABS: ALBUMIN 3.4 g/dl (3.4-5.0); ALK PHOS 79 U/L (45-117); ANION GAP 3 MMOL/L (8-16); BILIRUBIN,TOTAL 0.4 mg/dL (0.2-1); BLOOD UREA NITROGEN 24.5 mg/dL (7-18); CALCIUM 8.4 mg/dL (8.5-10.1); CHLORIDE 99 mmol/L (98-107); CO2 38 mmol/L (21-32); CREATININE 1.3 mg/dL (0.55-1.3); GLUCOSE,RANDOM 147 mg/dL (74-106); POTASSIUM 4.2 mmol/L (3.5-5.1); SGOT/AST 12 U/L (15-37); SGPT/ALT 17 U/L (13-61); SODIUM 140 mmol/L (136-145); TOT PROT 6.6 g/dl (6.4-8.2)
[2019-11-19 19:07] VITALS: BP 157/60; PULSE 79
--- NOTE | 2019-11-21 07:04 | EKG ---
Test Reason : Blood Pressure : / mmHG Vent. Rate : 084 BPM Atrial Rate : 084 BPM P-R Int : 152 ms QRS Dur : 106 ms QT Int : 376 ms P-R-T Axes : 066 -15 066 degrees QTc Int : 444 ms NORMAL SINUS RHYTHM VOLTAGE CRITERIA FOR LEFT VENTRICULAR HYPERTROPHY POOR R WAVE PROGRESSION ABNORMAL ECG WHEN COMPARED WITH ECG OF 01-JAN-2019 13:15, QRS DURATION HAS INCREASED BASELINE ARTIFACT CLINICAL CORRELATION IS RECOMMENDED Confirmed by GREGORIO IBRAHIM MD ([id number]) on 11/21/2019 7:04:39 AM Referred By: Confirmed By:GREGORIO IBRAHIM MD
--- NOTE | 2019-11-21 07:07 | EKG ---
Test Reason : Blood Pressure : / mmHG Vent. Rate : 079 BPM Atrial Rate : 079 BPM P-R Int : 166 ms QRS Dur : 100 ms QT Int : 408 ms P-R-T Axes : 074 -30 054 degrees QTc Int : 467 ms NORMAL SINUS RHYTHM POSSIBLE LEFT ATRIAL ENLARGEMENT LEFT AXIS DEVIATION LEFT VENTRICULAR HYPERTROPHY ABNORMAL ECG WHEN COMPARED WITH ECG OF 01-JAN-2019 13:15, QRS AXIS SHIFTED LEFT CLINICAL CORRELATION IS RECOMMENDED BASELINE ARTIFACT Confirmed by GREGORIO IBRAHIM MD ([id number]) on 11/21/2019 7:06:42 AM Referred By: Confirmed By:GREGORIO IBRAHIM MD
== END 2019-11-19 19:21 | disposition home or self-care (01) ==
LOC: JER 15:17
PROC: 3E0F7GC Introduction of Other Therapeutic Substance into Respiratory Tract, Via Natural or Artificial Opening (ICD-10-PCS; principal; 2019-11-19)
DX: J44.1 Chronic obstructive pulmonary disease with (acute) exacerbation (principal)
CPT/HCPCS: 36415; 71046-TC-FY; 80053; 82550; 84484; 85025; 93005; 93010; 99285-25

== ENCOUNTER 2021-02-03 18:45 | Inpatient (IN) | payer MEDICARE, OTHER ==
[2021-02-03 18:56] VITALS: BMI 27.4
[2021-02-03] MEDS ORDERED: SODIUM CHLORIDE 0.9% 500 ML INFUS.BAG IV ONE (19:31)
[2021-02-03 20:20] LABS: VENOUS BASE EXCESS 2.1 mmol/L (-2-2); VENOUS O2 SATURATION 81.2 % (70-80)
[2021-02-03 20:23] LABS: VENOUS PCO2 87.8 mmHg (38-52); VENOUS PH 7.196 (7.310-7.410)
[2021-02-03 20:34] LABS: BASO % 1.6 % (0-2.0); EOS % 0.4 % (0-4.5); HEMOGLOBIN 13.4 GM/dL (10.7-15.3); LYMPH % 9.3 % (8-40); MCH 30.6 pg (25.7-33.7); MCHC 31.9 g/dl (32.0-36.0); MEAN PLT VOLUME 7.9 fl (7.5-11.1); MONO % 6.3 % (3.8-10.2); NEUT % 82.4 % (42.8-82.8); PLATELET COUNT 265 10^3/uL (134-434); RBC 4.38 M/mm3 (3.60-5.2); RDW 15.3 % (11.6-15.6); WHITE BLOOD COUNT 6.3 K/mm3 (4.0-10.0)
[2021-02-03 20:39] LABS: CHLORIDE 103 mmol/L (98-107); SODIUM 139 mmol/L (136-145)
[2021-02-03 20:41] LABS: CALCIUM 7.8 mg/dL (8.5-10.1)
[2021-02-03 20:42] LABS: ANION GAP 5 MMOL/L (8-16); BLOOD UREA NITROGEN 29.9 mg/dL (7-18); CO2 30 mmol/L (21-32); GLUCOSE,RANDOM 124 mg/dL (74-106)
[2021-02-03 20:45] LABS: CREATININE 1.5 mg/dL (0.55-1.3); SGPT/ALT 794 U/L (13-61)
[2021-02-03 20:47] LABS: BILIRUBIN,TOTAL 0.7 mg/dL (0.2-1); TOT PROT 6.4 g/dl (6.4-8.2)
[2021-02-03 20:48] LABS: ALK PHOS 170 U/L (45-117)
[2021-02-03 20:58] LABS: SGOT/AST 1109 U/L (15-37)
[2021-02-03] MEDS ORDERED: ALBUTEROL SO4 2.5/IPRATROPIUM 0.5 INH SOL 3 ML VIAL.NEB. NEB ONE ×2 (21:22→22:29)
[2021-02-03] MEDS ORDERED: methylPREDNISolone NA SUCC 125 MG/2 ML VIAL IVPB ONE (21:23)
[2021-02-03] MEDS ORDERED: methylPREDNISolone NA SUCC 125 MG/2 ML VIAL ONE (22:01)
[2021-02-03 23:46] LABS: ARTERIAL BLD GAS O2 SATURATION 97.9 % (95-98); ARTERIAL BLOOD GAS BASE EXCESS 0 mmol/L (-2-2); ARTERIAL BLOOD GAS PO2 122.8 mmHg (80-100); ARTERIAL BLOOD GAS pH 7.275 (7.350-7.450)
[2021-02-03 23:48] LABS: ALLENS TEST POSITIVE
[2021-02-03 23:49] LABS: VENT RATE 16
[2021-02-04 02:49] LABS: EPI CELLS 21 /uL (0-25.1); HYALINE CASTS 3 /uL (0-3.1); URINE APPEARANCE CLEAR; URINE BACTERIA 426 /uL (0-1359); URINE BILIRUBIN 1+ (NEGATIVE); URINE COLOR DK YELLOW; URINE GLUCOSE (UA) NEGATIVE (NEGATIVE); URINE KETONE TRACE (NEGATIVE); URINE LEUK ESTERASE TRACE (NEGATIVE); URINE NITRITE NEGATIVE (NEGATIVE); URINE PROTEIN 1+ (NEGATIVE); URINE RBC 17 /uL (0-23.9); URINE WBC 19 /uL (0-25.8)
[2021-02-04] MEDS ORDERED: ALBUTEROL SO4 HFA INHALER IH PRN (05:54)
[2021-02-04] MEDS ORDERED: hydrALAZINE HCL 25 MG TABLET (FP) ONE ×3 (05:55→21:47)
[2021-02-04] MEDS: hydrALAZINE HCL 25 MG TABLET (FP) PO SCH ×3 (06:10→22:27)
[2021-02-04 08:13] LABS: HEMATOCRIT 42.1 % (32.4-45.2); HEMOGLOBIN 13.4 GM/dL (10.7-15.3); MCH 30.6 pg (25.7-33.7); MCHC 31.9 g/dl (32.0-36.0); MEAN PLT VOLUME 7.9 fl (7.5-11.1); PLATELET COUNT 259 10^3/uL (134-434); RBC 4.39 M/mm3 (3.60-5.2); RDW 15.3 % (11.6-15.6); WHITE BLOOD COUNT 4.1 K/mm3 (4.0-10.0)
[2021-02-04 08:35] LABS: ALBUMIN 3.1 g/dl (3.4-5.0)
[2021-02-04 08:37] LABS: CALCIUM 8.2 mg/dL (8.5-10.1)
[2021-02-04 08:38] LABS: CREATININE 1.6 mg/dL (0.55-1.3); MAGNESIUM 2.5 mg/dL (1.8-2.4)
[2021-02-04 08:40] LABS: TOT PROT 6.8 g/dl (6.4-8.2)
[2021-02-04] MEDS ORDERED: DEXAMETHASONE SOD PHOSPHATE 10 MG/1 ML VIAL ONE (09:24)
[2021-02-04] MEDS ORDERED: VALSARTAN 80 MG TABLET ONE (09:25)
[2021-02-04] MEDS ORDERED: ENOXAPARIN NA (PORCINE) 30 MG/0.3 ML DISP.SYRIN SQ ONE (09:25)
[2021-02-04] MEDS ORDERED: amLODIPine BESYLATE 5 MG TABLET (FP) ONE (09:26)
[2021-02-04] MEDS ORDERED: PANTOPRAZOLE 40 MG TABLET ONE (09:27)
[2021-02-04] MEDS ORDERED: ZINC SULFATE 220 MG CAPSULE (FP) ONE (09:27)
[2021-02-04] MEDS ORDERED: ASCORBIC ACID 500 MG TABLET (FP) ONE (09:28)
[2021-02-04] MEDS ORDERED: CHOLECALCIFEROL (VIT D3) 1,000 UNIT (25 MCG) TABLET ONE (09:29)
[2021-02-04] MEDS: amLODIPine BESYLATE 10 MG TABLET (FP) PO SCH (10:00)
[2021-02-04] MEDS: VALSARTAN 160 MG TABLET PO SCH (10:00)
[2021-02-04] MEDS: ASCORBIC ACID 500 MG TABLET (FP) PO SCH (10:00)
[2021-02-04] MEDS: ZINC SULFATE 220 MG CAPSULE (FP) PO SCH (10:00)
[2021-02-04] MEDS: CHOLECALCIFEROL (VIT D3) 1,000 UNIT (25 MCG) TABLET PO SCH (10:00)
[2021-02-04] MEDS: DEXAMETHASONE SOD PHOSPHATE 4 MG/1 ML VIAL IVPUSH SCH (10:00)
[2021-02-04] MEDS: ENOXAPARIN NA (PORCINE) 30 MG/0.3 ML DISP.SYRIN SQ SCH (10:00)
[2021-02-04] MEDS: PANTOPRAZOLE 40 MG TABLET PO SCH (10:00)
[2021-02-04 10:04] LABS: ANISOCYTOSIS 0; MACROCYTOSIS 0; OVALOCYTE 1+; PLATELET ESTIMATE NORMAL; ROULEAU 1+
[2021-02-04] MEDS: NEBIVOLOL 10 MG TABLET (FP) PO SCH (10:20)
[2021-02-04] MEDS: BUDESONIDE/FORMETEROL FUMARATE 80/4.5 mcg INHALER IH SCH ×2 (10:25→22:27)
[2021-02-04] MEDS: PIPERACILLIN/TAZOB 3.375 GM 3.375 GM in DEXTROSE 5%-WATER - 50 ML IVPB SCH ×2 (12:20→18:02)
[2021-02-04] MEDS ORDERED: PIPERACILLIN/TAZOB 3.375 GM 3.375 GM/50 ML BAG IVPB ONE ×2 (12:42→17:03)
[2021-02-04] MEDS: ASPIRIN 81 MG CHEWABLE TABLETS PO SCH (13:00)
[2021-02-04] MEDS ORDERED: ASPIRIN 81 MG CHEWABLE TABLETS ONE (14:26)
[2021-02-04] MEDS: INSULIN SLIDING SCALE (NOVOLOG) 1 VIAL SQ SCH (18:28)
[2021-02-04] MEDS ORDERED: traMADol HCL 50 MG TABLET PO ONE (22:22)
[2021-02-04] MEDS ORDERED: traMADol HCL 50 MG TABLET ONE (22:30)
[2021-02-05] MEDS ORDERED: PIPERACILLIN/TAZOB 3.375 GM 3.375 GM/50 ML BAG IVPB ONE ×3 (02:31→17:05)
[2021-02-05] MEDS: PIPERACILLIN/TAZOB 3.375 GM 3.375 GM in DEXTROSE 5%-WATER - 50 ML IVPB SCH ×3 (03:22→17:30)
[2021-02-05] MEDS ORDERED: hydrALAZINE HCL 25 MG TABLET (FP) ONE ×4 (06:43→21:11)
[2021-02-05] MEDS: INSULIN SLIDING SCALE (NOVOLOG) 1 VIAL SQ SCH ×2 (06:58→17:29)
[2021-02-05] MEDS: hydrALAZINE HCL 25 MG TABLET (FP) PO SCH ×3 (06:58→21:22)
[2021-02-05 08:44] LABS: BASO % 0.2 % (0-2.0); HEMATOCRIT 42.8 % (32.4-45.2); HEMOGLOBIN 13.9 GM/dL (10.7-15.3); LYMPH % 18.5 % (8-40); MCH 30.4 pg (25.7-33.7); MCHC 32.4 g/dl (32.0-36.0); MEAN CELL VOLUME 93.8 fl (80-96); MEAN PLT VOLUME 7.8 fl (7.5-11.1); MONO % 17.2 % (3.8-10.2); NEUT % 64.1 % (42.8-82.8); PLATELET COUNT 290 10^3/uL (134-434); RBC 4.56 M/mm3 (3.60-5.2); RDW 15.2 % (11.6-15.6); WHITE BLOOD COUNT 5.9 K/mm3 (4.0-10.0)
[2021-02-05 09:01] LABS: CALCIUM 8.7 mg/dL (8.5-10.1)
[2021-02-05 09:02] LABS: ALBUMIN 3.3 g/dl (3.4-5.0); BLOOD UREA NITROGEN 35.3 mg/dL (7-18)
[2021-02-05 09:05] LABS: CREATININE 1.6 mg/dL (0.55-1.3)
[2021-02-05 09:06] LABS: BILIRUBIN,TOTAL 0.6 mg/dL (0.2-1)
[2021-02-05 10:04] LABS: ERYTHROCYTE SEDIMENTATION RATE 11 mm/hr (0-30)
[2021-02-05] MEDS ORDERED: PT OWN MED DRAWER 7, Y5N ONE (10:32)
[2021-02-05] MEDS ORDERED: ASPIRIN 81 MG CHEWABLE TABLETS ONE (10:40)
[2021-02-05] MEDS ORDERED: ZINC SULFATE 220 MG CAPSULE (FP) ONE (10:40)
[2021-02-05] MEDS ORDERED: DEXAMETHASONE SOD PHOSPHATE 10 MG/1 ML VIAL ONE (10:40)
[2021-02-05] MEDS ORDERED: ENOXAPARIN NA (PORCINE) 30 MG/0.3 ML DISP.SYRIN SQ ONE (10:40)
[2021-02-05] MEDS: ASPIRIN 81 MG CHEWABLE TABLETS PO SCH (11:06)
[2021-02-05] MEDS: NEBIVOLOL 10 MG TABLET (FP) PO SCH (11:06)
[2021-02-05] MEDS: VALSARTAN 160 MG TABLET PO SCH (11:06)
[2021-02-05] MEDS: ENOXAPARIN NA (PORCINE) 30 MG/0.3 ML DISP.SYRIN SQ SCH (11:06)
[2021-02-05] MEDS: DEXAMETHASONE SOD PHOSPHATE 4 MG/1 ML VIAL IVPUSH SCH (11:06)
[2021-02-05] MEDS: CHOLECALCIFEROL (VIT D3) 1,000 UNIT (25 MCG) TABLET PO SCH (11:07)
[2021-02-05] MEDS: ASCORBIC ACID 500 MG TABLET (FP) PO SCH (11:07)
[2021-02-05] MEDS: ZINC SULFATE 220 MG CAPSULE (FP) PO SCH (11:07)
[2021-02-05] MEDS: PANTOPRAZOLE 40 MG TABLET PO SCH (11:07)
[2021-02-05] MEDS: amLODIPine BESYLATE 10 MG TABLET (FP) PO SCH (11:07)
[2021-02-05] MEDS: BUDESONIDE/FORMETEROL FUMARATE 80/4.5 mcg INHALER IH SCH ×2 (11:09→21:22)
[2021-02-06] MEDS: NEBIVOLOL 10 MG TABLET (FP) PO SCH ×3 (00:06→21:46)
[2021-02-06] MEDS ORDERED: PIPERACILLIN/TAZOBACTAM 3.375 GM VIAL IVPB ONE ×3 (01:21→17:23)
[2021-02-06] MEDS ORDERED: DEXTROSE 5%-WATER - 50 ML IVPB ONE ×3 (01:21→17:23)
[2021-02-06] MEDS: PIPERACILLIN/TAZOB 3.375 GM 3.375 GM in DEXTROSE 5%-WATER - 50 ML IVPB SCH ×3 (02:44→18:12)
[2021-02-06] MEDS: hydrALAZINE HCL 25 MG TABLET (FP) PO SCH ×3 (06:03→21:46)
[2021-02-06] MEDS: INSULIN SLIDING SCALE (NOVOLOG) 1 VIAL SQ SCH ×2 (06:56→18:12)
[2021-02-06 07:28] LABS: BASO % 0.1 % (0-2.0); HEMATOCRIT 45.3 % (32.4-45.2); HEMOGLOBIN 14.6 GM/dL (10.7-15.3); LYMPH % 19.7 % (8-40); MCH 30.4 pg (25.7-33.7); MCHC 32.2 g/dl (32.0-36.0); MEAN CELL VOLUME 94.4 fl (80-96); NEUT % 64.2 % (42.8-82.8); PLATELET COUNT 285 10^3/uL (134-434); RDW 15.3 % (11.6-15.6); WHITE BLOOD COUNT 6.6 K/mm3 (4.0-10.0)
[2021-02-06 07:33] LABS: ALBUMIN 3.8 g/dl (3.4-5.0); CALCIUM 9.2 mg/dL (8.5-10.1); CREATININE 1.4 mg/dL (0.55-1.3)
[2021-02-06 07:34] LABS: BLOOD UREA NITROGEN 31.6 mg/dL (7-18)
[2021-02-06 07:38] LABS: BILIRUBIN,TOTAL 0.7 mg/dL (0.2-1); TOT PROT 7.2 g/dl (6.4-8.2)
[2021-02-06] MEDS: PANTOPRAZOLE 40 MG TABLET PO SCH (10:18)
[2021-02-06] MEDS: DEXAMETHASONE SOD PHOSPHATE 4 MG/1 ML VIAL IVPUSH SCH (10:18)
[2021-02-06] MEDS: ZINC SULFATE 220 MG CAPSULE (FP) PO SCH (10:18)
[2021-02-06] MEDS: ASCORBIC ACID 500 MG TABLET (FP) PO SCH (10:18)
[2021-02-06] MEDS: ENOXAPARIN NA (PORCINE) 30 MG/0.3 ML DISP.SYRIN SQ SCH (10:18)
[2021-02-06] MEDS: VALSARTAN 160 MG TABLET PO SCH (10:19)
[2021-02-06] MEDS: ASPIRIN 81 MG CHEWABLE TABLETS PO SCH (10:19)
[2021-02-06] MEDS: amLODIPine BESYLATE 10 MG TABLET (FP) PO SCH (10:20)
[2021-02-06] MEDS: CHOLECALCIFEROL (VIT D3) 1,000 UNIT (25 MCG) TABLET PO SCH (10:20)
[2021-02-06] MEDS: BUDESONIDE/FORMETEROL FUMARATE 80/4.5 mcg INHALER IH SCH ×2 (10:21→21:46)
[2021-02-06 12:07] LABS: IMMUNOGLOBULIN D 2.23 mg/dL (<14.11)
[2021-02-06] MEDS: QUEtiapine FUMARATE 25 MG TABLET PO PRN (13:43)
[2021-02-06 23:06] LABS: HCV ALPHA 2 MACRO CHART 153 mg/dL (110-276)
[2021-02-07] MEDS ORDERED: DEXTROSE 5%-WATER - 50 ML IVPB ONE ×2 (01:15→10:23)
[2021-02-07] MEDS ORDERED: PIPERACILLIN/TAZOBACTAM 3.375 GM VIAL IVPB ONE ×2 (01:15→10:23)
[2021-02-07] MEDS: PIPERACILLIN/TAZOB 3.375 GM 3.375 GM in DEXTROSE 5%-WATER - 50 ML IVPB SCH ×3 (01:34→13:09)
[2021-02-07 06:02] VITALS: TEMP 98.8
[2021-02-07] MEDS: INSULIN SLIDING SCALE (NOVOLOG) 1 VIAL SQ SCH (06:04)
[2021-02-07] MEDS: hydrALAZINE HCL 25 MG TABLET (FP) PO SCH ×2 (06:04→14:29)
[2021-02-07 11:40] VITALS: BP 185/74
[2021-02-07] MEDS: NEBIVOLOL 10 MG TABLET (FP) PO SCH ×2 (11:40→13:07)
[2021-02-07] MEDS: VALSARTAN 160 MG TABLET PO SCH ×2 (11:40→13:08)
[2021-02-07] MEDS: amLODIPine BESYLATE 10 MG TABLET (FP) PO SCH ×2 (11:41→13:08)
[2021-02-07] MEDS: ZINC SULFATE 220 MG CAPSULE (FP) PO SCH ×2 (11:41→13:08)
[2021-02-07] MEDS: PANTOPRAZOLE 40 MG TABLET PO SCH ×2 (11:41→13:08)
[2021-02-07] MEDS: QUEtiapine FUMARATE 25 MG TABLET PO PRN (11:41)
[2021-02-07] MEDS: ASCORBIC ACID 500 MG TABLET (FP) PO SCH ×2 (11:41→13:09)
[2021-02-07] MEDS: ASPIRIN 81 MG CHEWABLE TABLETS PO SCH ×2 (11:41→13:05)
[2021-02-07] MEDS: DEXAMETHASONE SOD PHOSPHATE 4 MG/1 ML VIAL IVPUSH SCH ×2 (11:42→13:07)
[2021-02-07] MEDS: CHOLECALCIFEROL (VIT D3) 1,000 UNIT (25 MCG) TABLET PO SCH ×2 (11:42→13:09)
[2021-02-07] MEDS: ENOXAPARIN NA (PORCINE) 30 MG/0.3 ML DISP.SYRIN SQ SCH ×2 (11:42→13:08)
[2021-02-07] MEDS: BUDESONIDE/FORMETEROL FUMARATE 80/4.5 mcg INHALER IH SCH ×2 (11:43→13:09)
[2021-02-07 15:04] VITALS: PULSE 90
== END 2021-02-07 15:55 | disposition home or self-care (01) | DRG 177 ==
LOC: JER 18:45 → JERBED 20:33 → J4W 02-05 21:38
PROVIDERS: ADMIT Hospitalist; ATTEND Internal Medicine
DX: U07.1 COVID-19 (principal); J12.82 Pneumonia due to coronavirus disease 2019; J96.21 Acute and chronic respiratory failure with hypoxia; J96.22 Acute and chronic respiratory failure with hypercapnia; J44.1 Chronic obstructive pulmonary disease with (acute) exacerbation; N17.9 Acute kidney failure, unspecified; I50.30 Unspecified diastolic (congestive) heart failure; N39.0 Urinary tract infection, site not specified; I69.354 Hemiplegia and hemiparesis following cerebral infarction affecting left non-dominant side; I11.0 Hypertensive heart disease with heart failure; R74.8 Abnormal levels of other serum enzymes; E78.5 Hyperlipidemia, unspecified; E87.5 Hyperkalemia; R19.7 Diarrhea, unspecified; E66.9 Obesity, unspecified; Z68.27 Body mass index [BMI] 27.0-27.9, adult; Z99.81 Dependence on supplemental oxygen
CPT/HCPCS: 36415; 36600; 71045-TC-FY; 72193-TC; 74160-TC; 76705-TC; 80053; 81003; 82172; 82550; 82728; 82784; 82785; 82803; 82962; 82977; 83010; 83540; 83550; 83615; 83735; 83880; 83883; 84443; 84460; 84484; 85025; 85379; 85651; 86140; 86708; 87040; 87086; 87340; 87350; 87517; 87804; 87807; 93005; 93010; 94660; 99285-25; C9803; Q9967; U0003; U0005

== ENCOUNTER 2021-05-10 14:28 | Inpatient (IN) | payer MEDICARE, OTHER ==
[2021-05-10 15:27] VITALS: BMI 31.4
[2021-05-10 15:59] LABS: VENOUS BASE EXCESS 5.8 mmol/L (-2-2); VENOUS O2 SATURATION 66.3 % (70-80); VENOUS PCO2 68.2 mmHg (38-52); VENOUS PH 7.319 (7.310-7.410)
[2021-05-10 16:05] LABS: BASO % 0.2 % (0-2.0); EOS % 0.4 % (0-4.5); HEMATOCRIT 42.5 % (32.4-45.2); HEMOGLOBIN 13.2 GM/dL (10.7-15.3); LYMPH % 8.6 % (8-40); MCH 28.3 pg (25.7-33.7); MCHC 31.2 g/dl (32.0-36.0); MEAN CELL VOLUME 90.9 fl (80-96); MEAN PLT VOLUME 7.2 fl (7.5-11.1); MONO % 8.1 % (3.8-10.2); NEUT % 82.7 % (42.8-82.8); PLATELET COUNT 266 10^3/uL (134-434); RBC 4.67 M/mm3 (3.60-5.2); RDW 18.3 % (11.6-15.6); WHITE BLOOD COUNT 9.2 K/mm3 (4.0-10.0)
[2021-05-10] MEDS ORDERED: CEFTRIAXONE 1,000 MG in DEXTROSE 5%-WATER - 50 ML IVPB ONE (16:06)
[2021-05-10] MEDS ORDERED: AZITHROMYCIN IVPB 500 MG in DEXTROSE 5%-WATER - 250 ML IVPB ONE (16:06)
[2021-05-10 16:20] LABS: CALCIUM 8.7 mg/dL (8.5-10.1)
[2021-05-10 16:21] LABS: ALBUMIN 3.3 g/dl (3.4-5.0); BLOOD UREA NITROGEN 25.9 mg/dL (7-18)
[2021-05-10 16:24] LABS: CREATININE 1.1 mg/dL (0.55-1.3)
[2021-05-10 16:25] LABS: BILIRUBIN,TOTAL 0.8 mg/dL (0.2-1)
[2021-05-10 16:26] LABS: TOT PROT 6.3 g/dl (6.4-8.2)
[2021-05-10] MEDS ORDERED: AZITHROMYCIN IVPB 500 MG/250 ML BAG IVPB ONE (17:05)
[2021-05-10] MEDS ORDERED: CEFTRIAXONE 1 GM/50 ML BAG ONE (17:05)
[2021-05-11] MEDS ORDERED: ALBUTEROL SO4 0.083% IH SOL 2.5 MG/3 ML VIAL.NEB. NEB PRN (02:02)
[2021-05-11 03:02] LABS: INR 1.04 (0.83-1.09)
[2021-05-11 03:05] LABS: ACTIVATED PTT 28.4 SECONDS (25.2-36.5)
[2021-05-11] MEDS ORDERED: hydrALAZINE HCL 25 MG TABLET (FP) PO SCH (06:00)
[2021-05-11] MEDS: ALBUTEROL SO4 2.5/IPRATROPIUM 0.5 INH SOL 3 ML VIAL.NEB. NEB SCH ×4 (08:45→20:37)
[2021-05-11 09:27] LABS: BASO % 0.2 % (0-2.0); HEMATOCRIT 39.1 % (32.4-45.2); HEMOGLOBIN 12.5 GM/dL (10.7-15.3); LYMPH % 14.9 % (8-40); MCH 28.9 pg (25.7-33.7); MEAN CELL VOLUME 90.2 fl (80-96); MEAN PLT VOLUME 7.2 fl (7.5-11.1); MONO % 8.7 % (3.8-10.2); NEUT % 76.2 % (42.8-82.8); PLATELET COUNT 253 10^3/uL (134-434); RBC 4.33 M/mm3 (3.60-5.2); RDW 17.9 % (11.6-15.6); WHITE BLOOD COUNT 7.5 K/mm3 (4.0-10.0)
[2021-05-11 09:55] LABS: ALBUMIN 2.7 g/dl (3.4-5.0)
[2021-05-11 09:56] LABS: BILIRUBIN,TOTAL 0.5 mg/dL (0.2-1); PHOSPHOROUS 2.8 mg/dL (2.5-4.9); TOT PROT 5.9 g/dl (6.4-8.2)
[2021-05-11] MEDS: PANTOPRAZOLE 40 MG TABLET PO SCH (09:56)
[2021-05-11] MEDS: VALSARTAN 160 MG TABLET PO SCH (09:56)
[2021-05-11] MEDS: AZITHROMYCIN IVPB 500 MG/250 ML BAG IVPB SCH (09:56)
[2021-05-11 09:57] LABS: BLOOD UREA NITROGEN 21.7 mg/dL (7-18); CALCIUM 8.2 mg/dL (8.5-10.1)
[2021-05-11] MEDS: amLODIPine BESYLATE 10 MG TABLET (FP) PO SCH (09:57)
[2021-05-11] MEDS: ENOXAPARIN NA (PORCINE) 40 MG/0.4 ML DISP.SYRIN SQ SCH (09:57)
[2021-05-11 09:59] LABS: CREATININE 1.1 mg/dL (0.55-1.3)
[2021-05-11] MEDS ORDERED: CEFTRIAXONE 1 GM in DEXTROSE 5%-WATER - 50 ML IVPB SCH (10:00)
[2021-05-11] MEDS ORDERED: cefTRIAXone SODIUM 1 GM VIAL ONE (11:10)
[2021-05-11] MEDS ORDERED: DEXTROSE 5%-WATER - 50 ML IVPB ONE (11:10)
[2021-05-11] MEDS: NEBIVOLOL 10 MG TABLET (FP) PO SCH (11:39)
[2021-05-11] MEDS: BUDESONIDE/FORMETEROL FUMARATE 80/4.5 mcg INHALER IH SCH ×2 (11:39→21:03)
[2021-05-11] MEDS: methylPREDNISolone NA SUCC 40 MG/1 ML VIAL IVPUSH SCH ×2 (13:20→17:59)
[2021-05-11] MEDS: hydrALAZINE HCL 50 MG TABLET (FP) PO SCH ×3 (13:20→21:03)
[2021-05-11 15:07] LABS: SARS-CoV-2 NAA Not Detected (Not Detected)
[2021-05-11] MEDS: INSULIN SLIDING SCALE (NOVOLOG) 1 VIAL SQ SCH (17:59)
[2021-05-12] MEDS: methylPREDNISolone NA SUCC 40 MG/1 ML VIAL IVPUSH SCH ×3 (01:26→17:11)
[2021-05-12] MEDS: hydrALAZINE HCL 50 MG TABLET (FP) PO SCH ×3 (05:40→21:10)
[2021-05-12] MEDS: INSULIN SLIDING SCALE (NOVOLOG) 1 VIAL SQ SCH ×2 (06:10→17:10)
[2021-05-12] MEDS: ALBUTEROL SO4 2.5/IPRATROPIUM 0.5 INH SOL 3 ML VIAL.NEB. NEB SCH ×4 (08:15→20:20)
[2021-05-12] MEDS: FUROSEMIDE 40 MG/4 ML INJECTABLE VIAL IVPUSH SCH (09:39)
[2021-05-12] MEDS: ENOXAPARIN NA (PORCINE) 40 MG/0.4 ML DISP.SYRIN SQ SCH (09:39)
[2021-05-12] MEDS: PANTOPRAZOLE 40 MG TABLET PO SCH (09:39)
[2021-05-12] MEDS: NEBIVOLOL 10 MG TABLET (FP) PO SCH (09:39)
[2021-05-12] MEDS: amLODIPine BESYLATE 10 MG TABLET (FP) PO SCH (09:39)
[2021-05-12] MEDS: VALSARTAN 160 MG TABLET PO SCH (09:39)
[2021-05-12] MEDS: BUDESONIDE/FORMETEROL FUMARATE 80/4.5 mcg INHALER IH SCH ×2 (09:40→21:10)
[2021-05-12] MEDS: AZITHROMYCIN IVPB 500 MG/250 ML BAG IVPB SCH (09:40)
[2021-05-13] MEDS: methylPREDNISolone NA SUCC 40 MG/1 ML VIAL IVPUSH SCH ×3 (01:15→17:28)
[2021-05-13] MEDS: hydrALAZINE HCL 50 MG TABLET (FP) PO SCH ×3 (06:24→21:20)
[2021-05-13] MEDS: INSULIN SLIDING SCALE (NOVOLOG) 1 VIAL SQ SCH ×3 (06:25→16:51)
[2021-05-13] MEDS: ALBUTEROL SO4 2.5/IPRATROPIUM 0.5 INH SOL 3 ML VIAL.NEB. NEB SCH ×4 (08:09→20:35)
[2021-05-13] MEDS: amLODIPine BESYLATE 10 MG TABLET (FP) PO SCH (09:13)
[2021-05-13] MEDS: PANTOPRAZOLE 40 MG TABLET PO SCH (09:13)
[2021-05-13] MEDS: VALSARTAN 160 MG TABLET PO SCH (09:13)
[2021-05-13] MEDS: ENOXAPARIN NA (PORCINE) 40 MG/0.4 ML DISP.SYRIN SQ SCH (09:14)
[2021-05-13] MEDS: NEBIVOLOL 10 MG TABLET (FP) PO SCH (09:15)
[2021-05-13] MEDS: FUROSEMIDE 40 MG/4 ML INJECTABLE VIAL IVPUSH SCH (09:15)
[2021-05-13] MEDS: BUDESONIDE/FORMETEROL FUMARATE 80/4.5 mcg INHALER IH SCH ×2 (09:17→21:24)
[2021-05-13] MEDS: AZITHROMYCIN IVPB 500 MG/250 ML BAG IVPB SCH (09:17)
[2021-05-13] MEDS ORDERED: INSULIN (LEVEMIR) 100 UNITS/ML UNITS SQ SCH ×2 (10:00→10:15)
[2021-05-13] MEDS ORDERED: INSULIN (NOVOLOG) ASPART 100 UNITS/ML 10ML VIAL SQ ONE (16:36)
[2021-05-13] MEDS: INSULIN (LEVEMIR) 100 UNITS/ML UNITS SQ SCH (21:22)
[2021-05-14] MEDS: methylPREDNISolone NA SUCC 40 MG/1 ML VIAL IVPUSH SCH ×3 (01:12→22:01)
[2021-05-14] MEDS: hydrALAZINE HCL 50 MG TABLET (FP) PO SCH ×3 (05:27→22:01)
[2021-05-14] MEDS: INSULIN SLIDING SCALE (NOVOLOG) 1 VIAL SQ SCH ×3 (06:00→17:02)
[2021-05-14] MEDS: ALBUTEROL SO4 2.5/IPRATROPIUM 0.5 INH SOL 3 ML VIAL.NEB. NEB SCH ×4 (08:50→19:47)
[2021-05-14] MEDS: FUROSEMIDE 40 MG/4 ML INJECTABLE VIAL IVPUSH SCH (09:17)
[2021-05-14] MEDS: amLODIPine BESYLATE 10 MG TABLET (FP) PO SCH (09:17)
[2021-05-14] MEDS: NEBIVOLOL 10 MG TABLET (FP) PO SCH (09:17)
[2021-05-14] MEDS: ENOXAPARIN NA (PORCINE) 40 MG/0.4 ML DISP.SYRIN SQ SCH (09:17)
[2021-05-14] MEDS: VALSARTAN 160 MG TABLET PO SCH (09:17)
[2021-05-14] MEDS: PANTOPRAZOLE 40 MG TABLET PO SCH (09:17)
[2021-05-14] MEDS: BUDESONIDE/FORMETEROL FUMARATE 80/4.5 mcg INHALER IH SCH ×2 (09:18→22:01)
[2021-05-14] MEDS: INSULIN (LEVEMIR) 100 UNITS/ML UNITS SQ SCH ×2 (09:18→22:01)
[2021-05-14 09:42] LABS: BASO % 0.1 % (0-2.0); HEMATOCRIT 41.3 % (32.4-45.2); LYMPH % 5.1 % (8-40); MCH 28.6 pg (25.7-33.7); MCHC 31.5 g/dl (32.0-36.0); MEAN CELL VOLUME 90.9 fl (80-96); MEAN PLT VOLUME 7.6 fl (7.5-11.1); MONO % 6.2 % (3.8-10.2); NEUT % 88.6 % (42.8-82.8); PLATELET COUNT 305 10^3/uL (134-434); RBC 4.54 M/mm3 (3.60-5.2); RDW 17.9 % (11.6-15.6); WHITE BLOOD COUNT 9.6 K/mm3 (4.0-10.0)
[2021-05-14 10:06] LABS: ALBUMIN 2.9 g/dl (3.4-5.0); CALCIUM 8.1 mg/dL (8.5-10.1)
[2021-05-14 10:07] LABS: BLOOD UREA NITROGEN 26.3 mg/dL (7-18)
[2021-05-14 10:10] LABS: CREATININE 1.3 mg/dL (0.55-1.3)
[2021-05-14 10:11] LABS: BILIRUBIN,TOTAL 0.5 mg/dL (0.2-1); TOT PROT 6.2 g/dl (6.4-8.2)
[2021-05-14] MEDS ORDERED: SODIUM CHLORIDE NASAL SPRAY 44 ML BOTTLE NS PRN (12:12)
[2021-05-15] MEDS: hydrALAZINE HCL 50 MG TABLET (FP) PO SCH (06:19)
[2021-05-15] MEDS: INSULIN SLIDING SCALE (NOVOLOG) 1 VIAL SQ SCH ×2 (06:19→11:09)
[2021-05-15 06:45] VITALS: TEMP 98.5
[2021-05-15] MEDS: ALBUTEROL SO4 2.5/IPRATROPIUM 0.5 INH SOL 3 ML VIAL.NEB. NEB SCH ×2 (08:57→11:49)
[2021-05-15] MEDS: VALSARTAN 160 MG TABLET PO SCH (09:53)
[2021-05-15] MEDS: amLODIPine BESYLATE 10 MG TABLET (FP) PO SCH (09:53)
[2021-05-15] MEDS: methylPREDNISolone NA SUCC 40 MG/1 ML VIAL IVPUSH SCH (09:53)
[2021-05-15] MEDS: NEBIVOLOL 10 MG TABLET (FP) PO SCH (09:53)
[2021-05-15] MEDS: PANTOPRAZOLE 40 MG TABLET PO SCH (09:54)
[2021-05-15] MEDS: ENOXAPARIN NA (PORCINE) 40 MG/0.4 ML DISP.SYRIN SQ SCH (09:54)
[2021-05-15] MEDS: BUDESONIDE/FORMETEROL FUMARATE 80/4.5 mcg INHALER IH SCH (09:54)
[2021-05-15] MEDS: INSULIN (LEVEMIR) 100 UNITS/ML UNITS SQ SCH (09:59)
[2021-05-15] MEDS ORDERED: FUROSEMIDE 40 MG TABLET (FP) PO SCH (10:00)
[2021-05-15 11:21] VITALS: BP 145/59; PULSE 86
== END 2021-05-15 12:46 | disposition home or self-care (01) | DRG 291 ==
LOC: JER 14:28 → JERBED 20:37 → J5S 05-11 03:37
PROVIDERS: ADMIT Internal Medicine; ATTEND Internal Medicine
DX: I11.0 Hypertensive heart disease with heart failure (principal); I50.33 Acute on chronic diastolic (congestive) heart failure; I69.354 Hemiplegia and hemiparesis following cerebral infarction affecting left non-dominant side; J44.1 Chronic obstructive pulmonary disease with (acute) exacerbation; I25.10 Atherosclerotic heart disease of native coronary artery without angina pectoris; E78.5 Hyperlipidemia, unspecified; E11.9 Type 2 diabetes mellitus without complications; J45.909 Unspecified asthma, uncomplicated; F03.90 Unspecified dementia, unspecified severity, without behavioral disturbance, psychotic disturbance, mood disturbance, and anxiety; E66.9 Obesity, unspecified; Z68.31 Body mass index [BMI] 31.0-31.9, adult; D64.9 Anemia, unspecified; Z87.891 Personal history of nicotine dependence; Z99.81 Dependence on supplemental oxygen
CPT/HCPCS: 36415; 71045-TC-FY; 80053; 82803; 82962; 83036; 83735; 83880; 84100; 84484; 85025; 85379; 85610; 85730; 87804; 93005; 93010; 93306-TC; 93971-TC; 94640; 99285-25; C9803-CS; U0003; U0005

== ENCOUNTER 2021-06-03 16:40 | Observation (INO) | payer MEDICARE, OTHER ==
[2021-06-03] MEDS ORDERED: ALBUTEROL SO4 2.5/IPRATROPIUM 0.5 INH SOL 3 ML VIAL.NEB. NEB ONE (17:10)
[2021-06-03] MEDS ORDERED: methylPREDNISolone NA SUCC 125 MG/2 ML VIAL IVPB ONE (17:14)
[2021-06-03] MEDS ORDERED: methylPREDNISolone NA SUCC 125 MG/2 ML VIAL ONE (17:52)
[2021-06-03 18:00] LABS: BASO % 0.3 % (0-2.0); EOS % 0.1 % (0-4.5); HEMOGLOBIN 12.3 GM/dL (10.7-15.3); LYMPH % 9.2 % (8-40); MCH 28.6 pg (25.7-33.7); MCHC 31.6 g/dl (32.0-36.0); MEAN CELL VOLUME 90.8 fl (80-96); MEAN PLT VOLUME 7.8 fl (7.5-11.1); MONO % 3.5 % (3.8-10.2); NEUT % 86.9 % (42.8-82.8); PLATELET COUNT 194 10^3/uL (134-434); RBC 4.29 M/mm3 (3.60-5.2); RDW 18.8 % (11.6-15.6); WHITE BLOOD COUNT 6.8 K/mm3 (4.0-10.0)
[2021-06-03] MEDS ORDERED: AZITHROMYCIN IVPB 500 MG in DEXTROSE 5%-WATER - 250 ML IVPB ONE (18:14)
[2021-06-03] MEDS ORDERED: PIPERACILLIN/TAZOB 4.5 GM 4.5 GM in DEXTROSE 5%-WATER 100 ML IVPB ONE (18:14)
[2021-06-03] MEDS ORDERED: VANCOMYCIN 1 GM in D5W (PRE-DOCKED) 1,000 MG/250 ML IVPB ONE (18:14)
[2021-06-03 18:20] LABS: CALCIUM 8.3 mg/dL (8.5-10.1)
[2021-06-03 18:21] LABS: ALBUMIN 3.3 g/dl (3.4-5.0); BLOOD UREA NITROGEN 23.8 mg/dL (7-18)
[2021-06-03 18:24] LABS: CREATININE 1.1 mg/dL (0.55-1.3)
[2021-06-03 18:25] LABS: BILIRUBIN,TOTAL 0.5 mg/dL (0.2-1); TOT PROT 6.3 g/dl (6.4-8.2)
[2021-06-03] MEDS ORDERED: VANCOMYCIN 1 GRAM (PRE-DOCKED) 1,000 MG/250 ML BAG IVPB ONE (18:35)
[2021-06-03 18:44] LABS: VENOUS BASE EXCESS -1.1 mmol/L (-2-2); VENOUS O2 SATURATION 98.5 % (70-80); VENOUS PH 7.43 (7.310-7.410)
[2021-06-03] MEDS ORDERED: PIPERACILLIN/TAZOB 4.5 GM 4.5 GM/100 ML BAG IVPB ONE (20:47)
[2021-06-03] MEDS ORDERED: AZITHROMYCIN IVPB 500 MG/250 ML BAG IVPB ONE (20:48)
[2021-06-03] MEDS ORDERED: ALBUTEROL SO4 HFA INHALER IH PRN (23:29)
[2021-06-04] MEDS ORDERED: DEXTROSE 5%-WATER 100 ML IVPB ONE ×2 (03:03→08:09)
[2021-06-04] MEDS ORDERED: PIPERACILLIN/TAZOBACTAM 4.5 GM VIAL IVPB ONE ×2 (03:03→08:09)
[2021-06-04] MEDS: methylPREDNISolone NA SUCC 40 MG/1 ML VIAL IVPUSH SCH ×3 (03:17→17:33)
[2021-06-04] MEDS: PIPERACILLIN/TAZOB 4.5 GM 4.5 GM in DEXTROSE 5%-WATER 100 ML IVPB SCH ×4 (03:17→15:08)
[2021-06-04 04:07] VITALS: BMI 30.4
[2021-06-04] MEDS: hydrALAZINE HCL 25 MG TABLET (FP) PO SCH ×3 (08:11→21:47)
[2021-06-04 08:23] LABS: PH,URINE 5.5 (5.0-8.0); URINE APPEARANCE CLEAR; URINE BILIRUBIN NEGATIVE (NEGATIVE); URINE COLOR YELLOW; URINE GLUCOSE (UA) 2+ (NEGATIVE); URINE KETONE NEGATIVE (NEGATIVE); URINE LEUK ESTERASE NEGATIVE (NEGATIVE); URINE NITRITE NEGATIVE (NEGATIVE); URINE PROTEIN NEGATIVE (NEGATIVE); URINE UROBILINOGEN 0.2 mg/dL (0.2-1.0)
[2021-06-04 09:36] LABS: BASO % 0.1 % (0-2.0); HEMOGLOBIN 11.9 GM/dL (10.7-15.3); LYMPH % 11.5 % (8-40); MCH 28.4 pg (25.7-33.7); MCHC 31.4 g/dl (32.0-36.0); MEAN CELL VOLUME 90.6 fl (80-96); MONO % 1.3 % (3.8-10.2); NEUT % 87.1 % (42.8-82.8); PLATELET COUNT 227 10^3/uL (134-434); RDW 18.6 % (11.6-15.6); WHITE BLOOD COUNT 6.2 K/mm3 (4.0-10.0)
[2021-06-04 09:57] LABS: ALBUMIN 3.2 g/dl (3.4-5.0); BLOOD UREA NITROGEN 24.2 mg/dL (7-18)
[2021-06-04 09:58] LABS: BILIRUBIN,TOTAL 0.5 mg/dL (0.2-1); TOT PROT 6.5 g/dl (6.4-8.2)
[2021-06-04 09:59] LABS: CALCIUM 8.8 mg/dL (8.5-10.1)
[2021-06-04 10:00] LABS: CREATININE 1.3 mg/dL (0.55-1.3)
[2021-06-04] MEDS ORDERED: NEBIVOLOL 10 MG TABLET (FP) PO SCH (10:00)
[2021-06-04] MEDS: VALSARTAN 160 MG TABLET PO SCH (10:51)
[2021-06-04] MEDS: ASCORBIC ACID 500 MG TABLET (FP) PO SCH (10:51)
[2021-06-04] MEDS: PANTOPRAZOLE 40 MG TABLET PO SCH (10:51)
[2021-06-04] MEDS: FUROSEMIDE 40 MG TABLET (FP) PO SCH (10:52)
[2021-06-04] MEDS ORDERED: NEBIVOLOL 10 MG TABLET (FP) PO ONE (10:53)
[2021-06-04] MEDS: amLODIPine BESYLATE 10 MG TABLET (FP) PO SCH (10:56)
[2021-06-04] MEDS: INSULIN SLIDING SCALE (NOVOLOG) 1 VIAL SQ SCH ×3 (11:49→21:48)
[2021-06-04] MEDS: ENOXAPARIN NA (PORCINE) 40 MG/0.4 ML DISP.SYRIN SQ SCH (11:56)
[2021-06-04] MEDS ORDERED: VANCOMYCIN/WATER FOR INJ (PEG) 1,000 MG/200 ML BAG IVPB SCH (18:00)
[2021-06-04] MEDS ORDERED: VANCOMYCIN 1,000 MG in DEXTROSE 5%-WATER - 250 ML IVPB SCH (19:00)
[2021-06-04] MEDS ORDERED: INSULIN (LEVEMIR) 100 UNITS/ML UNITS SQ SCH (22:00)
[2021-06-05] MEDS: methylPREDNISolone NA SUCC 40 MG/1 ML VIAL IVPUSH SCH ×3 (02:06→17:44)
[2021-06-05] MEDS: hydrALAZINE HCL 25 MG TABLET (FP) PO SCH ×2 (06:15→14:37)
[2021-06-05] MEDS: INSULIN SLIDING SCALE (NOVOLOG) 1 VIAL SQ SCH ×3 (06:15→16:40)
[2021-06-05] MEDS: amLODIPine BESYLATE 10 MG TABLET (FP) PO SCH (09:46)
[2021-06-05] MEDS: ASCORBIC ACID 500 MG TABLET (FP) PO SCH ×2 (09:46→10:02)
[2021-06-05] MEDS: ENOXAPARIN NA (PORCINE) 40 MG/0.4 ML DISP.SYRIN SQ SCH (09:46)
[2021-06-05] MEDS: PANTOPRAZOLE 40 MG TABLET PO SCH (09:46)
[2021-06-05] MEDS: FUROSEMIDE 40 MG TABLET (FP) PO SCH (09:46)
[2021-06-05] MEDS: VALSARTAN 160 MG TABLET PO SCH (09:49)
[2021-06-05] MEDS ORDERED: NEBIVOLOL 10 MG TABLET (FP) PO SCH (10:00)
[2021-06-05 15:20] VITALS: BP 160/53; PULSE 71; TEMP 99.2
== END 2021-06-05 18:32 | disposition home or self-care (01) ==
LOC: JER 16:40 → JERBED 18:46 → J5S 06-04 00:18
PROVIDERS: ADMIT Internal Medicine; ATTEND Internal Medicine
PROC: 3E03329 Introduction of Other Anti-infective into Peripheral Vein, Percutaneous Approach (ICD-10-PCS; principal; 2021-06-03)
PROC: 3E023GC Introduction of Other Therapeutic Substance into Muscle, Percutaneous Approach (ICD-10-PCS; 2021-06-03)
PROC: 3E013VG Introduction of Insulin into Subcutaneous Tissue, Percutaneous Approach (ICD-10-PCS; 2021-06-03)
PROC: 3E033GC Introduction of Other Therapeutic Substance into Peripheral Vein, Percutaneous Approach (ICD-10-PCS; 2021-06-03)
DX: Z87.891 Personal history of nicotine dependence (principal); J18.9 Pneumonia, unspecified organism; J44.1 Chronic obstructive pulmonary disease with (acute) exacerbation; I11.0 Hypertensive heart disease with heart failure; E66.8 Other obesity; D64.9 Anemia, unspecified; Z68.30 Body mass index [BMI] 30.0-30.9, adult; J96.91 Respiratory failure, unspecified with hypoxia; I69.354 Hemiplegia and hemiparesis following cerebral infarction affecting left non-dominant side; Z99.81 Dependence on supplemental oxygen; Z86.16 Personal history of COVID-19; F03.90 Unspecified dementia, unspecified severity, without behavioral disturbance, psychotic disturbance, mood disturbance, and anxiety; E78.5 Hyperlipidemia, unspecified; Z90.79 Acquired absence of other genital organ(s)
CPT/HCPCS: 36415; 71045-TC-FY; 80053; 81003; 82803; 82962; 84484; 85025; 87040; 87086; 87804; 87899; 93005; 93010; 96365; 96368; 96372; 96375; 96376; 97116-GP; 97161-GP; 99285-25; C9803-CS; G0378; U0003; U0005

== ENCOUNTER 2021-06-25 10:17 | Inpatient (IN) | payer MEDICARE, OTHER ==
[2021-06-25] MEDS ORDERED: methylPREDNISolone NA SUCC 125 MG/2 ML VIAL IVPUSH ONE (10:41)
[2021-06-25] MEDS ORDERED: ACETAMINOPHEN 500 MG TABLET (FP) PO ONE (10:42)
[2021-06-25] MEDS: ALBUTEROL SO4 2.5/IPRATROPIUM 0.5 INH SOL 3 ML VIAL.NEB. NEB SCH ×5 (11:00→23:03)
[2021-06-25 11:01] LABS: VENOUS BASE EXCESS 6.1 mmol/L (-2-2); VENOUS O2 SATURATION 86.1 % (70-80); VENOUS PH 7.306 (7.310-7.410)
[2021-06-25 11:02] LABS: VENOUS PCO2 70.7 mmHg (38-52)
[2021-06-25] MEDS ORDERED: methylPREDNISolone NA SUCC 125 MG/2 ML VIAL ONE (11:04)
[2021-06-25] MEDS ORDERED: ACETAMINOPHEN 500 MG TABLET (FP) ONE (11:08)
[2021-06-25 11:19] LABS: ALBUMIN 3.2 g/dl (3.4-5.0); CALCIUM 8.5 mg/dL (8.5-10.1)
[2021-06-25 11:20] LABS: BLOOD UREA NITROGEN 20.6 mg/dL (7-18)
[2021-06-25 11:21] LABS: CREATININE 0.9 mg/dL (0.55-1.3)
[2021-06-25 11:24] LABS: BILIRUBIN,TOTAL 0.6 mg/dL (0.2-1); TOT PROT 6.4 g/dl (6.4-8.2)
[2021-06-25 11:25] LABS: ACTIVATED PTT 30.9 SECONDS (25.2-36.5); INR 0.97 (0.83-1.09); PROTHROMBIN TIME (PATIENT) 11.1 SEC (9.7-13.0)
[2021-06-25 11:40] LABS: BASO % 0.3 % (0-2.0); EOS % 0.2 % (0-4.5); HEMATOCRIT 35.2 % (32.4-45.2); MCH 28.9 pg (25.7-33.7); MCHC 31.3 g/dl (32.0-36.0); MEAN CELL VOLUME 92.2 fl (80-96); MEAN PLT VOLUME 8.1 fl (7.5-11.1); MONO % 9.9 % (3.8-10.2); NEUT % 76.6 % (42.8-82.8); PLATELET COUNT 199 10^3/uL (134-434); RBC 3.82 M/mm3 (3.60-5.2); RDW 18.9 % (11.6-15.6); WHITE BLOOD COUNT 7.5 K/mm3 (4.0-10.0)
[2021-06-25] MEDS ORDERED: ALBUTEROL SO4 HFA INHALER IH PRN (14:32)
[2021-06-25] MEDS ORDERED: guaiFENesin 200 MG/10 ML 10 ML UNIT-DOSE CUPS PO PRN (14:32)
[2021-06-25 14:58] LABS: EPI CELLS 12 /uL (0-25.1); HYALINE CASTS 1 /uL (0-3.1); PH,URINE 5.5 (5.0-8.0); URINE APPEARANCE CLEAR; URINE BACTERIA 36 /uL (0-1359); URINE BILIRUBIN NEGATIVE (NEGATIVE); URINE COLOR YELLOW; URINE GLUCOSE (UA) NEGATIVE (NEGATIVE); URINE KETONE NEGATIVE (NEGATIVE); URINE LEUK ESTERASE NEGATIVE (NEGATIVE); URINE NITRITE NEGATIVE (NEGATIVE); URINE PROTEIN 1+ (NEGATIVE); URINE RBC 8 /uL (0-23.9); URINE WBC 5 /uL (0-25.8)
[2021-06-25] MEDS: hydrALAZINE HCL 25 MG TABLET (FP) PO SCH (21:40)
[2021-06-25] MEDS: methylPREDNISolone NA SUCC 40 MG/1 ML VIAL IVPUSH SCH (21:40)
[2021-06-25] MEDS: BUDESONIDE/FORMETEROL FUMARATE 80/4.5 mcg INHALER IH SCH (21:41)
[2021-06-25 23:26] VITALS: BMI 32.5
[2021-06-26] MEDS: methylPREDNISolone NA SUCC 40 MG/1 ML VIAL IVPUSH SCH ×5 (02:00→17:15)
[2021-06-26] MEDS: ALBUTEROL SO4 2.5/IPRATROPIUM 0.5 INH SOL 3 ML VIAL.NEB. NEB SCH ×6 (04:40→19:38)
[2021-06-26] MEDS: hydrALAZINE HCL 25 MG TABLET (FP) PO SCH ×4 (06:04→22:23)
[2021-06-26 09:43] LABS: BASO % 0.1 % (0-2.0); HEMATOCRIT 35.5 % (32.4-45.2); HEMOGLOBIN 11.3 GM/dL (10.7-15.3); LYMPH % 8.2 % (8-40); MCH 28.9 pg (25.7-33.7); MCHC 31.9 g/dl (32.0-36.0); MEAN CELL VOLUME 90.6 fl (80-96); MEAN PLT VOLUME 7.5 fl (7.5-11.1); MONO % 2.1 % (3.8-10.2); NEUT % 89.6 % (42.8-82.8); PLATELET COUNT 206 10^3/uL (134-434); RBC 3.92 M/mm3 (3.60-5.2); RDW 18.8 % (11.6-15.6); WHITE BLOOD COUNT 6.2 K/mm3 (4.0-10.0)
[2021-06-26] MEDS ORDERED: FUROSEMIDE 40 MG TABLET (FP) PO SCH (10:00)
[2021-06-26] MEDS: ASCORBIC ACID 500 MG TABLET (FP) PO SCH (10:07)
[2021-06-26] MEDS: PANTOPRAZOLE 40 MG TABLET PO SCH (10:08)
[2021-06-26] MEDS: amLODIPine BESYLATE 10 MG TABLET (FP) PO SCH (10:08)
[2021-06-26] MEDS: ENOXAPARIN NA (PORCINE) 40 MG/0.4 ML DISP.SYRIN SQ SCH ×2 (10:10→10:18)
[2021-06-26] MEDS: VALSARTAN 160 MG TABLET PO SCH ×2 (10:11→10:24)
[2021-06-26] MEDS ORDERED: FUROSEMIDE 40 MG/4 ML INJECTABLE VIAL IVPUSH SCH (10:15)
[2021-06-26] MEDS: NEBIVOLOL 10 MG TABLET (FP) PO SCH ×2 (10:17→10:37)
[2021-06-26] MEDS: AZITHROMYCIN IVPB 500 MG/250 ML BAG IVPB SCH ×2 (10:18→10:19)
[2021-06-26 10:47] LABS: BLOOD UREA NITROGEN 28.3 mg/dL (7-18); CALCIUM 8.5 mg/dL (8.5-10.1)
[2021-06-26 10:49] LABS: CREATININE 1.1 mg/dL (0.55-1.3)
[2021-06-26 10:51] LABS: BILIRUBIN,TOTAL 0.5 mg/dL (0.2-1); TOT PROT 6.2 g/dl (6.4-8.2)
[2021-06-26] MEDS: BUDESONIDE/FORMETEROL FUMARATE 80/4.5 mcg INHALER IH SCH ×2 (11:02→22:23)
[2021-06-26] MEDS ORDERED: FUROSEMIDE 40 MG/4 ML INJECTABLE VIAL IVPUSH ONE (12:22)
[2021-06-26] MEDS ORDERED: MAG HYDROX/AL HYDROX/SIMETH 30 ML UNIT-DOSE CUP PO PRN (12:26)
[2021-06-27] MEDS: methylPREDNISolone NA SUCC 40 MG/1 ML VIAL IVPUSH SCH ×3 (02:15→17:16)
[2021-06-27] MEDS: hydrALAZINE HCL 25 MG TABLET (FP) PO SCH ×3 (06:42→21:23)
[2021-06-27] MEDS: ALBUTEROL SO4 2.5/IPRATROPIUM 0.5 INH SOL 3 ML VIAL.NEB. NEB SCH ×4 (08:40→19:58)
[2021-06-27] MEDS: ASCORBIC ACID 500 MG TABLET (FP) PO SCH (09:40)
[2021-06-27] MEDS: amLODIPine BESYLATE 10 MG TABLET (FP) PO SCH (09:40)
[2021-06-27] MEDS: VALSARTAN 160 MG TABLET PO SCH (09:41)
[2021-06-27] MEDS: PANTOPRAZOLE 40 MG TABLET PO SCH (09:41)
[2021-06-27] MEDS: NEBIVOLOL 10 MG TABLET (FP) PO SCH (09:41)
[2021-06-27] MEDS: FUROSEMIDE 40 MG/4 ML INJECTABLE VIAL IVPUSH SCH (09:42)
[2021-06-27] MEDS: ENOXAPARIN NA (PORCINE) 40 MG/0.4 ML DISP.SYRIN SQ SCH (09:42)
[2021-06-27] MEDS: BUDESONIDE/FORMETEROL FUMARATE 80/4.5 mcg INHALER IH SCH ×2 (09:42→21:23)
[2021-06-27] MEDS: AZITHROMYCIN IVPB 500 MG/250 ML BAG IVPB SCH (09:46)
[2021-06-27] MEDS: NITROFURANTOIN MACROCRYSTAL 50 MG CAPSULE (FP) PO SCH (17:16)
[2021-06-27] MEDS: MONTELUKAST NA 10 MG TABLET PO SCH (21:23)
[2021-06-28] MEDS: methylPREDNISolone NA SUCC 40 MG/1 ML VIAL IVPUSH SCH ×3 (01:23→17:32)
[2021-06-28] MEDS: NITROFURANTOIN MACROCRYSTAL 50 MG CAPSULE (FP) PO SCH ×5 (01:24→23:02)
[2021-06-28] MEDS: hydrALAZINE HCL 25 MG TABLET (FP) PO SCH ×3 (05:08→21:17)
[2021-06-28] MEDS: ALBUTEROL SO4 2.5/IPRATROPIUM 0.5 INH SOL 3 ML VIAL.NEB. NEB SCH ×4 (07:58→19:57)
[2021-06-28] MEDS: amLODIPine BESYLATE 10 MG TABLET (FP) PO SCH (09:48)
[2021-06-28] MEDS: NEBIVOLOL 10 MG TABLET (FP) PO SCH (09:48)
[2021-06-28] MEDS: ASCORBIC ACID 500 MG TABLET (FP) PO SCH (09:49)
[2021-06-28] MEDS: VALSARTAN 160 MG TABLET PO SCH (09:49)
[2021-06-28] MEDS: PANTOPRAZOLE 40 MG TABLET PO SCH (09:50)
[2021-06-28] MEDS: FUROSEMIDE 40 MG/4 ML INJECTABLE VIAL IVPUSH SCH (09:50)
[2021-06-28] MEDS: ENOXAPARIN NA (PORCINE) 40 MG/0.4 ML DISP.SYRIN SQ SCH (09:54)
[2021-06-28] MEDS: AZITHROMYCIN IVPB 500 MG/250 ML BAG IVPB SCH (09:56)
[2021-06-28] MEDS: BUDESONIDE/FORMETEROL FUMARATE 80/4.5 mcg INHALER IH SCH ×2 (10:07→21:08)
[2021-06-28] MEDS: MONTELUKAST NA 10 MG TABLET PO SCH (21:07)
[2021-06-29] MEDS: methylPREDNISolone NA SUCC 40 MG/1 ML VIAL IVPUSH SCH ×2 (02:15→10:33)
[2021-06-29] MEDS: hydrALAZINE HCL 25 MG TABLET (FP) PO SCH (05:55)
[2021-06-29] MEDS: NITROFURANTOIN MACROCRYSTAL 50 MG CAPSULE (FP) PO SCH ×2 (05:55→12:44)
[2021-06-29] MEDS: ALBUTEROL SO4 2.5/IPRATROPIUM 0.5 INH SOL 3 ML VIAL.NEB. NEB SCH ×2 (07:22→11:31)
[2021-06-29] MEDS: VALSARTAN 160 MG TABLET PO SCH (10:32)
[2021-06-29] MEDS: amLODIPine BESYLATE 10 MG TABLET (FP) PO SCH (10:32)
[2021-06-29] MEDS: ASCORBIC ACID 500 MG TABLET (FP) PO SCH (10:33)
[2021-06-29] MEDS: PANTOPRAZOLE 40 MG TABLET PO SCH (10:33)
[2021-06-29] MEDS: ENOXAPARIN NA (PORCINE) 40 MG/0.4 ML DISP.SYRIN SQ SCH (10:35)
[2021-06-29] MEDS: FUROSEMIDE 40 MG/4 ML INJECTABLE VIAL IVPUSH SCH (10:36)
[2021-06-29] MEDS: BUDESONIDE/FORMETEROL FUMARATE 80/4.5 mcg INHALER IH SCH (10:37)
[2021-06-29] MEDS: AZITHROMYCIN IVPB 500 MG/250 ML BAG IVPB SCH (10:43)
[2021-06-29] MEDS: NEBIVOLOL 10 MG TABLET (FP) PO SCH (10:46)
[2021-06-29 12:15] VITALS: BP 152/74; PULSE 97; TEMP 98.5
== END 2021-06-29 14:37 | disposition home or self-care (01) | DRG 291 ==
LOC: JER 10:17 → JERBED 11:50 → J8W 18:29
PROVIDERS: ADMIT Internal Medicine; ATTEND Internal Medicine
DX: I11.0 Hypertensive heart disease with heart failure (principal); I50.33 Acute on chronic diastolic (congestive) heart failure; J96.21 Acute and chronic respiratory failure with hypoxia; J44.1 Chronic obstructive pulmonary disease with (acute) exacerbation; N39.0 Urinary tract infection, site not specified; E78.5 Hyperlipidemia, unspecified; J44.9 Chronic obstructive pulmonary disease, unspecified; I25.10 Atherosclerotic heart disease of native coronary artery without angina pectoris; E11.9 Type 2 diabetes mellitus without complications; G83.24 Monoplegia of upper limb affecting left nondominant side; D64.9 Anemia, unspecified; F03.90 Unspecified dementia, unspecified severity, without behavioral disturbance, psychotic disturbance, mood disturbance, and anxiety; B96.20 Unspecified Escherichia coli [E. coli] as the cause of diseases classified elsewhere; Z99.81 Dependence on supplemental oxygen
CPT/HCPCS: 0241U-QW; 36415; 71045-TC-FY; 80053; 81003; 82803; 85025; 85610; 85730; 87086; 87186; 93005; 93010; 94640; 94761; 97116-GP; 97161-GP; 99285-25

== ENCOUNTER 2021-08-16 18:14 | Inpatient (IN) | payer MEDICARE, OTHER ==
[2021-08-16 19:00] VITALS: BMI 31.2
[2021-08-16] MEDS ORDERED: methylPREDNISolone NA SUCC 125 MG/2 ML VIAL IVPUSH ONE (20:09)
[2021-08-16 21:18] LABS: ALLENS TEST POSITIVE; ARTERIAL BLD GAS O2 SATURATION 96.7 % (95-98); ARTERIAL BLOOD GAS BASE EXCESS 5.9 mmol/L (-2-2); ARTERIAL BLOOD GAS PO2 97.1 mmHg (80-100); ARTERIAL BLOOD GAS pH 7.323 (7.350-7.450)
[2021-08-16] MEDS ORDERED: PIPERACILLIN/TAZOB 4.5 GM 4.5 GM in DEXTROSE 5%-WATER 100 ML IVPB ONE (21:38)
[2021-08-16] MEDS ORDERED: VANCOMYCIN 1 GM in D5W (PRE-DOCKED) 1,000 MG/250 ML IVPB ONE (21:38)
[2021-08-16 22:57] LABS: BASO % 0.3 % (0-2.0); HEMATOCRIT 33.8 % (32.4-45.2); HEMOGLOBIN 10.8 GM/dL (10.7-15.3); LYMPH % 14.9 % (8-40); MCH 29.7 pg (25.7-33.7); MCHC 31.9 g/dl (32.0-36.0); MEAN PLT VOLUME 7.2 fl (7.5-11.1); MONO % 11.5 % (3.8-10.2); NEUT % 72.3 % (42.8-82.8); PLATELET COUNT 221 10^3/uL (134-434); RBC 3.64 M/mm3 (3.60-5.2); RDW 18.9 % (11.6-15.6); WHITE BLOOD COUNT 8.3 K/mm3 (4.0-10.0)
[2021-08-16 23:03] LABS: INR 0.97 (0.83-1.09); PROTHROMBIN TIME (PATIENT) 11.2 SEC (9.7-13.0)
[2021-08-16 23:06] LABS: ACTIVATED PTT 29.3 SECONDS (25.2-36.5)
[2021-08-16 23:22] LABS: ALBUMIN 2.9 g/dl (3.4-5.0); BLOOD UREA NITROGEN 31.5 mg/dL (7-18); CALCIUM 8.6 mg/dL (8.5-10.1)
[2021-08-16 23:25] LABS: CREATININE 1.2 mg/dL (0.55-1.3)
[2021-08-16 23:27] LABS: BILIRUBIN,TOTAL 0.4 mg/dL (0.2-1); TOT PROT 6.3 g/dl (6.4-8.2)
[2021-08-16] MEDS ORDERED: VANCOMYCIN 1 GRAM (PRE-DOCKED) 1,000 MG/250 ML BAG IVPB ONE (23:27)
[2021-08-16] MEDS ORDERED: ALBUTEROL SO4 2.5/IPRATROPIUM 0.5 INH SOL 3 ML VIAL.NEB. NEB ONE (23:27)
[2021-08-16] MEDS ORDERED: PIPERACILLIN/TAZOB 4.5 GM 4.5 GM/100 ML BAG IVPB ONE (23:27)
[2021-08-16] MEDS ORDERED: methylPREDNISolone NA SUCC 125 MG/2 ML VIAL ONE (23:28)
[2021-08-16 23:30] LABS: N-TERMINAL BNP 3814.8 pg/ml (5-450)
[2021-08-17] MEDS: ALBUTEROL SO4 2.5/IPRATROPIUM 0.5 INH SOL 3 ML VIAL.NEB. NEB SCH ×9 (00:41→20:13)
[2021-08-17] MEDS ORDERED: guaiFENesin 200 MG/10 ML 10 ML UNIT-DOSE CUPS PO PRN (00:55)
[2021-08-17 05:44] LABS: URINE APPEARANCE CLEAR; URINE BILIRUBIN NEGATIVE (NEGATIVE); URINE COLOR YELLOW; URINE GLUCOSE (UA) NEGATIVE (NEGATIVE); URINE KETONE NEGATIVE (NEGATIVE); URINE LEUK ESTERASE NEGATIVE (NEGATIVE); URINE NITRITE NEGATIVE (NEGATIVE); URINE PROTEIN NEGATIVE (NEGATIVE); URINE UROBILINOGEN 0.2 mg/dL (0.2-1.0)
[2021-08-17] MEDS ORDERED: PIPERACILLIN/TAZOB 2.25 GM 2.25 GM in DEXTROSE 5%-WATER - 50 ML IVPB SCH (09:00)
[2021-08-17] MEDS: NEBIVOLOL 10 MG TABLET (FP) PO SCH (10:00)
[2021-08-17] MEDS ORDERED: NICOTINE 14 MG/24 HOURS TOPICAL PATCH TD SCH (10:00)
[2021-08-17 10:02] LABS: BASO % 0.2 % (0-2.0); HEMATOCRIT 36.5 % (32.4-45.2); HEMOGLOBIN 11.8 GM/dL (10.7-15.3); LYMPH % 9.2 % (8-40); MCH 30.3 pg (25.7-33.7); MCHC 32.2 g/dl (32.0-36.0); MEAN CELL VOLUME 93.9 fl (80-96); MEAN PLT VOLUME 7.7 fl (7.5-11.1); MONO % 1.1 % (3.8-10.2); NEUT % 89.5 % (42.8-82.8); PLATELET COUNT 237 10^3/uL (134-434); RBC 3.89 M/mm3 (3.60-5.2); RDW 18.9 % (11.6-15.6); WHITE BLOOD COUNT 6.1 K/mm3 (4.0-10.0)
[2021-08-17 10:17] LABS: CALCIUM 9.1 mg/dL (8.5-10.1)
[2021-08-17 10:18] LABS: ALBUMIN 3.1 g/dl (3.4-5.0)
[2021-08-17 10:22] LABS: BILIRUBIN,TOTAL 0.6 mg/dL (0.2-1); CREATININE 1.2 mg/dL (0.55-1.3)
[2021-08-17] MEDS: methylPREDNISolone NA SUCC 40 MG/1 ML VIAL IVPUSH SCH ×2 (10:30→18:44)
[2021-08-17] MEDS ORDERED: PIPERACILLIN/TAZOB 2.25 GM 2.25 GM/50 ML BAG IVPB ONE (10:40)
[2021-08-17] MEDS: VALSARTAN 160 MG TABLET PO SCH (10:40)
[2021-08-17] MEDS: amLODIPine BESYLATE 10 MG TABLET (FP) PO SCH (10:45)
[2021-08-17] MEDS: PANTOPRAZOLE 40 MG TABLET PO SCH (10:45)
[2021-08-17] MEDS: FUROSEMIDE 40 MG TABLET (FP) PO SCH (10:50)
[2021-08-17] MEDS: HEPARIN NA (PORCINE) 5,000 UNITS/ML 1ML VIAL SQ SCH ×2 (10:50→21:38)
[2021-08-17] MEDS: hydrALAZINE HCL 25 MG TABLET (FP) PO SCH ×3 (11:00→21:37)
[2021-08-17] MEDS ORDERED: ALBUTEROL SO4 2.5/IPRATROPIUM 0.5 INH SOL 3 ML VIAL.NEB. NEB ONE (11:25)
[2021-08-17] MEDS ORDERED: PANTOPRAZOLE 40 MG TABLET PO ONE (11:26)
[2021-08-17] MEDS ORDERED: hydrALAZINE HCL 25 MG TABLET (FP) ONE (11:26)
[2021-08-17] MEDS ORDERED: FUROSEMIDE 40 MG TABLET (FP) ONE (11:26)
[2021-08-17] MEDS ORDERED: amLODIPine BESYLATE 10 MG TABLET (FP) ONE (11:26)
[2021-08-17] MEDS ORDERED: HEPARIN NA (PORCINE) 5,000 UNITS/ML 1ML VIAL ONE (11:26)
[2021-08-17 11:31] LABS: ARTERIAL BLD GAS O2 SATURATION 93.7 % (95-98); ARTERIAL BLOOD GAS BASE EXCESS 2.5 mmol/L (-2-2); ARTERIAL BLOOD GAS PO2 81.6 mmHg (80-100); ARTERIAL BLOOD GAS pH 7.247 (7.350-7.450)
[2021-08-17 11:33] LABS: ALLENS TEST POSITIVE
[2021-08-17] MEDS: BUDESONIDE/FORMETEROL FUMARATE 80/4.5 mcg INHALER IH SCH ×2 (11:51→23:50)
[2021-08-17] MEDS ORDERED: methylPREDNISolone NA SUCC 40 MG/1 ML VIAL ONE (12:08)
[2021-08-17] MEDS: CEFEPIME 1 GM in DEXTROSE 5%-WATER 100 ML IVPB SCH (13:10)
[2021-08-17] MEDS ORDERED: MEROPENEM 1 GM VIAL (RESTRICTED TO ID) IVPB ONE (13:33)
[2021-08-17] MEDS: TIOTROPIUM BROMIDE 2.5 MCG (SPIRIVA) RESPIMAT INHALER IH SCH (17:36)
[2021-08-17] MEDS: MONTELUKAST NA 10 MG TABLET PO SCH (21:37)
[2021-08-17] MEDS: INSULIN SLIDING SCALE (NOVOLOG) 1 VIAL SQ SCH (21:49)
[2021-08-18] MEDS: CEFEPIME 1 GM in DEXTROSE 5%-WATER 100 ML IVPB SCH ×2 (00:26→11:59)
[2021-08-18] MEDS ORDERED: VANCOMYCIN 1 GRAM (PRE-DOCKED) 1,000 MG/250 ML BAG IVPB SCH (01:00)
[2021-08-18] MEDS ORDERED: VANCOMYCIN 1,000 MG in DEXTROSE 5%-WATER - 250 ML IVPB SCH (01:00)
[2021-08-18] MEDS ORDERED: CEFEPIME HCL 1 GM VIAL (RESTRICTED TO ID) ONE ×2 (02:01→11:28)
[2021-08-18] MEDS ORDERED: DEXTROSE 5%-WATER 100 ML IVPB ONE ×2 (02:02→11:28)
[2021-08-18] MEDS: methylPREDNISolone NA SUCC 40 MG/1 ML VIAL IVPUSH SCH ×3 (02:27→17:55)
[2021-08-18] MEDS: hydrALAZINE HCL 25 MG TABLET (FP) PO SCH ×3 (05:57→21:39)
[2021-08-18] MEDS: INSULIN SLIDING SCALE (NOVOLOG) 1 VIAL SQ SCH ×4 (06:06→21:39)
[2021-08-18] MEDS: ALBUTEROL SO4 2.5/IPRATROPIUM 0.5 INH SOL 3 ML VIAL.NEB. NEB SCH ×4 (08:39→20:05)
[2021-08-18] MEDS ORDERED: PIPERACILLIN/TAZOB 2.25 GM 2.25 GM in DEXTROSE 5%-WATER - 50 ML IVPB SCH (09:00)
[2021-08-18] MEDS: HEPARIN NA (PORCINE) 5,000 UNITS/ML 1ML VIAL SQ SCH ×2 (09:39→21:38)
[2021-08-18] MEDS: FUROSEMIDE 40 MG TABLET (FP) PO SCH (09:39)
[2021-08-18] MEDS: amLODIPine BESYLATE 10 MG TABLET (FP) PO SCH (09:39)
[2021-08-18] MEDS: VALSARTAN 160 MG TABLET PO SCH (09:39)
[2021-08-18] MEDS: PANTOPRAZOLE 40 MG TABLET PO SCH (09:39)
[2021-08-18] MEDS: NEBIVOLOL 10 MG TABLET (FP) PO SCH (09:39)
[2021-08-18] MEDS: BUDESONIDE/FORMETEROL FUMARATE 80/4.5 mcg INHALER IH SCH ×2 (09:43→21:38)
[2021-08-18] MEDS: TIOTROPIUM BROMIDE 2.5 MCG (SPIRIVA) RESPIMAT INHALER IH SCH (11:58)
[2021-08-18] MEDS: INSULIN (LEVEMIR) 100 UNITS/ML UNITS SQ SCH (17:55)
[2021-08-18] MEDS ORDERED: INSULIN (NOVOLOG) ASPART 100 UNITS/ML 10ML VIAL ONE (21:19)
[2021-08-18] MEDS: MONTELUKAST NA 10 MG TABLET PO SCH (21:38)
[2021-08-19] MEDS ORDERED: VANCOMYCIN 1,000 MG in DEXTROSE 5%-WATER - 250 ML IVPB SCH (01:00)
[2021-08-19] MEDS ORDERED: DEXTROSE 5%-WATER 100 ML IVPB ONE ×3 (01:03→23:56)
[2021-08-19] MEDS ORDERED: CEFEPIME HCL 1 GM VIAL (RESTRICTED TO ID) ONE ×3 (01:03→23:56)
[2021-08-19] MEDS: CEFEPIME 1 GM in DEXTROSE 5%-WATER 100 ML IVPB SCH ×2 (01:06→12:38)
[2021-08-19] MEDS: methylPREDNISolone NA SUCC 40 MG/1 ML VIAL IVPUSH SCH ×3 (01:06→21:34)
[2021-08-19] MEDS: hydrALAZINE HCL 25 MG TABLET (FP) PO SCH ×3 (06:38→21:34)
[2021-08-19] MEDS: INSULIN (LEVEMIR) 100 UNITS/ML UNITS SQ SCH ×2 (06:39→17:34)
[2021-08-19] MEDS: INSULIN SLIDING SCALE (NOVOLOG) 1 VIAL SQ SCH ×4 (06:39→21:34)
[2021-08-19] MEDS: ALBUTEROL SO4 2.5/IPRATROPIUM 0.5 INH SOL 3 ML VIAL.NEB. NEB SCH ×4 (08:25→20:20)
[2021-08-19] MEDS: VALSARTAN 160 MG TABLET PO SCH (09:28)
[2021-08-19] MEDS: HEPARIN NA (PORCINE) 5,000 UNITS/ML 1ML VIAL SQ SCH ×2 (09:28→21:34)
[2021-08-19] MEDS: NEBIVOLOL 10 MG TABLET (FP) PO SCH (09:28)
[2021-08-19] MEDS: amLODIPine BESYLATE 10 MG TABLET (FP) PO SCH (09:28)
[2021-08-19] MEDS: FUROSEMIDE 40 MG TABLET (FP) PO SCH (09:28)
[2021-08-19] MEDS: PANTOPRAZOLE 40 MG TABLET PO SCH (09:28)
[2021-08-19] MEDS: BUDESONIDE/FORMETEROL FUMARATE 80/4.5 mcg INHALER IH SCH ×2 (09:31→21:34)
[2021-08-19] MEDS: TIOTROPIUM BROMIDE 2.5 MCG (SPIRIVA) RESPIMAT INHALER IH SCH (09:31)
[2021-08-19] MEDS: MONTELUKAST NA 10 MG TABLET PO SCH (21:34)
[2021-08-20] MEDS: CEFEPIME 1 GM in DEXTROSE 5%-WATER 100 ML IVPB SCH ×2 (00:31→11:51)
[2021-08-20] MEDS: INSULIN SLIDING SCALE (NOVOLOG) 1 VIAL SQ SCH ×3 (06:32→16:43)
[2021-08-20] MEDS: INSULIN (LEVEMIR) 100 UNITS/ML UNITS SQ SCH ×2 (06:32→16:44)
[2021-08-20] MEDS: hydrALAZINE HCL 25 MG TABLET (FP) PO SCH ×2 (06:34→14:19)
[2021-08-20] MEDS ORDERED: INSULIN (LEVEMIR) 100 UNITS/ML UNITS SQ ONE (06:42)
[2021-08-20] MEDS: ALBUTEROL SO4 2.5/IPRATROPIUM 0.5 INH SOL 3 ML VIAL.NEB. NEB SCH ×4 (08:55→20:40)
[2021-08-20] MEDS: VALSARTAN 160 MG TABLET PO SCH (10:43)
[2021-08-20] MEDS: amLODIPine BESYLATE 10 MG TABLET (FP) PO SCH (10:43)
[2021-08-20] MEDS: PANTOPRAZOLE 40 MG TABLET PO SCH (10:43)
[2021-08-20] MEDS: FUROSEMIDE 40 MG TABLET (FP) PO SCH (10:43)
[2021-08-20] MEDS: NEBIVOLOL 10 MG TABLET (FP) PO SCH (10:43)
[2021-08-20] MEDS: TIOTROPIUM BROMIDE 2.5 MCG (SPIRIVA) RESPIMAT INHALER IH SCH (10:44)
[2021-08-20] MEDS: BUDESONIDE/FORMETEROL FUMARATE 80/4.5 mcg INHALER IH SCH (10:44)
[2021-08-20] MEDS: methylPREDNISolone NA SUCC 40 MG/1 ML VIAL IVPUSH SCH (10:44)
[2021-08-20] MEDS: HEPARIN NA (PORCINE) 5,000 UNITS/ML 1ML VIAL SQ SCH (10:45)
[2021-08-20 11:28] LABS: HEMATOCRIT 36.9 % (32.4-45.2); MCH 29.7 pg (25.7-33.7); MCHC 32.4 g/dl (32.0-36.0); MEAN CELL VOLUME 91.8 fl (80-96); MEAN PLT VOLUME 8.1 fl (7.5-11.1); PLATELET COUNT 325 10^3/uL (134-434); RBC 4.02 M/mm3 (3.60-5.2); RDW 18.1 % (11.6-15.6)
[2021-08-20] MEDS ORDERED: CEFEPIME HCL 1 GM VIAL (RESTRICTED TO ID) ONE ×2 (11:50→23:49)
[2021-08-20] MEDS ORDERED: DEXTROSE 5%-WATER 100 ML IVPB ONE ×2 (11:50→23:49)
[2021-08-20 11:52] LABS: ALBUMIN 3.1 g/dl (3.4-5.0); BLOOD UREA NITROGEN 37.5 mg/dL (7-18); CALCIUM 8.9 mg/dL (8.5-10.1)
[2021-08-20 11:56] LABS: CREATININE 1.2 mg/dL (0.55-1.3)
[2021-08-20 11:58] LABS: BILIRUBIN,TOTAL 0.8 mg/dL (0.2-1); TOT PROT 6.6 g/dl (6.4-8.2)
[2021-08-20 12:28] LABS: ANISOCYTOSIS 0; MACROCYTOSIS 0
[2021-08-21] MEDS: hydrALAZINE HCL 25 MG TABLET (FP) PO SCH ×4 (00:18→21:33)
[2021-08-21] MEDS: HEPARIN NA (PORCINE) 5,000 UNITS/ML 1ML VIAL SQ SCH ×3 (00:18→21:32)
[2021-08-21] MEDS: MONTELUKAST NA 10 MG TABLET PO SCH ×2 (00:18→21:33)
[2021-08-21] MEDS: methylPREDNISolone NA SUCC 40 MG/1 ML VIAL IVPUSH SCH ×2 (00:18→10:39)
[2021-08-21] MEDS: BUDESONIDE/FORMETEROL FUMARATE 80/4.5 mcg INHALER IH SCH ×3 (00:19→21:30)
[2021-08-21] MEDS: CEFEPIME 1 GM in DEXTROSE 5%-WATER 100 ML IVPB SCH ×3 (00:19→23:22)
[2021-08-21] MEDS ORDERED: INSULIN (NOVOLOG) ASPART 100 UNITS/ML 10ML VIAL ONE ×2 (00:41→21:20)
[2021-08-21] MEDS: INSULIN SLIDING SCALE (NOVOLOG) 1 VIAL SQ SCH ×5 (00:42→21:31)
[2021-08-21] MEDS: INSULIN (LEVEMIR) 100 UNITS/ML UNITS SQ SCH ×2 (06:39→17:08)
[2021-08-21] MEDS: ALBUTEROL SO4 2.5/IPRATROPIUM 0.5 INH SOL 3 ML VIAL.NEB. NEB SCH ×4 (07:23→20:30)
[2021-08-21] MEDS: NEBIVOLOL 10 MG TABLET (FP) PO SCH (10:37)
[2021-08-21] MEDS: PANTOPRAZOLE 40 MG TABLET PO SCH (10:38)
[2021-08-21] MEDS: TIOTROPIUM BROMIDE 2.5 MCG (SPIRIVA) RESPIMAT INHALER IH SCH (10:38)
[2021-08-21] MEDS: amLODIPine BESYLATE 10 MG TABLET (FP) PO SCH (10:38)
[2021-08-21] MEDS: FUROSEMIDE 40 MG TABLET (FP) PO SCH (10:38)
[2021-08-21] MEDS: VALSARTAN 160 MG TABLET PO SCH (10:38)
[2021-08-21] MEDS ORDERED: DEXTROSE 5%-WATER 100 ML IVPB ONE ×2 (12:09→23:20)
[2021-08-21] MEDS ORDERED: CEFEPIME HCL 1 GM VIAL (RESTRICTED TO ID) ONE ×2 (12:09→23:20)
[2021-08-21] MEDS ORDERED: INSULIN (LEVEMIR) 100 UNITS/ML UNITS SQ ONE (18:44)
[2021-08-22] MEDS: hydrALAZINE HCL 25 MG TABLET (FP) PO SCH ×2 (06:08→14:37)
[2021-08-22] MEDS: INSULIN (LEVEMIR) 100 UNITS/ML UNITS SQ SCH (06:08)
[2021-08-22] MEDS: INSULIN SLIDING SCALE (NOVOLOG) 1 VIAL SQ SCH ×2 (06:10→11:21)
[2021-08-22] MEDS: ALBUTEROL SO4 2.5/IPRATROPIUM 0.5 INH SOL 3 ML VIAL.NEB. NEB SCH ×3 (07:31→15:20)
[2021-08-22] MEDS: NEBIVOLOL 10 MG TABLET (FP) PO SCH (09:49)
[2021-08-22] MEDS: VALSARTAN 160 MG TABLET PO SCH (09:50)
[2021-08-22] MEDS: HEPARIN NA (PORCINE) 5,000 UNITS/ML 1ML VIAL SQ SCH (09:51)
[2021-08-22] MEDS: amLODIPine BESYLATE 10 MG TABLET (FP) PO SCH (09:54)
[2021-08-22] MEDS: PANTOPRAZOLE 40 MG TABLET PO SCH (09:55)
[2021-08-22] MEDS: FUROSEMIDE 40 MG TABLET (FP) PO SCH (09:55)
[2021-08-22] MEDS: BUDESONIDE/FORMETEROL FUMARATE 80/4.5 mcg INHALER IH SCH (09:56)
[2021-08-22] MEDS: TIOTROPIUM BROMIDE 2.5 MCG (SPIRIVA) RESPIMAT INHALER IH SCH (09:56)
[2021-08-22] MEDS ORDERED: predniSONE 20 MG TABLET (UD) PO SCH (10:00)
[2021-08-22 14:57] VITALS: BP 138/72; PULSE 78; TEMP 98.2
[2021-08-22] MEDS ORDERED: CEFUROXIME AXETIL 500 MG TABLET PO SCH (18:00)
== END 2021-08-22 15:31 | disposition home or self-care (01) | DRG 190 ==
LOC: JER 18:14 → JERBED 23:04 → J8W 08-17 15:30
PROVIDERS: ADMIT Hospitalist; ATTEND Internal Medicine
DX: J44.0 Chronic obstructive pulmonary disease with (acute) lower respiratory infection (principal); J18.9 Pneumonia, unspecified organism; J96.21 Acute and chronic respiratory failure with hypoxia; J96.22 Acute and chronic respiratory failure with hypercapnia; I69.354 Hemiplegia and hemiparesis following cerebral infarction affecting left non-dominant side; I50.32 Chronic diastolic (congestive) heart failure; E78.5 Hyperlipidemia, unspecified; J44.1 Chronic obstructive pulmonary disease with (acute) exacerbation; R19.7 Diarrhea, unspecified; E11.9 Type 2 diabetes mellitus without complications; F03.90 Unspecified dementia, unspecified severity, without behavioral disturbance, psychotic disturbance, mood disturbance, and anxiety; I11.0 Hypertensive heart disease with heart failure; I25.10 Atherosclerotic heart disease of native coronary artery without angina pectoris; E66.9 Obesity, unspecified; Z68.31 Body mass index [BMI] 31.0-31.9, adult; Z99.81 Dependence on supplemental oxygen
CPT/HCPCS: 0241U-QW; 36415; 36600; 71045-TC-FY; 71250-TC; 80053; 81003; 82803; 82962; 83036; 83880; 84484; 85025; 85610; 85730; 87040; 87086; 87899; 93005; 93010; 94640; 94660; 94761; 99285-25; J1644

== ENCOUNTER 2022-01-19 08:47 | Inpatient (IN) | payer MEDICARE, OTHER ==
[2022-01-19] MEDS ORDERED: CALCIUM CHLORIDE 1 GM/10 ML *DISP.SYRIN ONE (08:54)
[2022-01-19 09:29] LABS: HEMATOCRIT 32.9 % (32.4-45.2); HEMOGLOBIN 9.8 GM/dL (10.7-15.3); MCH 26.4 pg (25.7-33.7); MCHC 29.9 g/dl (32.0-36.0); MEAN CELL VOLUME 88.3 fl (80-96); MEAN PLT VOLUME 8.3 fl (7.5-11.1); PLATELET COUNT 241 10^3/uL (134-434); RBC 3.72 M/mm3 (3.60-5.2); RDW 19.6 % (11.6-15.6); WHITE BLOOD COUNT 16.5 K/mm3 (4.0-10.0)
[2022-01-19 09:31] LABS: ARTERIAL BLD GAS O2 SATURATION 99.4 % (95-98); ARTERIAL BLOOD GAS BASE EXCESS -2.3 mmol/L (-2-2); ARTERIAL BLOOD GAS PO2 280.5 mmHg (80-100)
[2022-01-19] MEDS ORDERED: MIDAZOLAM HCL 2 MG/2 ML SINGLE DOSE VIAL ONE (09:32)
[2022-01-19] MEDS ORDERED: MIDAZOLAM HCL 5 MG/1 ML Single Dose Vial IVPUSH ONE (09:32)
[2022-01-19] MEDS ORDERED: FENTANYL NS IVPB 500 MCG/100 ML BAG IVPB ONE (09:33)
[2022-01-19 09:36] LABS: INR 1.11 (0.83-1.09); PROTHROMBIN TIME (PATIENT) 12.8 SEC (9.7-13.0)
[2022-01-19 09:39] LABS: ACTIVATED PTT 36.1 SECONDS (25.2-36.5)
[2022-01-19 09:43] LABS: CHLORIDE 99 mmol/L (98-107); SODIUM 136 mmol/L (136-145)
[2022-01-19] MEDS: FENTANYL NS IVPB 500 MCG/100 ML BAG IVPB SCH ×2 (09:46→14:07)
[2022-01-19] MEDS ORDERED: INSULIN REGULAR HUMAN 100 UNITS/ML *VIAL IVPUSH ONE (09:46)
[2022-01-19 09:51] LABS: ALBUMIN 3.3 g/dl (3.4-5.0); ANION GAP 9 MMOL/L (8-16); CALCIUM 8.3 mg/dL (8.5-10.1); CO2 29 mmol/L (21-32); GLUCOSE,RANDOM 259 mg/dL (74-106); MAGNESIUM 2.4 mg/dL (1.8-2.4); SGPT/ALT 188 U/L (13-61)
[2022-01-19] MEDS ORDERED: DEXTROSE 50%-WATER - 25 GM/50 ML VIAL IVPUSH ONE (09:51)
[2022-01-19 09:52] LABS: ALK PHOS 97 U/L (45-117); BILIRUBIN,TOTAL 0.4 mg/dL (0.2-1); TOT PROT 6.3 g/dl (6.4-8.2)
[2022-01-19] MEDS ORDERED: EPINEPHrine 1:10,000 (P-F SYR) 1 MG/10 ML DISP.SYRIN IVPUSH ONE (09:52)
[2022-01-19 09:53] LABS: CREATININE 1.8 mg/dL (0.55-1.3); SGOT/AST 258 U/L (15-37)
[2022-01-19] MEDS ORDERED: CALCIUM CHLORIDE 1 GM/10 ML *DISP.SYRIN IVPUSH ONE (09:54)
[2022-01-19] MEDS ORDERED: SODIUM BICARBONATE 8.4% 50 MEQ/50 ML VIAL IV ONE (09:55)
[2022-01-19 09:58] LABS: N-TERMINAL BNP 11431.2 pg/ml (5-450)
[2022-01-19 10:05] LABS: ARTERIAL BLOOD GAS pH 7.093 (7.350-7.450)
[2022-01-19] MEDS ORDERED: DEXTROSE 50%-WATER 25 GM/50 ML DISP.SYRIN ONE (10:07)
[2022-01-19 10:17] LABS: ANISOCYTOSIS 3+; MACROCYTOSIS 0
[2022-01-19] MEDS ORDERED: CEFTRIAXONE 1,000 MG in DEXTROSE 5%-WATER - 50 ML IVPB STA (13:01)
[2022-01-19] MEDS ORDERED: AZITHROMYCIN IVPB 500 MG in DEXTROSE 5%-WATER - 250 ML IVPB STA (13:02)
[2022-01-19] MEDS ORDERED: PANTOPRAZOLE SODIUM 80 MG in SODIUM CHLORIDE 100 ML IVPB SCH (13:15)
[2022-01-19] MEDS ORDERED: CEFTRIAXONE 1,000 GM in DEXTROSE 5%-WATER - 50 ML IVPB STA (13:24)
[2022-01-19] MEDS ORDERED: AZITHROMYCIN IVPB 500 MG/250 ML BAG IVPB STA (13:27)
[2022-01-19 13:44] LABS: ARTERIAL BLD GAS O2 SATURATION 88.1 % (95-98); ARTERIAL BLOOD GAS BASE EXCESS -3.3 mmol/L (-2-2); ARTERIAL BLOOD GAS PO2 71.7 mmHg (80-100)
[2022-01-19 13:51] LABS: ALLENS TEST POSITIVE; VENT MODE A/C
[2022-01-19 13:52] LABS: VENT RATE 14
[2022-01-19 13:54] LABS: ARTERIAL BLOOD GAS pH 7.135 (7.350-7.450)
[2022-01-19] MEDS ORDERED: ALBUTEROL SO4 0.083% IH SOL 2.5 MG/3 ML VIAL.NEB. NEB SCH (14:15)
[2022-01-19] MEDS: DEXMEDETOMIDINE PREMIX 400 MCG/100 ML BAG IVPB SCH (14:17)
[2022-01-19] MEDS: methylPREDNISolone NA SUCC 40 MG/1 ML VIAL IVPUSH SCH ×2 (14:35→21:48)
[2022-01-19] MEDS ORDERED: FUROSEMIDE INJECTION 100 MG in SODIUM CHLORIDE 90 ML IVPB SCH (15:00)
[2022-01-19 15:27] LABS: EPI CELLS 21 /uL (0-25.1); HYALINE CASTS 3 /uL (0-3.1); URINE APPEARANCE CLEAR; URINE BACTERIA 58 /uL (0-1359); URINE BILIRUBIN NEGATIVE (NEGATIVE); URINE COLOR YELLOW; URINE GLUCOSE (UA) 1+ (NEGATIVE); URINE KETONE NEGATIVE (NEGATIVE); URINE LEUK ESTERASE NEGATIVE (NEGATIVE); URINE NITRITE NEGATIVE (NEGATIVE); URINE PROTEIN 3+ (NEGATIVE); URINE RBC 346 /uL (0-23.9); URINE WBC 18 /uL (0-25.8)
[2022-01-19 15:34] LABS: HEMATOCRIT 29.7 % (32.4-45.2); MCH 26.6 pg (25.7-33.7); MCHC 30.5 g/dl (32.0-36.0); MEAN CELL VOLUME 87.3 fl (80-96); MEAN PLT VOLUME 7.3 fl (7.5-11.1); PLATELET COUNT 249 10^3/uL (134-434); RDW 18.7 % (11.6-15.6); WHITE BLOOD COUNT 15.4 K/mm3 (4.0-10.0)
[2022-01-19 15:57] LABS: CALCIUM 9.2 mg/dL (8.5-10.1)
[2022-01-19 15:59] LABS: BILIRUBIN,DIRECT 0.2 mg/dL (0.0-0.2); BLOOD UREA NITROGEN 43.3 mg/dL (7-18); MAGNESIUM 2.2 mg/dL (1.8-2.4)
[2022-01-19 16:01] LABS: BILIRUBIN,TOTAL 0.5 mg/dL (0.2-1); CREATININE 1.7 mg/dL (0.55-1.3); PHOSPHOROUS 6.6 mg/dL (2.5-4.9); TOT PROT 5.6 g/dl (6.4-8.2)
[2022-01-19] MEDS: PANTOPRAZOLE SODIUM 160 MG in SODIUM CHLORIDE 290 ML IVPB SCH (16:27)
[2022-01-19] MEDS: CEFTRIAXONE 1 GM in DEXTROSE 5%-WATER - 50 ML IVPB SCH (16:33)
[2022-01-19] MEDS: INSULIN SLIDING SCALE (NOVOLOG) 1 VIAL SQ SCH (17:49)
[2022-01-19] MEDS: ALBUTEROL SO4 0.083% IH SOL 2.5 MG/3 ML VIAL.NEB. NEB SCH (20:05)
[2022-01-19 20:28] LABS: ARTERIAL BLOOD GAS BASE EXCESS 3.1 mmol/L (-2-2); ARTERIAL BLOOD GAS pH 7.328 (7.350-7.450)
[2022-01-19 20:30] LABS: VENT MODE V-A/C
[2022-01-19 20:31] LABS: VENT RATE 22
[2022-01-20] MEDS: PANTOPRAZOLE SODIUM 160 MG in SODIUM CHLORIDE 290 ML IVPB SCH
[2022-01-20] MEDS: ALBUTEROL SO4 0.083% IH SOL 2.5 MG/3 ML VIAL.NEB. NEB SCH ×5 (00:08→20:30)
[2022-01-20] MEDS: methylPREDNISolone NA SUCC 40 MG/1 ML VIAL IVPUSH SCH ×4 (01:59→21:56)
[2022-01-20] MEDS ORDERED: hydrALAZINE HCL 20 MG/ML VIAL IVPUSH ONE (04:23)
[2022-01-20] MEDS: INSULIN SLIDING SCALE (NOVOLOG) 1 VIAL SQ SCH ×3 (06:07→16:54)
[2022-01-20 06:19] LABS: ARTERIAL BLOOD GAS BASE EXCESS 2.2 mmol/L (-2-2); ARTERIAL BLOOD GAS PO2 93.8 mmHg (80-100); ARTERIAL BLOOD GAS pH 7.382 (7.350-7.450)
[2022-01-20 06:29] LABS: VENT MODE V-A/C; VENT RATE 24
[2022-01-20] MEDS ORDERED: PANTOPRAZOLE SODIUM 160 MG in SODIUM CHLORIDE 290 ML IVPB SCH (07:16)
[2022-01-20 08:02] LABS: HEMATOCRIT 30.7 % (32.4-45.2); HEMOGLOBIN 9.6 GM/dL (10.7-15.3); MCH 26.5 pg (25.7-33.7); MCHC 31.3 g/dl (32.0-36.0); MEAN CELL VOLUME 84.6 fl (80-96); PLATELET COUNT 232 10^3/uL (134-434); RBC 3.63 M/mm3 (3.60-5.2); WHITE BLOOD COUNT 13.7 K/mm3 (4.0-10.0)
[2022-01-20 08:40] LABS: BLOOD UREA NITROGEN 48.1 mg/dL (7-18); CALCIUM 8.5 mg/dL (8.5-10.1); MAGNESIUM 1.8 mg/dL (1.8-2.4)
[2022-01-20 08:44] LABS: CREATININE 2.1 mg/dL (0.55-1.3); PHOSPHOROUS 4.7 mg/dL (2.5-4.9)
[2022-01-20 08:45] LABS: BILIRUBIN,TOTAL 0.4 mg/dL (0.2-1); TOT PROT 5.5 g/dl (6.4-8.2)
[2022-01-20] MEDS ORDERED: ALBUTEROL SO4 0.083% IH SOL 2.5 MG/3 ML VIAL.NEB. NEB STA (10:04)
[2022-01-20] MEDS ORDERED: ALBUTEROL SO4 0.083% IH SOL 2.5 MG/3 ML VIAL.NEB. NEB ONE (10:05)
[2022-01-20] MEDS: ENOXAPARIN NA (PORCINE) 30 MG/0.3 ML DISP.SYRIN SQ SCH (10:10)
[2022-01-20] MEDS: CEFTRIAXONE 1 GM in DEXTROSE 5%-WATER - 50 ML IVPB SCH (10:11)
[2022-01-20] MEDS: FENTANYL NS IVPB 500 MCG/100 ML BAG IVPB SCH (10:12)
[2022-01-20] MEDS: AZITHROMYCIN IVPB 500 MG/250 ML BAG IVPB SCH (10:12)
[2022-01-20] MEDS: ASPIRIN 300 MG SUPP.RECT RC SCH (12:19)
[2022-01-20] MEDS: hydrALAZINE HCL 20 MG/ML VIAL IVPUSH SCH ×3 (12:20→21:56)
[2022-01-20] MEDS: FUROSEMIDE 40 MG/4 ML INJECTABLE VIAL IVPUSH SCH (13:43)
[2022-01-20] MEDS: DEXMEDETOMIDINE PREMIX 400 MCG/100 ML BAG IVPB SCH (13:43)
[2022-01-20] MEDS: PANTOPRAZOLE SODIUM 40 MG VIAL IVPUSH SCH (21:56)
[2022-01-21] MEDS: methylPREDNISolone NA SUCC 40 MG/1 ML VIAL IVPUSH SCH ×4 (02:52→21:41)
[2022-01-21] MEDS: INSULIN SLIDING SCALE (NOVOLOG) 1 VIAL SQ SCH ×3 (06:06→15:53)
[2022-01-21] MEDS: FUROSEMIDE 40 MG/4 ML INJECTABLE VIAL IVPUSH SCH ×2 (06:06→14:06)
[2022-01-21] MEDS: hydrALAZINE HCL 20 MG/ML VIAL IVPUSH SCH ×4 (06:06→21:41)
[2022-01-21] MEDS: DEXMEDETOMIDINE PREMIX 400 MCG/100 ML BAG IVPB SCH ×2 (07:00→15:00)
[2022-01-21] MEDS: ALBUTEROL SO4 0.083% IH SOL 2.5 MG/3 ML VIAL.NEB. NEB SCH ×4 (07:25→20:45)
[2022-01-21 07:55] LABS: HEMATOCRIT 30.3 % (32.4-45.2); HEMOGLOBIN 9.6 GM/dL (10.7-15.3); MCH 26.3 pg (25.7-33.7); MCHC 31.5 g/dl (32.0-36.0); MEAN CELL VOLUME 83.5 fl (80-96); MEAN PLT VOLUME 8.1 fl (7.5-11.1); PLATELET COUNT 217 10^3/uL (134-434); RBC 3.63 M/mm3 (3.60-5.2); RDW 19.1 % (11.6-15.6); WHITE BLOOD COUNT 16.3 K/mm3 (4.0-10.0)
[2022-01-21 08:25] LABS: CALCIUM 7.8 mg/dL (8.5-10.1)
[2022-01-21 08:26] LABS: ALBUMIN 2.9 g/dl (3.4-5.0); BLOOD UREA NITROGEN 63.9 mg/dL (7-18); MAGNESIUM 1.9 mg/dL (1.8-2.4)
[2022-01-21 08:27] LABS: INR 1.18 (0.83-1.09); PROTHROMBIN TIME (PATIENT) 13.6 SEC (9.7-13.0)
[2022-01-21 08:29] LABS: CREATININE 2.5 mg/dL (0.55-1.3); PHOSPHOROUS 5.5 mg/dL (2.5-4.9)
[2022-01-21 08:30] LABS: TOT PROT 5.3 g/dl (6.4-8.2)
[2022-01-21 08:31] LABS: BILIRUBIN,TOTAL 0.4 mg/dL (0.2-1)
[2022-01-21] MEDS: ENOXAPARIN NA (PORCINE) 30 MG/0.3 ML DISP.SYRIN SQ SCH (09:24)
[2022-01-21] MEDS: CEFTRIAXONE 1 GM in DEXTROSE 5%-WATER - 50 ML IVPB SCH (09:24)
[2022-01-21] MEDS: PANTOPRAZOLE SODIUM 40 MG VIAL IVPUSH SCH ×2 (09:24→21:41)
[2022-01-21] MEDS: AZITHROMYCIN IVPB 500 MG/250 ML BAG IVPB SCH (09:26)
[2022-01-21] MEDS: ASPIRIN 300 MG SUPP.RECT RC SCH (10:32)
[2022-01-21] MEDS ORDERED: FLUTICASONE/UMECLIDIN/VILANTER(100-62.5-25 TRELEGY ELLIPTA) INAHLER IH SCH (11:30)
[2022-01-21] MEDS: FLUTICASONE/UMECLIDIN/VILANTER(100-62.5-25 TRELEGY ELLIPTA) INAHLER IH SCH (14:06)
[2022-01-22] MEDS: DEXMEDETOMIDINE PREMIX 400 MCG/100 ML BAG IVPB SCH ×3 (02:16→22:01)
[2022-01-22] MEDS: methylPREDNISolone NA SUCC 40 MG/1 ML VIAL IVPUSH SCH ×4 (03:57→22:02)
[2022-01-22] MEDS: hydrALAZINE HCL 20 MG/ML VIAL IVPUSH SCH ×4 (03:57→22:02)
[2022-01-22] MEDS: FUROSEMIDE 40 MG/4 ML INJECTABLE VIAL IVPUSH SCH (06:19)
[2022-01-22] MEDS: INSULIN SLIDING SCALE (NOVOLOG) 1 VIAL SQ SCH ×3 (06:19→17:08)
[2022-01-22 07:44] LABS: CALCIUM 7.6 mg/dL (8.5-10.1)
[2022-01-22 07:45] LABS: BLOOD UREA NITROGEN 81.3 mg/dL (7-18)
[2022-01-22 07:48] LABS: CREATININE 2.8 mg/dL (0.55-1.3)
[2022-01-22] MEDS: ALBUTEROL SO4 0.083% IH SOL 2.5 MG/3 ML VIAL.NEB. NEB SCH ×4 (08:20→20:40)
[2022-01-22] MEDS: FLUTICASONE/UMECLIDIN/VILANTER(100-62.5-25 TRELEGY ELLIPTA) INAHLER IH SCH (09:07)
[2022-01-22] MEDS: amLODIPine BESYLATE 10 MG TABLET (FP) PO SCH (09:44)
[2022-01-22] MEDS: ENOXAPARIN NA (PORCINE) 30 MG/0.3 ML DISP.SYRIN SQ SCH (09:44)
[2022-01-22] MEDS: ASPIRIN 325 MG ENTERIC COATED TABLET (FP) PO SCH (09:44)
[2022-01-22] MEDS: PANTOPRAZOLE SODIUM 40 MG VIAL IVPUSH SCH (09:49)
[2022-01-22] MEDS: CEFTRIAXONE 1 GM in DEXTROSE 5%-WATER - 50 ML IVPB SCH (09:49)
[2022-01-22] MEDS: AZITHROMYCIN IVPB 500 MG/250 ML BAG IVPB SCH (10:12)
[2022-01-22] MEDS ORDERED: INSULIN (LEVEMIR) 100 UNITS/ML UNITS SQ SCH (22:00)
[2022-01-22] MEDS: CARVEDILOL 12.5 MG TABLET (FP) PO SCH (22:02)
[2022-01-23] MEDS ORDERED: ONDANSETRON 4 MG/2 ML VIAL IVPUSH PRN (00:18)
[2022-01-23] MEDS: methylPREDNISolone NA SUCC 40 MG/1 ML VIAL IVPUSH SCH ×3 (03:48→22:07)
[2022-01-23] MEDS: hydrALAZINE HCL 20 MG/ML VIAL IVPUSH SCH ×4 (03:48→22:15)
[2022-01-23] MEDS: INSULIN SLIDING SCALE (NOVOLOG) 1 VIAL SQ SCH ×3 (06:11→17:43)
[2022-01-23 07:23] LABS: HEMATOCRIT 31.6 % (32.4-45.2); MCH 26.3 pg (25.7-33.7); MCHC 31.6 g/dl (32.0-36.0); MEAN CELL VOLUME 83.3 fl (80-96); PLATELET COUNT 241 10^3/uL (134-434); RBC 3.79 M/mm3 (3.60-5.2); RDW 19.3 % (11.6-15.6); WHITE BLOOD COUNT 12.1 K/mm3 (4.0-10.0)
[2022-01-23 07:55] LABS: BLOOD UREA NITROGEN 89.7 mg/dL (7-18); CALCIUM 7.4 mg/dL (8.5-10.1)
[2022-01-23 07:56] LABS: ALBUMIN 2.7 g/dl (3.4-5.0)
[2022-01-23 07:58] LABS: CREATININE 2.7 mg/dL (0.55-1.3)
[2022-01-23 07:59] LABS: BILIRUBIN,TOTAL 0.5 mg/dL (0.2-1); TOT PROT 5.4 g/dl (6.4-8.2)
[2022-01-23] MEDS: ALBUTEROL SO4 0.083% IH SOL 2.5 MG/3 ML VIAL.NEB. NEB SCH ×4 (08:15→20:10)
[2022-01-23] MEDS: FLUTICASONE/UMECLIDIN/VILANTER(100-62.5-25 TRELEGY ELLIPTA) INAHLER IH SCH (09:39)
[2022-01-23] MEDS: AZITHROMYCIN IVPB 500 MG/250 ML BAG IVPB SCH (09:39)
[2022-01-23] MEDS: amLODIPine BESYLATE 10 MG TABLET (FP) PO SCH (09:39)
[2022-01-23] MEDS: ENOXAPARIN NA (PORCINE) 30 MG/0.3 ML DISP.SYRIN SQ SCH (09:39)
[2022-01-23] MEDS: CEFTRIAXONE 1 GM in DEXTROSE 5%-WATER - 50 ML IVPB SCH (09:39)
[2022-01-23] MEDS: ASPIRIN 325 MG ENTERIC COATED TABLET (FP) PO SCH (09:39)
[2022-01-23] MEDS: CARVEDILOL 12.5 MG TABLET (FP) PO SCH ×2 (09:39→22:07)
[2022-01-23] MEDS ORDERED: ACETAMINOPHEN 325 MG TABLET (FP) PO PRN (09:53)
[2022-01-23] MEDS ORDERED: PANTOPRAZOLE SODIUM 40 MG VIAL IVPUSH SCH (10:00)
[2022-01-23] MEDS ORDERED: VALSARTAN 160 MG TABLET PO SCH (12:30)
[2022-01-23] MEDS ORDERED: LABETALOL HCL 5 MG/1 ML (100MG/20 ML VIAL) IVPUSH ONE (12:34)
[2022-01-23] MEDS ORDERED: methylPREDNISolone NA SUCC 40 MG/1 ML VIAL IVPUSH SCH (14:00)
[2022-01-23] MEDS ORDERED: POTASSIUM CHLORIDE ORAL LIQUID 20 MEQ/15 ML PO ONE (14:06)
[2022-01-23] MEDS ORDERED: INSULIN (LEVEMIR) 100 UNITS/ML UNITS SQ SCH (22:00)
[2022-01-24] MEDS: hydrALAZINE HCL 20 MG/ML VIAL IVPUSH SCH ×2 (03:40→12:34)
[2022-01-24] MEDS: methylPREDNISolone NA SUCC 40 MG/1 ML VIAL IVPUSH SCH ×3 (06:28→21:48)
[2022-01-24] MEDS: INSULIN SLIDING SCALE (NOVOLOG) 1 VIAL SQ SCH ×3 (06:29→17:27)
[2022-01-24 08:07] LABS: HEMATOCRIT 32.8 % (32.4-45.2); HEMOGLOBIN 10.3 GM/dL (10.7-15.3); MCH 26.2 pg (25.7-33.7); MCHC 31.5 g/dl (32.0-36.0); MEAN CELL VOLUME 83.3 fl (80-96); MEAN PLT VOLUME 8.4 fl (7.5-11.1); PLATELET COUNT 258 10^3/uL (134-434); RBC 3.94 M/mm3 (3.60-5.2); RDW 18.9 % (11.6-15.6); WHITE BLOOD COUNT 10.4 K/mm3 (4.0-10.0)
[2022-01-24 08:17] LABS: CALCIUM 7.8 mg/dL (8.5-10.1)
[2022-01-24 08:18] LABS: ALBUMIN 2.9 g/dl (3.4-5.0); BLOOD UREA NITROGEN 97.5 mg/dL (7-18); MAGNESIUM 2.3 mg/dL (1.8-2.4)
[2022-01-24] MEDS: ALBUTEROL SO4 0.083% IH SOL 2.5 MG/3 ML VIAL.NEB. NEB SCH ×4 (08:19→20:05)
[2022-01-24 08:21] LABS: CREATININE 2.7 mg/dL (0.55-1.3)
[2022-01-24 08:22] LABS: BILIRUBIN,TOTAL 0.7 mg/dL (0.2-1)
[2022-01-24 08:23] LABS: TOT PROT 5.6 g/dl (6.4-8.2)
[2022-01-24] MEDS ORDERED: amLODIPine BESYLATE 10 MG TABLET (FP) PO SCH (10:00)
[2022-01-24] MEDS: CARVEDILOL 12.5 MG TABLET (FP) PO SCH ×2 (10:11→21:47)
[2022-01-24] MEDS: ENOXAPARIN NA (PORCINE) 30 MG/0.3 ML DISP.SYRIN SQ SCH (10:11)
[2022-01-24] MEDS: CEFTRIAXONE 1 GM in DEXTROSE 5%-WATER - 50 ML IVPB SCH (10:12)
[2022-01-24] MEDS: ASPIRIN 325 MG ENTERIC COATED TABLET (FP) PO SCH (10:12)
[2022-01-24] MEDS: AZITHROMYCIN IVPB 500 MG/250 ML BAG IVPB SCH (10:15)
[2022-01-24] MEDS: FLUTICASONE/UMECLIDIN/VILANTER(100-62.5-25 TRELEGY ELLIPTA) INAHLER IH SCH ×2 (11:27→15:18)
[2022-01-24] MEDS: INSULIN (LEVEMIR) 100 UNITS/ML UNITS SQ SCH (21:47)
[2022-01-25] MEDS ORDERED: HALOPERIDOL LACTATE 5 MG/ML IM ONE (03:49)
[2022-01-25] MEDS: methylPREDNISolone NA SUCC 40 MG/1 ML VIAL IVPUSH SCH ×3 (06:36→21:16)
[2022-01-25] MEDS: INSULIN SLIDING SCALE (NOVOLOG) 1 VIAL SQ SCH ×3 (06:36→17:13)
[2022-01-25] MEDS: ALBUTEROL SO4 0.083% IH SOL 2.5 MG/3 ML VIAL.NEB. NEB SCH ×4 (07:47→20:06)
[2022-01-25] MEDS ORDERED: NIFEdipine E.R. 30 MG TABLET PO SCH (10:00)
[2022-01-25] MEDS: ASPIRIN 325 MG ENTERIC COATED TABLET (FP) PO SCH (10:33)
[2022-01-25] MEDS: FLUTICASONE/UMECLIDIN/VILANTER(100-62.5-25 TRELEGY ELLIPTA) INAHLER IH SCH (10:33)
[2022-01-25] MEDS: CARVEDILOL 12.5 MG TABLET (FP) PO SCH ×2 (10:33→21:16)
[2022-01-25] MEDS: ENOXAPARIN NA (PORCINE) 30 MG/0.3 ML DISP.SYRIN SQ SCH (10:33)
[2022-01-25] MEDS: AZITHROMYCIN IVPB 500 MG/250 ML BAG IVPB SCH (11:16)
[2022-01-25] MEDS: CEFTRIAXONE 1 GM in DEXTROSE 5%-WATER - 50 ML IVPB SCH (11:16)
[2022-01-25] MEDS ORDERED: LORazepam 2 MG/ML SDV VIAL IM ONE (21:22)
[2022-01-25] MEDS: INSULIN (LEVEMIR) 100 UNITS/ML UNITS SQ SCH (21:27)
[2022-01-25 23:13] VITALS: BMI 28.1
[2022-01-26] MEDS ORDERED: LORazepam 2 MG/ML SDV VIAL IM ONE (02:16)
[2022-01-26] MEDS: methylPREDNISolone NA SUCC 40 MG/1 ML VIAL IVPUSH SCH ×3 (06:18→21:06)
[2022-01-26] MEDS: INSULIN SLIDING SCALE (NOVOLOG) 1 VIAL SQ SCH ×3 (06:22→16:31)
[2022-01-26] MEDS: ALBUTEROL SO4 0.083% IH SOL 2.5 MG/3 ML VIAL.NEB. NEB SCH ×4 (08:35→21:01)
[2022-01-26] MEDS ORDERED: ALPRAZolam 1 MG TABLET PO PRN (09:01)
[2022-01-26] MEDS: AZITHROMYCIN IVPB 500 MG/250 ML BAG IVPB SCH (09:20)
[2022-01-26] MEDS: CEFTRIAXONE 1 GM in DEXTROSE 5%-WATER - 50 ML IVPB SCH (09:20)
[2022-01-26] MEDS: ENOXAPARIN NA (PORCINE) 30 MG/0.3 ML DISP.SYRIN SQ SCH (09:20)
[2022-01-26] MEDS: FLUTICASONE/UMECLIDIN/VILANTER(100-62.5-25 TRELEGY ELLIPTA) INAHLER IH SCH (09:20)
[2022-01-26] MEDS: NIFEdipine E.R 60 MG TABLET PO SCH (09:20)
[2022-01-26] MEDS: ASPIRIN 325 MG ENTERIC COATED TABLET (FP) PO SCH (09:20)
[2022-01-26] MEDS: CARVEDILOL 12.5 MG TABLET (FP) PO SCH ×2 (09:20→21:08)
[2022-01-26] MEDS: ALPRAZolam 0.25 MG TABLET PO PRN ×2 (09:22→21:06)
[2022-01-26] MEDS: ACETAMINOPHEN 325 MG TABLET (FP) PO PRN (21:07)
[2022-01-26] MEDS: QUEtiapine FUMARATE 25 MG TABLET PO SCH (21:08)
[2022-01-26] MEDS: INSULIN (LEVEMIR) 100 UNITS/ML UNITS SQ SCH (21:10)
[2022-01-27] MEDS: methylPREDNISolone NA SUCC 40 MG/1 ML VIAL IVPUSH SCH ×3 (05:41→21:33)
[2022-01-27] MEDS: INSULIN SLIDING SCALE (NOVOLOG) 1 VIAL SQ SCH ×3 (06:25→17:10)
[2022-01-27] MEDS: ALBUTEROL SO4 0.083% IH SOL 2.5 MG/3 ML VIAL.NEB. NEB SCH ×4 (07:39→20:29)
[2022-01-27 08:35] LABS: HEMATOCRIT 31.5 % (32.4-45.2); HEMOGLOBIN 9.9 GM/dL (10.7-15.3); MCH 26.4 pg (25.7-33.7); MCHC 31.5 g/dl (32.0-36.0); MEAN CELL VOLUME 83.9 fl (80-96); MEAN PLT VOLUME 8.6 fl (7.5-11.1); PLATELET COUNT 286 10^3/uL (134-434); RBC 3.76 M/mm3 (3.60-5.2); RDW 18.9 % (11.6-15.6); WHITE BLOOD COUNT 10.4 K/mm3 (4.0-10.0)
[2022-01-27 09:03] LABS: CALCIUM 8.3 mg/dL (8.5-10.1)
[2022-01-27 09:04] LABS: BLOOD UREA NITROGEN 84.4 mg/dL (7-18)
[2022-01-27 09:07] LABS: CREATININE 1.9 mg/dL (0.55-1.3)
[2022-01-27 09:09] LABS: TOT PROT 5.6 g/dl (6.4-8.2)
[2022-01-27 09:14] LABS: BILIRUBIN,TOTAL 0.5 mg/dL (0.2-1)
[2022-01-27] MEDS: AZITHROMYCIN IVPB 500 MG/250 ML BAG IVPB SCH (09:41)
[2022-01-27] MEDS: ASPIRIN 325 MG ENTERIC COATED TABLET (FP) PO SCH (09:41)
[2022-01-27] MEDS: CEFTRIAXONE 1 GM in DEXTROSE 5%-WATER - 50 ML IVPB SCH (09:41)
[2022-01-27] MEDS: NIFEdipine E.R 60 MG TABLET PO SCH (09:41)
[2022-01-27] MEDS: CARVEDILOL 12.5 MG TABLET (FP) PO SCH ×2 (09:41→21:26)
[2022-01-27] MEDS: FLUTICASONE/UMECLIDIN/VILANTER(100-62.5-25 TRELEGY ELLIPTA) INAHLER IH SCH (09:41)
[2022-01-27] MEDS: ENOXAPARIN NA (PORCINE) 30 MG/0.3 ML DISP.SYRIN SQ SCH (09:41)
[2022-01-27 10:13] LABS: ANISOCYTOSIS 1+; MACROCYTOSIS 0; TARGET CELLS 1+
[2022-01-27] MEDS: ACETAMINOPHEN 325 MG TABLET (FP) PO PRN (21:25)
[2022-01-27] MEDS: ALPRAZolam 0.25 MG TABLET PO PRN (21:26)
[2022-01-27] MEDS: QUEtiapine FUMARATE 25 MG TABLET PO SCH (21:26)
[2022-01-27] MEDS: INSULIN (LEVEMIR) 100 UNITS/ML UNITS SQ SCH (21:32)
[2022-01-28] MEDS: INSULIN SLIDING SCALE (NOVOLOG) 1 VIAL SQ SCH ×3 (06:40→17:03)
[2022-01-28] MEDS: methylPREDNISolone NA SUCC 40 MG/1 ML VIAL IVPUSH SCH ×4 (06:40→22:00)
[2022-01-28] MEDS: ALBUTEROL SO4 0.083% IH SOL 2.5 MG/3 ML VIAL.NEB. NEB SCH ×3 (07:59→16:41)
[2022-01-28] MEDS: NIFEdipine E.R 60 MG TABLET PO SCH (09:07)
[2022-01-28] MEDS: ASPIRIN 325 MG ENTERIC COATED TABLET (FP) PO SCH (10:06)
[2022-01-28] MEDS: CARVEDILOL 12.5 MG TABLET (FP) PO SCH ×2 (10:06→21:59)
[2022-01-28] MEDS: ENOXAPARIN NA (PORCINE) 30 MG/0.3 ML DISP.SYRIN SQ SCH (10:06)
[2022-01-28] MEDS: CEFTRIAXONE 1 GM in DEXTROSE 5%-WATER - 50 ML IVPB SCH (10:06)
[2022-01-28] MEDS: AZITHROMYCIN IVPB 500 MG/250 ML BAG IVPB SCH (10:06)
[2022-01-28] MEDS: FLUTICASONE/UMECLIDIN/VILANTER(100-62.5-25 TRELEGY ELLIPTA) INAHLER IH SCH (10:07)
[2022-01-28] MEDS: ACETAMINOPHEN 325 MG TABLET (FP) PO PRN (15:38)
[2022-01-28] MEDS: ALPRAZolam 0.25 MG TABLET PO PRN (21:59)
[2022-01-28] MEDS: QUEtiapine FUMARATE 25 MG TABLET PO SCH (21:59)
[2022-01-28] MEDS: INSULIN (LEVEMIR) 100 UNITS/ML UNITS SQ SCH (22:02)
[2022-01-29] MEDS: INSULIN SLIDING SCALE (NOVOLOG) 1 VIAL SQ SCH ×3 (06:15→17:31)
[2022-01-29] MEDS: NIFEdipine E.R. 90 MG TABLET PO SCH (10:18)
[2022-01-29] MEDS: ENOXAPARIN NA (PORCINE) 30 MG/0.3 ML DISP.SYRIN SQ SCH (10:18)
[2022-01-29] MEDS: ASPIRIN 325 MG ENTERIC COATED TABLET (FP) PO SCH (10:19)
[2022-01-29] MEDS: CEFTRIAXONE 1 GM in DEXTROSE 5%-WATER - 50 ML IVPB SCH (10:19)
[2022-01-29] MEDS: CARVEDILOL 12.5 MG TABLET (FP) PO SCH ×2 (10:19→21:23)
[2022-01-29] MEDS: AZITHROMYCIN IVPB 500 MG/250 ML BAG IVPB SCH (10:22)
[2022-01-29] MEDS: methylPREDNISolone NA SUCC 40 MG/1 ML VIAL IVPUSH SCH ×2 (10:23→21:23)
[2022-01-29] MEDS: FLUTICASONE/UMECLIDIN/VILANTER(100-62.5-25 TRELEGY ELLIPTA) INAHLER IH SCH (10:24)
[2022-01-29] MEDS ORDERED: ALBUTEROL SO4 2.5/IPRATROPIUM 0.5 INH SOL 3 ML VIAL.NEB. NEB PRN (13:18)
[2022-01-29] MEDS: QUEtiapine FUMARATE 25 MG TABLET PO SCH (21:22)
[2022-01-29] MEDS: INSULIN (LEVEMIR) 100 UNITS/ML UNITS SQ SCH (21:23)
[2022-01-29] MEDS: ALPRAZolam 0.25 MG TABLET PO PRN (22:32)
[2022-01-30] MEDS: INSULIN SLIDING SCALE (NOVOLOG) 1 VIAL SQ SCH ×3 (06:11→17:15)
[2022-01-30] MEDS: NIFEdipine E.R. 90 MG TABLET PO SCH (08:22)
[2022-01-30] MEDS: FLUTICASONE/UMECLIDIN/VILANTER(100-62.5-25 TRELEGY ELLIPTA) INAHLER IH SCH (09:35)
[2022-01-30] MEDS: CARVEDILOL 12.5 MG TABLET (FP) PO SCH (09:35)
[2022-01-30] MEDS: ENOXAPARIN NA (PORCINE) 30 MG/0.3 ML DISP.SYRIN SQ SCH (09:35)
[2022-01-30] MEDS: CEFTRIAXONE 1 GM in DEXTROSE 5%-WATER - 50 ML IVPB SCH (09:35)
[2022-01-30] MEDS: ASPIRIN 325 MG ENTERIC COATED TABLET (FP) PO SCH (09:35)
[2022-01-30] MEDS: AZITHROMYCIN IVPB 500 MG/250 ML BAG IVPB SCH (09:35)
[2022-01-30] MEDS: methylPREDNISolone NA SUCC 40 MG/1 ML VIAL IVPUSH SCH ×2 (09:35→21:08)
[2022-01-30 10:39] LABS: CALCIUM 8.2 mg/dL (8.5-10.1)
[2022-01-30 10:40] LABS: ALBUMIN 2.8 g/dl (3.4-5.0)
[2022-01-30 10:43] LABS: CREATININE 1.6 mg/dL (0.55-1.3)
[2022-01-30 10:44] LABS: BILIRUBIN,TOTAL 0.4 mg/dL (0.2-1); TOT PROT 5.4 g/dl (6.4-8.2)
[2022-01-30] MEDS: ALBUTEROL SO4 2.5/IPRATROPIUM 0.5 INH SOL 3 ML VIAL.NEB. NEB SCH ×2 (15:17→20:46)
[2022-01-30] MEDS: CARVEDILOL 25 MG TABLET (FP) PO SCH (21:09)
[2022-01-30] MEDS: QUEtiapine FUMARATE 25 MG TABLET PO SCH (21:09)
[2022-01-30] MEDS: INSULIN (LEVEMIR) 100 UNITS/ML UNITS SQ SCH (21:15)
[2022-01-31] MEDS: ALBUTEROL SO4 2.5/IPRATROPIUM 0.5 INH SOL 3 ML VIAL.NEB. NEB SCH ×6 (00:35→20:30)
[2022-01-31] MEDS: ALPRAZolam 0.25 MG TABLET PO PRN (04:58)
[2022-01-31] MEDS: INSULIN SLIDING SCALE (NOVOLOG) 1 VIAL SQ SCH ×3 (06:13→16:49)
[2022-01-31] MEDS: methylPREDNISolone NA SUCC 40 MG/1 ML VIAL IVPUSH SCH ×2 (09:26→21:23)
[2022-01-31] MEDS: ASPIRIN 325 MG ENTERIC COATED TABLET (FP) PO SCH (09:28)
[2022-01-31] MEDS: CARVEDILOL 25 MG TABLET (FP) PO SCH ×2 (09:28→21:22)
[2022-01-31] MEDS: NIFEdipine E.R. 90 MG TABLET PO SCH (09:30)
[2022-01-31 09:54] LABS: HEMATOCRIT 31.1 % (32.4-45.2); HEMOGLOBIN 9.6 GM/dL (10.7-15.3); LYMPH % 4.7 % (8-40); MCH 26.1 pg (25.7-33.7); MCHC 30.9 g/dl (32.0-36.0); MEAN CELL VOLUME 84.6 fl (80-96); MEAN PLT VOLUME 7.8 fl (7.5-11.1); NEUT % 87.3 % (42.8-82.8); PLATELET COUNT 285 10^3/uL (134-434); RBC 3.68 M/mm3 (3.60-5.2); RDW 19.1 % (11.6-15.6); WHITE BLOOD COUNT 14.1 K/mm3 (4.0-10.0)
[2022-01-31 10:17] LABS: ALBUMIN 2.6 g/dl (3.4-5.0); BLOOD UREA NITROGEN 61.1 mg/dL (7-18)
[2022-01-31 10:20] LABS: CREATININE 1.3 mg/dL (0.55-1.3)
[2022-01-31 10:23] LABS: BILIRUBIN,TOTAL 0.4 mg/dL (0.2-1)
[2022-01-31] MEDS ORDERED: DEXTROSE 5%-WATER - 1,000 ML IV SCH (11:00)
[2022-01-31] MEDS: FLUTICASONE/UMECLIDIN/VILANTER(100-62.5-25 TRELEGY ELLIPTA) INAHLER IH SCH (11:09)
[2022-01-31] MEDS: INSULIN (LEVEMIR) 100 UNITS/ML UNITS SQ SCH (21:22)
[2022-01-31] MEDS: QUEtiapine FUMARATE 25 MG TABLET PO SCH (21:23)
[2022-02-01] MEDS: ALBUTEROL SO4 2.5/IPRATROPIUM 0.5 INH SOL 3 ML VIAL.NEB. NEB SCH ×6 (00:17→20:32)
[2022-02-01] MEDS ORDERED: FUROSEMIDE 40 MG/4 ML INJECTABLE VIAL IVPUSH ONE (05:08)
[2022-02-01] MEDS ORDERED: DEXTROSE 50%-WATER 25 GM/50 ML DISP.SYRIN IVPUSH ONE ×2 (05:56→12:45)
[2022-02-01] MEDS: INSULIN SLIDING SCALE (NOVOLOG) 1 VIAL SQ SCH ×3 (06:15→17:37)
[2022-02-01] MEDS ORDERED: LABETALOL HCL 5 MG/1 ML (100MG/20 ML VIAL) IVPUSH ONE (08:00)
[2022-02-01 08:21] LABS: ARTERIAL BLD GAS O2 SATURATION 94.1 % (95-98); ARTERIAL BLOOD GAS BASE EXCESS 11.2 mmol/L (-2-2); ARTERIAL BLOOD GAS PO2 77.1 mmHg (80-100); ARTERIAL BLOOD GAS pH 7.346 (7.350-7.450)
[2022-02-01 08:23] LABS: ALLENS TEST POSITIVE
[2022-02-01] MEDS ORDERED: METOPROLOL TARTRATE 5 MG/5 ML VIAL IVPUSH PRN (08:33)
[2022-02-01] MEDS: HALOPERIDOL LACTATE 5 MG/ML IM PRN ×2 (08:47→09:53)
[2022-02-01] MEDS: methylPREDNISolone NA SUCC 40 MG/1 ML VIAL IVPUSH SCH ×3 (08:48→21:25)
[2022-02-01] MEDS: NIFEdipine E.R. 90 MG TABLET PO SCH (09:37)
[2022-02-01] MEDS: CARVEDILOL 25 MG TABLET (FP) PO SCH ×2 (09:38→21:26)
[2022-02-01] MEDS: ASPIRIN 325 MG ENTERIC COATED TABLET (FP) PO SCH (09:38)
[2022-02-01] MEDS: FLUTICASONE/UMECLIDIN/VILANTER(100-62.5-25 TRELEGY ELLIPTA) INAHLER IH SCH (09:38)
[2022-02-01] MEDS: ENOXAPARIN NA (PORCINE) 30 MG/0.3 ML DISP.SYRIN SQ SCH (09:57)
[2022-02-01 12:16] LABS: HEMATOCRIT 34.3 % (32.4-45.2); HEMOGLOBIN 10.5 GM/dL (10.7-15.3); MCHC 30.7 g/dl (32.0-36.0); MEAN CELL VOLUME 84.7 fl (80-96); MEAN PLT VOLUME 8.2 fl (7.5-11.1); PLATELET COUNT 324 10^3/uL (134-434); RBC 4.06 M/mm3 (3.60-5.2); RDW 19.6 % (11.6-15.6)
[2022-02-01] MEDS ORDERED: RAPID SEQUENCE INTUBATION KIT NR ONE (12:19)
[2022-02-01 12:20] LABS: PROTHROMBIN TIME (PATIENT) 11.5 SEC (9.7-13.0)
[2022-02-01 12:23] LABS: ACTIVATED PTT 24.3 SECONDS (25.2-36.5)
[2022-02-01 12:33] LABS: CHLORIDE 103 mmol/L (98-107); SODIUM 148 mmol/L (136-145)
[2022-02-01] MEDS ORDERED: ROCURONIUM BROMIDE 50 MG/5 ML VIAL ONE (12:34)
[2022-02-01 12:35] LABS: ALBUMIN 2.9 g/dl (3.4-5.0); ANION GAP 8 MMOL/L (8-16); CALCIUM 8.4 mg/dL (8.5-10.1); CO2 37 mmol/L (21-32)
[2022-02-01 12:38] LABS: CREATININE 1.3 mg/dL (0.55-1.3); SGPT/ALT 41 U/L (13-61)
[2022-02-01 12:39] LABS: SGOT/AST 34 U/L (15-37)
[2022-02-01 12:40] LABS: BILIRUBIN,TOTAL 0.5 mg/dL (0.2-1); TOT PROT 5.5 g/dl (6.4-8.2)
[2022-02-01 12:41] LABS: ALK PHOS 75 U/L (45-117); GLUCOSE,RANDOM 43 mg/dL (74-106)
[2022-02-01] MEDS ORDERED: PROPOFOL 1,000,000 MCG/100 ML VIAL ONE (12:41)
[2022-02-01 12:49] LABS: ARTERIAL BLD GAS O2 SATURATION 71.9 % (95-98); ARTERIAL BLOOD GAS BASE EXCESS 7.4 mmol/L (-2-2); ARTERIAL BLOOD GAS pH 7.376 (7.350-7.450)
[2022-02-01 12:51] LABS: ARTERIAL BLOOD GAS PO2 39.7 mmHg (80-100)
[2022-02-01] MEDS: PROPOFOL 1,000,000 MCG/100 ML VIAL IVPB SCH ×2 (13:10→18:51)
[2022-02-01] MEDS ORDERED: ETOMIDATE 40 MG/20 ML VIAL IVPUSH ONE (13:27)
[2022-02-01] MEDS ORDERED: MIDAZOLAM IN 0.9 % SOD.CHLORID 1 MG/1 ML PLAST..BAG ONE (14:20)
[2022-02-01] MEDS ORDERED: MIDAZOLAM IN 0.9 % SOD.CHLORID 100 MG/100 ML PLAST..BAG IVPB SCH (14:30)
[2022-02-01] MEDS ORDERED: ROCURONIUM BROMIDE 50 MG/5 ML VIAL IV ONE (14:45)
[2022-02-01] MEDS: PIPERACILLIN/TAZOB 3.375 GM 3.375 GM in DEXTROSE 5%-WATER - 50 ML IVPB SCH (17:36)
[2022-02-01] MEDS ORDERED: DEXTROSE 50%-WATER - 25 GM/50 ML VIAL IVPUSH PRN (17:36)
[2022-02-01] MEDS: DEXMEDETOMIDINE PREMIX 400 MCG/100 ML BAG IVPB SCH (19:50)
[2022-02-01] MEDS: CHLORHEXIDINE GLUCONATE 4% CLEANSER FOR DECOLONIZATION TP SCH (21:25)
[2022-02-01] MEDS: MUPIROCIN 2% TOPICAL OINTMENT FOR DECOLONIZATION NS SCH (21:26)
[2022-02-01] MEDS: QUEtiapine FUMARATE 25 MG TABLET PO SCH (21:26)
[2022-02-02] MEDS: PIPERACILLIN/TAZOB 3.375 GM 3.375 GM in DEXTROSE 5%-WATER - 50 ML IVPB SCH ×3 (01:30→17:44)
[2022-02-02] MEDS: PROPOFOL 1,000,000 MCG/100 ML VIAL IVPB SCH ×3 (02:46→17:44)
[2022-02-02] MEDS: ALBUTEROL SO4 2.5/IPRATROPIUM 0.5 INH SOL 3 ML VIAL.NEB. NEB SCH ×6 (03:50→20:30)
[2022-02-02] MEDS: methylPREDNISolone NA SUCC 40 MG/1 ML VIAL IVPUSH SCH ×3 (06:15→21:00)
[2022-02-02] MEDS: INSULIN SLIDING SCALE (NOVOLOG) 1 VIAL SQ SCH ×3 (06:20→17:10)
[2022-02-02] MEDS ORDERED: LABETALOL HCL 5 MG/1 ML (100MG/20 ML VIAL) IVPUSH ONE (06:29)
[2022-02-02 06:55] LABS: ARTERIAL BLD GAS O2 SATURATION 96.7 % (95-98); ARTERIAL BLOOD GAS BASE EXCESS 10.9 mmol/L (-2-2); ARTERIAL BLOOD GAS PO2 72.3 mmHg (80-100)
[2022-02-02 06:56] LABS: ALLENS TEST POSITIVE; VENT MODE A/C; VENT RATE 20
[2022-02-02 06:58] LABS: ARTERIAL BLOOD GAS pH 7.605 (7.350-7.450)
[2022-02-02 07:40] LABS: HEMATOCRIT 32.8 % (32.4-45.2); HEMOGLOBIN 10.3 GM/dL (10.7-15.3); MCH 26.7 pg (25.7-33.7); MCHC 31.4 g/dl (32.0-36.0); MEAN CELL VOLUME 84.8 fl (80-96); MEAN PLT VOLUME 8.1 fl (7.5-11.1); PLATELET COUNT 231 10^3/uL (134-434); RBC 3.87 M/mm3 (3.60-5.2); RDW 19.8 % (11.6-15.6); WHITE BLOOD COUNT 8.7 K/mm3 (4.0-10.0)
[2022-02-02 07:49] LABS: ALBUMIN 2.6 g/dl (3.4-5.0)
[2022-02-02 07:50] LABS: BLOOD UREA NITROGEN 57.4 mg/dL (7-18); MAGNESIUM 2.1 mg/dL (1.8-2.4)
[2022-02-02 07:53] LABS: CREATININE 1.6 mg/dL (0.55-1.3); PHOSPHOROUS 4.7 mg/dL (2.5-4.9)
[2022-02-02 07:54] LABS: BILIRUBIN,TOTAL 0.6 mg/dL (0.2-1)
[2022-02-02] MEDS: FENTANYL NS IVPB 500 MCG/100 ML BAG IVPB SCH (09:04)
[2022-02-02] MEDS: FLUTICASONE/UMECLIDIN/VILANTER(100-62.5-25 TRELEGY ELLIPTA) INAHLER IH SCH (09:08)
[2022-02-02] MEDS: amLODIPine BESYLATE 5 MG TABLET (FP) PO SCH (09:08)
[2022-02-02] MEDS: CARVEDILOL 25 MG TABLET (FP) PO SCH ×2 (09:08→21:00)
[2022-02-02] MEDS: ASPIRIN 325 MG ENTERIC COATED TABLET (FP) PO SCH (09:08)
[2022-02-02] MEDS: ENOXAPARIN NA (PORCINE) 30 MG/0.3 ML DISP.SYRIN SQ SCH (09:09)
[2022-02-02 10:06] LABS: ARTERIAL BLD GAS O2 SATURATION 96.3 % (95-98); ARTERIAL BLOOD GAS BASE EXCESS 5.5 mmol/L (-2-2); ARTERIAL BLOOD GAS PO2 82.8 mmHg (80-100)
[2022-02-02 10:07] LABS: ALLENS TEST POSITIVE
[2022-02-02 10:08] LABS: VENT MODE A/C; VENT RATE 14
[2022-02-02] MEDS: MUPIROCIN 2% TOPICAL OINTMENT FOR DECOLONIZATION NS SCH ×2 (10:16→21:00)
[2022-02-02] MEDS: DEXMEDETOMIDINE PREMIX 400 MCG/100 ML BAG IVPB SCH (20:56)
[2022-02-02] MEDS: CHLORHEXIDINE GLUCONATE 4% CLEANSER FOR DECOLONIZATION TP SCH (21:00)
[2022-02-02] MEDS: QUEtiapine FUMARATE 25 MG TABLET PO SCH (21:00)
[2022-02-03] MEDS: PIPERACILLIN/TAZOB 3.375 GM 3.375 GM in DEXTROSE 5%-WATER - 50 ML IVPB SCH ×3 (01:50→18:15)
[2022-02-03] MEDS: ALBUTEROL SO4 2.5/IPRATROPIUM 0.5 INH SOL 3 ML VIAL.NEB. NEB SCH ×6 (04:14→20:29)
[2022-02-03] MEDS: methylPREDNISolone NA SUCC 40 MG/1 ML VIAL IVPUSH SCH ×3 (05:24→21:29)
[2022-02-03 05:30] LABS: ARTERIAL BLD GAS O2 SATURATION 93.6 % (95-98); ARTERIAL BLOOD GAS BASE EXCESS 3.8 mmol/L (-2-2); ARTERIAL BLOOD GAS pH 7.372 (7.350-7.450)
[2022-02-03 05:31] LABS: ALLENS TEST POSITIVE; VENT MODE A/C; VENT RATE 14
[2022-02-03] MEDS ORDERED: INSULIN (NOVOLOG) ASPART 100 UNITS/ML 10ML VIAL SQ ONE (06:04)
[2022-02-03] MEDS: INSULIN SLIDING SCALE (NOVOLOG) 1 VIAL SQ SCH ×3 (06:29→18:14)
[2022-02-03 07:24] LABS: HEMATOCRIT 27.7 % (32.4-45.2); HEMOGLOBIN 8.5 GM/dL (10.7-15.3); MCHC 30.5 g/dl (32.0-36.0); MEAN CELL VOLUME 85.3 fl (80-96); MEAN PLT VOLUME 8.6 fl (7.5-11.1); PLATELET COUNT 205 10^3/uL (134-434); RBC 3.25 M/mm3 (3.60-5.2); RDW 20.9 % (11.6-15.6); WHITE BLOOD COUNT 11.1 K/mm3 (4.0-10.0)
[2022-02-03 07:30] LABS: CHLORIDE 101 mmol/L (98-107); SODIUM 145 mmol/L (136-145)
[2022-02-03 07:34] LABS: ALBUMIN 2.2 g/dl (3.4-5.0); ANION GAP 13 MMOL/L (8-16); CALCIUM 7.3 mg/dL (8.5-10.1); CO2 32 mmol/L (21-32)
[2022-02-03 07:35] LABS: MAGNESIUM 2.2 mg/dL (1.8-2.4)
[2022-02-03 07:37] LABS: CREATININE 2.2 mg/dL (0.55-1.3); PHOSPHOROUS 8.2 mg/dL (2.5-4.9); SGPT/ALT 29 U/L (13-61)
[2022-02-03 07:38] LABS: SGOT/AST 17 U/L (15-37)
[2022-02-03 07:39] LABS: BILIRUBIN,TOTAL 0.5 mg/dL (0.2-1); TOT PROT 4.5 g/dl (6.4-8.2)
[2022-02-03 07:40] LABS: ALK PHOS 61 U/L (45-117)
[2022-02-03 07:44] LABS: GLUCOSE,RANDOM 442 mg/dL (74-106)
[2022-02-03] MEDS ORDERED: SODIUM CHLORIDE 1,000 ML IV STA (08:26)
[2022-02-03] MEDS: PROPOFOL 1,000,000 MCG/100 ML VIAL IVPB SCH ×3 (09:28→23:21)
[2022-02-03] MEDS: ENOXAPARIN NA (PORCINE) 30 MG/0.3 ML DISP.SYRIN SQ SCH (09:29)
[2022-02-03] MEDS: ASPIRIN 325 MG ENTERIC COATED TABLET (FP) PO SCH (09:30)
[2022-02-03] MEDS: CARVEDILOL 25 MG TABLET (FP) PO SCH ×2 (09:30→21:29)
[2022-02-03] MEDS: amLODIPine BESYLATE 5 MG TABLET (FP) PO SCH (09:30)
[2022-02-03] MEDS: MUPIROCIN 2% TOPICAL OINTMENT FOR DECOLONIZATION NS SCH ×2 (09:30→21:30)
[2022-02-03] MEDS: INSULIN (LEVEMIR) 100 UNITS/ML UNITS SQ SCH ×2 (09:37→21:35)
[2022-02-03] MEDS: FENTANYL NS IVPB 500 MCG/100 ML BAG IVPB SCH ×2 (15:25→23:21)
[2022-02-03] MEDS: DEXMEDETOMIDINE PREMIX 400 MCG/100 ML BAG IVPB SCH (18:24)
[2022-02-03] MEDS ORDERED: ACETAMINOPHEN 325 MG TABLET (FP) PO PRN (21:15)
[2022-02-03] MEDS ORDERED: METOPROLOL TARTRATE 5 MG/5 ML VIAL IVPUSH PRN (21:15)
[2022-02-03] MEDS: QUEtiapine FUMARATE 25 MG TABLET PO SCH (21:29)
[2022-02-03] MEDS: CHLORHEXIDINE GLUCONATE 4% CLEANSER FOR DECOLONIZATION TP SCH (21:36)
[2022-02-04] MEDS: PIPERACILLIN/TAZOB 3.375 GM 3.375 GM in DEXTROSE 5%-WATER - 50 ML IVPB SCH ×3 (02:13→17:19)
[2022-02-04] MEDS: ALBUTEROL SO4 2.5/IPRATROPIUM 0.5 INH SOL 3 ML VIAL.NEB. NEB SCH ×6 (03:22→20:30)
[2022-02-04 05:58] LABS: ARTERIAL BLD GAS O2 SATURATION 92.4 % (95-98); ARTERIAL BLOOD GAS PO2 79.2 mmHg (80-100); ARTERIAL BLOOD GAS pH 7.212 (7.350-7.450)
[2022-02-04 06:00] LABS: ALLENS TEST POSITIVE
[2022-02-04 06:01] LABS: VENT MODE A/C; VENT RATE 14
[2022-02-04] MEDS: INSULIN SLIDING SCALE (NOVOLOG) 1 VIAL SQ SCH ×3 (06:30→16:33)
[2022-02-04] MEDS: FENTANYL NS IVPB 500 MCG/100 ML BAG IVPB SCH ×3 (06:33→17:59)
[2022-02-04] MEDS: PROPOFOL 1,000,000 MCG/100 ML VIAL IVPB SCH ×3 (06:34→17:54)
[2022-02-04 07:12] LABS: HEMATOCRIT 27.2 % (32.4-45.2); HEMOGLOBIN 8.2 GM/dL (10.7-15.3); MCH 26.3 pg (25.7-33.7); MCHC 30.2 g/dl (32.0-36.0); MEAN CELL VOLUME 87.2 fl (80-96); MEAN PLT VOLUME 8.5 fl (7.5-11.1); PLATELET COUNT 177 10^3/uL (134-434); RBC 3.11 M/mm3 (3.60-5.2); RDW 20.2 % (11.6-15.6); WHITE BLOOD COUNT 13.4 K/mm3 (4.0-10.0)
[2022-02-04 07:32] LABS: CHLORIDE 101 mmol/L (98-107); SODIUM 146 mmol/L (136-145)
[2022-02-04 07:35] LABS: ANION GAP 12 MMOL/L (8-16); BLOOD UREA NITROGEN 95.9 mg/dL (7-18); CO2 33 mmol/L (21-32); GLUCOSE,RANDOM 292 mg/dL (74-106); MAGNESIUM 2.4 mg/dL (1.8-2.4)
[2022-02-04 07:38] LABS: CREATININE 2.5 mg/dL (0.55-1.3)
[2022-02-04 08:15] LABS: CALCIUM 6.8 mg/dL (8.5-10.1)
[2022-02-04 08:16] LABS: PHOSPHOROUS 8.7 mg/dL (2.5-4.9)
[2022-02-04] MEDS: amLODIPine BESYLATE 5 MG TABLET (FP) PO SCH (09:11)
[2022-02-04] MEDS: ASPIRIN 325 MG ENTERIC COATED TABLET (FP) PO SCH (09:11)
[2022-02-04] MEDS: ENOXAPARIN NA (PORCINE) 30 MG/0.3 ML DISP.SYRIN SQ SCH (09:12)
[2022-02-04] MEDS: MUPIROCIN 2% TOPICAL OINTMENT FOR DECOLONIZATION NS SCH ×2 (09:12→21:28)
[2022-02-04] MEDS: methylPREDNISolone NA SUCC 40 MG/1 ML VIAL IVPUSH SCH ×2 (09:12→21:31)
[2022-02-04] MEDS: CARVEDILOL 25 MG TABLET (FP) PO SCH ×2 (09:12→21:28)
[2022-02-04] MEDS: INSULIN (LEVEMIR) 100 UNITS/ML UNITS SQ SCH ×2 (11:09→21:29)
[2022-02-04 11:29] LABS: ANISOCYTOSIS 0; MACROCYTOSIS 0
[2022-02-04 11:58] LABS: ARTERIAL BLD GAS O2 SATURATION 90.8 % (95-98); ARTERIAL BLOOD GAS BASE EXCESS 7.1 mmol/L (-2-2); ARTERIAL BLOOD GAS PO2 64.4 mmHg (80-100); ARTERIAL BLOOD GAS pH 7.345 (7.350-7.450)
[2022-02-04 11:59] LABS: ALLENS TEST POSITIVE
[2022-02-04 12:00] LABS: VENT MODE AC; VENT RATE 16
[2022-02-04] MEDS ORDERED: CALCIUM CARBONATE SUSPENSION - 1250 MG/5 ML ML PO SCH (13:30)
[2022-02-04] MEDS ORDERED: CALCIUM CARBONATE SUSPENSION - 1250 MG/5 ML ML PO ONE (16:15)
[2022-02-04] MEDS: DEXMEDETOMIDINE PREMIX 400 MCG/100 ML BAG IVPB SCH (16:34)
[2022-02-04] MEDS: CHLORHEXIDINE GLUCONATE 4% CLEANSER FOR DECOLONIZATION TP SCH (21:28)
[2022-02-04] MEDS: QUEtiapine FUMARATE 25 MG TABLET PO SCH (21:30)
[2022-02-05] MEDS: ALBUTEROL SO4 2.5/IPRATROPIUM 0.5 INH SOL 3 ML VIAL.NEB. NEB SCH ×6 (00:55→20:05)
[2022-02-05] MEDS: PROPOFOL 1,000,000 MCG/100 ML VIAL IVPB SCH ×5 (01:08→17:20)
[2022-02-05] MEDS: PIPERACILLIN/TAZOB 3.375 GM 3.375 GM in DEXTROSE 5%-WATER - 50 ML IVPB SCH ×3 (04:27→17:19)
[2022-02-05] MEDS: INSULIN SLIDING SCALE (NOVOLOG) 1 VIAL SQ SCH ×3 (06:47→16:00)
[2022-02-05] MEDS: FENTANYL NS IVPB 500 MCG/100 ML BAG IVPB SCH ×4 (06:49→17:20)
[2022-02-05 08:12] LABS: HEMATOCRIT 26.5 % (32.4-45.2); HEMOGLOBIN 7.9 GM/dL (10.7-15.3); MCH 25.8 pg (25.7-33.7); MEAN CELL VOLUME 86.1 fl (80-96); MEAN PLT VOLUME 8.6 fl (7.5-11.1); PLATELET COUNT 147 10^3/uL (134-434); RBC 3.07 M/mm3 (3.60-5.2); RDW 21.3 % (11.6-15.6)
[2022-02-05 08:24] LABS: CHLORIDE 104 mmol/L (98-107); SODIUM 147 mmol/L (136-145)
[2022-02-05 08:30] LABS: ANION GAP 11 MMOL/L (8-16); BLOOD UREA NITROGEN 99.8 mg/dL (7-18); CO2 32 mmol/L (21-32); GLUCOSE,RANDOM 217 mg/dL (74-106)
[2022-02-05 08:33] LABS: CREATININE 2.1 mg/dL (0.55-1.3)
[2022-02-05 09:00] LABS: CALCIUM 6.7 mg/dL (8.5-10.1)
[2022-02-05 09:01] LABS: ANISOCYTOSIS 0; MACROCYTOSIS 0; TARGET CELLS 1+
[2022-02-05] MEDS: MUPIROCIN 2% TOPICAL OINTMENT FOR DECOLONIZATION NS SCH ×2 (10:23→21:43)
[2022-02-05] MEDS: CALCIUM CARBONATE SUSPENSION - 1250 MG/5 ML ML PO SCH (10:24)
[2022-02-05] MEDS: CARVEDILOL 25 MG TABLET (FP) PO SCH ×2 (10:25→21:43)
[2022-02-05] MEDS: ENOXAPARIN NA (PORCINE) 30 MG/0.3 ML DISP.SYRIN SQ SCH (10:26)
[2022-02-05] MEDS: amLODIPine BESYLATE 5 MG TABLET (FP) PO SCH (10:26)
[2022-02-05] MEDS ORDERED: ACETAMINOPHEN 650 MG/20.3 ML ORAL SOLUTION (CUPS) PO PRN (10:26)
[2022-02-05] MEDS: methylPREDNISolone NA SUCC 40 MG/1 ML VIAL IVPUSH SCH ×2 (10:26→21:43)
[2022-02-05] MEDS: INSULIN (LEVEMIR) 100 UNITS/ML UNITS SQ SCH ×2 (10:54→21:45)
[2022-02-05] MEDS: ASPIRIN 325 MG ENTERIC COATED TABLET (FP) PO SCH (10:55)
[2022-02-05] MEDS: ASPIRIN 325 MG TABLET PO SCH (11:41)
[2022-02-05] MEDS ORDERED: FUROSEMIDE 40 MG/4 ML INJECTABLE VIAL IVPUSH ONE (12:41)
[2022-02-05] MEDS ORDERED: CALCIUM GLUCONATE IN NACL 1 GM/50 ML BAG IVPB ONE (13:54)
[2022-02-05] MEDS ORDERED: CALCIUM GLUCONATE 10% - 1,000 MG/10 ML VIAL IVPB ONE (14:11)
[2022-02-05 15:18] LABS: ALBUMIN 2.2 g/dl (3.4-5.0)
[2022-02-05 15:20] LABS: BILIRUBIN,DIRECT 0.1 mg/dL (0.0-0.2)
[2022-02-05 15:21] LABS: SGOT/AST 10 U/L (15-37); SGPT/ALT 23 U/L (13-61)
[2022-02-05 15:22] LABS: BILIRUBIN,TOTAL 0.3 mg/dL (0.2-1); TOT PROT 4.4 g/dl (6.4-8.2)
[2022-02-05 15:23] LABS: ALK PHOS 88 U/L (45-117)
[2022-02-05] MEDS: VORICONAZOLE 200 MG PO SCH (17:40)
[2022-02-05] MEDS: MONTELUKAST NA 10 MG TABLET PO SCH (21:43)
[2022-02-05] MEDS: CHLORHEXIDINE GLUCONATE 4% CLEANSER FOR DECOLONIZATION TP SCH (21:44)
[2022-02-06] MEDS: PIPERACILLIN/TAZOB 3.375 GM 3.375 GM in DEXTROSE 5%-WATER - 50 ML IVPB SCH ×3 (01:07→17:16)
[2022-02-06] MEDS: FENTANYL NS IVPB 500 MCG/100 ML BAG IVPB SCH ×5 (01:17→23:00)
[2022-02-06] MEDS: PROPOFOL 1,000,000 MCG/100 ML VIAL IVPB SCH ×3 (01:17→17:16)
[2022-02-06] MEDS: ALBUTEROL SO4 2.5/IPRATROPIUM 0.5 INH SOL 3 ML VIAL.NEB. NEB SCH ×7 (04:00→23:49)
[2022-02-06] MEDS: INSULIN SLIDING SCALE (NOVOLOG) 1 VIAL SQ SCH ×3 (06:43→16:30)
[2022-02-06 09:08] LABS: HEMATOCRIT 28.1 % (32.4-45.2); HEMOGLOBIN 8.5 GM/dL (10.7-15.3); MCH 25.9 pg (25.7-33.7); MCHC 30.3 g/dl (32.0-36.0); MEAN CELL VOLUME 85.4 fl (80-96); MEAN PLT VOLUME 8.9 fl (7.5-11.1); PLATELET COUNT 133 10^3/uL (134-434); RBC 3.28 M/mm3 (3.60-5.2); RDW 21.7 % (11.6-15.6); WHITE BLOOD COUNT 9.3 K/mm3 (4.0-10.0)
[2022-02-06] MEDS: CARVEDILOL 25 MG TABLET (FP) PO SCH ×2 (09:35→21:30)
[2022-02-06] MEDS: amLODIPine BESYLATE 5 MG TABLET (FP) PO SCH (09:35)
[2022-02-06] MEDS: ASPIRIN 325 MG TABLET PO SCH (09:35)
[2022-02-06] MEDS: ENOXAPARIN NA (PORCINE) 30 MG/0.3 ML DISP.SYRIN SQ SCH (09:35)
[2022-02-06] MEDS: FAMOTIDINE 10 MG TABLET NGT SCH (09:35)
[2022-02-06] MEDS: VORICONAZOLE 200 MG PO SCH ×2 (09:35→17:38)
[2022-02-06] MEDS: MUPIROCIN 2% TOPICAL OINTMENT FOR DECOLONIZATION NS SCH (09:38)
[2022-02-06] MEDS: CALCIUM CARBONATE SUSPENSION - 1250 MG/5 ML ML PO SCH (09:38)
[2022-02-06 09:39] LABS: CALCIUM 7.2 mg/dL (8.5-10.1)
[2022-02-06 09:40] LABS: ALBUMIN 2.1 g/dl (3.4-5.0); BLOOD UREA NITROGEN 91.9 mg/dL (7-18)
[2022-02-06 09:43] LABS: CREATININE 1.8 mg/dL (0.55-1.3)
[2022-02-06 09:46] LABS: BILIRUBIN,TOTAL 0.3 mg/dL (0.2-1); TOT PROT 4.7 g/dl (6.4-8.2)
[2022-02-06] MEDS ORDERED: PANTOPRAZOLE 40 MG TABLET PO SCH (10:00)
[2022-02-06 10:01] LABS: ANISOCYTOSIS 0; MACROCYTOSIS 0; TARGET CELLS 1+
[2022-02-06] MEDS: TIOTROPIUM BROMIDE 2.5 MCG (SPIRIVA) RESPIMAT INHALER IH SCH (10:19)
[2022-02-06] MEDS: INSULIN (LEVEMIR) 100 UNITS/ML UNITS SQ SCH ×2 (10:19→21:30)
[2022-02-06] MEDS: methylPREDNISolone NA SUCC 40 MG/1 ML VIAL IVPUSH SCH ×2 (10:38→21:25)
[2022-02-06] MEDS ORDERED: MAGNESIUM 1GM/D5W 100ML - 100 ML IVPB IVPB ONE (11:45)
[2022-02-06] MEDS ORDERED: FUROSEMIDE 40 MG/4 ML INJECTABLE VIAL IVPUSH ONE (11:45)
[2022-02-06] MEDS: COLLAGENASE CLOSTRIDIUM HIST. 30 GRAMS TUBE TP SCH (13:00)
[2022-02-06 13:17] LABS: MAGNESIUM 2.6 mg/dL (1.8-2.4)
[2022-02-06] MEDS: MONTELUKAST NA 10 MG TABLET PO SCH (21:25)
[2022-02-06] MEDS: CHLORHEXIDINE GLUCONATE 4% CLEANSER FOR DECOLONIZATION TP SCH (21:25)
[2022-02-07] MEDS: PIPERACILLIN/TAZOB 3.375 GM 3.375 GM in DEXTROSE 5%-WATER - 50 ML IVPB SCH ×3 (01:11→17:18)
[2022-02-07] MEDS: PROPOFOL 1,000,000 MCG/100 ML VIAL IVPB SCH ×4 (02:00→15:54)
[2022-02-07] MEDS: ALBUTEROL SO4 2.5/IPRATROPIUM 0.5 INH SOL 3 ML VIAL.NEB. NEB SCH ×6 (04:17→23:54)
[2022-02-07] MEDS: INSULIN SLIDING SCALE (NOVOLOG) 1 VIAL SQ SCH ×3 (06:14→16:10)
[2022-02-07] MEDS: FENTANYL NS IVPB 500 MCG/100 ML BAG IVPB SCH ×3 (06:14→20:07)
[2022-02-07 08:25] LABS: HEMATOCRIT 27.2 % (32.4-45.2); HEMOGLOBIN 8.4 GM/dL (10.7-15.3); MCHC 30.8 g/dl (32.0-36.0); MEAN CELL VOLUME 84.5 fl (80-96); MEAN PLT VOLUME 9.3 fl (7.5-11.1); PLATELET COUNT 143 10^3/uL (134-434); RBC 3.22 M/mm3 (3.60-5.2); RDW 21.1 % (11.6-15.6); WHITE BLOOD COUNT 7.3 K/mm3 (4.0-10.0)
[2022-02-07 08:44] LABS: BLOOD UREA NITROGEN 98.5 mg/dL (7-18); CALCIUM 7.6 mg/dL (8.5-10.1)
[2022-02-07 08:46] LABS: ALBUMIN 2.1 g/dl (3.4-5.0)
[2022-02-07 08:48] LABS: CREATININE 1.7 mg/dL (0.55-1.3)
[2022-02-07 08:50] LABS: BILIRUBIN,TOTAL 0.3 mg/dL (0.2-1); TOT PROT 4.6 g/dl (6.4-8.2)
[2022-02-07] MEDS: amLODIPine BESYLATE 5 MG TABLET (FP) PO SCH (09:10)
[2022-02-07] MEDS: CARVEDILOL 25 MG TABLET (FP) PO SCH ×2 (09:10→22:13)
[2022-02-07] MEDS: ASPIRIN 325 MG TABLET PO SCH (09:10)
[2022-02-07] MEDS: FAMOTIDINE 10 MG TABLET NGT SCH (09:10)
[2022-02-07] MEDS: methylPREDNISolone NA SUCC 40 MG/1 ML VIAL IVPUSH SCH (09:11)
[2022-02-07] MEDS: TIOTROPIUM BROMIDE 2.5 MCG (SPIRIVA) RESPIMAT INHALER IH SCH (09:11)
[2022-02-07] MEDS: ENOXAPARIN NA (PORCINE) 30 MG/0.3 ML DISP.SYRIN SQ SCH (09:11)
[2022-02-07] MEDS: COLLAGENASE CLOSTRIDIUM HIST. 30 GRAMS TUBE TP SCH (09:11)
[2022-02-07] MEDS: CALCIUM CARBONATE SUSPENSION - 1250 MG/5 ML ML PO SCH (09:12)
[2022-02-07 09:30] LABS: ANISOCYTOSIS 0; MACROCYTOSIS 0
[2022-02-07] MEDS: INSULIN (LEVEMIR) 100 UNITS/ML UNITS SQ SCH ×2 (10:20→22:22)
[2022-02-07] MEDS: VORICONAZOLE 200 MG PO SCH ×2 (11:01→17:56)
[2022-02-07] MEDS: FUROSEMIDE 40 MG/4 ML INJECTABLE VIAL IVPUSH SCH (11:02)
[2022-02-07 13:06] LABS: MAGNESIUM 2.9 mg/dL (1.8-2.4)
[2022-02-07 13:09] LABS: PHOSPHOROUS 7.3 mg/dL (2.5-4.9)
[2022-02-07] MEDS ORDERED: POTASSIUM CHLORIDE ORAL LIQUID 20 MEQ/15 ML PO ONE (13:35)
[2022-02-07 18:35] LABS: BASO % 0.3 % (0-2.0); HEMATOCRIT 29.2 % (32.4-45.2); HEMOGLOBIN 8.9 GM/dL (10.7-15.3); LYMPH % 1.5 % (8-40); MCH 26.3 pg (25.7-33.7); MCHC 30.5 g/dl (32.0-36.0); MEAN CELL VOLUME 86.1 fl (80-96); MEAN PLT VOLUME 9.1 fl (7.5-11.1); MONO % 2.3 % (3.8-10.2); NEUT % 95.9 % (42.8-82.8); PLATELET COUNT 134 10^3/uL (134-434); RBC 3.38 M/mm3 (3.60-5.2); RDW 21.7 % (11.6-15.6); WHITE BLOOD COUNT 9.6 K/mm3 (4.0-10.0)
[2022-02-07 18:44] LABS: INR 0.91 (0.83-1.09); PROTHROMBIN TIME (PATIENT) 10.5 SEC (9.7-13.0)
[2022-02-07 18:46] LABS: ACTIVATED PTT 25.9 SECONDS (25.2-36.5)
[2022-02-07 19:20] LABS: ANISOCYTOSIS 2+; MACROCYTOSIS 0; OVALOCYTE 1+; TARGET CELLS 1+; TEAR DROP CELLS 1+
[2022-02-07] MEDS: CHLORHEXIDINE GLUCONATE 4% CLEANSER FOR DECOLONIZATION TP SCH (22:13)
[2022-02-07] MEDS: MONTELUKAST NA 10 MG TABLET PO SCH (22:13)
[2022-02-08] MEDS: PROPOFOL 1,000,000 MCG/100 ML VIAL IVPB SCH ×4 (00:27→22:19)
[2022-02-08 01:03] LABS: ARTERIAL BLD GAS O2 SATURATION 88.2 % (95-98); ARTERIAL BLOOD GAS BASE EXCESS 4.6 mmol/L (-2-2)
[2022-02-08 01:18] LABS: ALLENS TEST POSITIVE
[2022-02-08 01:19] LABS: VENT MODE A/C; VENT RATE 16
[2022-02-08] MEDS: PIPERACILLIN/TAZOB 3.375 GM 3.375 GM in DEXTROSE 5%-WATER - 50 ML IVPB SCH ×3 (01:38→17:29)
[2022-02-08] MEDS: FENTANYL NS IVPB 500 MCG/100 ML BAG IVPB SCH ×4 (01:39→20:45)
[2022-02-08] MEDS: ALBUTEROL SO4 2.5/IPRATROPIUM 0.5 INH SOL 3 ML VIAL.NEB. NEB SCH ×5 (03:05→20:20)
[2022-02-08] MEDS: INSULIN SLIDING SCALE (NOVOLOG) 1 VIAL SQ SCH ×3 (06:43→17:29)
[2022-02-08 07:22] LABS: HEMATOCRIT 27.9 % (32.4-45.2); HEMOGLOBIN 8.4 GM/dL (10.7-15.3); MCH 26.2 pg (25.7-33.7); MCHC 30.3 g/dl (32.0-36.0); MEAN CELL VOLUME 86.6 fl (80-96); MEAN PLT VOLUME 8.9 fl (7.5-11.1); PLATELET COUNT 128 10^3/uL (134-434); RBC 3.22 M/mm3 (3.60-5.2); RDW 21.3 % (11.6-15.6); WHITE BLOOD COUNT 9.5 K/mm3 (4.0-10.0)
[2022-02-08 07:51] LABS: CHLORIDE 100 mmol/L (98-107); SODIUM 147 mmol/L (136-145)
[2022-02-08 07:58] LABS: ANION GAP 12 MMOL/L (8-16); CALCIUM 7.5 mg/dL (8.5-10.1); CO2 34 mmol/L (21-32); GLUCOSE,RANDOM 158 mg/dL (74-106)
[2022-02-08 07:59] LABS: SGPT/ALT 22 U/L (13-61)
[2022-02-08 08:00] LABS: BILIRUBIN,TOTAL 0.4 mg/dL (0.2-1); SGOT/AST 15 U/L (15-37); TOT PROT 4.5 g/dl (6.4-8.2)
[2022-02-08 08:02] LABS: ALK PHOS 53 U/L (45-117)
[2022-02-08 08:08] LABS: BLOOD UREA NITROGEN 104.4 mg/dL (7-18); CREATININE 1.8 mg/dL (0.55-1.3)
[2022-02-08 09:20] LABS: ANISOCYTOSIS 0; MACROCYTOSIS 0; TARGET CELLS 1+
[2022-02-08] MEDS: methylPREDNISolone NA SUCC 40 MG/1 ML VIAL IVPUSH SCH (09:30)
[2022-02-08] MEDS: ASPIRIN 325 MG TABLET PO SCH ×2 (09:31→10:16)
[2022-02-08] MEDS: CARVEDILOL 25 MG TABLET (FP) PO SCH ×2 (09:31→22:18)
[2022-02-08] MEDS: FUROSEMIDE 40 MG/4 ML INJECTABLE VIAL IVPUSH SCH (09:31)
[2022-02-08] MEDS: amLODIPine BESYLATE 5 MG TABLET (FP) PO SCH (09:31)
[2022-02-08] MEDS: FAMOTIDINE 10 MG TABLET NGT SCH (09:32)
[2022-02-08] MEDS: CALCIUM CARBONATE SUSPENSION - 1250 MG/5 ML ML PO SCH (09:32)
[2022-02-08] MEDS: VORICONAZOLE 200 MG PO SCH ×2 (09:32→19:51)
[2022-02-08] MEDS: COLLAGENASE CLOSTRIDIUM HIST. 30 GRAMS TUBE TP SCH (09:33)
[2022-02-08] MEDS: TIOTROPIUM BROMIDE 2.5 MCG (SPIRIVA) RESPIMAT INHALER IH SCH (09:33)
[2022-02-08] MEDS: INSULIN (LEVEMIR) 100 UNITS/ML UNITS SQ SCH ×2 (09:33→22:24)
[2022-02-08] MEDS: CHLORHEXIDINE GLUCONATE 4% CLEANSER FOR DECOLONIZATION TP SCH (22:18)
[2022-02-08] MEDS: MONTELUKAST NA 10 MG TABLET PO SCH (22:19)
[2022-02-09] MEDS: PIPERACILLIN/TAZOB 3.375 GM 3.375 GM in DEXTROSE 5%-WATER - 50 ML IVPB SCH ×2 (01:00→09:42)
[2022-02-09] MEDS: PROPOFOL 1,000,000 MCG/100 ML VIAL IVPB SCH ×2 (03:49→12:44)
[2022-02-09] MEDS: INSULIN SLIDING SCALE (NOVOLOG) 1 VIAL SQ SCH ×3 (06:00→17:26)
[2022-02-09] MEDS: FENTANYL NS IVPB 500 MCG/100 ML BAG IVPB SCH (06:00)
[2022-02-09 08:48] LABS: HEMATOCRIT 26.8 % (32.4-45.2); HEMOGLOBIN 8.3 GM/dL (10.7-15.3); PLATELET COUNT 87 10^3/uL (134-434); RBC 3.08 M/mm3 (3.60-5.2); RDW 21.7 % (11.6-15.6); WHITE BLOOD COUNT 9.5 K/mm3 (4.0-10.0)
[2022-02-09 09:03] LABS: CHLORIDE 99 mmol/L (98-107); SODIUM 146 mmol/L (136-145)
[2022-02-09 09:12] LABS: CALCIUM 7.3 mg/dL (8.5-10.1)
[2022-02-09 09:13] LABS: ALBUMIN 1.7 g/dl (3.4-5.0); ANION GAP 14 MMOL/L (8-16); CO2 33 mmol/L (21-32); GLUCOSE,RANDOM 253 mg/dL (74-106); MAGNESIUM 2.9 mg/dL (1.8-2.4)
[2022-02-09 09:17] LABS: BILIRUBIN,TOTAL 0.6 mg/dL (0.2-1); PHOSPHOROUS 7.3 mg/dL (2.5-4.9); SGOT/AST 14 U/L (15-37); SGPT/ALT 21 U/L (13-61); TOT PROT 4.2 g/dl (6.4-8.2)
[2022-02-09 09:23] LABS: ALK PHOS 84 U/L (45-117); BLOOD UREA NITROGEN 115.3 mg/dL (7-18)
[2022-02-09] MEDS: CARVEDILOL 25 MG TABLET (FP) PO SCH ×2 (09:43→21:47)
[2022-02-09] MEDS: FUROSEMIDE 40 MG/4 ML INJECTABLE VIAL IVPUSH SCH (09:43)
[2022-02-09] MEDS: ASPIRIN 325 MG TABLET PO SCH (09:43)
[2022-02-09] MEDS: methylPREDNISolone NA SUCC 40 MG/1 ML VIAL IVPUSH SCH (09:43)
[2022-02-09] MEDS: VORICONAZOLE 200 MG PO SCH ×2 (09:44→17:36)
[2022-02-09] MEDS: FAMOTIDINE 10 MG TABLET NGT SCH (09:44)
[2022-02-09] MEDS: CALCIUM CARBONATE SUSPENSION - 1250 MG/5 ML ML PO SCH (09:44)
[2022-02-09] MEDS: amLODIPine BESYLATE 5 MG TABLET (FP) PO SCH (09:45)
[2022-02-09] MEDS: INSULIN (LEVEMIR) 100 UNITS/ML UNITS SQ SCH ×2 (09:45→21:46)
[2022-02-09] MEDS: COLLAGENASE CLOSTRIDIUM HIST. 30 GRAMS TUBE TP SCH (09:45)
[2022-02-09 11:19] LABS: ANISOCYTOSIS 3+; MACROCYTOSIS 0; OVALOCYTE 1+; PLATELET ESTIMATE DECREASED
[2022-02-09] MEDS: SEVELAMER CARBONATE 0.8 GM POWDER PACKET PO SCH ×2 (12:45→17:26)
[2022-02-09] MEDS: CHLORHEXIDINE GLUCONATE 4% CLEANSER FOR DECOLONIZATION TP SCH (21:46)
[2022-02-09] MEDS: MONTELUKAST NA 10 MG TABLET PO SCH (21:46)
[2022-02-10] MEDS ORDERED: VASOPRESSIN 20 UNITS/ML VIAL IV ONE (05:09)
[2022-02-10] MEDS: INSULIN SLIDING SCALE (NOVOLOG) 1 VIAL SQ SCH (06:21)
[2022-02-10] MEDS ORDERED: VASOPRESSIN 40 UNITS/100 ML BAG IV SCH (07:00)
[2022-02-10 08:48] VITALS: TEMP 97.9
[2022-02-10 08:52] VITALS: BP 66/46; PULSE 75; RESP 25
== END 2022-02-10 10:00 | disposition expired | DRG 207 ==
LOC: JER 08:47 → JERBED 09:20 → JICU 12:07 → J4W 01-23 17:03 → J4S 01-25 07:59 → JICU 02-01 11:54
PROVIDERS: ADMIT Internal Medicine Pulmonary Disease; ATTEND Internal Medicine
PROC: 5A12012 Performance of Cardiac Output, Single, Manual (ICD-10-PCS; 2022-01-19)
PROC: 5A1955Z Respiratory Ventilation, Greater than 96 Consecutive Hours (ICD-10-PCS; principal; 2022-02-01)
PROC: 0BH17EZ Insertion of Endotracheal Airway into Trachea, Via Natural or Artificial Opening (ICD-10-PCS; 2022-02-01)
DX: J96.22 Acute and chronic respiratory failure with hypercapnia (principal); J15.8 Pneumonia due to other specified bacteria; J16.8 Pneumonia due to other specified infectious organisms; N17.9 Acute kidney failure, unspecified; J44.1 Chronic obstructive pulmonary disease with (acute) exacerbation; I13.0 Hypertensive heart and chronic kidney disease with heart failure and stage 1 through stage 4 chronic kidney disease, or unspecified chronic kidney disease; I50.22 Chronic systolic (congestive) heart failure; E87.0 Hyperosmolality and hypernatremia; J44.0 Chronic obstructive pulmonary disease with (acute) lower respiratory infection; J98.11 Atelectasis; J90 Pleural effusion, not elsewhere classified; B44.9 Aspergillosis, unspecified; R57.9 Shock, unspecified; K92.2 Gastrointestinal hemorrhage, unspecified; I46.9 Cardiac arrest, cause unspecified; I45.10 Unspecified right bundle-branch block; E87.5 Hyperkalemia; I25.10 Atherosclerotic heart disease of native coronary artery without angina pectoris; D64.9 Anemia, unspecified; F03.90 Unspecified dementia, unspecified severity, without behavioral disturbance, psychotic disturbance, mood disturbance, and anxiety; N93.9 Abnormal uterine and vaginal bleeding, unspecified; E66.9 Obesity, unspecified; Z68.28 Body mass index [BMI] 28.0-28.9, adult; E11.22 Type 2 diabetes mellitus with diabetic chronic kidney disease; N18.9 Chronic kidney disease, unspecified; Z86.73 Personal history of transient ischemic attack (TIA), and cerebral infarction without residual deficits
CPT/HCPCS: 0241U-QW; 31500; 36415; 36600; 70450-TC; 71045-TC-FY; 71250-TC; 76775-TC; 80048; 80053; 80076; 81003; 82550; 82553; 82803; 82962; 83605; 83615; 83735; 83880; 84100; 84484; 85025; 85027; 85610; 85730; 86850; 86900; 86901; 87040; 87070; 87077; 87086; 87102; 87107; 87186; 87205; 87210; 87305; 87449; 87899; 93005; 93010; 93306-TC; 94002; 94640; 94660; 97116-GP; 97161-GP; 99291; 99292; C9803-CS; J3465; J3490; U0003; U0005